=== PATIENT | female | born 1950 | race Caucasian/White ===

== ENCOUNTER → 2018-08-27 22:22 | Outpatient (CLI) | payer MEDICARE, MEDICAID, SELFPAY | DX: G47.9 Sleep disorder, unspecified (principal); G47.00 Insomnia, unspecified | CPT/HCPCS: 95810 ==

== ENCOUNTER → 2018-12-09 14:26 | Outpatient (CLI) | payer MEDICARE, SELFPAY ==
[2016-05-20 15:44] VITALS: BMI 29.9
[2018-12-09 16:47] LABS: Absolute Lymphocyte Count 1.78 X10^3/ul (0.83-4.51); Absolute Neutrophil Count 3.7 X10^3/uL (2.0-7.7); Basophil# 0.02 X10^3/uL; Basophil% 0.3 % (0-1); Eosinophil# 0.07 X10^3/uL; Eosinophils% 1.2 % (0-5); Hematocrit 41.9 % (37-47); Hemoglobin 13.9 g/dl (12.0-15.0); Lymphocyte # 1.78 X10^3/ul (4.0); Lymphocyte % 29.9 % (19-41); Mean Corp Hgb Conc 33.2 g/gl (32-36); Mean Corpuscular Hgb 28.7 pg (27.0-32.0); Mean Corpuscular Volume 86.6 fL (81-99); Mean Platelet Vol. 9.8 fl (6.2-12.0); Monocyte# 0.34 X10^3/uL; Monocyte% 5.7 % (0-10); Neutrophil # 3.73 X10^3/uL (2.7-7.7); Neutrophil % 62.7 % (47-70); Platelet Count 200 K/mm3 (150-450); RBC Distribution Width CV 12.5 % (11.6-14.6); Red Blood Count 4.84 M/mm3 (4.2-5.4)
[2018-12-09 16:57] LABS: POSITIVE COUNT NO; POSITIVE DIFFERENTIAL NO; POSITIVE MORPHOLOGY NO
[2018-12-09 17:22] LABS: ALB/GLOB Ratio 1.2 RATIO (0.9-2.4); AST(SGOT) 16 U/L (15-37); Alanine Aminotransfer ALT/SGPT 26 U/L (13-56); Alkaline Phosphatase 96 U/L (45-117); Anion Gap 9 (5-15); BUN 21 mg/dL (7-18); Calcium,Total 8.7 mg/dL (8.5-10.1); Chloride 99 mmol/L (98-107); Cholesterol 141 mg/dL (200); Creatinine, Serum 1.05 mg/dL (0.55-1.02); EST Glomerular Filtration Rate 56 mL/min (>60); Est Glom Filt Rate - Afr Amer 67 mL/min (>60); Globulin 3.2 g/dL (2.2-4.2); Glucose 429 mg/dL (74-106); High Density Lipoprotein 46 mg/dL; Potassium 4.4 mmol/L (3.5-5.1); Protein, Total 7.2 g/dL (6.4-8.2); Sodium Level 132 mmol/L (136-145); Thyroid Stim Hormone (TSH) 1.04 uIU/mL (0.358-3.74); Triglycerides 95 mg/dL; Very Low Density Lipoprotein 19 mg/dL (5-40)
[2018-12-12 09:17] LABS: Hep C Antibodies <0.1 s/co ratio (0.0-0.9)
== END ==
PROVIDERS: Family Provider Family Medicine Geriatric Medicine; PCP Family Medicine Geriatric Medicine; Visit Provider Family Medicine Geriatric Medicine
DX: E11.65 Type 2 diabetes mellitus with hyperglycemia (principal); E55.9 Vitamin D deficiency, unspecified; Z13.89 Encounter for screening for other disorder
CPT/HCPCS: 36415; 80053; 80061; 82306; 84443; 85025; 86803

== ENCOUNTER → 2019-01-22 | Outpatient (CLI) | payer MEDICARE, SELFPAY ==
--- NOTE | 2019-01-22 14:23 | CT_ITS ---
STUDY: LOW DOSE CT LUNG CANCER SCREENING REASON FOR EXAM: Female, 68 years old. 17 pack-year smoking history. RADIATION DOSAGE (If Supplied By Facility): CTDIvol = ( 3.02 ) mGy, DLP = ( 112.49 ) mGycm TECHNIQUE: No contrast was administered. Low dose technique was utilized (average mAS-38 and kVp 120). 1.25 mm axial source images with a slice interval of 1.25-mm were reconstructed in lung windows. 2.5 mm axial source images with a slice interval of 2.5-mm were reconstructed in lung windows. 5.0 mm axial source images with a slice interval of 5.0-mm were reconstructed in soft tissue windows. Nodule measured using lung windows on PACS and/or independent workstation with automated measurement of minimum and maximum diameter. Nodule measurement reported as average diameter rounded to the nearest whole number. Growth is defined as an increase ins size of greater than 1.5 mm. COMPARISON: None. NODULES: Total lung nodules (excluding granulomas): 0 Emphysema: Endobronchial lesion: Aorta: Minimal atherosclerotic changes of the thoracic aorta without aneurysm. Coronary arteries: There are coronary artery calcifications. Heart: Normal in size Pulmonary artery: Normal in size Mediastinal nodes: None Other chest and abdominal findings: There is mild degenerative changes of the thoracic spine. CT/Low Dose CT Lung Screening IMPRESSION: Lung-RADS category 1 - Continue annual screening with LDCT in 12 months. IMPORTANT NOTES FOR USE: ACR Lung-RADS Version 1.0 Assessment Categories Release Date: January 25, 2014 Category: Coded 0-4 bases on nodule(s) with highest degree of suspicion. Negative screen is defined as categories 1 and 2; a positive screen is defined as categories 3 and 4. Category 3 and 4A nodules that are unchanged on interval CT should be coded as category 2, and individuals returned to screening in 12 months. Category 4X: Category 3 or 4 nodules with additional imaging findings that increase the suspicion of lung cancer, such as spiculation, GGN that doubles in size in 1 year, enlarged lymph notes, etc. Category Modifiers: S (significant finding unrelated to lung cancer) and C (prior history of treated lung cancer) may be added to the 0-4 Lung-RADS Electronically Signed: Red Giles DO at 18:08 EDT Tel [phone], Service support ,
== END | disposition home or self-care (01) ==
LOC: CT 14:20
PROVIDERS: Family Provider Family Medicine Geriatric Medicine; PCP Family Medicine Geriatric Medicine; Referring Provider Family Medicine Geriatric Medicine; Visit Provider Family Medicine Geriatric Medicine
DX: Z87.891 Personal history of nicotine dependence (principal)
CPT/HCPCS: G0297

== ENCOUNTER → 2019-03-11 | Outpatient (CLI) | payer MEDICARE, SELFPAY ==
[2019-03-11 16:51] LABS: Absolute Lymphocyte Count 2.63 X10^3/ul (0.83-4.51); Absolute Neutrophil Count 4.7 X10^3/uL (2.0-7.7); Basophil# 0.02 X10^3/uL; Basophil% 0.3 % (0-1); Eosinophils% 1.3 % (0-5); Hematocrit 42.9 % (37-47); Hemoglobin 14.3 g/dl (12.0-15.0); Lymphocyte # 2.63 X10^3/ul (4.0); Mean Corp Hgb Conc 33.3 g/gl (32-36); Mean Corpuscular Hgb 28.4 pg (27.0-32.0); Mean Corpuscular Volume 85.3 fL (81-99); Mean Platelet Vol. 10.1 fl (6.2-12.0); Monocyte# 0.51 X10^3/uL; Monocyte% 6.4 % (0-10); Neutrophil % 58.7 % (47-70); Platelet Count 210 K/mm3 (150-450); RBC Distribution Width CV 13.8 % (11.6-14.6); RBC Distribution Width SD 42.2 fl (35.1-43.9); Red Blood Count 5.03 M/mm3 (4.2-5.4)
[2019-03-11 16:56] LABS: POSITIVE COUNT NO; POSITIVE DIFFERENTIAL NO; POSITIVE MORPHOLOGY NO
[2019-03-11 17:04] LABS: Vitamin D,25 Hydroxy 43.6 ng/mL (29.95-100.01)
[2019-03-11 17:06] LABS: ALB/GLOB Ratio 1.3 RATIO (0.9-2.4); AST(SGOT) 17 U/L (15-37); Alanine Aminotransfer ALT/SGPT 29 U/L (13-56); Albumin, Serum 3.9 g/dL (3.2-5.0); Alkaline Phosphatase 78 U/L (45-117); Anion Gap 6 (5-15); BUN 22 mg/dL (7-18); BUN/Creat Ratio 23.1 RATIO (10-20); Calcium,Total 9.5 mg/dL (8.5-10.1); Chloride 100 mmol/L (98-107); Cholesterol 168 mg/dL (200); Creatinine, Serum 0.95 mg/dL (0.55-1.02); EST Glomerular Filtration Rate 62 mL/min (>60); Est Glom Filt Rate - Afr Amer 75 mL/min (>60); Globulin 2.9 g/dL (2.2-4.2); Glucose 287 mg/dL (74-106); High Density Lipoprotein 57 mg/dL; Potassium 4.3 mmol/L (3.5-5.1); Protein, Total 6.8 g/dL (6.4-8.2); Sodium Level 132 mmol/L (136-145); Thyroid Stim Hormone (TSH) 1.21 uIU/mL (0.358-3.74); Triglycerides 112 mg/dL; Very Low Density Lipoprotein 22 mg/dL (5-40)
== END | disposition home or self-care (01) ==
PROVIDERS: Family Provider Family Medicine Geriatric Medicine; PCP Family Medicine Geriatric Medicine; Visit Provider Family Medicine Geriatric Medicine
DX: E11.65 Type 2 diabetes mellitus with hyperglycemia (principal); E55.9 Vitamin D deficiency, unspecified; E78.5 Hyperlipidemia, unspecified; I10 Essential (primary) hypertension
CPT/HCPCS: 36415; 80053; 80061; 82306; 84443; 85025

== ENCOUNTER → 2019-06-10 14:39 | Outpatient (CLI) | payer MEDICARE, SELFPAY ==
[2016-05-20 15:44] VITALS: BMI 29.9
[2019-06-10 15:40] LABS: Absolute Lymphocyte Count 2.29 X10^3/uL (0.83-4.51); Absolute Neutrophil Count 4.6 X10^3/uL (2.0-7.7); Basophil# 0.03 X10^3/uL; Basophil% 0.4 % (0-1); Eosinophil# 0.08 X10^3/uL; Hematocrit 39.3 % (37-47); Hemoglobin 13.1 g/dL (12.0-15.0); Lymphocyte # 2.29 X10^3/ul (4.0); Lymphocyte % 29.9 % (19-41); Mean Corp Hgb Conc 33.3 g/dL (32-36); Mean Corpuscular Hgb 29.6 pg (27.0-32.0); Mean Corpuscular Volume 88.7 fL (81-99); Mean Platelet Vol. 9.2 fl (6.2-12.0); Monocyte# 0.61 X10^3/uL; NRBC Flagged by Analyzer 0 % (0-5); Neutrophil # 4.62 X10^3/uL (2.7-7.7); Neutrophil % 60.4 % (47-70); Platelet Count 233 K/mm3 (150-450); RBC Distribution Width SD 45.5 fl (35.1-43.9); Red Blood Count 4.43 M/mm3 (4.2-5.4); White Blood Count 7.7 K/mm3 (4.4-11.0)
[2019-06-10 16:08] LABS: Vitamin D,25 Hydroxy 62.5 ng/mL (29.95-100.01)
[2019-06-10 16:11] LABS: ALB/GLOB Ratio 1.2 RATIO (0.9-2.4); AST(SGOT) 18 U/L (15-37); Alanine Aminotransfer ALT/SGPT 27 U/L (13-56); Albumin, Serum 4.1 g/dL (3.2-5.0); Alkaline Phosphatase 64 U/L (45-117); Anion Gap 12 (5-15); BUN 19 mg/dL (7-18); BUN/Creat Ratio 15.8 RATIO (10-20); Calcium,Total 9.6 mg/dL (8.5-10.1); Chloride 104 mmol/L (98-107); Cholesterol 145 mg/dL (200); EST Glomerular Filtration Rate 48 mL/min (>60); Est Glom Filt Rate - Afr Amer 58 mL/min (>60); Globulin 3.3 g/dL (2.2-4.2); Glucose 108 mg/dL (74-106); High Density Lipoprotein 57 mg/dL; Protein, Total 7.4 g/dL (6.4-8.2); Sodium Level 140 mmol/L (136-145); Thyroid Stim Hormone (TSH) 1.99 uIU/mL (0.358-3.74); Triglycerides 127 mg/dL; Very Low Density Lipoprotein 25 mg/dL (5-40)
== END ==
PROVIDERS: Family Provider Family Medicine Geriatric Medicine; PCP Family Medicine Geriatric Medicine; Visit Provider Family Medicine Geriatric Medicine
DX: E11.65 Type 2 diabetes mellitus with hyperglycemia (principal); E55.9 Vitamin D deficiency, unspecified; E78.5 Hyperlipidemia, unspecified; I10 Essential (primary) hypertension
CPT/HCPCS: 36415; 80053; 80061; 82306; 84443; 85025

== ENCOUNTER → 2019-09-16 14:54 | Outpatient (CLI) | payer MEDICARE, SELFPAY ==
[2016-05-20 15:44] VITALS: BMI 29.9
[2019-09-16 15:38] LABS: Absolute Lymphocyte Count 2.31 X10^3/uL (0.83-4.51); Absolute Neutrophil Count 5.2 X10^3/uL (2.0-7.7); Basophil# 0.04 X10^3/uL; Basophil% 0.5 % (0-1); Eosinophil# 0.04 X10^3/uL; Eosinophils% 0.5 % (0-5); Hematocrit 41.2 % (37-47); Hemoglobin 13.4 g/dL (12.0-15.0); Lymphocyte # 2.31 X10^3/ul (4.0); Lymphocyte % 28.5 % (19-41); Mean Corp Hgb Conc 32.5 g/dL (32-36); Mean Corpuscular Hgb 29.9 pg (27.0-32.0); Mean Platelet Vol. 9.8 fl (6.2-12.0); Monocyte% 6.2 % (0-10); NRBC Flagged by Analyzer 0 % (0-5); Neutrophil # 5.18 X10^3/uL (2.7-7.7); Neutrophil % 63.9 % (47-70); Platelet Count 250 K/mm3 (150-450); RBC Distribution Width CV 12.7 % (11.6-14.6); RBC Distribution Width SD 43.1 fl (35.1-43.9); Red Blood Count 4.48 M/mm3 (4.2-5.4); White Blood Count 8.1 K/mm3 (4.4-11.0)
[2019-09-16 16:05] LABS: Vitamin D,25 Hydroxy 44.8 ng/mL (29.95-100.01)
[2019-09-16 16:10] LABS: ALB/GLOB Ratio 1.3 RATIO (0.9-2.4); AST(SGOT) 16 U/L (15-37); Alanine Aminotransfer ALT/SGPT 26 U/L (13-56); Albumin, Serum 4.3 g/dL (3.2-5.0); Alkaline Phosphatase 64 U/L (45-117); Anion Gap 10 (5-15); BUN 21 mg/dL (7-18); BUN/Creat Ratio 17.4 RATIO (10-20); Calcium,Total 9.2 mg/dL (8.5-10.1); Chloride 101 mmol/L (98-107); Cholesterol 151 mg/dL (200); Creatinine, Serum 1.21 mg/dL (0.55-1.02); EST Glomerular Filtration Rate 47 mL/min (>60); Est Glom Filt Rate - Afr Amer 57 mL/min (>60); Globulin 3.2 g/dL (2.2-4.2); Glucose 106 mg/dL (74-106); High Density Lipoprotein 68 mg/dL; Potassium 3.7 mmol/L (3.5-5.1); Protein, Total 7.5 g/dL (6.4-8.2); Sodium Level 136 mmol/L (136-145); Thyroid Stim Hormone (TSH) 1.15 uIU/mL (0.358-3.74); Triglycerides 140 mg/dL; Very Low Density Lipoprotein 28 mg/dL (5-40)
== END ==
PROVIDERS: Family Provider Family Medicine Geriatric Medicine; PCP Family Medicine Geriatric Medicine; Visit Provider Family Medicine Geriatric Medicine
DX: E11.65 Type 2 diabetes mellitus with hyperglycemia (principal); E55.9 Vitamin D deficiency, unspecified; E78.5 Hyperlipidemia, unspecified; I10 Essential (primary) hypertension
CPT/HCPCS: 36415; 80053; 80061; 82306; 84443; 85025

== ENCOUNTER → 2019-11-10 15:00 | Outpatient (CLI) | payer MEDICARE, SELFPAY ==
[2016-05-20 15:44] VITALS: BMI 29.9
[2019-11-10 16:13] LABS: Bacteria 0 SEEN /hpf (None Seen); Mucous, Urine 0 SEEN /hpf (<or=2+); Red Blood Cells-Urine 0 SEEN /hpf (0-5)
[2019-11-10 17:29] LABS: Color, Urine Yellow (Yellow); Glucose, Dipstick Normal (Normal); Ketone-Dipstick Negative (Negative); Leukocyte Esterase-Dipstick 500 /ul (Negative); Nitrite-Dipstick Negative (Negative); Occult Blood-Urine 10 /ul (Negative); Protein-Dipstick Negative (Negative); Urine Bilirubin Dipstick Negative (Negative); Urine Clarity Sl. Cloudy (Clear); Urine Urobilinogen Normal (Normal)
[2019-11-10 17:37] LABS: Albumin, Serum 4.4 g/dL (3.2-5.0); BUN 19 mg/dL (7-18); BUN/Creat Ratio 15.4 RATIO (10-20); Calcium,Total 9.8 mg/dL (8.5-10.1); Chloride 96 mmol/L (98-107); Creatinine, Serum 1.23 mg/dL (0.55-1.02); EST Glomerular Filtration Rate 46 mL/min (>60); Est Glom Filt Rate - Afr Amer 56 mL/min (>60); Glucose 101 mg/dL (74-106); Phosphorus 3.7 mg/dL (2.5-4.9); Potassium 4.1 mmol/L (3.5-5.1); Sodium Level 134 mmol/L (136-145)
[2019-11-10 18:34] LABS: Hyaline Cast 0-5 SEEN /lpf (0-5)
[2019-11-10 18:36] LABS: Squamous Epithelial Cells - UA 0-5 SEEN /hpf (5-10); Transitional Epithelial - Ur 0-5 SEEN /hpf (0-5)
[2019-11-10 18:37] LABS: White Blood Cells 10-25 SEEN /hpf (0-5)
[2019-11-10 18:38] LABS: Calcium Oxalate Crystals Ur RARE /hpf (<or=2+)
== END ==
PROVIDERS: PCP Family Medicine Geriatric Medicine; Visit Provider Internal Medicine Nephrology
DX: N18.3 Chronic kidney disease, stage 3 (moderate) (principal)
CPT/HCPCS: 36415; 80069; 81001

== ENCOUNTER → 2019-11-13 11:42 | Outpatient (CLI) | payer MEDICARE, SELFPAY ==
[2016-05-20 15:44] VITALS: BMI 29.9
--- NOTE | 2019-11-13 11:50 | US_ITS ---
STUDY: RENAL ULTRASOUND - COMPLETE REASON FOR EXAM: Female, 69 years old. CKD3 TECHNIQUE: Ultrasound evaluation of the kidneys was performed with real-time and static fontaine-scale imaging. COMPARISON: None. FINDINGS: RIGHT KIDNEY: Normal location of the right kidney, which is normal in size. The right kidney measures 10.3 cm x 6.9 cm x 5.1 cm. There is a normal cortex of the right kidney. The renal cortex measures 1.6 cm. There is a 4.2 cm x 3.5 cm x 3.1 cm possible hypoechoic mass in the lower pole of the right kidney. Correlation with a CT scan is recommended. There are no right renal calculi. There is no right hydronephrosis. DISTAL RIGHT URETER: There is non-visualization of the distal right ureter. There is no demonstrated right ureterovesical junction calculus. There is a visualized right ureteral jet. LEFT KIDNEY: Normal location of the left kidney, which is normal in size. The left kidney measures 9.9 cm x 4.27 x 5.6 cm. There is a normal cortex of the left kidney. The renal cortex measures 1.5 cm. There is a 1.4 cm x 0.9 cm x 0.7 cm cyst. There are no left renal calculi. There is no left hydronephrosis. DISTAL LEFT URETER: There is non-visualization of the distal left ureter. There is no demonstrated left ureterovesical junction calculus. There is a visualized left ureteral jet. BLADDER: The distended urinary bladder has a volume of 104 ml. There is a normal wall thickness of the distended urinary bladder. There is no demonstrated mass within the urinary bladder. There are no demonstrated bladder calculi. US/Kidney and Bladder IMPRESSION: Findings suggestive of a possible hypoechoic mass measuring 4.2 cm x 3.5 Des by 3.1 cm in the lower pole of the right kidney. Correlation with a CT scan is recommended. Small left renal cyst. Electronically Signed: Venkata Diamond, at 14:42 EST , Service support ,
== END ==
PROVIDERS: PCP Family Medicine Geriatric Medicine; Referring Provider Internal Medicine Nephrology; Visit Provider Internal Medicine Nephrology
DX: N18.3 Chronic kidney disease, stage 3 (moderate) (principal)
CPT/HCPCS: 76770

== ENCOUNTER → 2019-12-15 14:19 | Outpatient (CLI) | payer MEDICARE, SELFPAY ==
[2016-05-20 15:44] VITALS: BMI 29.9
[2019-12-15 15:15] LABS: Absolute Lymphocyte Count 2.48 X10^3/uL (0.83-4.51); Absolute Neutrophil Count 4.1 X10^3/uL (2.0-7.7); Basophil# 0.04 X10^3/uL; Basophil% 0.6 % (0-1); Eosinophil# 0.06 X10^3/uL; Eosinophils% 0.8 % (0-5); Hematocrit 40.5 % (37-47); Hemoglobin 12.8 g/dL (12.0-15.0); Lymphocyte # 2.48 X10^3/ul (4.0); Lymphocyte % 34.2 % (19-41); Mean Corp Hgb Conc 31.6 g/dL (32-36); Mean Corpuscular Hgb 28.8 pg (27.0-32.0); Mean Corpuscular Volume 91.2 fL (81-99); Mean Platelet Vol. 9.9 fl (6.2-12.0); Monocyte# 0.58 X10^3/uL; NRBC Flagged by Analyzer 0 % (0-5); Neutrophil # 4.07 X10^3/uL (2.7-7.7); Neutrophil % 56.1 % (47-70); Platelet Count 249 K/mm3 (150-450); RBC Distribution Width CV 13.2 % (11.6-14.6); RBC Distribution Width SD 44.9 fl (35.1-43.9); Red Blood Count 4.44 M/mm3 (4.2-5.4); White Blood Count 7.3 K/mm3 (4.4-11.0)
[2019-12-15 15:53] LABS: Vitamin D,25 Hydroxy 64.2 ng/mL
[2019-12-15 15:59] LABS: ALB/GLOB Ratio 1.1 RATIO (0.9-2.4); AST(SGOT) 18 U/L (15-37); Alanine Aminotransfer ALT/SGPT 25 U/L (13-56); Alkaline Phosphatase 65 U/L (45-117); Anion Gap 9 (5-15); BUN 17 mg/dL (7-18); BUN/Creat Ratio 14.8 RATIO (10-20); Calcium,Total 9.3 mg/dL (8.5-10.1); Chloride 100 mmol/L (98-107); Cholesterol 158 mg/dL (200); Creatinine, Serum 1.15 mg/dL (0.55-1.02); EST Glomerular Filtration Rate 50 mL/min (>60); Est Glom Filt Rate - Afr Amer 60 mL/min (>60); Globulin 3.6 g/dL (2.2-4.2); Glucose 130 mg/dL (74-106); High Density Lipoprotein 70 mg/dL; Protein, Total 7.6 g/dL (6.4-8.2); Sodium Level 136 mmol/L (136-145); Thyroid Stim Hormone (TSH) 1.74 uIU/mL (0.358-3.74); Triglycerides 94 mg/dL; Very Low Density Lipoprotein 19 mg/dL (5-40)
== END ==
PROVIDERS: PCP Family Medicine Geriatric Medicine; Visit Provider Family Medicine Geriatric Medicine
DX: E11.65 Type 2 diabetes mellitus with hyperglycemia (principal); E55.9 Vitamin D deficiency, unspecified; E78.5 Hyperlipidemia, unspecified; I10 Essential (primary) hypertension
CPT/HCPCS: 36415; 80053; 80061; 82306; 84443; 85025

== ENCOUNTER → 2019-12-17 07:34 | Outpatient (CLI) | payer MEDICARE, SELFPAY ==
--- NOTE | 2019-12-17 07:41 | CT_ITS ---
STUDY: CT ABDOMEN AND PELVIS WITHOUT CONTRAST REASON FOR EXAM: Female, 69 years old. PT STATED ABNORMAL KIDNEY US FOLLOW UP RADIATION DOSAGE (If Supplied By Facility): CTDIvol = ( 7.96 ) mGy, DLP = ( 399.65 ) mGycm TECHNIQUE: Transaxial images were obtained from the dome of the diaphragm to the symphysis pubis without oral contrast, and without intravenous contrast. Sagittal and coronal images were reconstructed. Individualized dose optimization techniques were used for this CT. COMPARISON: Comparison is made with prior ultrasound of the kidneys dated November 13, 2019. FINDINGS: The visualized lung bases are unremarkable. The visualized portions of the heart are within normal limits. Normal liver. Normal gallbladder and extrahepatic biliary system. Normal spleen. Normal pancreas. Normal bilateral adrenal glands. There is a 4.2 cm x 4.2 cm x 4.9 cm solid mass in the anterior midportion of the right kidney. A neoplastic process should be ruled out. Normal left kidney. Normal visualized stomach. Normal small intestine. Normal colon. The appendix is visualized and appears normal. There is diffuse atherosclerotic calcification of the abdominal aorta and its major visceral branches, without a demonstrated aneurysm. Normal inferior vena cava. Normal retroperitoneum. Normal urinary bladder. Phleboliths are seen within the pelvis. There is a right-sided inguinal hernia containing adipose tissue. Normal osseous structures. CT/Abdomen/Pelvis without Cont IMPRESSION: 4.2 cm x 4.2 Shireen by 4.9 sinus cell mass in the anterior midportion of the right kidney a neoplastic process should be ruled. Electronically Signed: Venkata Diamond, at 8:33 EDT , Service support ,
== END ==
LOC: CT 07:35
PROVIDERS: PCP Family Medicine Geriatric Medicine; Referring Provider Family Medicine Geriatric Medicine; Visit Provider Family Medicine Geriatric Medicine
DX: N28.9 Disorder of kidney and ureter, unspecified (principal)
CPT/HCPCS: 74176

== ENCOUNTER 2020-01-01 07:30 | Inpatient (IN) | payer MEDICARE, SELFPAY ==
[2020-01-01] VITALS (12 sets, daily range): BP systolic 86–136; BP diastolic 44–83; PULSE 58–77; RESP 14–18; TEMP 35.8–36.6; O2SAT 92–100; BMI 26.9
--- NOTE | 2020-01-01 | KID_PTH ---
PATIENT: NISH BENITEZ LOC: PCU U#:[id number] AGE/SX: 69/F ROOM: [facility] RE01/02/[address]: Dr. Rao Herron MD : 1950 BED: 1 DIS: 01/03/2020 SPEC #: [id number] RECD: 01/04/20 12:35 STATUS: JULIUS MCMAHANOrquidea #: [id number] SONG: 01/01/20 00:[address]: aRo Herron DEPT: SURGICAL PATHOLOGY RECD BY: Rodriguez Hayes ENTERED: 01/04/20 12:35 SP TYPE: KIDNEY OTHR DR: Dr. 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 See cancer summary below. SJ:brain 01/05/20 KIDNEY CANCER SUMMARY Procedure - partial nephrectomy Specimen laterality - right Tumor site - not specified Tumor size - 4 x 4 x 3.5 cm Tumor focality - unifocal Histologic type - clear cell renal cell carcinoma Sarcomatoid features - not identified Rhabdoid features - not identified Histologic grade (Marie nuclear grade) - 1-2 Tumor necrosis - not identified Tumor extension - tumor limited to kidney Margins - uninvolved by invasive carcinoma Lymphvascular invasion - not identified Regional lymph nodes - no lymph nodes submitted or found. Pathologic findings in non-neoplastic kidney - interstitial chronic inflammation. Additional pathologic findings - none See comment. PATHOLOGIC STAGE: pT1a pNx Mx The above summary is in compliance with [employer] [place] [employer] (CAP) Cancer Protocols Checklist and [place] [employer] Committee on Cancer (AJCC), Staging Manual, 8th Ed. COMMENT The tumor appears to be circumscribed and limited to kidney. A focal area of gross rupture of the tumor is noted. Clinical correlation is necessary. Case has been reviewed in consultation with Dr. Tapia who concurs with the above diagnosis. IDC:AM MICROSCOPIC DESCRIPTION Slides are reviewed. GROSS DESCRIPTION Received in fixative is one container labeled with the patient's name and designated right renal mass. The specimen consists of a partial nephrectomy specimen weighing 29.4 gm and measuring 4 x 4 x 3.5 cm consisting of a nodular mass with a thin rim of normal renal parenchymal tissue at one edge and perirenal adipose tissue at other edge. The tumor appears to be partially ruptured and a plastic clip is noted next to it. The specimen is inked as follows: renal parenchymal tissue area - black, rest of the specimen - blue. Sections reveal almost the entire specimen is replaced by a yellowish-orange nodular mass with focal area of hemorrhage. A focal area of hinojosa-white myxoid area is also noted. Only a thin rim of normal renal parenchymal tissue is noted measuring <0.1 cm in greatest dimension. The tumor appears to be circumscribed and does not appear to invade into the existent perirenal adipose tissue. Legal Operations Manager sections are submitted in ten cassettes. Cassettes 6 & 7 contain the possible area of rupture of the tumor and cassette 10 contains the perirenal adipose tissue. / MIREILLE:brain 01/04/20 TC:0 CPT: 88287
[2020-01-01 06:26] LABS: Hematocrit 37.8 % (37-47); Hemoglobin 12.4 g/dL (12.0-15.0); Mean Corp Hgb Conc 32.8 g/dL (32-36); Mean Corpuscular Hgb 30.3 pg (27.0-32.0); Mean Corpuscular Volume 92.4 fL (81-99); Mean Platelet Vol. 9.3 fl (6.2-12.0); Platelet Count 231 K/mm3 (150-450); RBC Distribution Width CV 13.6 % (11.6-14.6); RBC Distribution Width SD 46.4 fl (35.1-43.9); Red Blood Count 4.09 M/mm3 (4.2-5.4); White Blood Count 7.6 K/mm3 (4.4-11.0)
[2020-01-01 06:41] LABS: Hemoglobin A1c 5.9 % (4.2-6.3)
[2020-01-01 06:44] LABS: ALB/GLOB Ratio 1.4 RATIO (0.9-2.4); AST(SGOT) 16 U/L (15-37); Alanine Aminotransfer ALT/SGPT 25 U/L (13-56); Alkaline Phosphatase 66 U/L (45-117); Anion Gap 7 (5-15); BUN 20 mg/dL (7-18); BUN/Creat Ratio 15.3 RATIO (10-20); Calcium,Total 9.5 mg/dL (8.5-10.1); Chloride 104 mmol/L (98-107); Creatinine, Serum 1.31 mg/dL (0.55-1.02); EST Glomerular Filtration Rate 43 mL/min (>60); Est Glom Filt Rate - Afr Amer 52 mL/min (>60); Estimated Creatinine Clearance 36.98 ml/min; Globulin 2.8 g/dL (2.2-4.2); Glucose 125 mg/dL (74-106); Potassium 3.7 mmol/L (3.5-5.1); Protein, Total 6.8 g/dL (6.4-8.2); Sodium Level 138 mmol/L (136-145)
[2020-01-01 07:00] LABS: Bedside Glucose 107 mg/dL (70-110)
[2020-01-01] MEDS: Lactated Ringers 1,000 ML 100 ML IV ×2 (07:09→07:18)
--- NOTE | 2020-01-01 07:22 | EKG12_ITS ---
Test Reason : PRE OP Blood Pressure : / mmHG Vent. Rate : 061 BPM Atrial Rate : 061 BPM P-R Int : 188 ms QRS Dur : 086 ms QT Int : 450 ms P-R-T Axes : 056 -15 039 degrees QTc Int : 453 ms Normal sinus rhythm Normal ECG When compared with ECG of 14-FEB-2004 08:23, Minimal criteria for Anterior infarct are no longer Present Confirmed by DAVID SIDHU, CHASE ([id number]), state editor LAY SU ([id number]) on 01/05/2020 2:27:59 PM Referred By: Rao Herron Confirmed By:UZAIR HERNANDEZ MD
--- NOTE | 2020-01-01 07:39 | PCM.DC.URO ---
Discharge Diet: Light diet - advance as tolerated Discharge Activity: May not drive while taking narcotic pain medications., May Shower Call your doctor if your incision/area has: Continuous Slow Oozing, Sudden Increased Bleeding, Increased Pain/ Swelling, Increased Redness, Foul Smelling Discharge, Swelling at the incision site Call your doctor if you observe: Fever of 101 or Higher, Inability to have a bowel movement, Uncontrolled pain Suture Line Care: Avoid Pulling/Pushing, Avoid Pinching/Bending Cleanse incision/area with: Soap & Water Instructions: Nephrectomy Allergies/Adverse Reactions: Allergies No Known Allergies Allergy (Verified 12/31/19 10:06) Medications to take at Discharge Atorvastatin Calcium [Lipitor] 40 mg PO QHS 12/31/19 Bupropion HCl [Wellbutrin Xl] 150 mg PO BID 12/31/19 Canagliflozin [Invokana] 100 mg PO DAILY 12/31/19 Cholecalciferol (VIT D3) [Vitamin D3] 1,000 unit PO DAILY 12/31/19 Citalopram [Celexa] 20 mg PO DAILY 12/31/19 Cyanocobalamin [Vitamin B12] 1,000 mcg PO DAILY@0800 12/31/19 Lisinopril 5 mg PO QHS 12/31/19 Magnesium 500 mg PO DAILY 12/31/19 Melatonin 10 mg PO QHS 12/31/19 Metformin HCl [Glucophage Xr] 1,000 mg PO BID 12/31/19 Metoprolol(XL)Succ [Toprol Xl (Beta Shimon)] 12.5 mg PO QHS 12/31/19 Pioglitazone [Actos] 30 mg PO DAILY 12/31/19 Ubidecarenone [Coq-10] 300 mg PO DAILY 12/31/19 Docusate Sodium [Colace] 100 mg PO BID #20 cap 01/01/20 Hydrocodone/Acetaminophen [[place] 5-325 Tablet] 1 each PO Q4H PRN PRN 5 Days #14 tablet 01/01/20 The following prescriptions were given: Docusate Sodium [Colace] 100 mg PO BID #20 cap Transmission Status: Pending to [facility] Hydrocodone/Acetaminophen [[place] 5-325 Tablet] 1 each PO Q4H PRN PRN 5 Days #14 tablet PRN Reason: Pain Score 1-10/10 Transmission Status: Sent to [facility] Primary Care Physician: Juan Diego King Chi, MD [Primary Care Provider] - Test Results: Test results from this visit will be discussed in further detail at your follow-up appointment, if applicable. Please Follow Up With: Rao Herron MD When: in 2 weeks, please call to make an appointment. Proposed Discharge Date: 01/02/20
[2020-01-01] MEDS: Cefazolin 2 GM in 0.9% Normal Saline 100 ML IV (07:43)
--- NOTE | 2020-01-01 11:25 | PCM.OPRPT ---
Report of Operation Date of Procedure: 01/01/20 Pre-Operative Diagnosis: Right renal mass suspected renal cell carcinoma Post-Operative Diagnosis: Same Surgery/Procedure Performed:: Laparoscopic robotic assisted right partial nephrectomy Description of Surgical Findings:: 69-year-old female on imaging was found to have a mass in the right kidney about 4 cm in size the mass was in the hilum of the kidney because of the risk that the mass could spread and cause metastatic disease recommended we proceed with intervention we talked about the options one would be a partial nephrectomy to remove just the tumor, we talked about the risk of positive margins and recurrence of tumor about 5% the other option would be to proceed with a radical nephrectomy. After discussing the options with the patient, I also felt the tumor was amendable to a partial nephrectomy recommended we proceed with a partial nephrectomy. We discussed the risk of the procedure including risk of bleeding, infection, risk of anesthesia, risk that tumor could come back, risk of recurrence of tumor. Patient was taken back to the operating room after smooth induction of general anesthesia she was placed supine position intubated and then placed in full flank position with the right side up we made sure that the all the pressure points were padded she was flexed a Jenkins catheter was placed. Then the abdomen was shaved prepped and draped in usual sterile fashion. I then infiltrated the skin with lidocaine made a small incision in the mid abdomen introduced a Veress needle into the abdomen and filled the abdomen with CO2 gas. We then placed our camera trocar right arm trocar left arm trocar and the fourth holding grants and contracts assistant trocar for the robot placed an air seal port we then docked the robot and started with dissection we first freed the liver off of the kidney there was some attachments within the liver and the kidney that were normal these were freed up allow the liver to retract off the kidney we then incised the white line of Toldt and reflected the fat of the colon off the kidney all the way down to the pelvis we retracted the mesentery fat off the kidney after this we then identified the ureter and traced the ureter up and then identified the gonadal vessel with left gonadal vessel down in the ureter up we then with the fourth arm underneath the kidney to retract it cephalad and also put a stretch on the hilum we then went to the hilum and identified the first small branching renal artery and then we identified the vein which is a branching vein and with behind a branching vein there was a artery that was also branching very early we were able to dissect down the renal artery down to the base before all the branches I then put a vessel loop around the small accessory renal artery and then put a vessel loop around the main renal artery. We then went up to the kidney used intraoperative ultrasound to identify the tumor that was emanating from the mid kidney it was hilar tumor is about 4 cm in size we dissected all the way around the tumor to get our service circumferential incision we used laparoscopic ultrasound today to decide our approach to the tumor to make sure that we had negative margins and then we incised the capsule of the kidney we then clamped the small accessory renal artery with the vessel vessel loop and then we did put a vessel loop around the main artery just to be able pull it up and we put a clamp on the main artery kidney turn nice and pale white and we had good control over the vasculature we then started dissecting circumferentially all the way around the tumor working away towards the hilum and then as we go down deep into the hilum got into the hilar fat and then as we got into the deep part of the kidney we identified the collecting system there is a small injury to the collecting system and then we started dissecting the kidney cephalad and then at that one point we could see big vein going straight into the tumor and behind the vein was a thrombus of tumor coming out beside it placed a clip on the vein 2 clips one clip up and could be down transected through the vein and then made sure that with the tumor thrombus was then pulled out and then we continued dissecting laterally to the right and then underneath the kidney all the way cephalad until we had we remove the entire tumor from the hilum of the kidney. We then irrigated and then closed and identified the collecting system this was closed separately we then rent stitches in the base to close and control any bleeding we then unclamped the artery the clamping time was about 25 minutes we then used bolsters and large suture and 0 Vicryl to reapproximate the 2 edges of the kidney back together under very tight pressure to compress the parenchyma this was with a running mattress suture using hemo-locks between we also use a V lock stitch to run the base of the resection site we then unclamped the artery unclamped the accessory artery and there was no significant bleeding post FloSeal placed Surgicel on the cath and then closed the gap again with another 0 Vicryl stitch until this point the resection site was completely closed and there was no active bleeding very minimal bleeding during the procedure itself 2. After this we then undocked the robot we extracted the tumor through the lower incision we closed the 11/09/2011 trocar sites with stitches pulled out the trochars inspected the kidney before we left and there was no active bleeding from the kidney no signs of a leak and then at this point were closing the skin incisions patient anesthetic is being reversed it was a complete resection of the tumor gross negative margins there was 1 small violation on the right side as we were coming through the tumor but this was quickly identified and identified and corrected with a new a new plane to the kidney. Grossly it appeared to be a complete resection. Patient anesthetic is being reversed I will go and talk to the family. Type of Anesthesia:: General Drains: jenkins - Admit VTE Documentation VTE Present on Admission: No VTE Mechan Device Prophylaxis: SCD's
[2020-01-01] MEDS: Bupivacaine Mpf 0.5% 30 ML VIAL (11:40)
[2020-01-01 12:24] LABS: Hematocrit 35.2 % (37-47); Hemoglobin 11.1 g/dL (12.0-15.0); Mean Corp Hgb Conc 31.5 g/dL (32-36); Mean Corpuscular Hgb 30.1 pg (27.0-32.0); Mean Corpuscular Volume 95.4 fL (81-99); Mean Platelet Vol. 9.2 fl (6.2-12.0); Platelet Count 194 K/mm3 (150-450); RBC Distribution Width CV 13.7 % (11.6-14.6); RBC Distribution Width SD 47.8 fl (35.1-43.9); Red Blood Count 3.69 M/mm3 (4.2-5.4); White Blood Count 11.9 K/mm3 (4.4-11.0)
[2020-01-01 12:47] LABS: Anion Gap 10 (5-15); BUN 19 mg/dL (7-18); BUN/Creat Ratio 18.1 RATIO (10-20); Calcium,Total 8.8 mg/dL (8.5-10.1); Chloride 106 mmol/L (98-107); Creatinine, Serum 1.05 mg/dL (0.55-1.02); EST Glomerular Filtration Rate 55 mL/min (>60); Est Glom Filt Rate - Afr Amer 67 mL/min (>60); Estimated Creatinine Clearance 46.14 ml/min; Glucose 142 mg/dL (74-106); Potassium 4.1 mmol/L (3.5-5.1); Sodium Level 137 mmol/L (136-145)
[2020-01-01] MEDS: Ketorolac 15 MG/ML Vial IV ×2 (13:12→18:14)
[2020-01-01] MEDS: 0.45% Normal Saline 1,000 ML 125 ML IV ×2 (13:12→21:24)
[2020-01-01] MEDS: Docusate Sodium 100 MG Capsule PO (22:09)
[2020-01-01] MEDS: MELATONIN 10 MG TABLET PO (22:10)
[2020-01-01] MEDS: Atorvastatin Calcium 40 MG Tablet PO (22:10)
[2020-01-01] MEDS: buPROPion (XL) 150 MG TABLET.XL PO (22:12)
[2020-01-01 22:31] LABS: Bedside Glucose 96 mg/dL (70-110)
[2020-01-02] VITALS (12 sets, daily range): BP systolic 82–112; BP diastolic 34–65; PULSE 67–76; RESP 16–18; TEMP 36.3–37.1; O2SAT 90–98
[2020-01-02] MEDS: 0.9% Saline Lock 10 ML Syringe IV ×4 (00:12→12:57)
[2020-01-02] MEDS: Lactated Ringers 500 ML 999 ML IV ×2 (00:17→03:58)
[2020-01-02] MEDS: Ketorolac 15 MG/ML Vial IV ×4 (00:18→17:43)
[2020-01-02 04:26] LABS: Hematocrit 25.7 % (37-47); Hemoglobin 8.2 g/dL (12.0-15.0); Mean Corp Hgb Conc 31.9 g/dL (32-36); Mean Corpuscular Hgb 29.4 pg (27.0-32.0); Mean Corpuscular Volume 92.1 fL (81-99); Mean Platelet Vol. 9.7 fl (6.2-12.0); Platelet Count 132 K/mm3 (150-450); RBC Distribution Width CV 13.7 % (11.6-14.6); RBC Distribution Width SD 46.6 fl (35.1-43.9); Red Blood Count 2.79 M/mm3 (4.2-5.4); White Blood Count 7.3 K/mm3 (4.4-11.0)
[2020-01-02 04:54] LABS: Anion Gap 7 (5-15); BUN 19 mg/dL (7-18); BUN/Creat Ratio 19.5 RATIO (10-20); Calcium,Total 8.1 mg/dL (8.5-10.1); Chloride 102 mmol/L (98-107); Creatinine, Serum 0.98 mg/dL (0.55-1.02); EST Glomerular Filtration Rate 60 mL/min (>60); Est Glom Filt Rate - Afr Amer 73 mL/min (>60); Estimated Creatinine Clearance 49.44 ml/min; Glucose 75 mg/dL (74-106); Potassium 3.5 mmol/L (3.5-5.1); Sodium Level 133 mmol/L (136-145)
[2020-01-02] MEDS: 0.45% Normal Saline 1,000 ML 125 ML IV (05:13)
--- NOTE | 2020-01-02 08:09 | PN_ITS ---
Subjective: s/p partial nephrectomy low bph overnight with sudden drop in H/h but now stable, bp better with transfuse 1 unit PRBC - Physical Exam Vitals/I&O's: Vital Signs Temp Pulse Resp BP Pulse Ox 98.5 F 73 16 87/41 L 94 01/02/20 04:33 01/02/20 04:33 01/02/20 04:33 01/02/20 04:33 01/02/20 04:33 Oxygen Flow Rate (L/min) 2 Oxygen Delivery Method Room Air Weight: 73.301 kg Body Mass Index (BMI) 26.9 Intake and Output for Last 24 Hours 12/31/19 01/01/20 01/02/20 23:59 23:59 23:59 Intake Total 2913.33 / 3513.33 2727.08 / 2727.08 Output Total 400 / 550 350 / 350 Balance 2513.33 / 2963.33 2377.08 / 2377.08 Laboratory Results 01/01/20 12:18: WBC 11.9 H, RBC 3.69 L, Hgb 11.1 L, Hct 35.2 L, MCV 95.4, MCH 30.1, MCHC 31.5 L, RDW Std Deviation 47.8 H, RDW Coeff of Marilyn 13.7, Plt Count 194, MPV 9.2 01/01/20 12:18: Sodium 137, Potassium 4.1, Chloride 106, Carbon Dioxide 21.0, Anion Gap 10, BUN 19 H, Creatinine 1.05 H, Estim Creat Clear Calc 46.14, Est GFR (MDRD) Af Amer 67, Est GFR (MDRD) Non-Af 55 L, BUN/Creatinine Ratio 18.1, Glucose 142 H, Calcium 8.8 01/01/20 22:06: POC Glucose 96 01/02/20 03:54: WBC 7.3, RBC 2.79 L, Hgb 8.2 L, Hct 25.7 L, MCV 92.1, MCH 29.4, MCHC 31.9 L, RDW Std Deviation 46.6 H, RDW Coeff of Marilyn 13.7, Plt Count 132 L, MPV 9.7 01/02/20 03:54: Sodium 133 L, Potassium 3.5, Chloride 102, Carbon Dioxide 24.0, Anion Gap 7, BUN 19 H, Creatinine 0.98, Estim Creat Clear Calc 49.44, Est GFR (MDRD) Af Amer 73, Est GFR (MDRD) Non-Af 60, BUN/Creatinine Ratio 19.5, Glucose 75, Calcium 8.1 L Current Medications Acetaminophen (Tylenol) 500 mg PO Q4H PRN PRN PRN Reason: Pain Score 1-10/10 /Headache Hydrocodone Bitart/Acetaminophen ([place] 5mg-325mg) 1 - 2 tablet PO Q6H PRN PRN PRN Reason: Pain Score 1-5/10 Atorvastatin Calcium (Lipitor) 40 mg PO QHS [facility] Last Admin: 01/01/20 22:10 Dose: 40 mg Documented by: Bupropion HCl (Wellbutrin Xl) 150 mg PO BID [facility] Last Admin: 01/01/20 22:12 Dose: 150 mg Documented by: Citalopram Hydrobromide (Celexa) 20 mg PO DAILY [facility] Docusate Sodium (Colace) 100 mg PO BID [facility] Last Admin: 01/01/20 22:09 Dose: 100 mg Documented by: Sodium Chloride () 1,000 mls @ 50 mls/hr IV .Q20H [facility] Last Admin: 01/02/20 05:13 Dose: 125 mls/hr Documented by: Sodium Chloride () 250 mls @ 15 mls/hr IV .[id number] PRN PRN Reason: Saline Flush Ketorolac Tromethamine (Toradol (Bkc)) 15 mg IV Q6 [facility] Stop: 01/06/20 12:01 Last Admin: 01/02/20 05:14 Dose: 15 mg Documented by: Lisinopril (Zestril) 5 mg PO QHS [facility] Last Admin: 01/01/20 22:32 Dose: Not Given Documented by: Magnesium Hydroxide (Milk Of Magnesia) 15 ml PO DAILY [facility] Magnesium Oxide (Mag-Ox 400) 400 mg PO DAILY [facility] Melatonin (Melatonin) 10 mg PO QHS [facility] Last Admin: 01/01/20 22:10 Dose: 10 mg Documented by: Metoprolol Succinate (Toprol Xl (Beta Shimon)) 12.5 mg PO QHS [facility] Last Admin: 01/01/20 22:32 Dose: Not Given Documented by: Ondansetron HCl (Zofran) 4 mg IV Q6H PRN PRN PRN Reason: Nausea Pantoprazole Sodium (Protonix) 20 mg PO DAILY [facility]ID Sodium Chloride () 10 - 40 ml IV UD PRN PRN Reason: SALINE FLUSH Last Admin: 01/02/20 05:14 Dose: 10 ml Documented by: Medical Necessity - Tobacco Use Smoking Status: Light Smoker (<10/day) Tobacco Use: Cigarettes Assessment/Plan slow IVF transfuse 1 unit PRBC d/c jenkins after blood out of bed to chair after blood hold discharge monitor BP if drop recheck H/H appears that bleeding has stopped.
[2020-01-02] MEDS: buPROPion (XL) 150 MG TABLET.XL PO ×2 (09:55→22:13)
[2020-01-02] MEDS: Magnesium Oxide 400 MG Tablet PO (09:55)
[2020-01-02] MEDS: Citalopram 20 MG Tablet PO (09:56)
[2020-01-02] MEDS: Pantoprazole Sodium 20 MG Tablet PO (09:56)
[2020-01-02] MEDS: Docusate Sodium 100 MG Capsule PO (09:56)
[2020-01-02] MEDS: 0.45% Normal Saline 1,000 ML 50 ML IV (17:43)
[2020-01-02] MEDS: Metoprolol(XL)Succ 25 MG Tablet 12.5 MG PO (22:12)
[2020-01-02] MEDS: MELATONIN 10 MG TABLET PO (22:12)
[2020-01-02] MEDS: Atorvastatin Calcium 40 MG Tablet PO (22:12)
[2020-01-02] MEDS: Lisinopril 5 MG Tablet PO (22:14)
[2020-01-03 02:13] VITALS: BP 130/64; PULSE 80; RESP 17; TEMP 36.8; O2SAT 97
[2020-01-03 06:43] LABS: Absolute Neutrophil Count 3.8 X10^3/uL (2.0-7.7); Basophil# 0.01 X10^3/uL; Basophil% 0.2 % (0-1); Eosinophil# 0.05 X10^3/uL; Eosinophils% 0.9 % (0-5); Hematocrit 26.9 % (37-47); Hemoglobin 8.9 g/dL (12.0-15.0); Lymphocyte % 21.2 % (19-41); Mean Corp Hgb Conc 33.1 g/dL (32-36); Mean Corpuscular Hgb 29.7 pg (27.0-32.0); Mean Corpuscular Volume 89.7 fL (81-99); Mean Platelet Vol. 9.6 fl (6.2-12.0); Monocyte# 0.63 X10^3/uL; Monocyte% 11.2 % (0-10); NRBC Flagged by Analyzer 0 % (0-5); Neutrophil # 3.75 X10^3/uL (2.7-7.7); Neutrophil % 66.3 % (47-70); Platelet Count 121 K/mm3 (150-450); RBC Distribution Width CV 13.8 % (11.6-14.6); RBC Distribution Width SD 45.1 fl (35.1-43.9); White Blood Count 5.7 K/mm3 (4.4-11.0)
[2020-01-03 07:09] LABS: Anion Gap 6 (5-15); BUN 14 mg/dL (7-18); BUN/Creat Ratio 14.5 RATIO (10-20); Calcium,Total 8.2 mg/dL (8.5-10.1); Chloride 110 mmol/L (98-107); Creatinine, Serum 0.96 mg/dL (0.55-1.02); EST Glomerular Filtration Rate 61 mL/min (>60); Est Glom Filt Rate - Afr Amer 74 mL/min (>60); Estimated Creatinine Clearance 50.47 ml/min; Glucose 104 mg/dL (74-106); Potassium 3.7 mmol/L (3.5-5.1); Sodium Level 142 mmol/L (136-145)
[2020-01-03 08:52] VITALS: BP 111/61; PULSE 77; RESP 16; TEMP 36.9; O2SAT 98
[2020-01-03 08:58] VITALS: BP 111/61; PULSE 77; RESP 16; TEMP 36.9; O2SAT 98
[2020-01-03] MEDS: Magnesium Oxide 400 MG Tablet PO (09:05)
[2020-01-03] MEDS: Pantoprazole Sodium 20 MG Tablet PO (09:06)
[2020-01-03] MEDS: Citalopram 20 MG Tablet PO (09:06)
[2020-01-03] MEDS: buPROPion (XL) 150 MG TABLET.XL PO (09:07)
--- NOTE | 2020-01-03 10:13 | PCM.DC.SUM ---
Discharge Date and Diagnosis Date of Admission: 01/01/20 Date of Discharge: 01/03/20 Hospital Course and Treatment Operations: - - right partial nephrectomy Summary of Care Provided: The patient is a 69 year old F s/p right robotic partial neprhectomy post op bleeding had to get 1 U PRBC, then BP stabilized good urine output, urine clear, nicole reg diet, ambulating. - Physical Exam Vitals/I&O's: Vital Signs Temp Pulse Resp BP Pulse Ox 98.4 F 77 16 111/61 98 01/03/20 08:58 01/03/20 08:58 01/03/20 08:58 01/03/20 08:58 01/03/20 08:58 Oxygen Flow Rate (L/min) 2 Oxygen Delivery Method Room Air Weight: 73.301 kg Body Mass Index (BMI) 26.9 Intake and Output for Last 24 Hours 01/01/20 01/02/20 01/03/20 23:59 23:59 23:59 Intake Total 2913.33 / 3513.33 6870.83 / 7170.83 700 / 700 Output Total 400 / 550 2100 / 2100 Balance 2513.33 / 2963.33 4770.83 / 5070.83 700 / 700 Laboratory Results 01/01/20 06:14: Blood Type A POSITIVE, Antibody Screen NEGATIVE, Crossmatch See Detail 01/03/20 06:05: WBC 5.7, RBC 3.00 L, Hgb 8.9 L, Hct 26.9 L, MCV 89.7, MCH 29.7, MCHC 33.1, RDW Std Deviation 45.1 H, RDW Coeff of Marilyn 13.8, Plt Count 121 L, MPV 9.6, Immature Gran % (Auto) 0.200, Neut % (Auto) 66.3, Lymph % (Auto) 21.2, Ashley % (Auto) 11.2 H, Eos % (Auto) 0.9, Baso % (Auto) 0.2, Absolute Neuts (auto) 3.8, Absolute Lymphs (auto) 1.20, Nucleated RBC % 0 01/03/20 06:05: Sodium 142, Potassium 3.7, Chloride 110 H, Carbon Dioxide 26.0, Anion Gap 6, BUN 14, Creatinine 0.96, Estim Creat Clear Calc 50.47, Est GFR (MDRD) Af Amer 74, Est GFR (MDRD) Non-Af 61, BUN/Creatinine Ratio 14.5, Glucose 104, Calcium 8.2 L Current Medications Acetaminophen (Tylenol) 500 mg PO Q4H PRN PRN PRN Reason: Pain Score 1-10/10 /Headache Hydrocodone Bitart/Acetaminophen (Coulter 5mg-325mg) 1 - 2 tablet PO Q6H PRN PRN PRN Reason: Pain Score 1-5/10 Atorvastatin Calcium (Lipitor) 40 mg PO QHS [facility] Last Admin: 01/02/20 22:12 Dose: 40 mg Documented by: Bupropion HCl (Wellbutrin Xl) 150 mg PO BID [facility] Last Admin: 01/03/20 09:07 Dose: 150 mg Documented by: Citalopram Hydrobromide (Celexa) 20 mg PO DAILY [facility] Last Admin: 01/03/20 09:06 Dose: 20 mg Documented by: Docusate Sodium (Colace) 100 mg PO BID [facility] Last Admin: 01/03/20 09:05 Dose: Not Given Documented by: Sodium Chloride () 250 mls @ 15 mls/hr IV .[id number] PRN PRN Reason: Saline Flush Ketorolac Tromethamine (Toradol (Bkc)) 15 mg IV Q6 [facility] Stop: 01/06/20 12:01 Last Admin: 01/03/20 07:01 Dose: Not Given Documented by: Lisinopril (Zestril) 5 mg PO QHS [facility] Last Admin: 01/02/20 22:14 Dose: 5 mg Documented by: Magnesium Hydroxide (Milk Of Magnesia) 15 ml PO DAILY [facility] Last Admin: 01/03/20 09:06 Dose: Not Given Documented by: Magnesium Oxide (Mag-Ox 400) 400 mg PO DAILY [facility] Last Admin: 01/03/20 09:05 Dose: 400 mg Documented by: Melatonin (Melatonin) 10 mg PO QHS [facility] Last Admin: 01/02/20 22:12 Dose: 10 mg Documented by: Metoprolol Succinate (Toprol Xl (Beta Shimon)) 12.5 mg PO QHS [facility] Last Admin: 01/02/20 22:12 Dose: 12.5 mg Documented by: Ondansetron HCl (Zofran) 4 mg IV Q6H PRN PRN PRN Reason: Nausea Pantoprazole Sodium (Protonix) 20 mg PO DAILY [facility] Last Admin: 01/03/20 09:06 Dose: 20 mg Documented by: Sodium Chloride () 10 - 40 ml IV UD PRN PRN Reason: SALINE FLUSH Last Admin: 01/02/20 12:57 Dose: 10 ml Documented by: Discharge Diet: Light diet - advance as tolerated Discharge Activity: May not drive while taking narcotic pain medications., May Shower Call your doctor if your incision/area has: Continuous Slow Oozing, Sudden Increased Bleeding, Increased Pain/ Swelling, Increased Redness, Foul Smelling Discharge, Swelling at the incision site Call your doctor if you observe: Fever of 101 or Higher, Inability to have a bowel movement, Uncontrolled pain Suture Line Care: Avoid Pulling/Pushing, Avoid Pinching/Bending Cleanse incision/area with: Soap & Water Home Medications: Medications to take at Discharge Atorvastatin Calcium [Lipitor] 40 mg PO QHS 12/31/19 Bupropion HCl [Wellbutrin Xl] 150 mg PO BID 12/31/19 Canagliflozin [Invokana] 100 mg PO DAILY 12/31/19 Cholecalciferol (VIT D3) [Vitamin D3] 1,000 unit PO DAILY 12/31/19 Citalopram [Celexa] 20 mg PO DAILY 12/31/19 Cyanocobalamin [Vitamin B12] 1,000 mcg PO DAILY@0800 12/31/19 Lisinopril 5 mg PO QHS 12/31/19 Magnesium 500 mg PO DAILY 12/31/19 Melatonin 10 mg PO QHS 12/31/19 Metformin HCl [Glucophage Xr] 1,000 mg PO BID 12/31/19 Metoprolol(XL)Succ [Toprol Xl (Beta Shimon)] 12.5 mg PO QHS 12/31/19 Pioglitazone [Actos] 30 mg PO DAILY 12/31/19 Ubidecarenone [Coq-10] 300 mg PO DAILY 12/31/19 Docusate Sodium [Colace] 100 mg PO BID #20 cap 01/01/20 Hydrocodone/Acetaminophen [Coulter 5-325 Tablet] 1 ea PO Q4H PRN PRN 5 Days #14 tab 01/01/20 Following Prescrptions Were Given to Patient: Docusate Sodium [Colace] 100 mg PO BID #20 cap Transmission Status: Received by [facility] Hydrocodone/Acetaminophen [Coulter 5-325 Tablet] 1 ea PO Q4H PRN PRN 5 Days #14 tab PRN Reason: Pain Score 1-10/10 Transmission Status: Received by [facility] Primary Care Physician: Juan Diego King Chi, MD [Primary Care Provider] - Please Follow Up With: Rao Herron MD When: in 2 weeks, please call to make an appointment. Patient Instructions: Nephrectomy Medical Necessity - Tobacco Use Smoking Status: Light Smoker (<10/day) Tobacco Use: Cigarettes Meaningful Use Info Meaningful Use Diagnoses (Choose all that apply): None applicable
== END 2020-01-03 12:14 | disposition home or self-care (01) | DRG 658 ==
LOC: SDC 09:56 → PCU 13:13
PROVIDERS: Admitting Provider Urology; PCP Family Medicine Geriatric Medicine; Referring Provider Urology; Visit Provider Urology
PROC: (CPT 50543; principal; 2020-01-01 07:10)
DX: C64.1 Malignant neoplasm of right kidney, except renal pelvis (principal); E11.22 Type 2 diabetes mellitus with diabetic chronic kidney disease; I12.9 Hypertensive chronic kidney disease with stage 1 through stage 4 chronic kidney disease, or unspecified chronic kidney disease; N18.9 Chronic kidney disease, unspecified; E78.00 Pure hypercholesterolemia, unspecified; F32.9 Major depressive disorder, single episode, unspecified; G43.909 Migraine, unspecified, not intractable, without status migrainosus; Z86.2 Personal history of diseases of the blood and blood-forming organs and certain disorders involving the immune mechanism; Z78.0 Asymptomatic menopausal state; Z79.84 Long term (current) use of oral hypoglycemic drugs; Z79.899 Other long term (current) drug therapy; F17.210 Nicotine dependence, cigarettes, uncomplicated
CPT/HCPCS: 36415; 80048; 80053; 82962; 83036; 85025; 85027; 86850; 86900; 86901; 86920; 86922; 88307; 93005; 99251; 99406; J7040; J7120; P9016; A4216; G0463

== ENCOUNTER → 2020-03-16 09:46 | Outpatient (CLI) | payer MEDICARE, SELFPAY ==
[2020-01-01 12:49] VITALS: BMI 26.9
[2020-03-16 12:39] LABS: Vitamin D,25 Hydroxy 43.2 ng/mL
[2020-03-16 12:43] LABS: Absolute Lymphocyte Count 2.33 X10^3/uL (0.83-4.51); Absolute Neutrophil Count 3.6 X10^3/uL (2.0-7.7); Basophil# 0.04 X10^3/uL; Basophil% 0.6 % (0-1); Eosinophil# 0.14 X10^3/uL; Eosinophils% 2.1 % (0-5); Hematocrit 40.8 % (37-47); Lymphocyte # 2.33 X10^3/ul (4.0); Mean Corp Hgb Conc 31.9 g/dL (32-36); Mean Corpuscular Hgb 30.4 pg (27.0-32.0); Mean Corpuscular Volume 95.6 fL (81-99); Mean Platelet Vol. 9.7 fl (6.2-12.0); Monocyte# 0.58 X10^3/uL; Monocyte% 8.7 % (0-10); NRBC Flagged by Analyzer 0 % (0-5); Neutrophil # 3.56 X10^3/uL (2.7-7.7); Neutrophil % 53.4 % (47-70); Platelet Count 262 K/mm3 (150-450); RBC Distribution Width CV 14.2 % (11.6-14.6); RBC Distribution Width SD 49.7 fl (35.1-43.9); Red Blood Count 4.27 M/mm3 (4.2-5.4); White Blood Count 6.7 K/mm3 (4.4-11.0)
[2020-03-16 12:52] LABS: ALB/GLOB Ratio 1.1 RATIO (0.9-2.4); AST(SGOT) 20 U/L (15-37); Alanine Aminotransfer ALT/SGPT 29 U/L (13-56); Albumin, Serum 3.8 g/dL (3.2-5.0); Alkaline Phosphatase 82 U/L (45-117); Anion Gap 8 (5-15); BUN 20 mg/dL (7-18); BUN/Creat Ratio 16.5 RATIO (10-20); Calcium,Total 9.2 mg/dL (8.5-10.1); Chloride 101 mmol/L (98-107); Cholesterol 185 mg/dL (200); Creatinine, Serum 1.21 mg/dL (0.55-1.02); EST Glomerular Filtration Rate 47 mL/min (>60); Est Glom Filt Rate - Afr Amer 57 mL/min (>60); Globulin 3.5 g/dL (2.2-4.2); Glucose 163 mg/dL (74-106); High Density Lipoprotein 84 mg/dL; Potassium 4.6 mmol/L (3.5-5.1); Protein, Total 7.3 g/dL (6.4-8.2); Sodium Level 137 mmol/L (136-145); Thyroid Stim Hormone (TSH) 2.27 uIU/mL (0.358-3.74); Triglycerides 89 mg/dL; Very Low Density Lipoprotein 18 mg/dL (5-40)
== END ==
LOC: LAB.FUTURE 09:46 → POLAB3 09:47
PROVIDERS: PCP Family Medicine Geriatric Medicine; Visit Provider Internal Medicine Nephrology
DX: E11.22 Type 2 diabetes mellitus with diabetic chronic kidney disease (principal); I12.9 Hypertensive chronic kidney disease with stage 1 through stage 4 chronic kidney disease, or unspecified chronic kidney disease; N18.3 Chronic kidney disease, stage 3 (moderate); E78.5 Hyperlipidemia, unspecified; E55.9 Vitamin D deficiency, unspecified
CPT/HCPCS: 36415; 80053; 80061; 82306; 84100; 84443; 85025

== ENCOUNTER → 2020-06-16 13:09 | Outpatient (CLI) | payer MEDICARE, SELFPAY ==
[2020-01-01 12:49] VITALS: BMI 26.9
[2020-06-16 17:38] LABS: Absolute Lymphocyte Count 1.91 X10^3/uL (0.83-4.51); Absolute Neutrophil Count 3.7 X10^3/uL (2.0-7.7); Basophil# 0.04 X10^3/uL; Basophil% 0.6 % (0-1); Eosinophil# 0.09 X10^3/uL; Eosinophils% 1.5 % (0-5); Hematocrit 42.3 % (37-47); Hemoglobin 13.1 g/dL (12.0-15.0); Lymphocyte # 1.91 X10^3/ul (4.0); Lymphocyte % 30.8 % (19-41); Mean Corpuscular Volume 93.8 fL (81-99); Mean Platelet Vol. 9.7 fl (6.2-12.0); Monocyte# 0.43 X10^3/uL; Monocyte% 6.9 % (0-10); NRBC Flagged by Analyzer 0 % (0-5); Neutrophil # 3.72 X10^3/uL (2.7-7.7); Platelet Count 230 K/mm3 (150-450); RBC Distribution Width CV 13.6 % (11.6-14.6); RBC Distribution Width SD 47.4 fl (35.1-43.9); Red Blood Count 4.51 M/mm3 (4.2-5.4); White Blood Count 6.2 K/mm3 (4.4-11.0)
[2020-06-16 17:50] LABS: Vitamin D,25 Hydroxy 35.4 ng/mL
[2020-06-16 17:56] LABS: ALB/GLOB Ratio 1.1 RATIO (0.9-2.4); AST(SGOT) 24 U/L (15-37); Alanine Aminotransfer ALT/SGPT 32 U/L (13-56); Albumin, Serum 3.9 g/dL (3.2-5.0); Alkaline Phosphatase 84 U/L (45-117); Anion Gap 9 (5-15); BUN 25 mg/dL (7-18); BUN/Creat Ratio 19.5 RATIO (10-20); Calcium,Total 9.2 mg/dL (8.5-10.1); Chloride 101 mmol/L (98-107); Cholesterol 197 mg/dL (200); Creatinine, Serum 1.28 mg/dL (0.55-1.02); EST Glomerular Filtration Rate 44 mL/min (>60); Est Glom Filt Rate - Afr Amer 53 mL/min (>60); Globulin 3.4 g/dL (2.2-4.2); Glucose 108 mg/dL (74-106); High Density Lipoprotein 86 mg/dL; Phosphorus 4.2 mg/dL (2.5-4.9); Potassium 4.5 mmol/L (3.5-5.1); Protein, Total 7.3 g/dL (6.4-8.2); Sodium Level 139 mmol/L (136-145); Thyroid Stim Hormone (TSH) 2.06 uIU/mL (0.358-3.74); Triglycerides 96 mg/dL; Very Low Density Lipoprotein 19 mg/dL (5-40)
== END ==
LOC: POLAB3 13:10
PROVIDERS: Internal Medicine Nephrology; PCP Family Medicine Geriatric Medicine; Visit Provider Family Medicine Geriatric Medicine
DX: E55.9 Vitamin D deficiency, unspecified (principal); E78.5 Hyperlipidemia, unspecified; I12.9 Hypertensive chronic kidney disease with stage 1 through stage 4 chronic kidney disease, or unspecified chronic kidney disease; N18.3 Chronic kidney disease, stage 3 (moderate)
CPT/HCPCS: 36415; 80053; 80061; 82306; 84100; 84443; 85025

== ENCOUNTER → 2020-12-01 11:37 | Outpatient (CLI) | payer MEDICARE, SELFPAY ==
[2020-01-01 12:49] VITALS: BMI 26.9
[2020-12-01 12:16] LABS: Absolute Lymphocyte Count 1.93 X10^3/uL (0.83-4.51); Basophil# 0.02 X10^3/uL; Basophil% 0.3 % (0-1); Eosinophil# 0.11 X10^3/uL; Eosinophils% 1.7 % (0-5); Hematocrit 42.3 % (37-47); Hemoglobin 13.5 g/dL (12.0-15.0); Lymphocyte # 1.93 X10^3/ul (4.0); Lymphocyte % 29.2 % (19-41); Mean Corp Hgb Conc 31.9 g/dL (32-36); Mean Corpuscular Hgb 29.8 pg (27.0-32.0); Mean Corpuscular Volume 93.4 fL (81-99); Mean Platelet Vol. 9.4 fl (6.2-12.0); Monocyte# 0.53 X10^3/uL; NRBC Flagged by Analyzer 0 % (0-5); Neutrophil % 60.5 % (47-70); Platelet Count 222 K/mm3 (150-450); RBC Distribution Width CV 14.1 % (11.6-14.6); Red Blood Count 4.53 M/mm3 (4.2-5.4); White Blood Count 6.6 K/mm3 (4.4-11.0)
[2020-12-01 12:37] LABS: Protein, Urine (Random) 11.2 mg/dL (<11.9); Protein:Creat Ratio 164 mg/g CRE (0-200)
[2020-12-01 12:46] LABS: ALB/GLOB Ratio 1.1 RATIO (0.9-2.4); AST(SGOT) 16 U/L (15-37); Alanine Aminotransfer ALT/SGPT 27 U/L (13-56); Albumin, Serum 3.8 g/dL (3.2-5.0); Alkaline Phosphatase 98 U/L (45-117); Anion Gap 6 (5-15); BUN 23 mg/dL (7-18); BUN/Creat Ratio 19.2 RATIO (10-20); Calcium,Total 9.2 mg/dL (8.5-10.1); Chloride 103 mmol/L (98-107); Cholesterol 201 mg/dL (200); EST Glomerular Filtration Rate 47 mL/min (>60); Est Glom Filt Rate - Afr Amer 57 mL/min (>60); Globulin 3.5 g/dL (2.2-4.2); Glucose 234 mg/dL (74-106); High Density Lipoprotein 85 mg/dL; Phosphorus 4.4 mg/dL (2.5-4.9); Potassium 4.5 mmol/L (3.5-5.1); Protein, Total 7.3 g/dL (6.4-8.2); Sodium Level 137 mmol/L (136-145); Triglycerides 131 mg/dL; Very Low Density Lipoprotein 26 mg/dL (5-40)
[2020-12-01 12:51] LABS: PTHIN 132.9 pg/mL (18.4-80.1); Vitamin D,25 Hydroxy 20.5 ng/mL
== END ==
LOC: POLAB3 11:38
PROVIDERS: PCP Family Medicine Geriatric Medicine; Visit Provider Internal Medicine Nephrology
DX: E11.65 Type 2 diabetes mellitus with hyperglycemia (principal); E55.9 Vitamin D deficiency, unspecified; E78.5 Hyperlipidemia, unspecified; I10 Essential (primary) hypertension
CPT/HCPCS: 36415; 80053; 80061; 82306; 82570; 83970; 84100; 84156; 84443; 85025

== ENCOUNTER → 2020-12-07 07:52 | Outpatient (CLI) | payer MEDICARE, SELFPAY ==
[2020-01-01 12:49] VITALS: BMI 26.9
--- NOTE | 2020-12-07 08:03 | CT_ITS ---
STUDY: CT ABDOMEN AND PELVIS WITH CONTRAST REASON FOR EXAM: Female, 70 years old. Flank pain, history of renal carcinoma RADIATION DOSAGE (If Supplied By Facility): CTDIvol = ( 16.26 ) mGy, DLP = ( 1092.64 ) mGycm TECHNIQUE: Transaxial images were obtained from the dome of the diaphragm to the symphysis pubis without oral contrast. IV 100mL Isovue-300 was administered. Sagittal and coronal images were reconstructed. Individualized dose optimization techniques were used for this CT. COMPARISON: 12/17/2019 FINDINGS: The visualized lung bases are unremarkable. The visualized portions of the heart are within normal limits. Normal liver. Normal gallbladder and extrahepatic biliary system. Normal spleen. Normal pancreas. Normal bilateral adrenal glands. Previously described solid right renal mass no longer identified. There are postsurgical changes noted in the right kidney. No obstructive uropathy or new suspicious lesion noted. Normal left kidney. There is a small hiatal hernia. Nondistended fluid-filled small bowel loops are noted consistent with ileus. Retained stool noted in the colon. Scattered colonic diverticulosis without CT evidence of acute diverticulitis There is non-visualization of the appendix. There is diffuse atherosclerotic calcification of the abdominal aorta, without a demonstrated aneurysm. Normal inferior vena cava. Normal retroperitoneum. Normal urinary bladder. Uterus is still present, the endometrium cannot be accurately evaluated with CT. Normal abdominal wall. There are diffuse degenerative changes of the visualized lumbar spine, and pelvis. CT/Abdomen/Pelvis WITH Contrast IMPRESSION: Postsurgical changes noted in the right kidney. No new suspicious mass lesion obstructive uropathy or renal stone noted Colonic diverticulosis Small bowel ileus Degenerative bony changes Electronically Signed: Berry Cr MD at 17:17 EST , Service support ,
== END ==
LOC: CT 07:55
PROVIDERS: PCP Family Medicine Geriatric Medicine; Referring Provider Urology; Visit Provider Urology
DX: C64.1 Malignant neoplasm of right kidney, except renal pelvis (principal)
CPT/HCPCS: 74177; Q9967

== ENCOUNTER → 2021-01-04 14:14 | Outpatient (CLI) | payer MEDICARE, SELFPAY ==
[2020-01-01 12:49] VITALS: BMI 26.9
[2021-01-04 16:13] LABS: Absolute Lymphocyte Count 2.47 X10^3/uL (0.83-4.51); Absolute Neutrophil Count 3.4 X10^3/uL (2.0-7.7); Basophil# 0.04 X10^3/uL; Basophil% 0.6 % (0-1); Eosinophil# 0.15 X10^3/uL; Eosinophils% 2.3 % (0-5); Hematocrit 42.1 % (37-47); Hemoglobin 13.1 g/dL (12.0-15.0); Lymphocyte # 2.47 X10^3/ul (4.0); Lymphocyte % 37.4 % (19-41); Mean Corp Hgb Conc 31.1 g/dL (32-36); Mean Corpuscular Hgb 29.4 pg (27.0-32.0); Mean Corpuscular Volume 94.6 fL (81-99); Mean Platelet Vol. 9.7 fl (6.2-12.0); Monocyte# 0.49 X10^3/uL; Monocyte% 7.4 % (0-10); NRBC Flagged by Analyzer 0 % (0-5); Neutrophil # 3.43 X10^3/uL (2.7-7.7); Platelet Count 257 K/mm3 (150-450); RBC Distribution Width CV 13.9 % (11.6-14.6); RBC Distribution Width SD 48.1 fl (35.1-43.9); Red Blood Count 4.45 M/mm3 (4.2-5.4); White Blood Count 6.6 K/mm3 (4.4-11.0)
[2021-01-04 16:53] LABS: ALB/GLOB Ratio 1.1 RATIO (0.9-2.4); AST(SGOT) 14 U/L (15-37); Alanine Aminotransfer ALT/SGPT 28 U/L (13-56); Albumin, Serum 3.7 g/dL (3.2-5.0); Alkaline Phosphatase 94 U/L (45-117); Anion Gap 7 (5-15); BUN 22 mg/dL (7-18); BUN/Creat Ratio 19.5 RATIO (10-20); Calcium,Total 9.4 mg/dL (8.5-10.1); Chloride 103 mmol/L (98-107); Cholesterol 184 mg/dL (200); Creatinine, Serum 1.13 mg/dL (0.55-1.02); EST Glomerular Filtration Rate 51 mL/min (>60); Est Glom Filt Rate - Afr Amer 61 mL/min (>60); Globulin 3.5 g/dL (2.2-4.2); Glucose 132 mg/dL (74-106); High Density Lipoprotein 78 mg/dL; Potassium 4.3 mmol/L (3.5-5.1); Protein, Total 7.2 g/dL (6.4-8.2); Sodium Level 136 mmol/L (136-145); Thyroid Stim Hormone (TSH) 1.77 uIU/mL (0.358-3.74); Triglycerides 137 mg/dL; Very Low Density Lipoprotein 27 mg/dL (5-40)
[2021-01-04 17:12] LABS: Vitamin D,25 Hydroxy 21.8 ng/mL
== END ==
LOC: POLAB3 14:15
PROVIDERS: PCP Family Medicine Geriatric Medicine; Visit Provider Family Medicine Geriatric Medicine
DX: I10 Essential (primary) hypertension (principal); E55.9 Vitamin D deficiency, unspecified; E78.5 Hyperlipidemia, unspecified
CPT/HCPCS: 36415; 80053; 80061; 82306; 84443; 85025

== ENCOUNTER → 2021-01-09 | Outpatient (CLI) | payer MEDICARE, SELFPAY ==
[2020-01-01 12:49] VITALS: BMI 26.9
== END | disposition home or self-care (01) ==
LOC: LABSPEC 16:57
PROVIDERS: PCP Family Medicine Geriatric Medicine; Visit Provider Urology
DX: N30.00 Acute cystitis without hematuria (principal)
CPT/HCPCS: 87086; 87088

== ENCOUNTER → 2021-03-29 13:38 | Outpatient (CLI) | payer MEDICARE, SELFPAY ==
[2020-01-01 12:49] VITALS: BMI 26.9
--- NOTE | 2021-03-29 13:41 | BI_ITS ---
MAMMOGRAPHY - BILATERAL SCREENING REASON FOR EXAM: Female, 70 years old. Routine annual screening examination. PERTINENT HISTORY: Sister with breast cancer. Mother with breast cancer. TECHNIQUE: Digital bilateral breast kwan (3D mammographic acquisition) in the CC and MLO projections. 2-D mediolateral oblique (MLO) and craniocaudad (CC) views of both breasts were obtained. CAD: Full Field Digital Mammography with Computer Added Detection was performed. COMPARISON: Comparison is made with prior study dated 10/27/2016 and 05/27/2014. FINDINGS: Breast Composition: The breasts are heterogeneously dense, which may obscure small masses. There are no dominant masses or suspicious calcifications. Since prior study, there has been progressive increase in the number of calcifications in the right breast. These most likely represent secretory calcifications although a sampling biopsy in the upper outer quadrant should be performed. No other significant abnormalities are identified. BI/SCRN MAMM (CAD)W/KWAN BILAT IMPRESSION: Progressive increase in number of the microcalcifications in the right breast as described. A tissue sample of the upper outer quadrant of the right breast is recommended. ASSESSMENT CATEGORY: BIRADS Category 4: Suspicious - Biopsy Should Be Considered. A letter regarding these results will be sent to the patient by the facility within 30 days. Approximately 10% of breast cancers are not detected by mammography. A normal mammogram should not delay biopsy of a clinically suspicious abnormality. [id number] Electronically Signed: Venkata Diamond MD at 14:36 EDT , Service support ,
== END ==
PROVIDERS: PCP Family Medicine Geriatric Medicine; Referring Provider Family Medicine Geriatric Medicine; Visit Provider Family Medicine Geriatric Medicine
DX: Z12.31 Encounter for screening mammogram for malignant neoplasm of breast (principal)
CPT/HCPCS: 77063; 77067

== ENCOUNTER → 2021-04-24 12:41 | Outpatient (CLI) | payer MEDICARE, SELFPAY ==
[2021-04-11 15:21] VITALS: BMI 34.6
--- NOTE | 2021-04-24 12:41 | MRI_ITS ---
STUDY: BILATERAL BREAST MR WITHOUT AND WITH CONTRAST REASON FOR EXAM: Female, 70 years old. Increasing calcifications in right breast. TECHNIQUE: Multi-sequence multi-echo imaging of both breasts was performed with a dedicated breast coil. T1-weighted and T2-weighted images were performed before the administration of contrast. T1-weighted images were also performed after the administration of 18 mL of Dotarem contrast without complications. COMPARISON: Prior mammograms dated 03/29/2021 and 10/27/2016. FINDINGS: RIGHT BREAST: The breast tissue is scattered fibroglandular densities with moderate background enhancement. There are no abnormal enhancing masses or areas of non-mass enhancement in the right breast. LEFT BREAST: The breast tissue is scattered fibroglandular densities with moderate background enhancement. There are no abnormal enhancing masses or areas of non-mass enhancement in the left breast. There are no enlarged or abnormal lymph nodes. There is no abnormality in the visualized regions of the chest or liver. MRI/Breast Bilateral W/O and W IMPRESSION: No focal abnormality on the breast MRI with contrast. A 6 month follow-up right diagnostic mammogram is recommended for the increasing diffuse calcifications. CATEGORY: BIRADS Category 3: Probably Benign - Short-Interval Follow-up Suggested. A letter regarding these results will be sent to the patient by the facility within 30 days. Electronically Signed: Rico Cano MD at 10:28 EDT , Service support ,
[2021-04-24 13:06] LABS: CREATININE FINGERSTICK 0.8 mg/dL (0.55-1.02); EGFR FINGERSTICK > 60.0000 mL/min (>60)
== END ==
LOC: MRI 12:41
PROVIDERS: PCP Family Medicine Geriatric Medicine; Referring Provider Surgery; Visit Provider Surgery
DX: R92.8 Other abnormal and inconclusive findings on diagnostic imaging of breast (principal)
CPT/HCPCS: 77049; A9575; A4216; C8908

== ENCOUNTER → 2021-07-11 14:11 | Outpatient (CLI) | payer MEDICARE, SELFPAY ==
[2021-07-11 17:19] LABS: Absolute Lymphocyte Count 2.25 X10^3/uL (0.83-4.51); Absolute Neutrophil Count 4.4 X10^3/uL (2.0-7.7); Basophil# 0.03 X10^3/uL; Basophil% 0.4 % (0-1); Eosinophil# 0.09 X10^3/uL; Eosinophils% 1.2 % (0-5); Hematocrit 40.9 % (37-47); Hemoglobin 13.2 g/dL (12.0-15.0); Lymphocyte # 2.25 X10^3/ul (0.83-4.51); Lymphocyte % 30.6 % (19-41); Mean Corp Hgb Conc 32.3 g/dL (32-36); Mean Corpuscular Hgb 29.6 pg (27.0-32.0); Mean Corpuscular Volume 91.7 fL (81-99); Mean Platelet Vol. 9.6 fl (6.2-12.0); Monocyte# 0.58 X10^3/uL; Monocyte% 7.9 % (0-10); NRBC Flagged by Analyzer 0 % (0-5); Neutrophil # 4.36 X10^3/uL (2.7-7.7); Neutrophil % 59.4 % (47-70); Platelet Count 260 K/mm3 (150-450); RBC Distribution Width CV 13.9 % (11.6-14.6); RBC Distribution Width SD 47.2 fl (35.1-43.9); Red Blood Count 4.46 M/mm3 (4.2-5.4); White Blood Count 7.4 K/mm3 (4.4-11.0)
[2021-07-11 17:37] LABS: Vitamin D,25 Hydroxy 29.8 ng/mL
[2021-07-11 17:47] LABS: ALB/GLOB Ratio 0.9 RATIO (0.9-2.4); AST(SGOT) 14 U/L (15-37); Alanine Aminotransfer ALT/SGPT 23 U/L (13-56); Albumin, Serum 3.5 g/dL (3.2-5.0); Alkaline Phosphatase 107 U/L (45-117); Anion Gap 10 (5-15); BUN 23 mg/dL (7-18); BUN/Creat Ratio 18.3 RATIO (10-20); Calcium,Total 9.9 mg/dL (8.5-10.1); Chloride 102 mmol/L (98-107); Creatinine, Serum 1.26 mg/dL (0.55-1.02); EST Glomerular Filtration Rate 45 mL/min (>60); Est Glom Filt Rate - Afr Amer 54 mL/min (>60); Globulin 3.8 g/dL (2.2-4.2); Glucose 174 mg/dL (74-106); Potassium 4.7 mmol/L (3.5-5.1); Protein, Total 7.3 g/dL (6.4-8.2); Sodium Level 138 mmol/L (136-145); Thyroid Stim Hormone (TSH) 1.21 uIU/mL (0.358-3.74)
== END ==
LOC: POLAB3 14:13
PROVIDERS: PCP Family Medicine Geriatric Medicine; Visit Provider Family Medicine Geriatric Medicine
DX: E11.65 Type 2 diabetes mellitus with hyperglycemia (principal); E55.9 Vitamin D deficiency, unspecified; E78.5 Hyperlipidemia, unspecified; I10 Essential (primary) hypertension
CPT/HCPCS: 36415; 80053; 82306; 84443; 85025

== ENCOUNTER 2021-10-24 14:23 | Outpatient (CLI) | payer MEDICARE, SELFPAY ==
--- NOTE | 2021-10-24 14:24 | BI_ITS ---
MAMMOGRAPHY - UNILATERAL DIAGNOSTIC: RIGHT BREAST REASON FOR EXAM: Female, 71 years old. Six-month follow-up. PERTINENT HISTORY: Sister with breast cancer. Mother with breast cancer. TECHNIQUE: Digital unilateral breast bob (3D mammographic acquisition) in the CC and MLO projections. 2-D mediolateral oblique (MLO) and craniocaudad (CC) views of both breasts were obtained. CAD: Full Field Digital Mammography with Computer Added Detection was performed. COMPARISON: Comparison is made with prior study dated 03/29/2021. FINDINGS: Breast Composition: The breasts are heterogeneously dense, which may obscure small masses. There are no dominant masses or suspicious calcifications. Stable appearance of the multiple macrocalcifications in the right breast. No focal clusters seen. Stable small benign appearing right axillary nodes. No other significant abnormalities are identified. There has been no significant change since the prior study. BI/DIAG MAMM W/CAD, UNILAT IMPRESSION: Stable unilateral diagnostic mammogram. One year follow-up mammogram recommended. (A) ASSESSMENT CATEGORY: BIRADS Category 2: Benign. A letter regarding these results will be sent to the patient by the facility within 30 days. Approximately 10% of breast cancers are not detected by mammography. A normal mammogram should not delay biopsy of a clinically suspicious abnormality. Electronically Signed: Venkata Diamond MD at 15:09 EST ,
== END 2021-10-24 23:59 | disposition short-term general hospital (02) ==
LOC: OPBI 14:23
PROVIDERS: PCP Family Medicine Geriatric Medicine; Referring Provider Surgery; Visit Provider Surgery
DX: R92.8 Other abnormal and inconclusive findings on diagnostic imaging of breast (principal); Z80.3 Family history of malignant neoplasm of breast
CPT/HCPCS: 77061; 77065; G0279

== ENCOUNTER 2022-01-09 12:52 | Outpatient (CLI) | payer MEDICARE, SELFPAY ==
[2020-01-01 12:49] VITALS: BMI 26.9
[2022-01-09 17:11] LABS: Absolute Lymphocyte Count 2.27 X10^3/uL (0.83-4.51); Absolute Neutrophil Count 3.6 X10^3/uL (2.0-7.7); Basophil# 0.04 X10^3/uL; Basophil% 0.6 % (0-1); Eosinophil# 0.12 X10^3/uL; Eosinophils% 1.8 % (0-5); Hematocrit 43.4 % (37-47); Lymphocyte # 2.27 X10^3/ul (0.83-4.51); Lymphocyte % 34.4 % (19-41); Mean Corp Hgb Conc 32.3 g/dL (32-36); Mean Corpuscular Hgb 29.6 pg (27.0-32.0); Mean Corpuscular Volume 91.8 fL (81-99); Mean Platelet Vol. 9.5 fl (6.2-12.0); Monocyte# 0.51 X10^3/uL; Monocyte% 7.7 % (0-10); NRBC Flagged by Analyzer 0 % (0-5); Neutrophil # 3.64 X10^3/uL (2.7-7.7); Neutrophil % 55.3 % (47-70); Platelet Count 243 K/mm3 (150-450); RBC Distribution Width CV 13.3 % (11.6-14.6); RBC Distribution Width SD 45.6 fl (35.1-43.9); Red Blood Count 4.73 M/mm3 (4.2-5.4); White Blood Count 6.6 K/mm3 (4.4-11.0)
[2022-01-09 17:28] LABS: ALB/GLOB Ratio 1.1 RATIO (0.9-2.4); AST(SGOT) 12 U/L (15-37); Alanine Aminotransfer ALT/SGPT 23 U/L (13-56); Albumin, Serum 3.8 g/dL (3.2-5.0); Alkaline Phosphatase 105 U/L (45-117); Anion Gap 6 (5-15); BUN 23 mg/dL (7-18); BUN/Creat Ratio 16.4 RATIO (10-20); Calcium,Total 9.1 mg/dL (8.5-10.1); Chloride 101 mmol/L (98-107); Cholesterol 184 mg/dL (200); EST Glomerular Filtration Rate 40 mL/min (>60); Est Glom Filt Rate - Afr Amer 48 mL/min (>60); Globulin 3.6 g/dL (2.2-4.2); Glucose 179 mg/dL (74-106); High Density Lipoprotein 67 mg/dL; Phosphorus 3.5 mg/dL (2.5-4.9); Potassium 4.5 mmol/L (3.5-5.1); Protein, Total 7.4 g/dL (6.4-8.2); Sodium Level 135 mmol/L (136-145); Triglycerides 200 mg/dL; Very Low Density Lipoprotein 40 mg/dL (5-40); Vitamin D,25 Hydroxy 24.8 ng/mL
[2022-01-10 09:12] LABS: PTHIN 86.5 pg/mL (18.4-80.1)
== END 2022-01-09 23:59 | disposition home or self-care (01) ==
PROVIDERS: PCP Family Medicine Geriatric Medicine; Visit Provider Internal Medicine Nephrology
DX: E11.65 Type 2 diabetes mellitus with hyperglycemia (principal); C64.1 Malignant neoplasm of right kidney, except renal pelvis; E11.22 Type 2 diabetes mellitus with diabetic chronic kidney disease; N18.30 Chronic kidney disease, stage 3 unspecified; E55.9 Vitamin D deficiency, unspecified; E78.5 Hyperlipidemia, unspecified; I12.9 Hypertensive chronic kidney disease with stage 1 through stage 4 chronic kidney disease, or unspecified chronic kidney disease
CPT/HCPCS: 36415; 80053; 80061; 82306; 82570; 83970; 84100; 84156; 85025

== ENCOUNTER 2022-01-10 07:18 | Outpatient (CLI) | payer MEDICARE, SELFPAY ==
--- NOTE | 2022-01-10 07:25 | CT_ITS ---
STUDY: CT ABDOMEN AND PELVIS WITH CONTRAST REASON FOR EXAM: Female, 71 years old. MALIGNANT NEOPLASM OR RIGHT KIDNEY/EXCEPT RENAL. Partial right nephrectomy. RADIATION DOSAGE (If Supplied By Facility): CTDIvol = ( 17.54 ) mGy, DLP = ( 1057.00 ) mGycm TECHNIQUE: Transaxial images were obtained from the dome of the diaphragm to the symphysis pubis without oral contrast. IV 100mL Isovue-300 was administered. Sagittal and coronal images were reconstructed. Individualized dose optimization techniques were used for this CT. COMPARISON: Comparison is made with prior examination dated 12/07/2020. FINDINGS: The visualized lung bases are unremarkable. Coronary artery calcification. Normal liver. Normal gallbladder and extrahepatic biliary system. Normal spleen. Normal pancreas. Normal bilateral adrenal glands. Postoperative surgical changes are seen along the lateral mid inferior pole of the right kidney in keeping with history of prior partial right nephrectomy. This is unchanged. Normal left kidney. Normal visualized stomach. Normal small intestine. Normal colon. The appendix is visualized and appears normal. There is diffuse atherosclerotic calcification of the abdominal aorta, without a demonstrated aneurysm. Normal inferior vena cava. Normal retroperitoneum. Normal urinary bladder. Normal abdominal wall. There are mild degenerative changes of the visualized lumbar spine. Loss of height of the superior endplate of the T11 vertebrae. CT/Abdomen/Pelvis WITH Contrast IMPRESSION: Status post partial right nephrectomy with resultant postoperative changes. There has been no change. Electronically Signed: Venkata Diamond MD at 10:06 EDT ,
== END 2022-01-10 23:59 | disposition home or self-care (01) ==
LOC: CT 07:19
PROVIDERS: PCP Family Medicine Geriatric Medicine; Referring Provider Urology; Visit Provider Urology
DX: C64.1 Malignant neoplasm of right kidney, except renal pelvis (principal)
CPT/HCPCS: 74177; Q9967

== ENCOUNTER → 2022-02-07 | Outpatient (CLI) | payer MEDICARE, SELFPAY ==
--- NOTE | 2022-02-07 14:50 | RAD_ITS ---
STUDY: X-RAY - LUMBAR SPINE REASON FOR EXAM: Female, 71 years old. LOW BACK PAIN TECHNIQUE: 3 view(s) of the lumbar spine were obtained. COMPARISON: None FINDINGS: Normal lumbar lordosis. There is no substantial scoliosis. There is a normal alignment of the vertebrae. There is diffuse demineralization with multi-level endplate spondylosis. Disc space narrowing at L4-L5. Moderate facet arthropathy in the lower lumbar levels. There is no demonstrated fracture. There is atherosclerotic calcification of the abdominal aorta without a demonstrated aneurysm. RAD/Lumbar Spine 2 or 3 Views IMPRESSION: 1. Facet dominant degenerative changes. No compression fracture. Electronically Signed: Johnathan Jimenez MD ([place]) at 21:20 EDT ,
--- NOTE | 2022-02-07 14:50 | RAD_ITS ---
STUDY: X-RAY - PELVIS AND LEFT HIP REASON FOR EXAM: Female, 71 years old. HIP PAIN TECHNIQUE: 3 views of the pelvis and hip. COMPARISON: None. FINDINGS: There is a non-specific bowel gas pattern. Normal visualized soft tissue structures. Degenerative changes of the right hip. Normal bilateral iliac wings, sacroiliac joints and visualized sacrum. Normal bilateral superior and inferior pubic rami. Normal pubic symphysis. Normal bilateral ischial tuberosities. There are osteoarthritic changes of the femoral head with marginal osteophyte formation. There is osteoarthritic spur formation of the acetabular rim. There is mild articular joint space narrowing of the hip. RAD/HIP, UNI W/ Pelvis 2-3 Views IMPRESSION: Left hip osteoarthrosis. Electronically Signed: Johnathan Jimenez MD ([place]) at 21:21 EDT ,
[2022-02-07 17:28] LABS: Anion Gap 9 (5-15); BUN 22 mg/dL (7-18); BUN/Creat Ratio 17.9 RATIO (10-20); Calcium,Total 9.8 mg/dL (8.5-10.1); Chloride 101 mmol/L (98-107); Creatinine, Serum 1.23 mg/dL (0.55-1.02); EST Glomerular Filtration Rate 46 mL/min (>60); Est Glom Filt Rate - Afr Amer 55 mL/min (>60); Glucose 177 mg/dL (74-106); Potassium 4.4 mmol/L (3.5-5.1); Sodium Level 135 mmol/L (136-145)
== END | disposition home or self-care (01) ==
LOC: POLAB3 14:31 → RAD 14:43
PROVIDERS: PCP Family Medicine Geriatric Medicine; Referring Provider Family Medicine Geriatric Medicine; Visit Provider Family Medicine Geriatric Medicine
DX: M54.50 Low back pain, unspecified (principal); N18.30 Chronic kidney disease, stage 3 unspecified; M25.552 Pain in left hip
CPT/HCPCS: 36415; 72100; 73502; 80048

== ENCOUNTER 2022-04-25 13:32 | Outpatient (CLI) | payer MEDICARE, SELFPAY ==
[2022-04-25 17:17] LABS: Absolute Lymphocyte Count 1.67 X10^3/uL (0.83-4.51); Absolute Neutrophil Count 3.6 X10^3/uL (2.0-7.7); Basophil# 0.04 X10^3/uL; Basophil% 0.7 % (0-1); Eosinophil# 0.09 X10^3/uL; Eosinophils% 1.5 % (0-5); Hematocrit 43.1 % (37-47); Hemoglobin 14.1 g/dL (12.0-15.0); Lymphocyte # 1.67 X10^3/ul (0.83-4.51); Lymphocyte % 28.4 % (19-41); Mean Corp Hgb Conc 32.7 g/dL (32-36); Mean Corpuscular Hgb 30.2 pg (27.0-32.0); Mean Corpuscular Volume 92.3 fL (81-99); Mean Platelet Vol. 9.9 fl (6.2-12.0); Monocyte# 0.41 X10^3/uL; NRBC Flagged by Analyzer 0 % (0-5); Neutrophil # 3.64 X10^3/uL (2.7-7.7); Neutrophil % 62.1 % (47-70); Platelet Count 266 K/mm3 (150-450); RBC Distribution Width CV 14.8 % (11.6-14.6); RBC Distribution Width SD 50.4 fl (35.1-43.9); Red Blood Count 4.67 M/mm3 (4.2-5.4); White Blood Count 5.9 K/mm3 (4.4-11.0)
[2022-04-25 17:43] LABS: ALB/GLOB Ratio 1.2 RATIO (0.9-2.4); AST(SGOT) 16 U/L (15-37); Alanine Aminotransfer ALT/SGPT 20 U/L (13-56); Albumin, Serum 3.7 g/dL (3.2-5.0); Alkaline Phosphatase 73 U/L (45-117); Anion Gap 7 (5-15); BUN 19 mg/dL (7-18); BUN/Creat Ratio 16.2 RATIO (10-20); Calcium,Total 9.4 mg/dL (8.5-10.1); Chloride 104 mmol/L (98-107); Creatinine, Serum 1.17 mg/dL (0.55-1.02); EST Glomerular Filtration Rate 49 mL/min (>60); Est Glom Filt Rate - Afr Amer 59 mL/min (>60); Globulin 3.1 g/dL (2.2-4.2); Glucose 124 mg/dL (74-106); Phosphorus 3.1 mg/dL (2.5-4.9); Potassium 4.3 mmol/L (3.5-5.1); Protein, Total 6.8 g/dL (6.4-8.2); Sodium Level 138 mmol/L (136-145)
[2022-04-25 18:01] LABS: PTHIN 79.4 pg/mL (18.4-80.1); Vitamin D,25 Hydroxy 42.5 ng/mL
== END 2022-04-25 23:59 | disposition home or self-care (01) ==
LOC: POLAB3 13:32
PROVIDERS: PCP Family Medicine Geriatric Medicine; Visit Provider Internal Medicine Nephrology
DX: E11.65 Type 2 diabetes mellitus with hyperglycemia (principal); E11.22 Type 2 diabetes mellitus with diabetic chronic kidney disease; N18.30 Chronic kidney disease, stage 3 unspecified; E55.9 Vitamin D deficiency, unspecified; I12.9 Hypertensive chronic kidney disease with stage 1 through stage 4 chronic kidney disease, or unspecified chronic kidney disease
CPT/HCPCS: 36415; 80053; 82306; 83970; 84100; 84443; 85025

== ENCOUNTER → 2022-07-11 | Outpatient (CLI) | payer MEDICARE, SELFPAY ==
[2022-07-11 12:27] LABS: Absolute Lymphocyte Count 2.14 X10^3/uL (0.83-4.51); Absolute Neutrophil Count 2.9 X10^3/uL (2.0-7.7); Basophil# 0.03 X10^3/uL; Basophil% 0.5 % (0-1); Eosinophil# 0.16 X10^3/uL; Eosinophils% 2.8 % (0-5); Hematocrit 42.2 % (37-47); Hemoglobin 13.6 g/dL (12.0-15.0); Lymphocyte # 2.14 X10^3/ul (0.83-4.51); Lymphocyte % 37.4 % (19-41); Mean Corp Hgb Conc 32.2 g/dL (32-36); Mean Corpuscular Hgb 29.8 pg (27.0-32.0); Mean Corpuscular Volume 92.3 fL (81-99); Mean Platelet Vol. 9.6 fl (6.2-12.0); Monocyte# 0.47 X10^3/uL; Monocyte% 8.2 % (0-10); NRBC Flagged by Analyzer 0 % (0-5); Neutrophil # 2.91 X10^3/uL (2.7-7.7); Neutrophil % 50.9 % (47-70); Platelet Count 266 K/mm3 (150-450); RBC Distribution Width CV 14.2 % (11.6-14.6); RBC Distribution Width SD 48.3 fl (35.1-43.9); Red Blood Count 4.57 M/mm3 (4.2-5.4); White Blood Count 5.7 K/mm3 (4.4-11.0)
[2022-07-11 12:35] LABS: Vitamin D,25 Hydroxy 35.9 ng/mL
[2022-07-11 13:00] LABS: AST(SGOT) 18 U/L (15-37); Alanine Aminotransfer ALT/SGPT 19 U/L (13-56); Albumin, Serum 3.4 g/dL (3.2-5.0); Alkaline Phosphatase 90 U/L (45-117); Anion Gap 8 (5-15); BUN 19 mg/dL (7-18); BUN/Creat Ratio 18.4 RATIO (10-20); Calcium,Total 9.6 mg/dL (8.5-10.1); Chloride 105 mmol/L (98-107); Cholesterol 174 mg/dL (200); Creatinine, Serum 1.03 mg/dL (0.55-1.02); EST Glomerular Filtration Rate 56 mL/min (>60); Est Glom Filt Rate - Afr Amer 68 mL/min (>60); Globulin 3.4 g/dL (2.2-4.2); Glucose 154 mg/dL (74-106); High Density Lipoprotein 63 mg/dL; Potassium 4.5 mmol/L (3.5-5.1); Protein, Total 6.8 g/dL (6.4-8.2); Sodium Level 139 mmol/L (136-145); Thyroid Stim Hormone (TSH) 1.46 uIU/mL (0.358-3.74); Triglycerides 131 mg/dL; Very Low Density Lipoprotein 26 mg/dL (5-40)
== END | disposition home or self-care (01) ==
LOC: POLAB3 09:23
PROVIDERS: PCP Family Medicine Geriatric Medicine; Visit Provider Family Medicine Geriatric Medicine
DX: E11.65 Type 2 diabetes mellitus with hyperglycemia (principal); E55.9 Vitamin D deficiency, unspecified; E78.5 Hyperlipidemia, unspecified; I10 Essential (primary) hypertension
CPT/HCPCS: 36415; 80053; 80061; 82306; 84443; 85025

== ENCOUNTER → 2023-01-10 | Outpatient (CLI) | payer MEDICARE, SELFPAY ==
[2023-01-10 17:53] LABS: Absolute Lymphocyte Count 2.36 X10^3/uL (0.83-4.51); Absolute Neutrophil Count 3.2 X10^3/uL (2.0-7.7); Basophil# 0.04 X10^3/uL; Basophil% 0.6 % (0-1); Eosinophil# 0.15 X10^3/uL; Eosinophils% 2.4 % (0-5); Hemoglobin 13.3 g/dL (12.0-15.0); Lymphocyte # 2.36 X10^3/ul (0.83-4.51); Lymphocyte % 38.2 % (19-41); Mean Corp Hgb Conc 32.4 g/dL (32-36); Mean Corpuscular Hgb 30.2 pg (27.0-32.0); Monocyte# 0.43 X10^3/uL; NRBC Flagged by Analyzer 0 % (0-5); Neutrophil # 3.18 X10^3/uL (2.7-7.7); Neutrophil % 51.6 % (47-70); Platelet Count 243 K/mm3 (150-450); RBC Distribution Width CV 14.8 % (11.6-14.6); RBC Distribution Width SD 51.1 fl (35.1-43.9); Red Blood Count 4.41 M/mm3 (4.2-5.4); White Blood Count 6.2 K/mm3 (4.4-11.0)
[2023-01-10 18:00] LABS: Vitamin D,25 Hydroxy 29.2 ng/mL
[2023-01-10 18:06] LABS: ALB/GLOB Ratio 1.1 RATIO (0.9-2.4); AST(SGOT) 20 U/L (15-37); Alanine Aminotransfer ALT/SGPT 19 U/L (13-56); Albumin, Serum 3.8 g/dL (3.2-5.0); Alkaline Phosphatase 84 U/L (45-117); Anion Gap 5 (5-15); BUN 26 mg/dL (7-18); BUN/Creat Ratio 24.3 RATIO (10-20); Calcium,Total 9.4 mg/dL (8.5-10.1); Chloride 104 mmol/L (98-107); Cholesterol 291 mg/dL (200); Creatinine, Serum 1.07 mg/dL (0.55-1.02); EST Glomerular Filtration Rate 54 mL/min (>60); Est Glom Filt Rate - Afr Amer 65 mL/min (>60); Globulin 3.4 g/dL (2.2-4.2); Glucose 102 mg/dL (74-106); High Density Lipoprotein 54 mg/dL; Protein, Total 7.2 g/dL (6.4-8.2); Sodium Level 136 mmol/L (136-145); Thyroid Stim Hormone (TSH) 1.07 uIU/mL (0.358-3.74); Triglycerides 169 mg/dL; Very Low Density Lipoprotein 34 mg/dL (5-40)
== END | disposition home or self-care (01) ==
LOC: POLAB3 13:58
PROVIDERS: PCP Family Medicine Geriatric Medicine; Visit Provider Family Medicine Geriatric Medicine
DX: E55.9 Vitamin D deficiency, unspecified (principal); E11.65 Type 2 diabetes mellitus with hyperglycemia; I10 Essential (primary) hypertension; E78.5 Hyperlipidemia, unspecified
CPT/HCPCS: 36415; 80053; 80061; 82306; 84443; 85025

== ENCOUNTER → 2023-07-25 | Outpatient (CLI) | payer MEDICARE, SELFPAY ==
[2023-07-25 14:40] LABS: Basophil# 0.04 X10^3/uL; Basophil% 0.6 % (0-1); Eosinophil# 0.16 X10^3/uL; Eosinophils% 2.3 % (0-5); Hematocrit 42.6 % (37-47); Hemoglobin 13.9 g/dL (12.0-15.0); Lymphocyte % 32.9 % (19-41); Mean Corp Hgb Conc 32.6 g/dL (32-36); Mean Corpuscular Hgb 29.8 pg (27.0-32.0); Mean Corpuscular Volume 91.4 fL (81-99); Mean Platelet Vol. 9.6 fl (6.2-12.0); Monocyte# 0.48 X10^3/uL; Monocyte% 6.9 % (0-10); NRBC Flagged by Analyzer 0 % (0-5); Platelet Count 244 K/mm3 (150-450); RBC Distribution Width CV 13.1 % (11.6-14.6); RBC Distribution Width SD 44.2 fl (35.1-43.9); Red Blood Count 4.66 M/mm3 (4.2-5.4)
[2023-07-25 14:49] LABS: Vitamin D,25 Hydroxy 27.3 ng/mL
[2023-07-25 14:59] LABS: ALB/GLOB Ratio 1.1 RATIO (0.9-2.4); AST(SGOT) 17 U/L (15-37); Alanine Aminotransfer ALT/SGPT 28 U/L (13-56); Albumin, Serum 3.6 g/dL (3.2-5.0); Alkaline Phosphatase 108 U/L (45-117); Anion Gap 5 (5-15); BUN 25 mg/dL (7-18); BUN/Creat Ratio 25.3 RATIO (10-20); Calcium,Total 8.8 mg/dL (8.5-10.1); Chloride 104 mmol/L (98-107); Cholesterol 201 mg/dL (200); Creatinine, Serum 0.99 mg/dL (0.55-1.02); EST Glomerular Filtration Rate 59 mL/min (>60); Est Glom Filt Rate - Afr Amer 71 mL/min (>60); Globulin 3.3 g/dL (2.2-4.2); Glucose 139 mg/dL (74-106); High Density Lipoprotein 61 mg/dL; Potassium 4.5 mmol/L (3.5-5.1); Protein, Total 6.9 g/dL (6.4-8.2); Sodium Level 136 mmol/L (136-145); Thyroid Stim Hormone (TSH) 1.42 uIU/mL (0.358-3.74); Triglycerides 175 mg/dL; Very Low Density Lipoprotein 35 mg/dL (5-40)
[2023-07-25 18:45] LABS: Hemoglobin A1c 5.9 % (3.8-5.6)
== END | disposition home or self-care (01) ==
LOC: POLAB3 13:23
PROVIDERS: PCP Family Medicine Geriatric Medicine; Visit Provider Family Medicine Geriatric Medicine
DX: I12.9 Hypertensive chronic kidney disease with stage 1 through stage 4 chronic kidney disease, or unspecified chronic kidney disease (principal); E11.65 Type 2 diabetes mellitus with hyperglycemia; E11.22 Type 2 diabetes mellitus with diabetic chronic kidney disease; N18.31 Chronic kidney disease, stage 3a; E78.5 Hyperlipidemia, unspecified
CPT/HCPCS: 36415; 80053; 80061; 82306; 83036; 84443; 85025

== ENCOUNTER → 2024-01-16 | Outpatient (CLI) | payer MEDICARE, SELFPAY ==
[2024-01-16 10:45] LABS: Absolute Lymphocyte Count 1.74 X10^3/uL (0.83-4.51); Basophil# 0.05 X10^3/uL; Basophil% 0.8 % (0-1); Eosinophil# 0.14 X10^3/uL; Eosinophils% 2.2 % (0-5); Hematocrit 42.3 % (37-47); Hemoglobin 14.7 g/dL (12.0-15.0); Lymphocyte # 1.74 X10^3/ul (0.83-4.51); Lymphocyte % 26.8 % (19-41); Mean Corp Hgb Conc 34.8 g/dL (32-36); Mean Corpuscular Hgb 30.6 pg (27.0-32.0); Mean Corpuscular Volume 88.1 fL (81-99); Mean Platelet Vol. 9.2 fl (6.2-12.0); Monocyte# 0.55 X10^3/uL; Monocyte% 8.5 % (0-10); NRBC Flagged by Analyzer 0 % (0-5); Neutrophil # 3.98 X10^3/uL (2.7-7.7); Neutrophil % 61.1 % (47-70); Platelet Count 257 K/mm3 (150-450); RBC Distribution Width CV 12.7 % (11.6-14.6); RBC Distribution Width SD 41.2 fl (35.1-43.9); White Blood Count 6.5 K/mm3 (4.4-11.0)
[2024-01-16 11:14] LABS: Vitamin D,25 Hydroxy 30.9 ng/mL
[2024-01-16 11:27] LABS: Microalbumin,Random Urine 10.7 mg/L (NO RANGE EST.); Microalbumin:Creatinine Ratio 11.5 mg/g CRE (<30 mg/g CRE)
[2024-01-16 11:32] LABS: Hemoglobin A1c 7.6 % (3.8-5.6)
[2024-01-16 11:34] LABS: ALB/GLOB Ratio 1.2 RATIO (0.9-2.4); AST(SGOT) 17 U/L (15-37); Alanine Aminotransfer ALT/SGPT 27 U/L (13-56); Albumin, Serum 3.8 g/dL (3.2-5.0); Alkaline Phosphatase 113 U/L (45-117); Anion Gap 4 (5-15); BUN 17 mg/dL (7-18); BUN/Creat Ratio 14.7 RATIO (10-20); Calcium,Total 8.8 mg/dL (8.5-10.1); Chloride 102 mmol/L (98-107); Cholesterol 186 mg/dL (200); Creatinine, Serum 1.16 mg/dL (0.55-1.02); EST Glomerular Filtration Rate 49 mL/min (>60); Est Glom Filt Rate - Afr Amer 59 mL/min (>60); Globulin 3.1 g/dL (2.2-4.2); Glucose 216 mg/dL (74-106); High Density Lipoprotein 60 mg/dL; Potassium 4.8 mmol/L (3.5-5.1); Protein, Total 6.9 g/dL (6.4-8.2); Sodium Level 135 mmol/L (136-145); Thyroid Stim Hormone (TSH) 1.33 uIU/mL (0.358-3.74); Triglycerides 133 mg/dL; Very Low Density Lipoprotein 27 mg/dL (5-40)
== END | disposition home or self-care (01) ==
LOC: LAB 10:03
PROVIDERS: PCP Family Medicine Geriatric Medicine; Referring Provider Family Medicine Geriatric Medicine; Visit Provider Family Medicine Geriatric Medicine
DX: E11.65 Type 2 diabetes mellitus with hyperglycemia (principal); I10 Essential (primary) hypertension; E55.9 Vitamin D deficiency, unspecified; E78.5 Hyperlipidemia, unspecified
CPT/HCPCS: 36415; 80053; 80061; 82043; 82306; 82570; 83036; 84443; 85025

== ENCOUNTER → 2024-01-30 | Outpatient (CLI) | payer MEDICARE, SELFPAY ==
--- NOTE | 2024-01-30 06:52 | CT_ITS ---
STUDY: CT ABDOMEN AND PELVIS WITHOUT CONTRAST REASON FOR EXAM: Female, 73 years old. Unspecified abdominal pain RADIATION DOSAGE (If Supplied By Facility): CTDIvol = ( 18.33 ) mGy, DLP = ( 915.92 ) mGycm TECHNIQUE: Transaxial images were obtained from the dome of the diaphragm to the symphysis pubis without oral contrast, and without intravenous contrast. Sagittal and coronal images were reconstructed. Individualized dose optimization techniques were used for this CT. COMPARISON: Comparison is made with prior study January 10, 2022. FINDINGS: The visualized lung bases are unremarkable. Coronary artery calcification. Normal liver. Possible tiny layering gallstones in the gallbladder lumen. Normal spleen. Normal pancreas. Normal bilateral adrenal glands. Cortical scarring along the lateral mid inferior pole of the right kidney suggestive of prior partial right nephrectomy. Normal left kidney. There is a small hiatal hernia. Normal small intestine. Normal colon. The appendix is visualized and appears normal. There is diffuse atherosclerotic calcification of the abdominal aorta, without a demonstrated aneurysm. Normal inferior vena cava. Normal retroperitoneum. Heterogeneous appearance of the urinary bladder with the multiple calcific densities along the posterior base of the bladder suggestive of multiple calculi. Findings suggest bilateral 0.3 cm diverticulum along the anterior aspect of urinary bladder. Normal abdominal wall. Normal osseous structures. CT/Abdomen/Pelvis without Cont IMPRESSION: Multiple layering stones in the urinary bladder with the heterogeneous appearance within the bladder. Cystoscopy is recommended. Electronically Signed: Venkata Diamond MD at 15:31 EDT ,
--- NOTE | 2024-01-30 06:52 | CT_ITS ---
STUDY: LOW DOSE CT LUNG CANCER SCREENING REASON FOR EXAM: Female, 73 years old. SCREENING. Patient smoked half a pack per day for 54 years. RADIATION DOSAGE (If Supplied By Facility): CTDIvol = ( 3.02 ) mGy, DLP = ( 107.59 ) mGycm TECHNIQUE: No contrast was administered. Low dose technique was utilized (average mAS-38 and kVp 120). 1.25 mm axial source images with a slice interval of 1.25-mm were reconstructed in lung windows. 2.5 mm axial source images with a slice interval of 2.5-mm were reconstructed in lung windows. 5.0 mm axial source images with a slice interval of 5.0-mm were reconstructed in soft tissue windows. COMPARISON: Comparison is made with prior study January 22, 2019. NODULES: No suspicious nodules are seen. Emphysema: Hyperinflation. Emphysematous changes. Endobronchial lesion: None Aorta: Atherosclerotic plaque formation of the aortic arch. CORONARY ARTERIES: Coronary artery calcification is seen. Heart: Unremarkable Pulmonary artery: Unremarkable Mediastinal nodes: Small mediastinal lymph nodes. Other chest and abdominal findings: CT/Low Dose CT Lung Screening IMPRESSION: Lung-RADS category 2 - Continue annual screening with LDCT in 12 months. IMPORTANT NOTES FOR USE: ACR Lung-RADS Version 1.1 Assessment Categories Release Date: 2018 Category: Coded 0-4 bases on nodule(s) with highest degree of suspicion. Negative screen is defined as categories 1 and 2; a positive screen is defined as categories 3 and 4. Category 3 and 4A nodules that are unchanged on interval CT should be coded as category 2, and individuals returned to screening in 12 months. Category 4X: Category 3 or 4 nodules with additional imaging findings that increase the suspicion of lung cancer, such as spiculation, GGN that doubles in size in 1 year, enlarged lymph notes, etc. Category Modifiers: S (significant finding unrelated to lung cancer) Electronically Signed: Venkata Diamond MD at 9:14 EDT ,
--- NOTE | 2024-01-30 07:14 | BI_ITS ---
MAMMOGRAPHY - BILATERAL SCREENING REASON FOR EXAM: Female, 73 years old. Routine annual screening examination. PERTINENT HISTORY: Sister with breast cancer. Mother with breast cancer. TECHNIQUE: Digital bilateral breast kwan (3D mammographic acquisition) in the CC and MLO projections. 2-D mediolateral oblique (MLO) and craniocaudad (CC) views of both breasts were obtained. CAD: Full Field Digital Mammography with Computer Added Detection was performed. COMPARISON: Comparison is made with prior study dated March 29, 2021 and April 23, 2022. FINDINGS: Breast Composition: The breasts are heterogeneously dense, which may obscure small masses. There are no dominant masses or suspicious calcifications. Once again, diffuse macrocalcifications in the right breast. Stable calcifications in the left breast. No focal microcalcification cluster is seen. No other significant abnormalities are identified. There has been no significant change since the prior study. BI/SCRN MAMM (CAD)W/KWAN BILAT IMPRESSION: Stable bilateral screening mammogram. Yearly follow-up mammogram recommended. (A) ASSESSMENT CATEGORY: BIRADS Category 2: Benign. A letter regarding these results will be sent to the patient by the facility within 30 days. Approximately 10% of breast cancers are not detected by mammography. A normal mammogram should not delay biopsy of a clinically suspicious abnormality. [id number] Electronically Signed: Venkata Diamond MD at 9:29 EDT ,
== END | disposition home or self-care (01) ==
PROVIDERS: PCP Family Medicine Geriatric Medicine; Referring Provider Family Medicine Geriatric Medicine; Visit Provider Family Medicine Geriatric Medicine
DX: Z12.31 Encounter for screening mammogram for malignant neoplasm of breast (principal); F17.210 Nicotine dependence, cigarettes, uncomplicated; R10.9 Unspecified abdominal pain; Z80.3 Family history of malignant neoplasm of breast
CPT/HCPCS: 71271; 74176; 77063; 77067

== ENCOUNTER → 2024-02-18 | Outpatient (CLI) | payer MEDICARE, SELFPAY | END | disposition home or self-care (01) | LOC: LABSPEC 15:51 | PROVIDERS: PCP Family Medicine Geriatric Medicine; Referring Provider Urology; Visit Provider Urology | DX: R31.0 Gross hematuria (principal) | CPT/HCPCS: 87086; 87088; 87186 ==

== ENCOUNTER → 2024-03-31 | Outpatient (CLI) | payer MEDICARE, SELFPAY ==
--- NOTE | 2024-03-31 07:15 | US_ITS ---
STUDY: ABDOMINAL ULTRASOUND - RIGHT UPPER QUADRANT REASON FOR VISIT: Female, 73 years old ABD PAIN TECHNIQUE: Ultrasound evaluation of the right upper quadrant was performed with real-time and static bellamy-scale imaging. TECHNICAL QUALITY: Adequate. COMPARISON: None. FINDINGS: Liver: The liver measures 13.4 cm. There is normal echogenicity of the liver. The bile ducts are within normal limits. There is hepatic color flow. The direction of portal flow is hepatopetal. There is no demonstrated mass lesion. Gallbladder: Normal distended gallbladder. The gallbladder wall measures 3 mm. There is a negative sonographic Santoyo''s sign. There is no pericholecystic fluid. There are no gallstones. Common Bile Duct (C.B.D.): The common bile duct measures 5 mm. Pancreas: Visualized pancreas is sonographically normal Right Kidney: Normal size of the right kidney. The right kidney measures 8.6 x 4.8 x 4.5 cm. Normal renal cortex. The right cortex measures 1.3 cm. There is no demonstrated renal mass or cyst. There is no right hydronephrosis. US/Abdomen Limited IMPRESSION: No suspicious sonographic findings Electronically Signed: Berry Cr MD at 9:52 EDT ,
--- NOTE | 2024-03-31 07:16 | CT_ITS ---
STUDY: CT ABDOMEN AND PELVIS WITH CONTRAST REASON FOR EXAM: Female, 73 years old. ABD PAIN RADIATION DOSAGE (If Supplied By Facility): CTDIvol = ( 15.77 ) mGy, DLP = ( 1094.19 ) mGycm TECHNIQUE: Oral and amp; IV Gastrografin and amp; 100mL Isovue-370 was administered. Transaxial images were obtained from the dome of the diaphragm to the symphysis pubis. Multiplanar coronal and sagittal images were reformatted. The protocol utilizes one or more of the following dose reduction techniques: automated exposure control, adjustment of mA and/or kV according to patient size,and/or use of iterative reconstruction technique. COMPARISON: No relevant prior comparison study available FINDINGS: The visualized lung bases are unremarkable. The visualized portions of the heart are within normal limits. Normal liver. Normal gallbladder and extrahepatic biliary system. Normal spleen. Normal pancreas. Normal bilateral adrenal glands. Focal scarring in the lateral aspect of the right kidney. No evidence of hydronephrosis. Density in the distal esophagus could reflect ingested material. The stomach is essentially unremarkable. Normal in caliber small bowel loops. Fecal retention. No evidence of acute diverticulitis. The appendix is visualized and appears normal. There is diffuse atherosclerotic calcification of the abdominal aorta, without a demonstrated aneurysm. No retroperitoneal adenopathy. Normal urinary bladder. Very small umbilical hernia containing fat. Mild compression of T11 vertebra probably chronic. Minimal anterolisthesis of L4 over L5. CT/Abdomen/Pelvis WITH Contrast IMPRESSION: 1. No focal acute inflammatory process. 2. Small density in the distal esophagus could reflect ingested material. Electronically Signed: Ramin Hooker MD at 13:43 EDT ,
[2024-03-31 10:08] LABS: CREATININE FINGERSTICK 1.3 mg/dL (0.55-1.02)
== END | disposition home or self-care (01) ==
LOC: US 07:14
PROVIDERS: PCP Family Medicine Geriatric Medicine; Referring Provider Family Medicine Geriatric Medicine; Visit Provider Family Medicine Geriatric Medicine
DX: R10.9 Unspecified abdominal pain (principal)
CPT/HCPCS: 74177; 76705; Q9967

== ENCOUNTER → 2024-05-07 | Outpatient (CLI) | payer MEDICARE, SELFPAY ==
--- NOTE | 2024-05-07 14:50 | BD_ITS ---
STUDY: DUAL ENERGY X-RAY ABSORPTIOMETRY / DXA REASON FOR EXAM: Female, 73 years old. [id number] TECHNIQUE: Bone Mineral Density (BMD) measurements of lumbar spine and bilateral hips were obtained. COMPARISON: Comparison is made with prior study of November 21, 2016. FINDINGS: Lumbar Spine (L1-L4): g/cm2 (0.980) / T-score (-0.6) / Z-score (1.7) Findings are suggestive of normal bone density with a low fracture risk. Left Femur Total: g/cm2 (0.759) / T-score (-1.5) / Z-score (0.2) Left Femoral Neck: g/cm2 (0.576) / T-score (-2.5) / Z-score (-0.5) Right Femur Total: g/cm2 (0.781) / T-score (-1.3) / Z-score (0.3) Right Femoral Neck: g/cm2 (0.643) / T-score (-1.9) / Z-score (0.1) The T-Scores on the most recent prior examination were: Lumbar Spine (L1-L4): There has been worsening of bone density since the previous examination. Left Femur Total: which represents a worsening of 12.8%. Right Femur Total: which represents a worsening of 11.8%. BD/Dexa Bone Density Study IMPRESSION: The patient is considered osteopenic as outlined below according to World [employer] Organization (WHO) criteria with a high fracture risk. There has been worsening of bone density since the previous examination. Reference Information: The T-score is the number of standard deviations above or below the standard which is normal for young adults at their peak bone mineral density. The World Health Organization (WHO) interprets the T-scores as follows: Above -1 Normal bone density Between -1 and -2.5 Osteopenia Equal to / or below -2.5 Osteoporosis As a practical clinical guideline, osteopenia may be graded as follows: Mild -1 through -1.5 Moderate -1.6 through -2.0 Severe -2.1 through -2.4 The Z-score is the number of standard deviations above or below age-matched controls. A Z-score of less than -1.5 would be considered abnormal. References: 1. NIH Osteoporosis and Related Bone Diseases www osteo.org 2. International Society for Clinical Densitometry www iscd.org 3. National Osteoporosis Foundation www nof.org Electronically Signed: Venkata Diamond MD at 15:44 EDT ,
== END | disposition home or self-care (01) ==
LOC: OPBD 14:49
PROVIDERS: PCP Family Medicine Geriatric Medicine; Referring Provider Family Medicine Geriatric Medicine; Visit Provider Family Medicine Geriatric Medicine
DX: Z78.0 Asymptomatic menopausal state (principal)
CPT/HCPCS: 77080

== ENCOUNTER → 2024-07-15 | Outpatient (CLI) | payer MEDICARE, SELFPAY ==
--- NOTE | 2024-07-15 10:20 | RAD_ITS ---
INDICATION: OA EXAMINATION/TECHNIQUE: X-RAY - XR Hips Bilateral with Pelvis when performed; Min 5 Views COMPARISON: Pelvis and left hip radiographs dated 02/07/2022. FINDINGS: PELVIC BONES: No displaced fracture, destructive or sclerotic lesions. Note that overlapping bowel shadows may however obscure fine detail. Sacroiliac joints are unremarkable. No widening of the pubic symphysis. HIPS: There is persistent moderate degenerative arthrosis of the hip joints bilaterally with joint space narrowing and marginal osteophyte formation. No displaced fracture. SOFT TISSUES: There are persistent calcified phleboliths in the pelvis. No soft tissue swelling or gas. RAD/Hips B/L min 2 views w/ Pelvis IMPRESSION: Persistent moderate degenerative arthrosis of the hip joints bilaterally. No evidence of displaced pelvic or hip fracture. Electronically Signed: Cash Cornell MD at 15:48 EDT ,
[2024-07-15 11:26] LABS: Absolute Lymphocyte Count 2.02 X10^3/uL (0.83-4.51); Absolute Neutrophil Count 5.5 X10^3/uL (2.0-7.7); Basophil# 0.03 X10^3/uL; Basophil% 0.4 % (0-1); Eosinophil# 0.16 X10^3/uL; Eosinophils% 1.9 % (0-5); Hematocrit 46.5 % (37-47); Hemoglobin 15.5 g/dL (12.0-15.0); Lymphocyte # 2.02 X10^3/ul (0.83-4.51); Lymphocyte % 24.3 % (19-41); Mean Corp Hgb Conc 33.3 g/dL (32-36); Mean Corpuscular Hgb 29.4 pg (27.0-32.0); Mean Corpuscular Volume 88.2 fL (81-99); Mean Platelet Vol. 9.7 fl (6.2-12.0); Monocyte# 0.61 X10^3/uL; Monocyte% 7.3 % (0-10); NRBC Flagged by Analyzer 0 % (0-5); Neutrophil # 5.46 X10^3/uL (2.7-7.7); Neutrophil % 65.7 % (47-70); Platelet Count 238 K/mm3 (150-450); RBC Distribution Width CV 13.4 % (11.6-14.6); RBC Distribution Width SD 43.6 fl (35.1-43.9); Red Blood Count 5.27 M/mm3 (4.2-5.4); White Blood Count 8.3 K/mm3 (4.4-11.0)
[2024-07-15 12:04] LABS: Hemoglobin A1c 9.4 % (3.8-5.6)
[2024-07-15 12:10] LABS: ALB/GLOB Ratio 1.1 RATIO (0.9-2.4); AST(SGOT) 18 U/L (15-37); Alanine Aminotransfer ALT/SGPT 27 U/L (13-56); Albumin, Serum 3.8 g/dL (3.2-5.0); Alkaline Phosphatase 141 U/L (45-117); Anion Gap 9 (5-15); BUN 17 mg/dL (7-18); BUN/Creat Ratio 13.9 RATIO (10-20); Calcium,Total 9.2 mg/dL (8.5-10.1); Chloride 99 mmol/L (98-107); Cholesterol 195 mg/dL (200); Creatinine, Serum 1.22 mg/dL (0.55-1.02); EST Glomerular Filtration Rate 46 mL/min (>60); Est Glom Filt Rate - Afr Amer 56 mL/min (>60); Globulin 3.4 g/dL (2.2-4.2); Glucose 363 mg/dL (74-106); High Density Lipoprotein 56 mg/dL; Potassium 4.6 mmol/L (3.5-5.1); Protein, Total 7.2 g/dL (6.4-8.2); Sodium Level 132 mmol/L (136-145); Triglycerides 239 mg/dL; Very Low Density Lipoprotein 48 mg/dL (5-40)
== END | disposition home or self-care (01) ==
LOC: RAD 10:13
PROVIDERS: PCP Family Medicine Geriatric Medicine; Referring Provider Family Medicine Geriatric Medicine; Visit Provider Family Medicine Geriatric Medicine
DX: M16.0 Bilateral primary osteoarthritis of hip (principal); E11.65 Type 2 diabetes mellitus with hyperglycemia; I10 Essential (primary) hypertension; E55.9 Vitamin D deficiency, unspecified; E78.5 Hyperlipidemia, unspecified
CPT/HCPCS: 36415; 73521; 80053; 80061; 82306; 83036; 84443; 85025

== ENCOUNTER 2024-07-22 08:00 | Outpatient (RCR) | payer MEDICARE, SELFPAY ==
--- NOTE | 2024-07-22 09:14 | HP.PTEVAL_ITS ---
Patient's Visit Information Visit Information Visit Information: NISH BENITEZ is a 74 year old F referred to Physical Therapy by Dr. Juan Diego King MD with a diagnosis of OSTEOARTHRITIS ,HIP BILATERAL. Date of Evaluation: 07/22/24 Physical Therapist: Randy Su PT, Cert MDT, OCS Visit Plan Frequency: 2x /Week Duration: 4 Weeks Plan: PT INTERVENTIONS HIP STRENGTHENING ,DLS ,AND FUNCTIONAL STRENGTHENING Subjective Subjective: This 74 y/o female presents to physical therapy with bilateral hip pain . Patient has had hip pain for [address] . [address] mcdowell PT had x-rays DDD mod thoracic ,mod DJD . Patient has had pain groin pain anterior. Described as ache. Patient has lumbar pain as well.Aggravating factors walking/standing and unable to squat. Alleviating factors rest. Patient denies paresthesia/tingling.Patient sleeping good. No trauma. No prior tx for hips/back. Patient condition affects QOL and function. Patient goal to decrease symptoms. SOCIAL: VOCATION: retired Pain Bilateral Hip: Pain Intensity (Out of 10): 4 Pain Intensity Range: 10 Comment: anterior Objective Objective: POSTURE: mild forward posture NEURO: denies paresthesia/tingling ,reflexes intact GAIT: reciprocal pattern PALPATION: unremarkable PROM: hip flexion 120 degrees ,ER 50 degrees , FLEXABILITY: hamstrings WNL MMT: quads/hams 4/5,hip IR/ER 4/5 ,hip flexion /abduction 4/5 LUMBAR ROM: flexion WNL ,extension min assist ,side glides min loss Special Tests L/S Slump test left side: Negative L/S Slump test right side: Negative L/S Left Straight Leg Raise: Negative L/S Right Straight Leg Raise: Negative Lumbar Standing: Flexion - Mechanical Response: No effect Lumbar Standing: Flexion - Symptoms During Testing: No effect Lumbar Standing: Flexion - Symptoms After Testing: No effect Lumbar Standing: Extension - Mechanical Response: No effect Lumbar Standing: Extension - Symptoms During Testing: No effect Lumbar Standing: Extension - Symptoms After Testing: No effect Lumbar Standing: Right Side Glides - Mechanical Response: No effect Lumbar Standing: Right Side [place] - Symptoms During Testing: No effect Lumbar Standing: Right Side [place] - Symptoms After Testing: No effect Lumbar Standing: Left Side [place] - Mechanical Response: No effect Lumbar Standing: Left Side [place] - Symptoms During Testing: No effect Lumbar Standing: Left Side [place] - Symptoms After Testing: No effect R Hip Scour: Negative R Hip Quadrant - Intraarticular Pathology: Negative R Hip JACOB - Intraarticular Pathology: Negative R Hip Trendelenberg - Glut Medius: Negative L Hip Scour: Negative L Hip JACOB - Intraarticular Pathology: Negative L Hip Trendelenberg - Glut Medius: Negative Balance/Special Test Scores Lower Extremity Functional Score: 44 Goals Goal 1:: Patient to be I with HEP for back Goal Time Frame: 4-6 Weeks Goal 2:: Patient to be demonstrate 50 % to improve function and less pain Goal Time Frame: 4-6 Weeks Goal 3:: Patient to improve strength of hips to 4/5 to improve gaiy Goal Time Frame: 4-6 Weeks Goal 4:: Patient to improve LFES score by 5 points to improve QOL and function Rehabilitation Potential Physical Therapy Diagnosis: Patient has bilateral anterior hip pain along with weakness with pain inn hips and back thus benefit from skilled PT Rehabilitation Potential: Good Anticipated Interventions Patient/Client Instruction: Educate patient on: Condition and Plan of Care For the Purpose of:: To decrease pain, To improve muscle performance and motor function, To improve ability to perform ADL's, To increase tolerance to activity/condition/position, To improve ability of physical actions for home/community/work/leisure, To improve gait and locomotor functions, To increase flexibility/ROM, To improve endurance, To improve balance and To improve tolerance to ADL's Therapeutic Exercise to Include: Strength training, Endurance training, Postural training, Flexibilty training and Dynamic Lumbar Stabilization For the Purpose of:: To decrease pain, To improve muscle performance and motor function, To improve ability to perform ADL's, To increase tolerance to activity/condition/position, To improve ability of physical actions for home/community/work/leisure and To increase flexibility/ROM Text: Thank you for the opportunity to evaluate your patient. For Medicare and Medicare HMO plans, please review the plan of care and approve it. It will need to be FAXED BACK to us at [phone] for Medicare purposes. For Medicare only, by signing this I certify the plan of care. Please let me know if there are questions or concerns regarding this plan of care. Physician Signature: Date:
--- NOTE | 2024-09-09 13:43 | HP.PT.NRP ---
Patient Information Patient Information: NISH BENITEZ was seen in my office for initial evaluation on 07/22/24. The following Plan of Care was established for this patient: POC Established Initial Frequency: 2x /Week Initial Duration: 4 Weeks Anticipated Interventions Patient/Client Instruction: Educate patient on: Condition and Plan of Care For the Purpose of:: To decrease pain, To improve muscle performance and motor function, To improve ability to perform ADL's, To increase tolerance to activity/condition/position, To improve ability of physical actions for home/community/work/leisure, To improve gait and locomotor functions, To increase flexibility/ROM, To improve endurance, To improve balance and To improve tolerance to ADL's Therapeutic Exercise to Include: Strength training, Endurance training, Postural training, Flexibilty training and Dynamic Lumbar Stabilization For the Purpose of:: To decrease pain, To improve muscle performance and motor function, To improve ability to perform ADL's, To increase tolerance to activity/condition/position, To improve ability of physical actions for home/community/work/leisure and To increase flexibility/ROM Last Seen Last Seen: This patient was last seen in our office . Pertinent comments regarding their Physical therapy will appear below: Patient seen for PT for evaluation and d/c to HEP At this point I will be discontinuing this patient from physical therapy. I would be happy to see this patient again in the future if found appropriate by the physician. Thank you! Randy Su, PT, Cert MDT, OCS Balance/Gait/Functional tests Balance/Special Test Scores Lower Extremity Functional Score: 44
== END 2024-07-22 19:00 | disposition home or self-care (01) ==
LOC: PT 08:00
PROVIDERS: PCP Family Medicine Geriatric Medicine; Referring Provider Family Medicine Geriatric Medicine; Visit Provider Family Medicine Geriatric Medicine
DX: M16.0 Bilateral primary osteoarthritis of hip (principal)
CPT/HCPCS: 97110; 97162

== ENCOUNTER → 2024-10-22 | Outpatient (CLI) | payer MEDICARE, SELFPAY ==
[2024-10-22 11:03] LABS: Absolute Lymphocyte Count 1.66 X10^3/uL (0.83-4.51); Absolute Neutrophil Count 5.3 X10^3/uL (2.0-7.7); Basophil# 0.03 X10^3/uL; Basophil% 0.4 % (0-1); Eosinophil# 0.11 X10^3/uL; Eosinophils% 1.4 % (0-5); Hematocrit 47.4 % (37-47); Hemoglobin 15.7 g/dL (12.0-15.0); Lymphocyte # 1.66 X10^3/ul (0.83-4.51); Lymphocyte % 21.8 % (19-41); Mean Corp Hgb Conc 33.1 g/dL (32-36); Mean Corpuscular Hgb 29.6 pg (27.0-32.0); Mean Corpuscular Volume 89.4 fL (81-99); Mean Platelet Vol. 9.7 fl (6.2-12.0); Monocyte# 0.49 X10^3/uL; Monocyte% 6.4 % (0-10); NRBC Flagged by Analyzer 0 % (0-5); Neutrophil # 5.29 X10^3/uL (2.7-7.7); Neutrophil % 69.5 % (47-70); Platelet Count 226 K/mm3 (150-450); RBC Distribution Width CV 13.2 % (11.6-14.6); RBC Distribution Width SD 43.1 fl (35.1-43.9); White Blood Count 7.6 K/mm3 (4.4-11.0)
[2024-10-22 11:25] LABS: Hemoglobin A1c 10.5 % (3.8-5.6)
[2024-10-22 11:37] LABS: Vitamin D,25 Hydroxy 25.3 ng/mL
[2024-10-22 11:44] LABS: AST(SGOT) 20 U/L (15-37); Alanine Aminotransfer ALT/SGPT 29 U/L (13-56); Albumin, Serum 3.8 g/dL (3.2-5.0); Alkaline Phosphatase 118 U/L (45-117); Anion Gap 8 (5-15); BUN 13 mg/dL (7-18); BUN/Creat Ratio 9.5 RATIO (10-20); Calcium,Total 9.6 mg/dL (8.5-10.1); Chloride 103 mmol/L (98-107); Cholesterol 201 mg/dL (200); Creatinine, Serum 1.37 mg/dL (0.55-1.02); EST Glomerular Filtration Rate 40 mL/min (>60); Est Glom Filt Rate - Afr Amer 49 mL/min (>60); Globulin 3.8 g/dL (2.2-4.2); Glucose 310 mg/dL (74-106); High Density Lipoprotein 62 mg/dL; Protein, Total 7.6 g/dL (6.4-8.2); Sodium Level 138 mmol/L (136-145); Triglycerides 208 mg/dL; Very Low Density Lipoprotein 42 mg/dL (5-40)
== END | disposition home or self-care (01) ==
LOC: POLAB3 10:48
PROVIDERS: PCP Family Medicine Geriatric Medicine; Visit Provider Family Medicine Geriatric Medicine
DX: E11.65 Type 2 diabetes mellitus with hyperglycemia (principal); I10 Essential (primary) hypertension; E55.9 Vitamin D deficiency, unspecified; E78.5 Hyperlipidemia, unspecified
CPT/HCPCS: 36415; 80053; 80061; 82306; 83036; 84443; 85025

== ENCOUNTER → 2024-12-15 | Outpatient (CLI) | payer MEDICARE, SELFPAY ==
[2024-12-15 13:35] LABS: Hemoglobin A1c 9.7 % (<=5.6)
== END | disposition home or self-care (01) ==
LOC: LAB 12:41
PROVIDERS: PCP Family Medicine Geriatric Medicine; Referring Provider Family Medicine Geriatric Medicine; Visit Provider Family Medicine Geriatric Medicine
DX: E11.65 Type 2 diabetes mellitus with hyperglycemia (principal)
CPT/HCPCS: 36415; 83036

== ENCOUNTER → 2025-02-16 | Outpatient (CLI) | payer MEDICARE, SELFPAY ==
[2025-02-16 16:30] LABS: Absolute Lymphocyte Count 1.48 X10^3/uL (0.83-4.51); Absolute Neutrophil Count 3.1 X10^3/uL (2.0-7.7); Basophil# 0.03 X10^3/uL; Basophil% 0.6 % (0-1); Eosinophil# 0.11 X10^3/uL; Eosinophils% 2.2 % (0-5); Hematocrit 44.3 % (37-47); Hemoglobin 14.2 g/dL (12.0-15.0); Lymphocyte # 1.48 X10^3/ul (0.83-4.51); Lymphocyte % 29.2 % (19-41); Mean Corp Hgb Conc 32.1 g/dL (32-36); Mean Corpuscular Hgb 29.9 pg (27.0-32.0); Mean Corpuscular Volume 93.3 fL (81-99); Mean Platelet Vol. 9.2 fl (6.2-12.0); Monocyte# 0.34 X10^3/uL; Monocyte% 6.7 % (0-10); NRBC Flagged by Analyzer 0 % (0-5); Neutrophil % 61.1 % (47-70); Platelet Count 221 K/mm3 (150-450); RBC Distribution Width CV 13.9 % (11.6-14.6); RBC Distribution Width SD 47.2 fl (35.1-43.9); Red Blood Count 4.75 M/mm3 (4.2-5.4); White Blood Count 5.1 K/mm3 (4.4-11.0)
[2025-02-16 16:41] LABS: Hemoglobin A1c 6.3 % (<=5.6)
[2025-02-16 17:11] LABS: ALB/GLOB Ratio 1.4 RATIO (0.9-2.4); AST(SGOT) 25 U/L (<=31); Alanine Aminotransfer ALT/SGPT 19 U/L (<=34); Albumin, Serum 4.1 g/dL (3.4-4.8); Alkaline Phosphatase 94 U/L (35-104); Anion Gap 11 (5-15); BUN 18 mg/dL (4-19); BUN/Creat Ratio 15.9 RATIO (10-20); Calcium,Total 9.6 mg/dL (7.6-11.0); Carbon Dioxide 25.6 mmol/L (21.0-32.0); Chloride 101 mmol/L (98-108); Cholesterol 188 mg/dL (<=200); Creatinine, Serum 1.14 mg/dL (0.70-1.20); EST Glomerular Filtration Rate 51 (>60); Globulin 2.9 g/dL (2.2-4.2); Glucose 156 mg/dL (70-99); High Density Lipoprotein 55 mg/dL; Low Density Lipoprotein Calc. 99 mg/dL; Potassium 4.3 mmol/L (3.3-5.1); Protein, Total 6.9 g/dL (5.9-8.4); Sodium Level 138 mmol/L (133-145); Total Bilirubin 0.45 mg/dL (0.00-1.30); Triglycerides 169 mg/dL; Very Low Density Lipoprotein 34 mg/dL (5-40); Vitamin D,25 Hydroxy 26.8 ng/mL (30-100); cholesterol:hdl ratio screen 3.43
== END | disposition home or self-care (01) ==
LOC: LAB 15:10
PROVIDERS: PCP Family Medicine Geriatric Medicine; Referring Provider Family Medicine Geriatric Medicine; Visit Provider Family Medicine Geriatric Medicine
DX: E11.65 Type 2 diabetes mellitus with hyperglycemia (principal); I10 Essential (primary) hypertension; E55.9 Vitamin D deficiency, unspecified; E78.5 Hyperlipidemia, unspecified
CPT/HCPCS: 36415; 80053; 80061; 82306; 83036; 84443; 85025

== ENCOUNTER → 2025-03-24 | Outpatient (CLI) | payer MEDICARE, SELFPAY ==
[2025-03-24 11:05] LABS: Absolute Lymphocyte Count 1.88 X10^3/uL (0.83-4.51); Absolute Neutrophil Count 3.4 X10^3/uL (2.0-7.7); Basophil# 0.03 X10^3/uL; Basophil% 0.5 % (0-1); Eosinophil# 0.18 X10^3/uL; Eosinophils% 2.9 % (0-5); Hemoglobin 14.4 g/dL (12.0-15.0); Lymphocyte # 1.88 X10^3/ul (0.83-4.51); Lymphocyte % 30.7 % (19-41); Mean Corp Hgb Conc 33.5 g/dL (32-36); Mean Corpuscular Hgb 30.6 pg (27.0-32.0); Mean Corpuscular Volume 91.3 fL (81-99); Mean Platelet Vol. 9.2 fl (6.2-12.0); Monocyte# 0.57 X10^3/uL; Monocyte% 9.3 % (0-10); NRBC Flagged by Analyzer 0 % (0-5); Neutrophil # 3.44 X10^3/uL (2.7-7.7); Neutrophil % 56.1 % (47-70); Platelet Count 215 K/mm3 (150-450); RBC Distribution Width SD 47.7 fl (35.1-43.9); Red Blood Count 4.71 M/mm3 (4.2-5.4); White Blood Count 6.1 K/mm3 (4.4-11.0)
[2025-03-24 11:21] LABS: Hemoglobin A1c 6.4 % (<=5.6)
[2025-03-24 11:29] LABS: Microalbumin,Random Urine < 12.0 mg/L (NO RANGE EST.); Microalbumin:Creatinine Ratio UNABLE TO CALCULATE mg/g CRE
[2025-03-24 11:51] LABS: ALB/GLOB Ratio 1.5 RATIO (0.9-2.4); AST(SGOT) 19 U/L (<=31); Alanine Aminotransfer ALT/SGPT 18 U/L (<=34); Alkaline Phosphatase 111 U/L (35-104); Anion Gap 11 (5-15); BUN 20 mg/dL (4-19); Calcium,Total 9.4 mg/dL (7.6-11.0); Carbon Dioxide 24.7 mmol/L (21.0-32.0); Chloride 100 mmol/L (98-108); Cholesterol 200 mg/dL (<=200); Creatinine, Serum 1.12 mg/dL (0.70-1.20); EST Glomerular Filtration Rate 52 (>60); Globulin 2.7 g/dL (2.2-4.2); Glucose 163 mg/dL (70-99); High Density Lipoprotein 58 mg/dL; Low Density Lipoprotein Calc. 91 mg/dL; Potassium 4.3 mmol/L (3.3-5.1); Protein, Total 6.7 g/dL (5.9-8.4); Sodium Level 136 mmol/L (133-145); Total Bilirubin 0.48 mg/dL (0.00-1.30); Triglycerides 260 mg/dL; Very Low Density Lipoprotein 52 mg/dL (5-40); cholesterol:hdl ratio screen 3.48
== END | disposition home or self-care (01) ==
PROVIDERS: PCP Family Medicine Geriatric Medicine; Referring Provider Family Medicine Geriatric Medicine; Visit Provider Family Medicine Geriatric Medicine
DX: E11.65 Type 2 diabetes mellitus with hyperglycemia (principal); I10 Essential (primary) hypertension; E78.5 Hyperlipidemia, unspecified
CPT/HCPCS: 36415; 80053; 80061; 82043; 82570; 83036; 84443; 85025

== ENCOUNTER → 2025-08-19 | Outpatient (CLI) | payer MEDICARE, SELFPAY ==
[2025-08-19 13:28] LABS: Hematocrit 47.6 % (37-47); Hemoglobin 15.9 g/dL (12.0-15.0); Immature Granulocytes Count 0.040 X10^3/uL (0.0-0.0); Mean Corp Hgb Conc 33.4 g/dL (32-36); Mean Corpuscular Volume 90.2 fL (81-99); Mean Platelet Vol. 9.2 fl (6.2-12.0); NRBC Flagged by Analyzer 0 % (0-5); Platelet Count 245 K/mm3 (150-450); RBC Distribution Width CV 13.4 % (11.6-14.6); RBC Distribution Width SD 44.3 fl (35.1-43.9); Red Blood Count 5.28 M/mm3 (4.2-5.4); White Blood Count 7.8 K/mm3 (4.4-11.0)
[2025-08-19 13:56] LABS: AST(SGOT) 27 U/L (<=31); Alanine Aminotransfer ALT/SGPT 27 U/L (<=34); Albumin, Serum 4.5 g/dL (3.4-4.8); Alkaline Phosphatase 115 U/L (35-104); Anion Gap 14 (5-15); BUN 14 mg/dL (4-19); BUN/Creat Ratio 11.1 RATIO (10-20); Calcium,Total 10.0 mg/dL (7.6-11.0); Carbon Dioxide 22.7 mmol/L (21.0-32.0); Chloride 98 mmol/L (98-108); Cholesterol 184 mg/dL (<=200); Globulin 2.7 g/dL (2.2-4.2); Glucose 184 mg/dL (70-99); Low Density Lipoprotein Calc. 101 mg/dL; Potassium 4.5 mmol/L (3.3-5.1); Triglycerides 175 mg/dL; Very Low Density Lipoprotein 35 mg/dL (5-40); cholesterol:hdl ratio screen 3.47
--- OUTSIDE RECORDS SUMMARY | 2025-08-19 18:39 | XMS RPT_ITS | CCD ---
Author Organization [facility] Care Team Providers Care [employer] Sales Representative Name Role Phone Dr. Juan Diego King Chi Primary Care Provider Inder, Dr. Ryan He Attending Provider Inder, Dr. Ryan He Referring Provider [phone] Fernando SIDHU, Dr. Juan Diego Mckeon Primary Care Provider Fernando SIDHU, Dr. Juan Diego Mckeon Attending Provider Fernando SIDHU, Dr. Juan Diego Mckeon Referring Provider Fernando SIDHU, Dr. Juan Diego Mckeon Primary Care Provider Fernando SIDHU, Dr. Juan Diego Mckeon Attending Provider Fernando, Juan Diego Chi Attending Unavailable Fernando, Juan Diego Chi Referring Unavailable Fernando, Juan Diego Chi Primary Care Unavailable Fernando, Juan Diego Chi Primary Care Unavailable Fernando, Juan Diego Chi Attending Unavailable Fernando, Juan Diego Chi Attending Unavailable Fernando, Juan Diego Chi Referring Unavailable Fernando, Juan Diego Chi Primary Care Unavailable Fernando, Juan Diego Chi Referring Unavailable Fernando, Juan Diego Chi Attending Unavailable Fernando, Juan Diego Chi Primary Care Unavailable Fernando, Juan Diego Chi Attending Unavailable Fernando, Juan Diego Chi Primary Care Unavailable Fernando, Juan Diego Chi Referring Unavailable Fernando, Juan Diego Chi Attending Unavailable Fernando, Juan Diego Chi Primary Care Unavailable Fernando, Juan Diego Chi Referring Unavailable Fernando, Juan Diego Chi Primary Care Unavailable Fernando, Juan Diego Chi Attending Unavailable Fernando, Juan Diego Chi Referring Unavailable Fernando, Juan Diego Chi Primary Care Unavailable Fernando, Juan Diego Chi Attending Unavailable Fernando, Juan Diego Chi Attending Unavailable Fernando, Juan Diego Chi Referring Unavailable Fernando, Juan Diego Chi Primary Care Unavailable Medications Current Medications Medication Drug Class(es) Dates Sig (Normalized) Sig (Original) aspirin 81 mg delayed release oral tablet (20 sources) Platelet Aggregation Inhibitor, Nonsteroidal Anti-inflammatory Drug Start: 04-11-2021 take 1 tablet by mouth once daily Aspirin 81 mg tablet,delayed release (DR/EC) Active 81 mg PO DAILY April 11, 2021 12:00am Start: 12-31-2019 End: 01-01-2020 take 1 tablet by mouth once daily Aspirin 81 MG tablet Discontinued 81 mg PO DAILY@0800 December 31, 2019 12:00am January 01, 2020 7:40am atorvastatin 40 mg oral tablet (11 sources) HMG-CoA Reductase Inhibitor Start: 12-31-2019 take 1 tablet by mouth at bedtime Atorvastatin 40 MG tablet Active 40 mg PO AT BEDTIME December 31, 2019 12:00am calcium ascorbate 500 mg oral tablet (11 sources) Start: 04-11-2021 take 1 tablet by mouth once daily Ascorbate Calcium (Vitamin C) 500 mg tablet Active 500 mg PO DAILY April 11, 2021 12:00am canagliflozin 100 mg oral tablet (11 sources) Sodium-Glucose Cotransporter 2 Inhibitor Start: 12-31-2019 take 1 tablet by mouth once daily Canagliflozin 100 MG tablet Active 100 mg PO DAILY December 31, 2019 12:00am cholecalciferol 0.025 mg oral capsule (20 sources) Vitamin D Start: 04-11-2021 take 1 capsule by mouth once daily Cholecalciferol (Vitamin D3) 25 mcg (1,000 unit) capsule Active 25 ug PO DAILY April 11, 2021 12:00am Start: 12-31-2019 End: 04-11-2021 take 1 tablet by mouth once daily Cholecalciferol (Vitamin D3) 1,000 UNIT tablet Discontinued 1000 U PO DAILY December 31, 2019 12:00am April 11, 2021 3:10pm lisinopril 5 mg oral tablet (11 sources) Angiotensin Converting Enzyme Inhibitor Start: 12-31-2019 take 1 tablet by mouth at bedtime Lisinopril 5 MG tablet Active 5 mg PO AT BEDTIME December 31, 2019 12:00am melatonin 10 mg oral capsule (11 sources) Start: 12-31-2019 take 1 capsule by mouth at bedtime Melatonin 10 MG capsule Active 10 mg PO AT BEDTIME December 31, 2019 12:00am 24 hr metFORMIN hydrochloride 500 mg extended release oral tablet (11 sources) Biguanide Start: 12-31-2019 Metformin 500 MG tablet extended release 24 hr Active 1000 mg PO TWICE A DAY December 31, 2019 12:00am Start: 12-31-2019 take 1000 mg by mout h twice daily Metformin Active 1000 MG PO TWICE A DAY December 31, 2019 12:00am 24 hr metoprolol succinate 25 mg extended release oral tablet (11 sources) beta-Adrenergic Shimon Start: 12-31-2019 Metopr olol Succinate 25 MG tablet Active 12.5 mg PO AT BEDTIME December 31, 2019 12:00am Start: 12-31-2019 take 12.5 mg by mouth at bedti wa Metoprolol Succinate Active 12.5 MG PO AT BEDTIME December 31, 2019 12:00am pioglitazone 30 mg oral tablet (11 sources) Peroxisome Proliferator Receptor alpha Agonist, Peroxisome Proliferator Receptor gamma Agonist, Thiazolidinedione Start: 12-31-2019 take 1 tablet by mouth once daily Pioglitazone 30 MG tablet Active 30 mg PO DAILY December 31, 2019 12:00am ubidecarenone 75 mg oral capsule (20 sources) Start: 04-11-2021 Coenzyme Q10 (Ultra Coq10) 75 mg capsule Active 75 mg PO DAILY April 11, 2021 12:00am Start: 12-31-2019 End: 04-11-2021 take 10 capsules by mouth once daily Coenzyme Q10 100 MG capsule Discontinued 300 mg PO DAILY December 31, 2019 12:00am April 11, 2021 3:10pm Completed/Discontinued Medications Medication Drug Class(es) Dates Sig (Normalized) Sig (Original) acetaminophen 325 mg / HYDROcodone bitartrate 5 mg oral tablet (11 sources) Opioid Agonist Start: 01-01-2020 End: 01-06-2020 Hydrocodone-Acetami nophen 1 EACH tablet Discontinued 1 NMA PO EVERY 4 HOURS NEEDED as needed for Pain Score 1-10/10 14 5 0 January 01, 2020 January 05, 2020 12:00am January 06, 2020 12:02am Start: 01-01-2020 End: 01-06-2020 Hydrocodone-Acetaminophen Di scontinued 1 EACH PO EVERY 4 HOURS NEEDED 14 5 January 01, 2020 January 06, 2020 12:02am 24 hr buPROPion hydrochloride 150 mg extended release oral tablet (11 sources) Aminoketone Start: 12-31-2019 End: 04-11-2021 take 1 tablet by mouth twice daily Bupropion Hcl 150 MG tablet extended release 24 hr Discontinued 150 mg PO TWICE A DAY December 31, 2019 12:00am April 11, 2021 3:09pm citalopram 20 mg oral tablet (11 sources) Serotonin Reuptake Inhibitor Start: 12-31-2019 End: 04-11-2021 take 1 tablet by mouth once daily Citalopram 20 MG tablet Discontinued 20 mg PO DAILY December 31, 2019 12:00am April 11, 2021 3:10pm docusate sodium 100 mg oral capsule (11 sources) Start: 01-01-2020 End: 04-11-2021 take 1 capsule by mouth twice daily Docusate Sodium 100 MG capsule Discontinued 100 mg PO TWICE A DAY 20 0 January 01, 2020 12:00am April 11, 2021 3:10pm Magnesium (11 sources) Start: 12-31-2019 End: 04-11-2021 take 500 mg by mouth once daily Magnesium Discontinued 500 MG PO DAILY December 31, 2019 10:07am April 11, 2021 3:11pm Start: 12-31-2019 End: 04-11-2021 take 2 tablets by mouth once daily Magnesium 250 MG tablet Discontinued 500 mg PO DAILY December 31, 2019 12:00am April 11, 2021 3:11pm Start: 12-31-2019 End: 04-11-2021 take 500 mg by mouth once daily Magnesium Discontinued 500 MG PO DAILY December 31, 2019 12:00am April 11, 2021 3:11pm vitamin b12 0.5 mg oral tablet (11 sources) Vitamin B12 Start: 12-31-2019 End: 04-11-2021 take 2 tablets by mouth once daily Cyanocobalamin (Vitamin B-12) 500 MCG tablet Discontinued 1000 ug PO DAILY@0800 December 31, 2019 12:00am April 11, 2021 3:10pm Start: 12-31-2019 End: 04-11-2021 take 1000 ug by mouth once daily Cyanocobalamin (Vitamin B-12) Discontinued 1000 MCG PO DAILY@0800 December 31, 2019 12:00am April 11, 2021 3:10pm Problems Active Problems Problem Classification Problem Date Documented Date Episodic/Chronic Diabetes mellitus with complications (2 sources) Type 2 diabetes mellitus with hyperglycemia; Translations: [Type 2 diabetes mellitus with hyperglycemia] Onset: 12-17-2024 Chronic Diabetes mellitus without complication (11 sources) Diabetes mellitus; Translations: [Type 2 diabetes mellitus without complications] 04-11-2021 Chronic Disorders of lipid metabolism (12 sources) Hypercholesterolemia; Translations: [Pure hypercholesterolemia, unspecified] Onset: 12-17-2024 04-11-2021 Chronic Essential hypertension (12 sources) Hypertensive disorder; Translations: [Essential (primary) hypertension] Onset: 12-17-2024 04-11-2021 Chronic Nutritional deficiencies (1 source) Vitamin D deficiency, unspecified; Translations: [Vitamin D deficiency, unspecified] Onset: 12-17-2024 Chronic Osteoarthritis (1 source) Bilateral primary osteoarthritis of hip; Translations: [Bilateral primary osteoarthritis of hip] Onset: 09-18-2024 Chronic Other screening for suspected conditions (not mental disorders or infectious disease) (14 sources) Mammography abnormal; Translations: [Other abnormal and inconclusive findings on diagnostic imaging of breast] Episodic Past or Other Problems Problem Classification Problem Date Documented Da te Episodic/Chronic Abdominal pain (1 source) Unspecified abdominal pain; Translations: [Unspecified abdominal pain] Onset: 04-15-2024 Episodic Residual codes; unclassified (1 source) Asymptomatic menopausal state; Translations: [Asymptomatic menopausal state] Onset: 06-16-2024 Episodic Results Test Name Value Interpretation Reference Range Facility Absolute lymphocyte countOrd ered By: Juan Diego King on 03-24-2025 Lymphocytes Auto (Unsp spec) [#/Vol] 1.88 10*3/uL 0.83-4.51 [facility] Absolute neutrophil countOrd ered By: Juan Diego King on 03-24-2025 Neutrophils (Bld) [#/Vol] 3.4 10*3/uL 2.0-7.7 [facility] Anion gap in Serum or Plasma Ordered By: Juan Diego King on 03-24-2025 Anion gap [Moles/Vol] 11 mmol/L 5-15 [facility] Automated lymphocyte count a s percentage of total leukocytesOrdered By: Juan Diego King on 03-24-2025 Lymphocytes/100 WBC Auto (Unsp spec) 30.7 % -41 [facility] BUN/creatinine ratioOrdered By: Juan Diego King on 03-24-2025 Urea nitrogen/Creatinine [Mass ratio] 18.0 mg/mg 10-20 [facility] Basophil percentageOrdered B y: Juan Diego King on 03-24-2025 Basophils/100 WBC (Bld) 0.5 % 0-1 [facility] Bilirubin, totalOrdered By: Juan Diego King on 03-24-2025 Bilirubin [Mass/Vol] 0.48 mg/dL 0.00-1.30 [facility] CBC W/Diff, Automatedon 06-2 -2024 Absolute Lymph 1.88 X10 3/uL Normal 0.83-4.51 [facility] Comment on above: Performed By: #### L 500.4050, L100.0100, L501.9985, L506.1000, L501.9520, L500.4100 #### [facility] [address] [place], [address] Absolute Neut 3.4 X10 3/uL Normal 2.0-7.7 [facility] Comment on above: Performed By: #### L 500.4050, L100.0100, L501.9985, L506.1000, L501.9520, L500.4100 #### [facility] [address] [place], [address] Basophils/100 WBC (Bld) 0.5 % Normal 0-1 [facility] Comment on above: Performed By: #### L 500.4050, L100.0100, L501.9985, L506.1000, L501.9520, L500.4100 #### [facility] [address] [place], [address] Eosinophils/100 WBC (Bld) 2.9 % Normal 0-5 [facility] Comment on above: Performed By: #### L 500.4050, L100.0100, L501.9985, L506.1000, L501.9520, L500.4100 #### [facility] [address] [place], [address] Erythrocyte distribution width (RBC) [Ratio] 14.0 % Normal 11.6-14.6 [facility] Comment on above: Performed By: #### L 500.4050, L100.0100, L501.9985, L506.1000, L501.9520, L500.4100 #### [facility] [address] [place], [address] Hematocrit (Bld) [Volume fraction] 43.0 % Normal 37-47 [facility] Comment on above: Performed By: #### L 500.4050, L100.0100, L501.9985, L506.1000, L501.9520, L500.4100 #### [facility] [address] [place], [address] Hemoglobin (Bld) [Mass/Vol] 14.4 g/dL Normal 12.0-15.0 [facility] Comment on above: Performed By: #### L 500.4050, L100.0100, L501.9985, L506.1000, L501.9520, L500.4100 #### [facility] [address] [place], [address] IG% 0.500 Normal 0.0-0.9 [facility] Comment on above: Result Comment: IG% - Immature Granulocytes (promyelocytes, myelocytes and metamyelocytes) > 1% indicates that a LEFT SHIFT is Present. Performed By: #### L 500.4050, L100.0100, L501.9985, L506.1000, L501.9520, L500.4100 #### [facility] [address] [place], [address] Lymphocytes/100 WBC (Bld) 30.7 % Normal 19-41 [facility] Comment on above: Performed By: #### L 500.4050, L100.0100, L501.9985, L506.1000, L501.9520, L500.4100 #### [facility] [address] [place], [address] MCH (RBC) [Entitic mass] 30.6 pg Normal 27.0-32.0 [facility] Comment on above: Performed By: #### L 500.4050, L100.0100, L501.9985, L506.1000, L501.9520, L500.4100 #### [facility] [address] [place], [address] MCHC (RBC) [Mass/Vol] 33.5 g/dL Normal 32-36 [facility] Comment on above: Performed By: #### L 500.4050, L100.0100, L501.9985, L506.1000, L501.9520, L500.4100 #### [facility] [address] [place], [address] MCV (RBC) [Entitic vol] 91.3 fL Normal 81-99 [facility] Comment on above: Performed By: #### L 500.4050, L100.0100, L501.9985, L506.1000, L501.9520, L500.4100 #### [facility] [address] [place], [address] Monocytes/100 WBC (Bld) 9.3 % Normal 0-10 [facility] Comment on above: Performed By: #### L 500.4050, L100.0100, L501.9985, L506.1000, L501.9520, L500.4100 #### [facility] [address] [place], [address] Neutrophils/100 WBC (Bld) 56.1 % Normal 47-70 [facility] Comment on above: Performed By: #### L 500.4050, L100.0100, L501.9985, L506.1000, L501.9520, L500.4100 #### [facility] [address] [place], [address] Nucleated RBC (Bld) [#/Vol] 0 10*3/uL Normal 0-5 [facility] Comment on above: Performed By: #### L 500.4050, L100.0100, L501.9985, L506.1000, L501.9520, L500.4100 #### [facility] [address] [place], [address] Platelet mean volume (Bld) [Entitic vol] 9.2 fL Normal 6.2-12.0 [facility] Comment on above: Performed By: #### L 500.4050, L100.0100, L501.9985, L506.1000, L501.9520, L500.4100 #### [facility] [address] [place], [address] Platelets (Bld) [#/Vol] 215 10*3/uL Normal 150-450 [facility] Comment on above: Performed By: #### L 500.4050, L100.0100, L501.9985, L506.1000, L501.9520, L500.4100 #### [facility] [address] [place], [address] RBC (Bld) [#/Vol] 4.71 10*6/uL Normal 4.2-5.4 [facility] Comment on above: Performed By: #### L 500.4050, L100.0100, L501.9985, L506.1000, L501.9520, L500.4100 #### [facility] [address] [place], [address] RDW SD 47.7 fl High 35.1-43.9 [facility] Comment on above: Performed By: #### L 500.4050, L100.0100, L501.9985, L506.1000, L501.9520, L500.4100 #### [facility] [address] [place], [address] WBC (Bld) [#/Vol] 6.1 10*3/uL Normal 4.4-11.0 [facility] Comment on above: Performed By: #### L 500.4050, L100.0100, L501.9985, L506.1000, L501.9520, L500.4100 #### [facility] [address] [place], [address] Calculated very low density lipoprotein (VLDL) cholesterol measurementOrdered By: Juan Diego King on 03-24-2025 Calculated very low density lipoprotein (VLDL) cholesterol measurement 52 mg/dL High 5-40 [facility] Carbon dioxide, total [Moles /volume] in Central venous bloodOrdered By: Juan Diego King on 03-24-2025 CO2 [Moles/Vol] 24.7 mmol/L 21.0-32.0 [facility] Chloride assayOrdered By: Radu King on 03-24-2025 Chloride [Moles/Vol] 100 mmol/L 98-108 [facility] Comprehensive Metabolic Prof ilon 03-24-2025 Albumin [Mass/Vol] 4.0 g/dL Normal 3.4-4.8 [facility] Comment on above: Performed By: #### L 500.4050, L100.0100, L501.9985, L506.1000, L501.9520, L500.4100 #### [facility] [address] [place], [address] Albumin/Globulin [Mass ratio] 1.5 {ratio} Normal 0.9-2.4 [facility] Comment on above: Performed By: #### L 500.4050, L100.0100, L501.9985, L506.1000, L501.9520, L500.4100 #### [facility] [address] [place], [address] ALK PHOS 111 U/L High 35-104 [facility] Comment on above: Performed By: #### L 500.4050, L100.0100, L501.9985, L506.1000, L501.9520, L500.4100 #### [facility] [address] [place], [address] ALT [Catalytic activity/Vol] 18 U/L Normal <=34 [facility] Comment on above: Performed By: #### L 500.4050, L100.0100, L501.9985, L506.1000, L501.9520, L500.4100 #### [facility] [address] [place], [address] AST [Catalytic activity/Vol] 19 U/L Normal <=31 [facility] Comment on above: Performed By: #### L 500.4050, L100.0100, L501.9985, L506.1000, L501.9520, L500.4100 #### [facility] [address] [place], [address] Bilirubin [Mass/Vol] 0.48 mg/dL Normal 0.00-1.30 [facility] Comment on above: Performed By: #### L 500.4050, L100.0100, L501.9985, L506.1000, L501.9520, L500.4100 #### [facility] [address] [place], [address] BUN/CRE 18.0 RATIO Normal 10-20 [facility] Comment on above: Performed By: #### L 500.4050, L100.0100, L501.9985, L506.1000, L501.9520, L500.4100 #### [facility] [address] [place], [address] Calcium [Mass/Vol] 9.4 mg/dL Normal 7.6-11.0 [facility] Comment on above: Performed By: #### L 500.4050, L100.0100, L501.9985, L506.1000, L501.9520, L500.4100 #### [facility] [address] [place], [address] Chloride [Moles/Vol] 100 mmol/L Normal 98-108 [facility] Comment on above: Performed By: #### L 500.4050, L100.0100, L501.9985, L506.1000, L501.9520, L500.4100 #### [facility] [address] [place], [address] CO2 [Moles/Vol] 24.7 mmol/L Normal 21.0-32.0 [facility] Comment on above: Performed By: #### L 500.4050, L100.0100, L501.9985, L506.1000, L501.9520, L500.4100 #### [facility] [address] [place], [address] Creatinine [Mass/Vol] 1.12 mg/dL Normal 0.70-1.20 [facility] Comment on above: Performed By: #### L 500.4050, L100.0100, L501.9985, L506.1000, L501.9520, L500.4100 #### [facility] [address] [place], [address] GAP 11 Normal 5-15 [facility] Comment on above: Performed By: #### L 500.4050, L100.0100, L501.9985, L506.1000, L501.9520, L500.4100 #### [facility] [address] [place], [address] GFR/1.73 sq M.predicted among non-blacks MDRD (S/P/Bld) [Vol rate/Area] 52 mL/min/{1.73_m2} Low >60 [facility] Comment on above: Result Comment: mL/m in/1.73m2 CKD-EPI Creatinine Equation (2020) Performed By: #### L 500.4050, L100.0100, L501.9985, L506.1000, L501.9520, L500.4100 #### [facility] [address] [place], [address] Globulin (S) [Mass/Vol] 2.7 g/dL Normal 2.2-4.2 [facility] Comment on above: Performed By: #### L 500.4050, L100.0100, L501.9985, L506.1000, L501.9520, L500.4100 #### [facility] [address] [place], [address] Glucose [Mass/Vol] 163 mg/dL High 70-99 [facility] Comment on above: Performed By: #### L 500.4050, L100.0100, L501.9985, L506.1000, L501.9520, L500.4100 #### [facility] [address] [place], [address] Potassium [Moles/Vol] 4.3 mmol/L Normal 3.3-5.1 [facility] Comment on above: Performed By: #### L 500.4050, L100.0100, L501.9985, L506.1000, L501.9520, L500.4100 #### [facility] [address] [place], [address] Sodium [Moles/Vol] 136 mmol/L Normal 133-145 [facility] Comment on above: Performed By: #### L 500.4050, L100.0100, L501.9985, L506.1000, L501.9520, L500.4100 #### [facility] [address] [place], [address] T PROT 6.7 g/dL Normal 5.9-8.4 [facility] Comment on above: Performed By: #### L 500.4050, L100.0100, L501.9985, L506.1000, L501.9520, L500.4100 #### [facility] [address] [place], [address] Urea nitrogen [Mass/Vol] 20 mg/dL High 4-19 [facility] Comment on above: Performed By: #### L 500.4050, L100.0100, L501.9985, L506.1000, L501.9520, L500.4100 #### [facility] [address] [place], [address] Eosinophil percentageOrdered By: Juan Diego King on 03-24-2025 Eosinophils/100 WBC (Bld) 2.9 % 0-5 [facility] Erythrocyte distribution wid th ratioOrdered By: [facility] on 03-24-2025 Erythrocyte distribution width (RBC) [Ratio] 14.0 % 11.6-14.6 [facility] Erythrocyte distribution wid th standard deviationOrdered By: [facility] on 03-24-2025 Erythrocyte distribution width (RBC) [Ratio] 47.7 fl High 35.1-43.9 [facility] Glomerular filtration rate ( GFR) estimation/1.73 sq m using serum, plasma, or whole bOrdered By: [facility] on 03-24-2025 GFR/1.73 sq M.predicted among non-blacks MDRD (S/P/Bld) [Vol rate/Area] 52 mL/min/{1.73_m2} Low >60 [facility] Comment on above: mL/min/1.73m2 CKD-EP I Creatinine Equation (2020) Hematocrit Auto (Bld) [Volum e fraction]Ordered By: Juan Diego Fernando on 03-24-2025 Hematocrit (Bld) [Volume fraction] 43.0 % 37-47 [facility] Hemoglobin A1con 03-24-2025 HbA1c (Bld) [Mass fraction] 6.4 % High <=5.6 [facility] Comment on above: Result Comment: Norm al < 5.7 % Prediabetic 5.7 - 6.4 % Diabetic >or= 6.5 % Please note range changes. Performed By: #### L 500.4050, L100.0100, L501.9985, L506.1000, L501.9520, L500.4100 #### [facility] [address] [place], [address] Hemoglobin A1c percentageOrd ered By: Juan Diego King on 03-24-2025 HbA1c (Bld) [Mass fraction] 6.4 % High <5.7 [facility] Comment on above: Normal < 5.7 % Predi abetic 5.7 - 6.4 % Diabetic >or= 6.5 % Please note range changes. Hemoglobin measurementOrdere d By: Juan Diego Lyok on 03-24-2025 Hemoglobin (Bld) [Mass/Vol] 14.4 g/dL 12.0-15.0 [facility] Immature granulocytes/100 WB C Auto (Bld)Ordered By: Juan Diego King on 03-24-2025 Immature granulocytes/100 WBC (Bld) 0.500 % 0.0-0.9 [facility] Comment on above: IG% - Immature Granu locytes (promyelocytes, myelocytes and metamyelocytes) > 1% indicates that a LEFT SHIFT is Present. LDL calc ser/plasOrdered By: Juan Diego Fernando on 03-24-2025 Cholesterol in LDL [Mass/Vol] 91 mg/dL [facility] Comment on above: Yjctyebryg=309-376 m g/dL & Higher Secy=880 mg/dL or greater Laboratory - Chemistry and C hemistry - challengeOrdered By: Juan Diego Fernando on 03-24-2025 AST [Catalytic activity/Vol] 19 U/L <32 [facility] Lipid Profileon 03-24-2025 CHOL:HDL 3.48 Normal [facility] Comment on above: Performed By: #### L 500.4050, L100.0100, L501.9985, L506.1000, L501.9520, L500.4100 #### [facility] [address] [place], [address] Cholesterol [Mass/Vol] 200 mg/dL Normal <=200 [facility] Comment on above: Result Comment: Chol esterol level, Desirable <200 mg/dL Borderline high cholesterol 200-239 mg/dL High cholesterol >=240 mg/dL Recommendations of the NCEP Adult Treatment Panel for the following risk-cutoff thresholds for the [place] population. Performed By: #### L 500.4050, L100.0100, L501.9985, L506.1000, L501.9520, L500.4100 #### [facility] [address] [place], [address] Cholesterol in HDL [Mass/Vol] 58 mg/dL Normal [facility] Comment on above: Result Comment: Pamela onal Cholesterol Education Program (NCEP) guidelines: <40 mg/dL: Low HDL-cholesterol (major risk factor for CHD) >= 60 mg/dL: High HDL-cholesterol (negative risk factor for CHD) HDL-cholesterol is affected by a number of factors, e.g. smoking, exercise, hormones, sex and age. Performed By: #### L 500.4050, L100.0100, L501.9985, L506.1000, L501.9520, L500.4100 #### [facility] [address] [place], [address] Cholesterol in LDL [Mass/Vol] 91 mg/dL Normal [facility] Comment on above: Result Comment: Bord vaialq=887-133 mg/dL Higher Caqj=716 mg/dL or greater Performed By: #### L 500.4050, L100.0100, L501.9985, L506.1000, L501.9520, L500.4100 #### [facility] [address] [place], [address] Cholesterol in VLDL [Mass/Vol] 52 mg/dL High 5-40 [facility] Comment on above: Performed By: #### L 500.4050, L100.0100, L501.9985, L506.1000, L501.9520, L500.4100 #### [facility] [address] [place], [address] Triglyceride [Mass/Vol] 260 mg/dL High [facility] Comment on above: Result Comment: The drugs N-Acetylcysteine and Metamizole may falsely depress this assay. Normal range: <150 mg/dL Borderline High: 150-199 mg/dL High: 200-499 mg/dL Very High: >500 mg/dL Performed By: #### L 500.4050, L100.0100, L501.9985, L506.1000, L501.9520, L500.4100 #### [facility] [address] [facility] [place], [place], [id number] MCV (mean corpuscular volume ) determinationOrdered By: Juan Diego King on 03-24-2025 MCV (RBC) [Entitic vol] 91.3 fL 81-99 [facility] Mean corpuscular hemoglobin (MCH) determinationOrdered By: Juan Diego King on 03-24-2025 MCH (RBC) [Entitic mass] 30.6 pg 27.0-32.0 [facility] Mean corpuscular hemoglobin concentration (MCHC) determinationOrdered By: Juan Diego King on 03-24-2025 MCHC (RBC) [Mass/Vol] 33.5 g/dL 32-36 [facility] Mean platelet volume determi nationOrdered By: Juan Diego King on 03-24-2025 Platelet mean volume (Bld) [Entitic vol] 9.2 fL 6.2-12.0 [facility] Microalb:Creat Ratio,Random URon 03-24-2025 MALB:CREAT UNABLE TO CALCULATE Normal [facility] Comment on above: Performed By: #### L 500.4050, L100.0100, L501.9985, L506.1000, L501.9520, L500.4100 #### [facility] [address] [place], [place], [id number] MICROALBUMIN,UR < 12.0 Normal NO RANGE EST. [facility] Comment on above: Performed By: #### L 500.4050, L100.0100, L501.9985, L506.1000, L501.9520, L500.4100 #### [facility] [address] [facility] [place], [place], [id number] Microalbumin/creat ratio urO rdered By: Juan Diego King on 03-24-2025 Urine microalbumin/creatinine ratio measurement UNABLE TO CALCULATE mg/g CRE [facility] Monocyte percentageOrdered B y: Juan Diego King on 03-24-2025 Monocytes/100 WBC (Bld) 9.3 % 0-10 [facility] Neutrophil percentageOrdered By: Juan Diego King on 03-24-2025 Neutrophils/100 WBC (Bld) 56.1 % 47-70 [facility] Nucleated red blood cell per centageOrdered By: Juan Diego King on 03-24-2025 Nucleated RBC/100 WBC (Bld) [Ratio] 0 % 0-5 [facility] Platelet countOrdered By: Radu King on 03-24-2025 Platelets (Bld) [#/Vol] 215 10*3/uL 150-450 [facility] Potassium measurement (mass/ volume)Ordered By: Juan Diego King on 03-24-2025 Potassium (Unsp spec) [Mass/Vol] 4.3 mmol/L 3.3-5.1 [facility] RBC Auto (Bld) [#/Vol]Ordere d By: Juan Diego King on 03-24-2025 RBC (Bld) [#/Vol] 4.71 10*6/uL 4.2-5.4 [facility] Random urine creatinine fuad urement (mass/volume)Ordered By: Juan Diego King on 03-24-2025 Creatinine Unsp time (U) [Mass/Vol] 63.20 mg/dL 28.00-217.00 [facility] Screening total cholesterol/ high density lipoprotein (HDL) cholesterol ratioOrdered By: Juan Diego King on 03-24-2025 Cholesterol.total/Choles terol in HDL [Mass ratio] 3.48 {ratio} [facility] Serum creatinine measurement (mass/volume)Ordered By: Juan Diego King on 03-24-2025 Creatinine [Mass/Vol] 1.12 mg/dL 0.70-1.20 [facility] Serum globulin measurementOr dered By: Juan Diego King on 03-24-2025 Globulin (S) [Mass/Vol] 2.7 g/dL 2.2-4.2 [facility] Serum glucose measurement (m ass/volume)Ordered By: Juan Diego King on 03-24-2025 Glucose [Mass/Vol] 163 mg/dL High 70-99 [facility] Serum or plasma alanine saldana otransferase (ALT) measurementOrdered By: Juan Diego Fernando 03-24-2025 ALT [Catalytic activity/Vol] 18 U/L <35 [facility] Serum or plasma albumin fuad urement (mass/volume)Ordered By: Juan Diego Fernando 03-24-2025 Albumin [Mass/Vol] 4.0 g/dL 3.4-4.8 [facility] Serum or plasma albumin/glob ulin mass ratioOrdered By: Juan Diego Fernando03-24-2025 Albumin/Globulin [Mass ratio] 1.5 {ratio} 0.9-2.4 [facility] Serum or plasma alkaline chalino sphatase measurementOrdered By: Juan Diego Fernando 03-24-2025 ALP [Catalytic activity/Vol] 111 U/L High 35-104 [facility] Serum or plasma calcium fuad urement (mass/volume)Ordered By: Juan Diego Fernando 03-24-2025 Calcium [Mass/Vol] 9.4 mg/dL 7.6-11.0 [facility] Serum or plasma cholesterol in HDL measurement (mass/volume)Ordered By: Juan Diego Fernando 03-24-2025 Cholesterol in HDL [Mass/Vol] 58 mg/dL >40 [facility] Comment on above: National Cholesterol Education Program (NCEP) guidelines:<40 mg/dL: Low HDL-cholesterol (major risk factor for CHD)>= 60 mg/dL: High HDL-cholesterol (negative risk factor for CHD)HDL-cholesterol is affected by a number of factors, e.g. smoking, exercise, hormones, sex and age. Serum or plasma cholesterol measurement (mass/volume)Ordered By: Juan Diego King 03-24-2025 Cholesterol [Mass/Vol] 200 mg/dL <201 [facility] Comment on above: Cholesterol level, D esirable <200 mg/dLBorderline high cholesterol 200-239 mg/dLHigh cholesterol >=240 mg/dLRecommendations of the NCEP Adult Treatment Panel for the following risk-cutoff thresholds for the [place] population. Serum or plasma urea nitroge n measurement (mass/volume)Ordered By: Juan Diego King 03-24-2025 Urea nitrogen [Mass/Vol] 20 mg/dL High 4-19 [facility] Sodium levelOrdered By: Juan Diego King 5 Sodium [Moles/Vol] 136 mmol/L 133-145 [facility] TSH DL <= 0.005 mIU/L QnOrde red By: Juan Diego King on 03-24-2025 TSH Qn 1.420 uIU/mL 0.300-4.200 [facility] Thyroid Stim Hormone (TSH)on 03-24-2025 TSH 1.420 uIU/mL Normal 0.300-4.200 [facility] Comment on above: Performed By: #### L 500.4050, L100.0100, L501.9985, L506.1000, L501.9520, L500.4100 #### [facility] [address] [place], [place], [id number] Total proteinOrdered By: Juan Diego King on 03-24-2025 Protein [Mass/Vol] 6.7 g/dL 5.9-8.4 [facility] Triglycerides measurementOrd ered By: Juan Diego King on 03-24-2025 Triglyceride [Mass/Vol] 260 mg/dL High <199 [facility] Comment on above: The drugs N-Acetylcy steine and Metamizole may falsely depress this assay. Normal range: <150 mg/dLBorderline High: 150-199 mg/dLHigh: 200-499 mg/dLVery High: >500 mg/dL Urine albumin measurement [facility] detection limit of 20 mg/L or less (mass/volume)Ordered By: Juan Diego King on 03-24-2025 Albumin DL <= 20 mg/L (U) [Mass/Vol] < 12.0 mg/L NO RANGE EST. [facility] White blood cell (WBC) count Ordered By: Juan Diego King on 03-24-2025 WBC (Bld) [#/Vol] 6.1 10*3/uL 4.4-11.0 [facility] Absolute lymphocyte countOrd ered By: Juan Diego King on 02-16-2025 Lymphocytes Auto (Unsp spec) [#/Vol] 1.48 10*3/uL 0.83-4.51 [facility] Absolute neutrophil countOrd ered By: Juan Diego King on 05-20-2025 Neutrophils (Bld) [#/Vol] 3.1 10*3/uL 2.0-7.7 [facility] Anion gap in Serum or Plasma Ordered By: Juan Diego King on 02-16-2025 Anion gap [Moles/Vol] 11 mmol/L 02-11 [facility] Automated lymphocyte count a s percentage of total leukocytesOrdered By: Juan Diego King on 02-16-2025 Lymphocytes/100 WBC Auto (Unsp spec) 29.2 % [facility] BUN/creatinine ratioOrdered By: Juan Diego King on 02-16-2025 Urea nitrogen/Creatinine [Mass ratio] 15.9 mg/mg 07-19 [facility] Basophil percentageOrdered B y: Juan Diego King on 02-16-2025 Basophils/100 WBC (Bld) 0.6 % 0-1 [facility] Bilirubin, totalOrdered By: Juan Diego King on 02-16-2025 Bilirubin [Mass/Vol] 0.45 mg/dL 0.00-1.30 [facility] CBC W/Diff, Automatedon 01-29 Absolute Lymph 1.48 X10 3/uL Normal 0.83-4.51 [facility] Comment on above: Performed By: #### L 500.4050, L100.0100, L501.9985, L506.1000, L501.9520, L500.4100 #### [facility] [address] [place], [address] Absolute Neut 3.1 X10 3/uL Normal 2.0-7.7 [facility] Comment on above: Performed By: #### L 500.4050, L100.0100, L501.9985, L506.1000, L501.9520, L500.4100 #### [facility] [address] [place], [address] Basophils/100 WBC (Bld) 0.6 % Normal 0-1 [facility] Comment on above: Performed By: #### L 500.4050, L100.0100, L501.9985, L506.1000, L501.9520, L500.4100 #### [facility] [address] [place], [address] Eosinophils/100 WBC (Bld) 2.2 % Normal 0-5 [facility] Comment on above: Performed By: #### L 500.4050, L100.0100, L501.9985, L506.1000, L501.9520, L500.4100 #### [facility] [address] [place], [address] Erythrocyte distribution width (RBC) [Ratio] 13.9 % Normal 11.6-14.6 [facility] Comment on above: Performed By: #### L 500.4050, L100.0100, L501.9985, L506.1000, L501.9520, L500.4100 #### [facility] [address] [place], [address] Hematocrit (Bld) [Volume fraction] 44.3 % Normal 37-47 [facility] Comment on above: Performed By: #### L 500.4050, L100.0100, L501.9985, L506.1000, L501.9520, L500.4100 #### [facility] [address] [place], [address] Hemoglobin (Bld) [Mass/Vol] 14.2 g/dL Normal 12.0-15.0 [facility] Comment on above: Performed By: #### L 500.4050, L100.0100, L501.9985, L506.1000, L501.9520, L500.4100 #### [facility] [address] [place], [address] IG% 0.200 Normal 0.0-0.9 [facility] Comment on above: Result Comment: IG% - Immature Granulocytes (promyelocytes, myelocytes and metamyelocytes) > 1% indicates that a LEFT SHIFT is Present. Performed By: #### L 500.4050, L100.0100, L501.9985, L506.1000, L501.9520, L500.4100 #### [facility] [address] [place], [address] Lymphocytes/100 WBC (Bld) 29.2 % Normal 19-41 [facility] Comment on above: Performed By: #### L 500.4050, L100.0100, L501.9985, L506.1000, L501.9520, L500.4100 #### [facility] [address] [place], [address] MCH (RBC) [Entitic mass] 29.9 pg Normal 27.0-32.0 [facility] Comment on above: Performed By: #### L 500.4050, L100.0100, L501.9985, L506.1000, L501.9520, L500.4100 #### [facility] [address] [place], [address] MCHC (RBC) [Mass/Vol] 32.1 g/dL Normal 32-36 [facility] Comment on above: Performed By: #### L 500.4050, L100.0100, L501.9985, L506.1000, L501.9520, L500.4100 #### [facility] [address] [place], [address] MCV (RBC) [Entitic vol] 93.3 fL Normal 81-99 [facility] Comment on above: Performed By: #### L 500.4050, L100.0100, L501.9985, L506.1000, L501.9520, L500.4100 #### [facility] [address] [place], [address] Monocytes/100 WBC (Bld) 6.7 % Normal 0-10 [facility] Comment on above: Performed By: #### L 500.4050, L100.0100, L501.9985, L506.1000, L501.9520, L500.4100 #### [facility] [address] [place], [address] Neutrophils/100 WBC (Bld) 61.1 % Normal 47-70 [facility] Comment on above: Performed By: #### L 500.4050, L100.0100, L501.9985, L506.1000, L501.9520, L500.4100 #### [facility] [address] [place], [address] Nucleated RBC (Bld) [#/Vol] 0 10*3/uL Normal 0-5 [facility] Comment on above: Performed By: #### L 500.4050, L100.0100, L501.9985, L506.1000, L501.9520, L500.4100 #### [facility] [address] [place], [address] Platelet mean volume (Bld) [Entitic vol] 9.2 fL Normal 6.2-12.0 [facility] Comment on above: Performed By: #### L 500.4050, L100.0100, L501.9985, L506.1000, L501.9520, L500.4100 #### [facility] [address] [place], [address] Platelets (Bld) [#/Vol] 221 10*3/uL Normal 150-450 [facility] Comment on above: Performed By: #### L 500.4050, L100.0100, L501.9985, L506.1000, L501.9520, L500.4100 #### [facility] [address] [place], [address] RBC (Bld) [#/Vol] 4.75 10*6/uL Normal 4.2-5.4 [facility] Comment on above: Performed By: #### L 500.4050, L100.0100, L501.9985, L506.1000, L501.9520, L500.4100 #### [facility] [address] [place], [address] RDW SD 47.2 fl High 35.1-43.9 [facility] Comment on above: Performed By: #### L 500.4050, L100.0100, L501.9985, L506.1000, L501.9520, L500.4100 #### [facility] [address] [place], [address] WBC (Bld) [#/Vol] 5.1 10*3/uL Normal 4.4-11.0 [facility] Comment on above: Performed By: #### L 500.4050, L100.0100, L501.9985, L506.1000, L501.9520, L500.4100 #### [facility] [address] [facility] [place], [address] Calculated very low density lipoprotein (VLDL) cholesterol measurementOrdered By: Juan Diego King on 02-16-2025 Calculated very low density lipoprotein (VLDL) cholesterol measurement 34 mg/dL 5-40 [facility] Carbon dioxide, total [Moles /volume] in Central venous bloodOrdered By: Juan Diego King on 02-16-2025 CO2 [Moles/Vol] 25.6 mmol/L 21.0-32.0 [facility] Chloride assayOrdered By: Radu King on 02-16-2025 Chloride [Moles/Vol] 101 mmol/L 98-108 [facility] Comprehensive Metabolic Prof ilon 02-16-2025 Albumin [Mass/Vol] 4.1 g/dL Normal 3.4-4.8 [facility] Comment on above: Performed By: #### L 500.4050, L100.0100, L501.9985, L506.1000, L501.9520, L500.4100 #### [facility] [address] [place], [address] Albumin/Globulin [Mass ratio] 1.4 {ratio} Normal 0.9-2.4 [facility] Comment on above: Performed By: #### L 500.4050, L100.0100, L501.9985, L506.1000, L501.9520, L500.4100 #### [facility] [address] [place], [address] ALK PHOS 94 U/L Normal 35-104 [facility] Comment on above: Performed By: #### L 500.4050, L100.0100, L501.9985, L506.1000, L501.9520, L500.4100 #### [facility] [address] [place], [address] ALT [Catalytic activity/Vol] 19 U/L Normal <=34 [facility] Comment on above: Performed By: #### L 500.4050, L100.0100, L501.9985, L506.1000, L501.9520, L500.4100 #### [facility] [address] [place], [address] AST [Catalytic activity/Vol] 25 U/L Normal <=31 [facility] Comment on above: Performed By: #### L 500.4050, L100.0100, L501.9985, L506.1000, L501.9520, L500.4100 #### [facility] [address] [place], [address] Bilirubin [Mass/Vol] 0.45 mg/dL Normal 0.00-1.30 [facility] Comment on above: Performed By: #### L 500.4050, L100.0100, L501.9985, L506.1000, L501.9520, L500.4100 #### [facility] [address] [place], [address] BUN/CRE 15.9 RATIO Normal 10-20 [facility] Comment on above: Performed By: #### L 500.4050, L100.0100, L501.9985, L506.1000, L501.9520, L500.4100 #### [facility] [address] [place], [address] Calcium [Mass/Vol] 9.6 mg/dL Normal 7.6-11.0 [facility] Comment on above: Performed By: #### L 500.4050, L100.0100, L501.9985, L506.1000, L501.9520, L500.4100 #### [facility] [address] [place], [address] Chloride [Moles/Vol] 101 mmol/L Normal 98-108 [facility] Comment on above: Performed By: #### L 500.4050, L100.0100, L501.9985, L506.1000, L501.9520, L500.4100 #### [facility] [address] [place], [address] CO2 [Moles/Vol] 25.6 mmol/L Normal 21.0-32.0 [facility] Comment on above: Performed By: #### L 500.4050, L100.0100, L501.9985, L506.1000, L501.9520, L500.4100 #### [facility] [address] [place], [address] Creatinine [Mass/Vol] 1.14 mg/dL Normal 0.70-1.20 [facility] Comment on above: Performed By: #### L 500.4050, L100.0100, L501.9985, L506.1000, L501.9520, L500.4100 #### [facility] [address] [place], [address] GAP 11 Normal 5-15 [facility] Comment on above: Performed By: #### L 500.4050, L100.0100, L501.9985, L506.1000, L501.9520, L500.4100 #### [facility] [address] [place], [address] GFR/1.73 sq M.predicted among non-blacks MDRD (S/P/Bld) [Vol rate/Area] 51 mL/min/{1.73_m2} Low >60 [facility] Comment on above: Result Comment: mL/m in/1.73m2 CKD-EPI Creatinine Equation (2020) Performed By: #### L 500.4050, L100.0100, L501.9985, L506.1000, L501.9520, L500.4100 #### [facility] [address] [place], [address] Globulin (S) [Mass/Vol] 2.9 g/dL Normal 2.2-4.2 [facility] Comment on above: Performed By: #### L 500.4050, L100.0100, L501.9985, L506.1000, L501.9520, L500.4100 #### [facility] [address] [place], [address] Glucose [Mass/Vol] 156 mg/dL High 70-99 [facility] Comment on above: Performed By: #### L 500.4050, L100.0100, L501.9985, L506.1000, L501.9520, L500.4100 #### [facility] [address] [place], [address] Potassium [Moles/Vol] 4.3 mmol/L Normal 3.3-5.1 [facility] Comment on above: Performed By: #### L 500.4050, L100.0100, L501.9985, L506.1000, L501.9520, L500.4100 #### [facility] [address] [place], [address] Sodium [Moles/Vol] 138 mmol/L Normal 133-145 [facility] Comment on above: Performed By: #### L 500.4050, L100.0100, L501.9985, L506.1000, L501.9520, L500.4100 #### [facility] [address] [place], [place], [id number] (174) T PROT 6.9 g/dL Normal 5.9-8.4 [facility] Comment on above: Performed By: #### L 500.4050, L100.0100, L501.9985, L506.1000, L501.9520, L500.4100 #### [facility] [address] [place], [address] Urea nitrogen [Mass/Vol] 18 mg/dL Normal 4-19 [facility] Comment on above: Performed By: #### L 500.4050, L100.0100, L501.9985, L506.1000, L501.9520, L500.4100 #### [facility] [address] [place], [place], [id number] (025) Eosinophil percentageOrdered By: Juan Diego King on 02-16-2025 Eosinophils/100 WBC (Bld) 2.2 % 0-5 [facility] Erythrocyte distribution wid th ratioOrdered By: Juan Diego King on 02-16-2025 Erythrocyte distribution width (RBC) [Ratio] 13.9 % 11.6-14.6 [facility] Erythrocyte distribution wid th standard deviationOrdered By: Juan Diego King on 02-16-2025 Erythrocyte distribution width (RBC) [Ratio] 47.2 fl High 35.1-43.9 [facility] Glomerular filtration rate ( GFR) estimation/1.73 sq m using serum, plasma, or whole bOrdered By: Juan Diego King on 02-16-2025 GFR/1.73 sq M.predicted among non-blacks MDRD (S/P/Bld) [Vol rate/Area] 51 mL/min/{1.73_m2} Low >60 [facility] Comment on above: mL/min/1.73m2 CKD-EP I Creatinine Equation (2020) Hematocrit Auto (Bld) [Volum e fraction]Ordered By: Juan Diego King on 02-16-2025 Hematocrit (Bld) [Volume fraction] 44.3 % 37-47 [facility] Hemoglobin A1con 02-16-2025 HbA1c (Bld) [Mass fraction] 6.3 % High <=5.6 [facility] Comment on above: Result Comment: Norm al < 5.7 % Prediabetic 5.7 - 6.4 % Diabetic >or= 6.5 % Please note range changes. Performed By: #### L 500.4050, L100.0100, L501.9985, L506.1000, L501.9520, L500.4100 #### [facility] [address] [place], [address] Hemoglobin A1c percentageOrd ered By: Juan Diego King on 02-16-2025 HbA1c (Bld) [Mass fraction] 6.3 % High <5.7 [facility] Comment on above: Normal < 5.7 % Predi abetic 5.7 - 6.4 % Diabetic >or= 6.5 % Please note range changes. Hemoglobin measurementOrdere d By: Juan Diego King on 02-16-2025 Hemoglobin (Bld) [Mass/Vol] 14.2 g/dL 12.0-15.0 [facility] Immature granulocytes/100 WB C Auto (Bld)Ordered By: Juan Diego King on 02-16-2025 Immature granulocytes/100 WBC (Bld) 0.200 % 0.0-0.9 [facility] Comment on above: IG% - Immature Granu locytes (promyelocytes, myelocytes and metamyelocytes) > 1% indicates that a LEFT SHIFT is Present. LDL calc ser/plasOrdered By: Juan Diego King on 02-16-2025 Cholesterol in LDL [Mass/Vol] 99 mg/dL [facility] Comment on above: Coicrvjard=428-653 m g/dL & Higher Lzwr=116 mg/dL or greater Laboratory - Chemistry and C hemistry - challengeOrdered By: Juan Diego Kign on 02-16-2025 AST [Catalytic activity/Vol] 25 U/L <32 [facility] Lipid Profileon 02-16-2025 CHOL:HDL 3.43 Normal [facility] Comment on above: Performed By: #### L 500.4050, L100.0100, L501.9985, L506.1000, L501.9520, L500.4100 #### [facility] [address] [place], [address] Cholesterol [Mass/Vol] 188 mg/dL Normal <=200 [facility] Comment on above: Result Comment: Chol esterol level, Desirable <200 mg/dL Borderline high cholesterol 200-239 mg/dL High cholesterol >=240 mg/dL Recommendations of the NCEP Adult Treatment Panel for the following risk-cutoff thresholds for the [place] population. Performed By: #### L 500.4050, L100.0100, L501.9985, L506.1000, L501.9520, L500.4100 #### [facility] [address] [place], [address] Cholesterol in HDL [Mass/Vol] 55 mg/dL Normal [facility] Comment on above: Result Comment: Pamela onal Cholesterol Education Program (NCEP) guidelines: <40 mg/dL: Low HDL-cholesterol (major risk factor for CHD) >= 60 mg/dL: High HDL-cholesterol (negative risk factor for CHD) HDL-cholesterol is affected by a number of factors, e.g. smoking, exercise, hormones, sex and age. Performed By: #### L 500.4050, L100.0100, L501.9985, L506.1000, L501.9520, L500.4100 #### [facility] [address] [place], [address] Cholesterol in LDL [Mass/Vol] 99 mg/dL Normal [facility] Comment on above: Result Comment: Bord yerzni=251-440 mg/dL Higher Qrbp=573 mg/dL or greater Performed By: #### L 500.4050, L100.0100, L501.9985, L506.1000, L501.9520, L500.4100 #### [facility] [address] [place], [address] Cholesterol in VLDL [Mass/Vol] 34 mg/dL Normal 5-40 [facility] Comment on above: Performed By: #### L 500.4050, L100.0100, L501.9985, L506.1000, L501.9520, L500.4100 #### [facility] [address] [place], [address] Triglyceride [Mass/Vol] 169 mg/dL Normal [facility] Comment on above: Result Comment: The drugs N-Acetylcysteine and Metamizole may falsely depress this assay. Normal range: <150 mg/dL Borderline High: 150-199 mg/dL High: 200-499 mg/dL Very High: >500 mg/dL Performed By: #### L 500.4050, L100.0100, L501.9985, L506.1000, L501.9520, L500.4100 #### [facility] [address] [place], [address] MCV (mean corpuscular volume ) determinationOrdered By: Juan Diego King on 02-16-2025 MCV (RBC) [Entitic vol] 93.3 fL 81-99 [facility] Mean corpuscular hemoglobin (MCH) determinationOrdered By: Juan Diego King on 02-16-2025 MCH (RBC) [Entitic mass] 29.9 pg 27.0-32.0 [facility] Mean corpuscular hemoglobin concentration (MCHC) determinationOrdered By: Juan Diego King on 02-16-2025 MCHC (RBC) [Mass/Vol] 32.1 g/dL 32-36 [facility] Mean platelet volume determi nationOrdered By: Juan Diego King on 02-16-2025 Platelet mean volume (Bld) [Entitic vol] 9.2 fL 6.2-12.0 [facility] Microalb:Creat Ratio,Random URon 02-16-2025 MALB:CREAT Normal [facility] Comment on above: Result Comment: UTO Performed By: #### L 500.4050, L100.0100, L501.9985, L506.1000, L501.9520, L500.4100 #### [facility] [address] [place], [address] MICROALBUMIN,UR Normal NO RANGE EST. [facility] Comment on above: Result Comment: UTO Performed By: #### L 500.4050, L100.0100, L501.9985, L506.1000, L501.9520, L500.4100 #### [facility] [address] [place], [address] UR CREAT Normal 28.00-217.00 [facility] Comment on above: Result Comment: UTO Performed By: #### L 500.4050, L100.0100, L501.9985, L506.1000, L501.9520, L500.4100 #### [facility] [address] [place], [address] Monocyte percentageOrdered B y: Juan Diego King on 02-16-2025 Monocytes/100 WBC (Bld) 6.7 % 0-10 [facility] Neutrophil percentageOrdered By: Juan Diego King on 02-16-2025 Neutrophils/100 WBC (Bld) 61.1 % 47-70 [facility] Nucleated red blood cell per centageOrdered By: Juan Diego King on 02-16-2025 Nucleated RBC/100 WBC (Bld) [Ratio] 0 % 0-5 [facility] Platelet countOrdered By: Radu King on 02-16-2025 Platelets (Bld) [#/Vol] 221 10*3/uL 150-450 [facility] Potassium measurement (mass/ volume)Ordered By: Juan Diego King on 02-16-2025 Potassium (Unsp spec) [Mass/Vol] 4.3 mmol/L 3.3-5.1 [facility] RBC Auto (Bld) [#/Vol]Ordere d By: Juan Diego King on 02-16-2025 RBC (Bld) [#/Vol] 4.75 10*6/uL 4.2-5.4 [facility] Screening total cholesterol/ high density lipoprotein (HDL) cholesterol ratioOrdered By: Juan Diego King on 02-16-2025 Cholesterol.total/Choles terol in HDL [Mass ratio] 3.43 {ratio} [facility] Serum creatinine measurement (mass/volume)Ordered By: Juan Diego King on 02-16-2025 Creatinine [Mass/Vol] 1.14 mg/dL 0.70-1.20 [facility] Serum globulin measurementOr dered By: Juan Diego King on 02-16-2025 Globulin (S) [Mass/Vol] 2.9 g/dL 2.2-4.2 [facility] Serum glucose measurement (m ass/volume)Ordered By: Juan Diego King on 02-16-2025 Glucose [Mass/Vol] 156 mg/dL High 70-99 [facility] Serum or plasma alanine saldana otransferase (ALT) measurementOrdered By: Juan Diego King 02-16-2025 ALT [Catalytic activity/Vol] 19 U/L <35 [facility] Serum or plasma albumin fuad urement (mass/volume)Ordered By: Juan Diego King 02-16-2025 Albumin [Mass/Vol] 4.1 g/dL 3.4-4.8 [facility] Serum or plasma albumin/glob ulin mass ratioOrdered By: Juan Diego King 02-16-2025 Albumin/Globulin [Mass ratio] 1.4 {ratio} 0.9-2.4 [facility] Serum or plasma alkaline chalino sphatase measurementOrdered By: Juan Diego King 02-16-2025 ALP [Catalytic activity/Vol] 94 U/L 35-104 [facility] Serum or plasma calcium fuad urement (mass/volume)Ordered By: Juan Diego King 02-16-2025 Calcium [Mass/Vol] 9.6 mg/dL 7.6-11.0 [facility] Serum or plasma cholesterol in HDL measurement (mass/volume)Ordered By: Juan Diego King on 02-16-2025 Cholesterol in HDL [Mass/Vol] 55 mg/dL >40 [facility] Comment on above: National Cholesterol Education Program (NCEP) guidelines:<40 mg/dL: Low HDL-cholesterol (major risk factor for CHD)>= 60 mg/dL: High HDL-cholesterol (negative risk factor for CHD)HDL-cholesterol is affected by a number of factors, e.g. smoking, exercise, hormones, sex and age. Serum or plasma cholesterol measurement (mass/volume)Ordered By: Juan Diego King on 02-16-2025 Cholesterol [Mass/Vol] 188 mg/dL <201 [facility] Comment on above: Cholesterol level, D esirable <200 mg/dLBorderline high cholesterol 200-239 mg/dLHigh cholesterol >=240 mg/dLRecommendations of the NCEP Adult Treatment Panel for the following risk-cutoff thresholds for the [place] population. Serum or plasma urea nitroge n measurement (mass/volume)Ordered By: Juan Diego King on 02-16-2025 Urea nitrogen [Mass/Vol] 18 mg/dL 4-19 [facility] Sodium levelOrdered By: Juan Diego King on 02-16-2025 Sodium [Moles/Vol] 138 mmol/L 133-145 [facility] TSH DL <= 0.005 mIU/L QnOrde red By: Juan Diego King on 02-16-2025 TSH Qn 1.580 uIU/mL 0.300-4.200 [facility] Thyroid Stim Hormone (TSH)on 02-16-2025 TSH 1.580 uIU/mL Normal 0.300-4.200 [facility] Comment on above: Performed By: #### L 500.4050, L100.0100, L501.9985, L506.1000, L501.9520, L500.4100 #### [facility] [address] [place], [place] [address]all [facility] [place], [address] Total proteinOrdered By: Juan Diego King on 02-16-2025 Protein [Mass/Vol] 6.9 g/dL 5.9-8.4 [facility] Triglycerides measurementOrd ered By: Juan Diego King on 02-16-2025 Triglyceride [Mass/Vol] 169 mg/dL <199 [facility] Comment on above: The drugs N-Acetylcy steine and Metamizole may falsely depress this assay. Normal range: <150 mg/dLBorderline High: 150-199 mg/dLHigh: 200-499 mg/dLVery High: >500 mg/dL Vitamin D,25 Hydroxyon 02-16 Vitamin D 25-OH 26.8 ng/mL Low 30-100 [facility] Comment on above: Result Comment: Vicenta min D Status Deficiency: <20 ng/mL (50nmol/L) Insufficiency: 20-30 ng/mL (50-75 nmol/L) Sufficiency: 30-100 ng/mL (75-250 nmol/L) Toxicity: >100 ng/mL (>250 nmol/L) Performed By: #### L 500.4050, L100.0100, L501.9985, L506.1000, L501.9520, L500.4100 #### [facility] [address] [facility] [place], [address] White blood cell (WBC) count Ordered By: Juan Diego iKng on 02-16-2025 WBC (Bld) [#/Vol] 5.1 10*3/uL 4.4-11.0 [facility] Hemoglobin A1con 12-15-2024 HbA1c (Bld) [Mass fraction] 9.7 % Normal <=5.6 [facility] Comment on above: Performed By: #### L 501.9985 #### [facility] [address] [place], [place], [address] Hemoglobin A1c percentageOrd ered By: Juan Diego King on 12-15-2024 HbA1c (Bld) [Mass fraction] 9.7 % >5.7 [facility] 11-YF-Ffvbprh DOrdered By: Edna King on 10-22-2024 Vitamin D 25-Hydroxy 25.3 ng/mL [facility] Comment on above: Vitamin D 25(OH) Sta tus Range Deficiency <20 ng/mL (50nmol/L) Insufficiency 20 - 30 ng/mL (50 - 75 nmol/L) Sufficiency 30 - 100 ng/mL (75 - 250 nmol/L) Toxicity >100 ng/mL (>250 nmol/L) Absolute neutrophil countOrd ered By: Juan Diego King on 10-22-2024 Neutrophils (Bld) [#/Vol] 5.3 10*3/uL 2.0-7.7 [facility] Albumin to globulin ratioOrd ered By: Juan Diego King on 10-22-2024 Albumin/Globulin [Mass ratio] 1.0 {ratio} 0.9-2.4 [facility] Basophil percentageOrdered B y: Juan Diego Fernando on 10-22-2024 Basophils/100 WBC (Bld) 0.4 % 0-1 [facility] Bilirubin, totalOrdered By: Juan Diego Fernando on 10-22-2024 Bilirubin [Mass/Vol] 0.80 mg/dL 0.20-1.00 [facility] Comment on above: For patients on eltr ombopag therapy, use of Dimension [place] TBIL is not recommended. Blood urea nitrogen (BUN)/cr eatinine ratioOrdered By: Juan Diego Fernando on 10-22-2024 Urea nitrogen/Creatinine [Mass ratio] 9.5 mg/mg Low 10-20 [facility] CBC W/Diff, Automatedon 10-01 Absolute Lymph 1.66 X10 3/uL Normal 0.83-4.51 [facility] Comment on above: Performed By: #### L 500.4050, L100.0100, L501.9985, L506.1000, L501.9520, L500.4100 #### [facility] [address] [place], [address] Absolute Neut 5.3 X10 3/uL Normal 2.0-7.7 [facility] Comment on above: Performed By: #### L 500.4050, L100.0100, L501.9985, L506.1000, L501.9520, L500.4100 #### [facility] [address] [place], [address] Basophils/100 WBC (Bld) 0.4 % Normal 0-1 [facility] Comment on above: Performed By: #### L 500.4050, L100.0100, L501.9985, L506.1000, L501.9520, L500.4100 #### [facility] [address] [place], [address] Eosinophils/100 WBC (Bld) 1.4 % Normal 0-5 [facility] Comment on above: Performed By: #### L 500.4050, L100.0100, L501.9985, L506.1000, L501.9520, L500.4100 #### [facility] [address] [facility] [place], [address] Erythrocyte distribution width (RBC) [Ratio] 13.2 % Normal 11.6-14.6 [facility] Comment on above: Performed By: #### L 500.4050, L100.0100, L501.9985, L506.1000, L501.9520, L500.4100 #### [facility] [address] [place], [address] Hematocrit (Bld) [Volume fraction] 47.4 % High 37-47 [facility] Comment on above: Performed By: #### L 500.4050, L100.0100, L501.9985, L506.1000, L501.9520, L500.4100 #### [facility] [address] [place], [address] Hemoglobin (Bld) [Mass/Vol] 15.7 g/dL High 12.0-15.0 [facility] Comment on above: Performed By: #### L 500.4050, L100.0100, L501.9985, L506.1000, L501.9520, L500.4100 #### [facility] [address] [place], [address] IG% 0.500 Normal 0.0-0.9 [facility] Comment on above: Result Comment: IG% - Immature Granulocytes (promyelocytes, myelocytes and metamyelocytes) > 1% indicates that a LEFT SHIFT is Present. Performed By: #### L 500.4050, L100.0100, L501.9985, L506.1000, L501.9520, L500.4100 #### [facility] [address] [place], [address] Lymphocytes/100 WBC (Bld) 21.8 % Normal 19-41 [facility] Comment on above: Performed By: #### L 500.4050, L100.0100, L501.9985, L506.1000, L501.9520, L500.4100 #### [facility] [address] [place], [address] MCH (RBC) [Entitic mass] 29.6 pg Normal 27.0-32.0 [facility] Comment on above: Performed By: #### L 500.4050, L100.0100, L501.9985, L506.1000, L501.9520, L500.4100 #### [facility] [address] [place], [address] MCHC (RBC) [Mass/Vol] 33.1 g/dL Normal 32-36 [facility] Comment on above: Performed By: #### L 500.4050, L100.0100, L501.9985, L506.1000, L501.9520, L500.4100 #### [facility] [address] [place], [address] MCV (RBC) [Entitic vol] 89.4 fL Normal 81-99 [facility] Comment on above: Performed By: #### L 500.4050, L100.0100, L501.9985, L506.1000, L501.9520, L500.4100 #### [facility] [address] [place], [address] Monocytes/100 WBC (Bld) 6.4 % Normal 0-10 [facility] Comment on above: Performed By: #### L 500.4050, L100.0100, L501.9985, L506.1000, L501.9520, L500.4100 #### [facility] [address] [place], [address] Neutrophils/100 WBC (Bld) 69.5 % Normal 47-70 [facility] Comment on above: Performed By: #### L 500.4050, L100.0100, L501.9985, L506.1000, L501.9520, L500.4100 #### [facility] [address] [place], [address] Nucleated RBC (Bld) [#/Vol] 0 10*3/uL Normal 0-5 [facility] Comment on above: Performed By: #### L 500.4050, L100.0100, L501.9985, L506.1000, L501.9520, L500.4100 #### [facility] [address] [place], [address] Platelet mean volume (Bld) [Entitic vol] 9.7 fL Normal 6.2-12.0 [facility] Comment on above: Performed By: #### L 500.4050, L100.0100, L501.9985, L506.1000, L501.9520, L500.4100 #### [facility] [address] [place], [address] Platelets (Bld) [#/Vol] 226 10*3/uL Normal 150-450 [facility] Comment on above: Performed By: #### L 500.4050, L100.0100, L501.9985, L506.1000, L501.9520, L500.4100 #### [facility] [address] [place], [address] RBC (Bld) [#/Vol] 5.30 10*6/uL Normal 4.2-5.4 [facility] Comment on above: Performed By: #### L 500.4050, L100.0100, L501.9985, L506.1000, L501.9520, L500.4100 #### [facility] [address] [place], [address] RDW SD 43.1 fl Normal 35.1-43.9 [facility] Comment on above: Performed By: #### L 500.4050, L100.0100, L501.9985, L506.1000, L501.9520, L500.4100 #### [facility] [address] [place], [address] WBC (Bld) [#/Vol] 7.6 10*3/uL Normal 4.4-11.0 [facility] Comment on above: Performed By: #### L 500.4050, L100.0100, L501.9985, L506.1000, L501.9520, L500.4100 #### [facility] [address] [place], [place], [address] Carbon dioxide measurementOr dered By: Juan Diego King on 10-22-2024 CO2 [Moles/Vol] 27.0 mmol/L 21.0-32.0 [facility] Chloride measurementOrdered By: Juan Diego King on 10-22-2024 Chloride [Moles/Vol] 103 mmol/L 98-107 [facility] Comprehensive Metabolic Prof ilon 10-22-2024 Albumin [Mass/Vol] 3.8 g/dL Normal 3.2-5.0 [facility] Comment on above: Performed By: #### L 500.4050, L100.0100, L501.9985, L506.1000, L501.9520, L500.4100 #### [facility] [address] [place], [address] Albumin/Globulin [Mass ratio] 1.0 {ratio} Normal 0.9-2.4 [facility] Comment on above: Performed By: #### L 500.4050, L100.0100, L501.9985, L506.1000, L501.9520, L500.4100 #### [facility] [address] [place], [address] ALK P 118 U/L High 45-117 [facility] Comment on above: Performed By: #### L 500.4050, L100.0100, L501.9985, L506.1000, L501.9520, L500.4100 #### [facility] [address] [place], [address] ALT [Catalytic activity/Vol] 29 U/L Normal 13-56 [facility] Comment on above: Performed By: #### L 500.4050, L100.0100, L501.9985, L506.1000, L501.9520, L500.4100 #### [facility] [address] [place], [address] AST [Catalytic activity/Vol] 20 U/L Normal 15-37 [facility] Comment on above: Performed By: #### L 500.4050, L100.0100, L501.9985, L506.1000, L501.9520, L500.4100 #### [facility] [address] [place], [address] Bilirubin [Mass/Vol] 0.80 mg/dL Normal 0.20-1.00 [facility] Comment on above: Result Comment: For patients on eltrombopag therapy, use of Dimension [place] TBIL is not recommended. Performed By: #### L 500.4050, L100.0100, L501.9985, L506.1000, L501.9520, L500.4100 #### [facility] [address] [place], [address] BUN/CRE 9.5 RATIO Low 10-20 [facility] Comment on above: Performed By: #### L 500.4050, L100.0100, L501.9985, L506.1000, L501.9520, L500.4100 #### [facility] [address] [place], [address] CA,Total 9.6 mg/dL Normal 8.5-10.1 [facility] Comment on above: Performed By: #### L 500.4050, L100.0100, L501.9985, L506.1000, L501.9520, L500.4100 #### [facility] [address] [place], [address] Chloride [Moles/Vol] 103 mmol/L Normal 98-107 [facility] Comment on above: Performed By: #### L 500.4050, L100.0100, L501.9985, L506.1000, L501.9520, L500.4100 #### [facility] [address] [place], [address] CO2 [Moles/Vol] 27.0 mmol/L Normal 21.0-32.0 [facility] Comment on above: Performed By: #### L 500.4050, L100.0100, L501.9985, L506.1000, L501.9520, L500.4100 #### [facility] [address] [place], [address] Creatinine [Mass/Vol] 1.37 mg/dL High 0.55-1.02 [facility] Comment on above: Result Comment: The validity of the calculated GFR GFRAA in patients over 70 years has not been determined. Clinical correlation is essential. Performed By: #### L 500.4050, L100.0100, L501.9985, L506.1000, L501.9520, L500.4100 #### [facility] [address] [place], [address] EST GFR - AA 49 mL/min Low >60 [facility] Comment on above: Result Comment: Afri can [place] GFR Calc Performed By: #### L 500.4050, L100.0100, L501.9985, L506.1000, L501.9520, L500.4100 #### [facility] [address] [place], [address] GAP 8 Normal 5-15 [facility] Comment on above: Performed By: #### L 500.4050, L100.0100, L501.9985, L506.1000, L501.9520, L500.4100 #### [facility] [address] [place], [address] GFR/1.73 sq M.predicted among non-blacks MDRD (S/P/Bld) [Vol rate/Area] 40 mL/min/{1.73_m2} Low >60 [facility] Comment on above: Result Comment: Non- GFR Calc Performed By: #### L 500.4050, L100.0100, L501.9985, L506.1000, L501.9520, L500.4100 #### [facility] [address] [place], [address] Globulin (S) [Mass/Vol] 3.8 g/dL Normal 2.2-4.2 [facility] Comment on above: Performed By: #### L 500.4050, L100.0100, L501.9985, L506.1000, L501.9520, L500.4100 #### [facility] [address] [place], [address] Glucose [Mass/Vol] 310 mg/dL High 74-106 [facility] Comment on above: Result Comment: Gluc ose result greater than or equal to 200 mg/dL suggests DIABETES MELLITUS per A.D.A. criteria. Performed By: #### L 500.4050, L100.0100, L501.9985, L506.1000, L501.9520, L500.4100 #### [facility] [address] [place], [address] Potassium [Moles/Vol] 4.0 mmol/L Normal 3.5-5.1 [facility] Comment on above: Performed By: #### L 500.4050, L100.0100, L501.9985, L506.1000, L501.9520, L500.4100 #### [facility] [address] [place], [address] Sodium [Moles/Vol] 138 mmol/L Normal 136-145 [facility] Comment on above: Performed By: #### L 500.4050, L100.0100, L501.9985, L506.1000, L501.9520, L500.4100 #### [facility] [address] [place], [address] T PROT 7.6 g/dL Normal 6.4-8.2 [facility] Comment on above: Performed By: #### L 500.4050, L100.0100, L501.9985, L506.1000, L501.9520, L500.4100 #### [facility] [address] [place], [address] Urea nitrogen [Mass/Vol] 13 mg/dL Normal 7-18 [facility] Comment on above: Performed By: #### L 500.4050, L100.0100, L501.9985, L506.1000, L501.9520, L500.4100 #### [facility] [address] [place], [address] Eosinophil percentageOrdered By: [facility] Fernando on 10-22-2024 Eosinophils/100 WBC (Bld) 1.4 % 0-5 [facility] Erythrocyte distribution wid th ratioOrdered By: Juan Diego King on 10-22-2024 Erythrocyte distribution width (RBC) [Ratio] 13.2 % 11.6-14.6 [facility] Erythrocyte distribution wid th standard deviationOrdered By: Juan Diego King on 10-22-2024 Erythrocyte distribution width (RBC) [Entitic vol] 43.1 fL 35.1-43.9 [facility] Estimated glomerular filtrat ion rate (GFR) AmericanOrdered By: Juan Diego King on 10-22-2024 Estimated GFR (MDRD) Amer 49 mL/min Low >60 [facility] Comment on above: GFR Calc Glomerular filtration rate ( GFR) estimationOrdered By: Juan Diego King on 10-22-2024 Estimated GFR (MDRD) Non-Af Amer 40 mL/min Low >60 [facility] Comment on above: Non- GFR Calc Glucose measurementOrdered B y: Juan Diego King on 10-22-2024 Glucose [Mass/Vol] 310 mg/dL High 74-106 [facility] Comment on above: Glucose result great er than or equal to 200 mg/dLsuggests DIABETES MELLITUS per A.D.A. criteria. Hematocrit Auto (Bld) [Volum e fraction]Ordered By: Juan Diego King on 10-22-2024 Hematocrit (Bld) [Volume fraction] 47.4 % High 37-47 [facility] Hemoglobin A1con 10-22-2024 HbA1c (Bld) [Mass fraction] 10.5 % High 3.8-5.6 [facility] Comment on above: Result Comment: Norm al < 5.7 % Prediabetic 5.7 - 6.4 % Diabetic >or= 6.5 % Please note range changes. Performed By: #### L 500.4050, L100.0100, L501.9985, L506.1000, L501.9520, L500.4100 #### [facility] [address] [place], [place] [address]traci. [place], [place], [id number] Hemoglobin A1c percentageOrd ered By: Juan Diego King on 10-22-2024 HbA1c (Bld) [Mass fraction] 10.5 % High 3.8-5.6 [facility] Comment on above: Normal < 5.7 % Predi abetic 5.7 - 6.4 % Diabetic >or= 6.5 % Please note range changes. Hemoglobin measurementOrdere d By: Juan Diego King on 10-22-2024 Hemoglobin (Bld) [Mass/Vol] 15.7 g/dL High 12.0-15.0 [facility] High density lipoprotein (HD L) measurementOrdered By: Juan Diego King on 10-22-2024 Cholesterol in HDL [Mass/Vol] 62 mg/dL >40 [facility] Comment on above: The drugs N-Acetylcy steine and Metamizole may falsely depress this assay. Reference Range HDL <40 mg/dL Low HDL Cholesterol HDL >or= 60 mg/dL High HDL Cholesterol Immature granulocytes/100 WB C Auto (Bld)Ordered By: Juan Diego King on 10-22-2024 Immature granulocytes/100 WBC (Bld) 0.500 % 0.0-0.9 [facility] Comment on above: IG% - Immature Granu locytes (promyelocytes, myelocytes and metamyelocytes) > 1% indicates that a LEFT SHIFT is Present. Laboratory - Chemistry and C hemistry - challengeOrdered By: Juan Diego King on 10-22-2024 AST [Catalytic activity/Vol] 20 U/L 15-37 [facility] Lipid Profileon 10-22-2024 Cholesterol [Mass/Vol] 201 mg/dL High 200 [facility] Comment on above: Result Comment: <200 mg/dL Desirable 200-240 mg/dL Borderline >240 mg/dL High Risk Performed By: #### L 500.4050, L100.0100, L501.9985, L506.1000, L501.9520, L500.4100 #### [facility] [address] [place], [address] Cholesterol in HDL [Mass/Vol] 62 mg/dL Normal [facility] Comment on above: Result Comment: The drugs N-Acetylcysteine and Metamizole may falsely depress this assay. Reference Range HDL <40 mg/dL Low HDL Cholesterol HDL >or= 60 mg/dL High HDL Cholesterol Performed By: #### L 500.4050, L100.0100, L501.9985, L506.1000, L501.9520, L500.4100 #### [facility] [address] [facility] [place], [place], [id number] Cholesterol in LDL [Mass/Vol] 97 mg/dL Normal 0-130 [facility] Comment on above: Performed By: #### L 500.4050, L100.0100, L501.9985, L506.1000, L501.9520, L500.4100 #### [facility] [address] [place], [address] Cholesterol in VLDL [Mass/Vol] 42 mg/dL High 5-40 [facility] Comment on above: Performed By: #### L 500.4050, L100.0100, L501.9985, L506.1000, L501.9520, L500.4100 #### [facility] [address] [place], [address] Triglyceride [Mass/Vol] 208 mg/dL High [facility] Comment on above: Result Comment: The drugs N-Acetylcysteine and Metamizole may falsely depress this assay. Serum Triglycerides Reference Interval Normal <150 mg/dL Borderline high 150 - 199 mg/dL High 200 - 499 mg/dL Very High > or = 500 mg/dL Performed By: #### L 500.4050, L100.0100, L501.9985, L506.1000, L501.9520, L500.4100 #### [facility] [address] [facility] [place], [place], [id number] (140) Low density lipoprotein (LDL ) cholesterol measurementOrdered By: Juan Diego King on 10-22-2024 Cholesterol in LDL [Mass/Vol] 97 mg/dL 0-130 [facility] Lymphocytes Auto (Unsp spec) [#/Vol]Ordered By: Juan Diego King on 10-22-2024 Lymphocytes (Bld) [#/Vol] 1.66 10*3/uL 0.83-4.51 [facility] Lymphocytes/100 WBC Auto (Un sp spec)Ordered By: Juan Diego King on 10-22-2024 Lymphocytes/100 WBC (Bld) 21.8 % 19-41 [facility] MCV (mean corpuscular volume ) determinationOrdered By: Juan Diego King on 10-22-2024 MCV (RBC) [Entitic vol] 89.4 fL 81-99 [facility] Mean corpuscular hemoglobin (MCH) determinationOrdered By: Juan Diego King on 10-22-2024 MCH (RBC) [Entitic mass] 29.6 pg 27.0-32.0 [facility] Mean corpuscular hemoglobin concentration (MCHC) determinationOrdered By: Juan Diego King on 10-22-2024 MCHC (RBC) [Mass/Vol] 33.1 g/dL 32-36 [facility] Mean platelet volume determi nationOrdered By: Juan Diego King on 10-22-2024 Platelet mean volume (Bld) [Entitic vol] 9.7 fL 6.2-12.0 [facility] Monocyte percentageOrdered B y: Juan Diego King on 10-22-2024 Monocytes/100 WBC (Bld) 6.4 % 0-10 [facility] Neutrophil percentageOrdered By: Juan Diego King on 10-22-2024 Neutrophils/100 WBC (Bld) 69.5 % 47-70 [facility] Nucleated red blood cell per centageOrdered By: Juan Diego King on 10-22-2024 Nucleated RBC/100 WBC (Bld) [Ratio] 0 % 0-5 [facility] Platelet countOrdered By: Radu King on 10-22-2024 Platelets (Bld) [#/Vol] 226 10*3/uL 150-450 [facility] Potassium measurementOrdered By: Juan Diego King on 10-22-2024 Potassium [Moles/Vol] 4.0 mmol/L 3.5-5.1 [facility] RBC Auto (Bld) [#/Vol]Ordere d By: Juan Diego King on 10-22-2024 RBC (Bld) [#/Vol] 5.30 10*6/uL 4.2-5.4 [facility] Serum anion gap measurementO rdered By: Juan Diego King on 10-22-2024 Anion gap [Moles/Vol] 8 mmol/L 5-15 [facility] Serum globulin measurementOr dered By: Juan Diego King 10-22-2024 Globulin (S) [Mass/Vol] 3.8 g/dL 2.2-4.2 [facility] Serum or plasma alanine saldana otransferase (ALT) measurementOrdered By: Juan Diego King 10-22-2024 ALT [Catalytic activity/Vol] 29 U/L 13-56 [facility] Serum or plasma albumin fuad urement (mass/volume)Ordered By: Juan Diego King on 10-22-2024 Albumin [Mass/Vol] 3.8 g/dL 3.2-5.0 [facility] Serum or plasma alkaline chalino sphatase measurementOrdered By: Juan Diego King on 10-22-2024 ALP [Catalytic activity/Vol] 118 U/L High 45-117 [facility] Serum or plasma calcium fuad urement (mass/volume)Ordered By: Juan Diego King on 10-22-2024 Calcium [Mass/Vol] 9.6 mg/dL 8.5-10.1 [facility] Serum or plasma cholesterol measurement (mass/volume)Ordered By: Juan Diego King on 10-22-2024 Cholesterol [Mass/Vol] 201 mg/dL High <200 [facility] Comment on above: <200 mg/dL Desirable 200-240 mg/dL Borderline >240 mg/dL High Risk Serum or plasma creatinine m easurement (mass/volume)Ordered By: Juan Diego King on 10-22-2024 Creatinine [Mass/Vol] 1.37 mg/dL High 0.55-1.02 [facility] Comment on above: The validity of the calculated GFR & GFRAA in patients over 70 years has not been determined. Clinical correlation is essential. Serum or plasma urea nitroge n measurement (mass/volume)Ordered By: Juan Diego King on 10-22-2024 Urea nitrogen [Mass/Vol] 13 mg/dL 7-18 [facility] Sodium levelOrdered By: Juan Diego King on 10-22-2024 Sodium [Moles/Vol] 138 mmol/L 136-145 [facility] TSH QnOrdered By: Juan Diego King o n 10-22-2024 Thyroid Stimulating Hormone (TSH) 1.930 uIU/mL 0.358-3.740 [facility] Thyroid Stim Hormone (TSH)on 10-22-2024 TSH 1.930 uIU/mL Normal 0.358-3.740 [facility] Comment on above: Performed By: #### L 500.4050, L100.0100, L501.9985, L506.1000, L501.9520, L500.4100 #### [facility] [address] [place], [place], [address] Total proteinOrdered By: Juan Diego King on 10-22-2024 Protein [Mass/Vol] 7.6 g/dL 6.4-8.2 [facility] Triglycerides measurementOrd ered By: Juan Diego King on 10-22-2024 Triglyceride [Mass/Vol] 208 mg/dL High <199 [facility] Comment on above: The drugs N-Acetylcy steine and Metamizole may falsely depress this assay.Serum Triglycerides Reference Interval Normal <150 mg/dL Borderline high 150 - 199 mg/dL High 200 - 499 mg/dL Very High > or = 500 mg/dL Very low density lipoprotein (VLDL) cholesterol measurementOrdered By: Juan Diego King on 10-22-2024 VLDL Cholesterol 42 mg/dL High 5-40 [facility] Vitamin D,25 Hydroxyon 10-22 Vitamin D 25-OH 25.3 ng/mL Normal [facility] Comment on above: Result Comment: Vicenta min D 25(OH) Status Range Deficiency <20 ng/mL (50nmol/L) Insufficiency 20 - 30 ng/mL (50 - 75 nmol/L) Sufficiency 30 - 100 ng/mL (75 - 250 nmol/L) Toxicity >100 ng/mL (>250 nmol/L) Performed By: #### L 500.4050, L100.0100, L501.9985, L506.1000, L501.9520, L500.4100 #### [facility] [address] [place], [place], [address] White blood cell (WBC) count Ordered By: Juan Diego King on 10-22-2024 WBC (Bld) [#/Vol] 7.6 10*3/uL 4.4-11.0 [facility] Inital Evaluation (1) - PTon 07-22-2024 Inital Evaluation (1) - PT [facility] Physical Therapy [facility] [place] [address] / REHABILITATION SERVICES INITIAL EVALUATION MR#: [id number] Acct: [id number] Name: NISH BENITEZ Rep #: [id number] : 1950 74 From: Randy Su PT, Cert. T, OCS Referring Dr.: Dr. Juan Diego King MD Status: REG R Insurance: [facility] 07/31/18 SELF PAY INSURANCE Patient's Visit Information Visit Information Visit Information: NISH BENITEZ is a 74 year old F referred to Physical Therapy by Dr. Juan Diego King MD with a diagnosis of OSTEOARTHRITIS ,HIP BILATERAL. Date of Evaluation: 07/22/24 Physical Therapist: Randy Su PT, Cert PATTI, OCS Visit Plan Frequency: 2x /Week Duration: 4 Weeks Plan: PT INTERVENTIONS HIP STRENGTHENING ,DLS ,AND FUNCTIONAL STRENGTHENING Subjective Subjective: This 74 y/o female presents to physical therapy with bilateral hip pain . Patient has had hip pain for [address] mcdowell PT had x-rays DDD mod thoracic ,mod DJD . Patient has had pain groin pain anterior. Described as ache. Patient has lumbar pain as well.Aggravating factors walking/standing and unable to squat. Alleviating factors rest. Patient denies paresthesia/tingling.P atient sleeping good. No trauma. No prior tx for hips/back. Patient condition affects QOL and function. Patient goal to decrease symptoms. SOCIAL: VOCATION: retired Pain Bilateral Hip: Pain Intensity (Out of 10): 4 Pain Intensity Range: 10 Comment: anterior Objective Objective: POSTURE: mild forward posture NEURO: denies paresthesia/tingling ,reflexes intact GAIT: reciprocal pattern PALPATION: unremarkable PROM: hip flexion 120 degrees ,ER 50 degrees , FLEXABILITY: hamstrings WNL MMT: quads/hams 4/5,hip IR/ER 4/5 ,hip flexion /abduction 4/5 LUMBAR ROM: flexion WNL ,extension min assist ,side glides min loss Special Tests L/S Slump test left side: Negative L/S Slump test right side: Negative L/S Left Straight Leg Raise: Negative L/S Right Straight Leg Raise: Negative Lumbar Standing: Flexion - Mechanical Response: No effect Lumbar Standing: Flexion - Symptoms During Testing: No effect Lumbar Standing: Flexion - Symptoms After Testing: No effect Lumbar Standing: Extension - Mechanical Response: No effect Lumbar Standing: Extension - Symptoms During Testing: No effect Lumbar Standing: Extension - Symptoms After Testing: No effect Lumbar Standing: Right Side Glides - Mechanical Response: No effect Lumbar Standing: Right Side Shannon - Symptoms During Testing: No effect Lumbar Standing: Right Side Shannon - Symptoms After Testing: No effect Lumbar Standing: Left Side Shannon - Mechanical Response: No effect Lumbar Standing: Left Side Shannon - Symptoms During Testing: No effect Lumbar Standing: Left Side Shannon - Symptoms After Testing: No effect R Hip Scour: Negative R Hip Quadrant - Intraarticular Pathology: Negative R Hip JACOB - Intraarticular Pathology: Negative R Hip Trendelenberg - Glut Medius: Negative L Hip Scour: Negative L Hip JACOB - Intraarticular Pathology: Negative L Hip Trendelenberg - Glut Medius: Negative Balance/Special Test Scores Lower Extremity Functional Score: 44 Goals Goal 1:: Patient to be I with HEP for back Goal Time Frame: 4-6 Weeks Goal 2:: Patient to be demonstrate 50 % to improve function and less pain Goal Time Frame: 4-6 Weeks Goal 3:: Patient to improve strength of hips to 4/5 to improve gaiy Goal Time Frame: 4-6 Weeks Goal 4:: Patient to improve LFES score by 5 points to improve QOL and function Rehabilitation Potential Physical Therapy Diagnosis: Patient has bilateral anterior hip pain along with weakness with pain inn hips and back thus benefit from skilled PT Rehabilitation Potential: Good Anticipated Interventions Patient/Client Instruction: Educate patient on: Condition and Plan of Care For the Purpose of:: To decrease pain, To improve muscle performance and motor function, To improve ability to perform ADL's, To increase tolerance to activity/condition/pos ition, To improve ability of physical actions for home/community/work/le isure, To improve gait and locomotor functions, To increase flexibility/ROM, To improve endurance, To improve balance and To improve tolerance to ADL's Therapeutic Exercise to Include: Strength training, Endurance training, Postural training, Flexibilty training and Dynamic Lumbar Stabilization For the Purpose of:: To decrease pain, To improve muscle performance and motor function, To improve ability to perform ADL's, To increase tolerance to activity/condition/pos ition, To improve ability of physical actions for home/community/work/le isure and To increase flexibility/ROM Text: Thank you for the opportunity to evaluate your patient. For Medicare and Medicare HMO plans, p (more content not included)... Normal [facility] L3300.0940on 07-22-2024 VIT D,25 HYDROX TNP Normal . [facility] Comment on above: Result Comment: Test not performed. No specimen received. Contacted Bere Myriam on 07/22/24. Vitamin D deficiency has been defined by the [place] [employer] and an Endocrine Society practice guideline as a level of serum 25-OH vitamin D less than 20 ng/mL (1,2). The Endocrine Society went on to further define vitamin D insufficiency as a level between 21 and 29 ng/mL (2). 1. IOM ([place] [employer]). 2010. Dietary reference intakes for calcium and D. [place]: The National Academies Press. 2. Agusto MF, Marianela TRAVIS, Camille PAGAN, et al. Evaluation, treatment, and prevention of vitamin D deficiency: an Endocrine Society clinical practice guideline. JCEM. 2010; 96(7):1911-30. Performed By: #### L 500.4050, L100.0100, L501.9985, L506.1000, L501.9520, L500.4100 #### [facility] [address] [place], [address] CBC W/Diff, Automatedon 06-30 Absolute Lymph 2.02 X10 3/uL Normal 0.83-4.51 [facility] Comment on above: Performed By: #### L 500.4050, L100.0100, L501.9985, L506.1000, L501.9520, L500.4100 #### [facility] [address] [place], [address] Absolute Neut 5.5 X10 3/uL Normal 2.0-7.7 [facility] Comment on above: Performed By: #### L 500.4050, L100.0100, L501.9985, L506.1000, L501.9520, L500.4100 #### [facility] [address] [place], [address] Basophils/100 WBC (Bld) 0.4 % Normal 0-1 [facility] Comment on above: Performed By: #### L 500.4050, L100.0100, L501.9985, L506.1000, L501.9520, L500.4100 #### [facility] [address] [place], [address] Eosinophils/100 WBC (Bld) 1.9 % Normal 0-5 [facility] Comment on above: Performed By: #### L 500.4050, L100.0100, L501.9985, L506.1000, L501.9520, L500.4100 #### [facility] [address] [place], [address] Erythrocyte distribution width (RBC) [Ratio] 13.4 % Normal 11.6-14.6 [facility] Comment on above: Performed By: #### L 500.4050, L100.0100, L501.9985, L506.1000, L501.9520, L500.4100 #### [facility] [address] [place], [address] Hematocrit (Bld) [Volume fraction] 46.5 % Normal 37-47 [facility] Comment on above: Performed By: #### L 500.4050, L100.0100, L501.9985, L506.1000, L501.9520, L500.4100 #### [facility] [address] [place], [address] Hemoglobin (Bld) [Mass/Vol] 15.5 g/dL High 12.0-15.0 [facility] Comment on above: Performed By: #### L 500.4050, L100.0100, L501.9985, L506.1000, L501.9520, L500.4100 #### [facility] [address] [place], [address] IG% 0.400 Normal 0.0-0.9 [facility] Comment on above: Result Comment: IG% - Immature Granulocytes (promyelocytes, myelocytes and metamyelocytes) > 1% indicates that a LEFT SHIFT is Present. Performed By: #### L 500.4050, L100.0100, L501.9985, L506.1000, L501.9520, L500.4100 #### [facility] [address] [place], [address] Lymphocytes/100 WBC (Bld) 24.3 % Normal 19-41 [facility] Comment on above: Performed By: #### L 500.4050, L100.0100, L501.9985, L506.1000, L501.9520, L500.4100 #### [facility] [address] [place], [address] MCH (RBC) [Entitic mass] 29.4 pg Normal 27.0-32.0 [facility] Comment on above: Performed By: #### L 500.4050, L100.0100, L501.9985, L506.1000, L501.9520, L500.4100 #### [facility] [address] [place], [address] MCHC (RBC) [Mass/Vol] 33.3 g/dL Normal 32-36 [facility] Comment on above: Performed By: #### L 500.4050, L100.0100, L501.9985, L506.1000, L501.9520, L500.4100 #### [facility] [address] [place], [address] MCV (RBC) [Entitic vol] 88.2 fL Normal 81-99 [facility] Comment on above: Performed By: #### L 500.4050, L100.0100, L501.9985, L506.1000, L501.9520, L500.4100 #### [facility] [address] [place], [address] Monocytes/100 WBC (Bld) 7.3 % Normal 0-10 [facility] Comment on above: Performed By: #### L 500.4050, L100.0100, L501.9985, L506.1000, L501.9520, L500.4100 #### [facility] [address] [place], [address] Neutrophils/100 WBC (Bld) 65.7 % Normal 47-70 [facility] Comment on above: Performed By: #### L 500.4050, L100.0100, L501.9985, L506.1000, L501.9520, L500.4100 #### [facility] [address] [place], [address] Nucleated RBC (Bld) [#/Vol] 0 10*3/uL Normal 0-5 [facility] Comment on above: Performed By: #### L 500.4050, L100.0100, L501.9985, L506.1000, L501.9520, L500.4100 #### [facility] [address] [place], [address] Platelet mean volume (Bld) [Entitic vol] 9.7 fL Normal 6.2-12.0 [facility] Comment on above: Performed By: #### L 500.4050, L100.0100, L501.9985, L506.1000, L501.9520, L500.4100 #### [facility] [address] [place], [address] Platelets (Bld) [#/Vol] 238 10*3/uL Normal 150-450 [facility] Comment on above: Performed By: #### L 500.4050, L100.0100, L501.9985, L506.1000, L501.9520, L500.4100 #### [facility] [address] [place], [address] RBC (Bld) [#/Vol] 5.27 10*6/uL Normal 4.2-5.4 [facility] Comment on above: Performed By: #### L 500.4050, L100.0100, L501.9985, L506.1000, L501.9520, L500.4100 #### [facility] [address] [place], [address] RDW SD 43.6 fl Normal 35.1-43.9 [facility] Comment on above: Performed By: #### L 500.4050, L100.0100, L501.9985, L506.1000, L501.9520, L500.4100 #### [facility] [address] [place], [address] WBC (Bld) [#/Vol] 8.3 10*3/uL Normal 4.4-11.0 [facility] Comment on above: Performed By: #### L 500.4050, L100.0100, L501.9985, L506.1000, L501.9520, L500.4100 #### [facility] [address] [place], [address] Comprehensive Metabolic Prof ilon 07-15-2024 Albumin [Mass/Vol] 3.8 g/dL Normal 3.2-5.0 [facility] Comment on above: Performed By: #### L 500.4050, L100.0100, L501.9985, L506.1000, L501.9520, L500.4100 #### [facility] [address] [place], [address] Albumin/Globulin [Mass ratio] 1.1 {ratio} Normal 0.9-2.4 [facility] Comment on above: Performed By: #### L 500.4050, L100.0100, L501.9985, L506.1000, L501.9520, L500.4100 #### [facility] [address] [place], [address] ALK P 141 U/L High 45-117 [facility] Comment on above: Performed By: #### L 500.4050, L100.0100, L501.9985, L506.1000, L501.9520, L500.4100 #### [facility] [address] [place], [address] ALT [Catalytic activity/Vol] 27 U/L Normal 13-56 [facility] Comment on above: Performed By: #### L 500.4050, L100.0100, L501.9985, L506.1000, L501.9520, L500.4100 #### [facility] [address] [place], [address] AST [Catalytic activity/Vol] 18 U/L Normal 15-37 [facility] Comment on above: Performed By: #### L 500.4050, L100.0100, L501.9985, L506.1000, L501.9520, L500.4100 #### [facility] [address] [place], [address] Bilirubin [Mass/Vol] 0.70 mg/dL Normal 0.20-1.00 [facility] Comment on above: Result Comment: For patients on eltrombopag therapy, use of Dimension [place] TBIL is not recommended. Performed By: #### L 500.4050, L100.0100, L501.9985, L506.1000, L501.9520, L500.4100 #### [facility] [address] [place], [address] BUN/CRE 13.9 RATIO Normal 10-20 [facility] Comment on above: Performed By: #### L 500.4050, L100.0100, L501.9985, L506.1000, L501.9520, L500.4100 #### [facility] [address] [place], [address] CA,Total 9.2 mg/dL Normal 8.5-10.1 [facility] Comment on above: Performed By: #### L 500.4050, L100.0100, L501.9985, L506.1000, L501.9520, L500.4100 #### [facility] [address] [place], [address] Chloride [Moles/Vol] 99 mmol/L Normal 98-107 [facility] Comment on above: Performed By: #### L 500.4050, L100.0100, L501.9985, L506.1000, L501.9520, L500.4100 #### [facility] [address] [place], [address] CO2 [Moles/Vol] 25.0 mmol/L Normal 21.0-32.0 [facility] Comment on above: Performed By: #### L 500.4050, L100.0100, L501.9985, L506.1000, L501.9520, L500.4100 #### [facility] [address] [place], [address] Creatinine [Mass/Vol] 1.22 mg/dL High 0.55-1.02 [facility] Comment on above: Result Comment: The validity of the calculated GFR GFRAA in patients over 70 years has not been determined. Clinical correlation is essential. Performed By: #### L 500.4050, L100.0100, L501.9985, L506.1000, L501.9520, L500.4100 #### [facility] [address] [place], [address] EST GFR - AA 56 mL/min Low >60 [facility] Comment on above: Result Comment: Afri can [place] GFR Calc Performed By: #### L 500.4050, L100.0100, L501.9985, L506.1000, L501.9520, L500.4100 #### [facility] [address] [place], [address] GAP 9 Normal 5-15 [facility] Comment on above: Performed By: #### L 500.4050, L100.0100, L501.9985, L506.1000, L501.9520, L500.4100 #### [facility] [address] [place], [address] GFR/1.73 sq M.predicted among non-blacks MDRD (S/P/Bld) [Vol rate/Area] 46 mL/min/{1.73_m2} Low >60 [facility] Comment on above: Result Comment: Non- GFR Calc Performed By: #### L 500.4050, L100.0100, L501.9985, L506.1000, L501.9520, L500.4100 #### [facility] [address] [place], [address] Globulin (S) [Mass/Vol] 3.4 g/dL Normal 2.2-4.2 [facility] Comment on above: Performed By: #### L 500.4050, L100.0100, L501.9985, L506.1000, L501.9520, L500.4100 #### [facility] [address] [place], [address] Glucose [Mass/Vol] 363 mg/dL High 74-106 [facility] Comment on above: Result Comment: Gluc ose result greater than or equal to 200 mg/dL suggests DIABETES MELLITUS per A.D.A. criteria. Performed By: #### L 500.4050, L100.0100, L501.9985, L506.1000, L501.9520, L500.4100 #### [facility] [address] [place], [address] Potassium [Moles/Vol] 4.6 mmol/L Normal 3.5-5.1 [facility] Comment on above: Performed By: #### L 500.4050, L100.0100, L501.9985, L506.1000, L501.9520, L500.4100 #### [facility] [address] [place], [address] Sodium [Moles/Vol] 132 mmol/L Low 136-145 [facility] Comment on above: Performed By: #### L 500.4050, L100.0100, L501.9985, L506.1000, L501.9520, L500.4100 #### [facility] [address] [place], [address] T PROT 7.2 g/dL Normal 6.4-8.2 [facility] Comment on above: Performed By: #### L 500.4050, L100.0100, L501.9985, L506.1000, L501.9520, L500.4100 #### [facility] [address] [place], [address] Urea nitrogen [Mass/Vol] 17 mg/dL Normal 7-18 [facility] Comment on above: Performed By: #### L 500.4050, L100.0100, L501.9985, L506.1000, L501.9520, L500.4100 #### [facility] [address] [place], [address] Hemoglobin A1con 07-15-2024 HbA1c (Bld) [Mass fraction] 9.4 % High 3.8-5.6 [facility] Comment on above: Result Comment: Norm al < 5.7 % Prediabetic 5.7 - 6.4 % Diabetic >or= 6.5 % Please note range changes. Performed By: #### L 500.4050, L100.0100, L501.9985, L506.1000, L501.9520, L500.4100 #### [facility] [address] [place], [address] Hips B/L min 2 views w/ Pelv nemesio 07-15-2024 Hips B/L min 2 views w/ Pelvis [facility] Imaging Services [address] [place] [address] Hips B/L min 2 views w/ Pelvis MR#: [id number] Acct: [id number] Name: NISH BENITEZ Rep #: [id number] : 1950 F 74 From: Cash Cornell MD PCP: Dr. Juan Diego King MD Status: REG CLI Study: Hips B/L min 2 views w/ Pelvis Date of Exam: Exam# [id number] Ordering Dr: Juan Diego King MD [id number] INDICATION: OA EXAMINATION/TECHNIQUE: X-RAY - XR Hips Bilateral with Pelvis when performed; Min 5 Views COMPARISON: Pelvis and left hip radiographs dated 02/07/2022. FINDINGS: PELVIC BONES: No displaced fracture, destructive or sclerotic lesions. Note that overlapping bowel shadows may however obscure fine detail. Sacroiliac joints are unremarkable. No widening of the pubic symphysis. HIPS: There is persistent moderate degenerative arthrosis of the hip joints bilaterally with joint space narrowing and marginal osteophyte formation. No displaced fracture. SOFT TISSUES: There are persistent calcified phleboliths in the pelvis. No soft tissue swelling or gas. RAD/Hips B/L min 2 views w/ Pelvis IMPRESSION: Persistent moderate degenerative arthrosis of the hip joints bilaterally. No evidence of displaced pelvic or hip fracture. Electronically Signed: Cash Cornell MD at 15:48 EDT , CC: Dr. Juan Diego King MD Minute Clerk For Basic Traffic: Signed Normal [facility] Lipid Profileon 07-15-2024 Cholesterol [Mass/Vol] 195 mg/dL Normal 200 [facility] Comment on above: Result Comment: <200 mg/dL Desirable 200-240 mg/dL Borderline >240 mg/dL High Risk Performed By: #### L 500.4050, L100.0100, L501.9985, L506.1000, L501.9520, L500.4100 #### [facility] [address] [place], [address] Cholesterol in HDL [Mass/Vol] 56 mg/dL Normal [facility] Comment on above: Result Comment: The drugs N-Acetylcysteine and Metamizole may falsely depress this assay. Reference Range HDL <40 mg/dL Low HDL Cholesterol HDL >or= 60 mg/dL High HDL Cholesterol Performed By: #### L 500.4050, L100.0100, L501.9985, L506.1000, L501.9520, L500.4100 #### [facility] [address] [place], [address] Cholesterol in LDL [Mass/Vol] 91 mg/dL Normal 0-130 [facility] Comment on above: Performed By: #### L 500.4050, L100.0100, L501.9985, L506.1000, L501.9520, L500.4100 #### [facility] [address] [place], [address] Cholesterol in VLDL [Mass/Vol] 48 mg/dL High 5-40 [facility] Comment on above: Performed By: #### L 500.4050, L100.0100, L501.9985, L506.1000, L501.9520, L500.4100 #### [facility] [address] [place], [address] Triglyceride [Mass/Vol] 239 mg/dL High [facility] Comment on above: Result Comment: The drugs N-Acetylcysteine and Metamizole may falsely depress this assay. Serum Triglycerides Reference Interval Normal <150 mg/dL Borderline high 150 - 199 mg/dL High 200 - 499 mg/dL Very High > or = 500 mg/dL Performed By: #### L 500.4050, L100.0100, L501.9985, L506.1000, L501.9520, L500.4100 #### [facility] [address] [facility] [place], [address] Thyroid Stim Hormone (TSH)on 07-15-2024 TSH 2.080 uIU/mL Normal 0.358-3.740 [facility] Comment on above: Performed By: #### L 500.4050, L100.0100, L501.9985, L506.1000, L501.9520, L500.4100 #### [facility] [address] [place], [address] Dexa Bone Density Studyon Dexa Bone Density Study [facility] Imaging Services [address] [place] [address] Dexa Bone Density Study MR#: [id number] Acct: [id number] Name: NISH BENITEZ Rep #: [id number] : 1950 F 73 From: Venkata ordoñez MD PCP: Dr. Juan Diego King MD Status: [facility] Study: Dexa Bone Density Study Date of Exam: 05/07/24 Exam# [id number] Ordering Dr: Juan Diego King MD [id number] STUDY: DUAL ENERGY X-RAY ABSORPTIOMETRY / DXA REASON FOR EXAM: Female, 73 years old. [id number] TECHNIQUE: Bone Mineral Density (BMD) measurements of lumbar spine and bilateral hips were obtained. COMPARISON: Comparison is made with prior study of November 21, 2016. FINDINGS: Lumbar Spine (L1-L4): g/cm2 (0.980) / T-score (-0.6) / Z-score (1.7) Findings are suggestive of normal bone density with a low fracture risk. Left Femur Total: g/cm2 (0.759) / T-score (-1.5) / Z-score (0.2) Left Femoral Neck: g/cm2 (0.576) / T-score (-2.5) / Z-score (-0.5) Right Femur Total: g/cm2 (0.781) / T-score (-1.3) / Z-score (0.3) Right Femoral Neck: g/cm2 (0.643) / T-score (-1.9) / Z-score (0.1) The T-Scores on the most recent prior examination were: Lumbar Spine (L1-L4): There has been worsening of bone density since the previous examination. Left Femur Total: which represents a worsening of 12.8%. Right Femur Total: which represents a worsening of 11.8%. BD/Dexa Bone Density Study IMPRESSION: The patient is considered osteopenic as outlined below according to World [employer] Organization (WHO) criteria with a high fracture risk. There has been worsening of bone density since the previous examination. Reference Information: The T-score is the number of standard deviations above or below the standard which is normal for young adults at their peak bone mineral density. The World Health Organization (WHO) interprets the T-scores as follows: Above -1 Normal bone density Between -1 and -2.5 Osteopenia Equal to / or below -2.5 Osteoporosis As a practical clinical guideline, osteopenia may be graded as follows: Mild -1 through -1.5 Moderate -1.6 through -2.0 Severe -2.1 through -2.4 The Z-score is the number of standard deviations above or below age-matched controls. A Z-score of less than -1.5 would be considered abnormal. References: 1. NIH Osteoporosis and Related Bone Diseases www osteo.org 2. International Society for Clinical Densitometry www iscd.org 3. National Osteoporosis Foundation www nof.org Electronically Signed: Venkata Diamond MD at 15:44 EDT , CC: Dr. Juan Diego King MD Minute Clerk For Basic [employer]: Signed Normal [facility] Abdomen Limitedon 03-31-2024 Abdomen Limited [facility] Imaging Services [address] [place], [place] [address] Abdomen Limited MR#: [id number] Acct: [id number] Name: NISH BENITEZ Rep #: [id number] : 1950 F 73 From: Dylan Cr MD PCP: Dr. Juan Diego King MD Status: REG CLI Study: Abdomen Limited Date of Exam: 03/31/24 Exam# [id number] Ordering Dr: Juan Diego King MD [id number] STUDY: ABDOMINAL ULTRASOUND - RIGHT UPPER QUADRANT REASON FOR VISIT: Female, 73 years old ABD PAIN TECHNIQUE: Ultrasound evaluation of the right upper quadrant was performed with real-time and static bellamy-scale imaging. TECHNICAL QUALITY: Adequate. COMPARISON: None. FINDINGS: Liver: The liver measures 13.4 cm. There is normal echogenicity of the liver. The bile ducts are within normal limits. There is hepatic color flow. The direction of portal flow is hepatopetal. There is no demonstrated mass lesion. Gallbladder: Normal distended gallbladder. The gallbladder wall measures 3 mm. There is a negative sonographic Santoyo''s sign. There is no pericholecystic fluid. There are no gallstones. Common Bile Duct (C.B.D.): The common bile duct measures 5 mm. Pancreas: Visualized pancreas is sonographically normal Right Kidney: Normal size of the right kidney. The right kidney measures 8.6 x 4.8 x 4.5 cm. Normal renal cortex. The right cortex measures 1.3 cm. There is no demonstrated renal mass or cyst. There is no right hydronephrosis. US/Abdomen Limited IMPRESSION: No suspicious sonographic findings Electronically Signed: Berry Cr MD at 9:52 EDT , CC: Dr. Juan Diego King MD Minute Clerk For Basic Traffic: Signed Normal [facility] Abdomen/Pelvis WITH Contrast on 03-31-2024 Abdomen/Pelvis WITH Contrast [facility] Imaging Services [address] [place] [id number] Abdomen/Pelvis WITH Contrast MR#: [id number] Acct: [id number] Name: NISH BENITEZ Rep #: [id number] : 1950 F 73 From: Ramin He PCP: Dr. Juan Diego King MD Status: [facility] CL Study: Abdomen/Pelvis WITH Contrast Date of Exam: 11/23 Exam# [id number] Ordering Dr: Juan Diego King MD [id number] STUDY: CT ABDOMEN AND PELVIS WITH CONTRAST REASON FOR EXAM: Female, 73 years old. ABD PAIN RADIATION DOSAGE (If Supplied By Facility): CTDIvol = ( 15.77 ) mGy, DLP = ( 1094.19 ) mGycm TECHNIQUE: Oral and amp; IV Gastrografin and amp; 100mL Isovue-370 was administered. Transaxial images were obtained from the dome of the diaphragm to the symphysis pubis. Multiplanar coronal and sagittal images were reformatted. The protocol utilizes one or more of the following dose reduction techniques: automated exposure control, adjustment of mA and/or kV according to patient size,and/or use of iterative reconstruction technique. COMPARISON: No relevant prior comparison study available FINDINGS: The visualized lung bases are unremarkable. The visualized portions of the heart are within normal limits. Normal liver. Normal gallbladder and extrahepatic biliary system. Normal spleen. Normal pancreas. Normal bilateral adrenal glands. Focal scarring in the lateral aspect of the right kidney. No evidence of hydronephrosis. Density in the distal esophagus could reflect ingested material. The stomach is essentially unremarkable. Normal in caliber small bowel loops. Fecal retention. No evidence of acute diverticulitis. The appendix is visualized and appears normal. There is diffuse atherosclerotic calcification of the abdominal aorta, without a demonstrated aneurysm. No retroperitoneal adenopathy. Normal urinary bladder. Very small umbilical hernia containing fat. Mild compression of T11 vertebra probably chronic. Minimal anterolisthesis of L4 over L5. CT/Abdomen/Pelvis WITH Contrast IMPRESSION: 1. No focal acute inflammatory process. 2. Small density in the distal esophagus could reflect ingested material. Electronically Signed: Ramin Hooker MD at 13:43 EDT , CC: Dr. Juan Diego King MD Minute Clerk For Basic Traffic: Signed Normal [facility] CREATININE FINGERSTICKon Creatinine [Mass/Vol] 1.3 mg/dL High 0.55-1.02 [facility] Comment on above: Performed By: #### L 500.4050, L100.0100, L501.9985, L506.1000, L501.9520, L500.4100 #### [facility] [address] [place], [address] GFR/1.73 sq M.predicted among non-blacks MDRD (S/P/Bld) [Vol rate/Area] 44.0000 mL/min/{1.73_m2} Low >60 [facility] Comment on above: Performed By: #### L 500.4050, L100.0100, L501.9985, L506.1000, L501.9520, L500.4100 #### [facility] [place], [address] Absolute lymphocyte countOrd ered By: Juan Diego King on 01-16-2024 Lymphocytes Auto (Unsp spec) [#/Vol] 1.74 10*3/uL 0.83-4.51 [facility] Automated lymphocyte count a s percentage of total leukocytesOrdered By: Juan Diego King on 01-16-2024 Lymphocytes/100 WBC Auto (Unsp spec) 26.8 % 19-41 [facility] Basophil percentageOrdered B y: Juan Diego King on 01-16-2024 Basophils/100 WBC (Bld) 0.8 % 0-1 [facility] Bilirubin [Mass/Vol] 0.70 mg/dL 0.20-1.00 [facility] Comment on above: For patients on eltr ombopag therapy, use of Dimension [place] TBIL is not recommended. Chloride [Moles/Vol] 102 mmol/L 98-107 [facility] Cholesterol [Mass/Vol] 186 mg/dL <200 [facility] Comment on above: <200 mg/dL Desirable 200-240 mg/dL Borderline >240 mg/dL High Risk Eosinophils/100 WBC (Bld) 2.2 % 0-5 [facility] Glucose [Mass/Vol] 216 mg/dL 74-106 [facility] Comment on above: Glucose result great er than or equal to 200 mg/dLsuggests DIABETES MELLITUS per A.D.A. criteria. Hemoglobin (Bld) [Mass/Vol] 14.7 g/dL 12.0-15.0 [facility] Monocytes/100 WBC (Bld) 8.5 % 0-10 [facility] Neutrophils (Bld) [#/Vol] 4.0 10*3/uL 2.0-7.7 [facility] Neutrophils/100 WBC (Bld) 61.1 % 47-70 [facility] Potassium [Moles/Vol] 4.8 mmol/L 3.5-5.1 [facility] Protein [Mass/Vol] 6.9 g/dL 6.4-8.2 [facility] Sodium [Moles/Vol] 135 mmol/L 136-145 [facility] Triglyceride [Mass/Vol] 133 mg/dL <199 [facility] Comment on above: The drugs N-Acetylcy steine and Metamizole may falsely depress this assay.Serum Triglycerides Reference Interval Normal <150 mg/dL Borderline high 150 - 199 mg/dL High 200 - 499 mg/dL Very High > or = 500 mg/dL WBC (Bld) [#/Vol] 6.5 10*3/uL 4.4-11.0 [facility] Determination of erythrocyte mean corpuscular volume (MCV)Ordered By: Juan Diego King on 01-16-2024 MCV (RBC) [Entitic vol] 88.1 fL 81-99 [facility] Erythrocyte distribution wid th ratioOrdered By: Juan Diego King 01-16-2024 Erythrocyte distribution width (RBC) [Ratio] 12.7 % 11.6-14.6 [facility] Erythrocyte distribution wid th standard deviationOrdered By: Juan Diego King 01-16-2024 Erythrocyte distribution width (RBC) [Entitic vol] 41.2 fL 35.1-43.9 [facility] Hematocrit Auto (Bld) [Volum e fraction]Ordered By: Juan Diego King 01-16-2024 Hematocrit (Bld) [Volume fraction] 42.3 % 37-47 [facility] Immature granulocytes/100 WB C Auto (Bld)Ordered By: Juan Diego King 01-16-2024 Immature granulocytes/100 WBC (Bld) 0.600 % 0.0-0.9 [facility] Comment on above: IG% - Immature Granu locytes (promyelocytes, myelocytes and metamyelocytes) > 1% indicates that a LEFT SHIFT is Present. Laboratory - Chemistry and C hemistry - challengeOrdered By: Juan Diego King on 01-16-2024 Albumin/Globulin [Mass ratio] 1.2 {ratio} 0.9-2.4 [facility] ALP [Catalytic activity/Vol] 113 U/L 45-117 [facility] ALT [Catalytic activity/Vol] 27 U/L 13-56 [facility] Cholesterol in HDL [Mass/Vol] 60 mg/dL >40 [facility] Comment on above: The drugs N-Acetylcy steine and Metamizole may falsely depress this assay. Reference Range HDL <40 mg/dL Low HDL Cholesterol HDL >or= 60 mg/dL High HDL Cholesterol Cholesterol in LDL [Mass/Vol] 99 mg/dL 0-130 [facility] CO2 [Moles/Vol] 29.0 mmol/L 21.0-32.0 [facility] Globulin (S) [Mass/Vol] 3.1 g/dL 2.2-4.2 [facility] Urea nitrogen/Creatinine [Mass ratio] 14.7 mg/mg 10-20 [facility] - Hematology and Cell countsOrdered By: Juan Diego King on 01-16-2024 MCH (RBC) [Entitic mass] 30.6 pg 27.0-32.0 [facility] MCHC (RBC) [Mass/Vol] 34.8 g/dL 32-36 [facility] Nucleated RBC/100 WBC (Bld) [Ratio] 0 % 0-5 [facility] Platelet mean volume (Bld) [Entitic vol] 9.2 fL 6.2-12.0 [facility] Platelets (Bld) [#/Vol] 257 10*3/uL 150-450 [facility] No Panel InformationOrdered By: Juan Diego King on 01-16-2024 Estimated GFR (MDRD) Amer 59 mL/min >60 [facility] Comment on above: GFR Calc Estimated GFR (MDRD) Non-Af Amer 49 mL/min >60 [facility] Comment on above: Non- GFR Calc Urine Microalbumin/Creatinine Ratio 11.5 mg/g CRE <30 [facility] Vitamin D 25-Hydroxy 30.9 ng/mL [facility] Comment on above: Vitamin D 25(OH) Sta tus Range Deficiency <20 ng/mL (50nmol/L) Insufficiency 20 - 30 ng/mL (50 - 75 nmol/L) Sufficiency 30 - 100 ng/mL (75 - 250 nmol/L) Toxicity >100 ng/mL (>250 nmol/L) VLDL Cholesterol 27 mg/dL 5-40 [facility] RBC Auto (Bld) [#/Vol]Ordere d By: Juan Diego King on 01-16-2024 RBC (Bld) [#/Vol] 4.80 10*6/uL 4.2-5.4 [facility] Serum or plasma calcium fuad urement (mass/volume)Ordered By: Juan Diego King on 01-16-2024 Calcium [Mass/Vol] 8.8 mg/dL 8.5-10.1 [facility] Serum or plasma creatinine m easurement (mass/volume)Ordered By: Juan Diego King on 01-16-2024 Creatinine [Mass/Vol] 1.16 mg/dL 0.55-1.02 [facility] Comment on above: The validity of the calculated GFR & GFRAA in patients over 70 years has not been determined. Clinical correlation is essential. Serum or plasma thyroid stim ulating hormone (TSH) measurement (units/volume)Ordered By: Juan Diego King on 01-16-2024 TSH Qn 1.33 uIU/mL 0.358-3.74 [facility] Serum or plasma urea nitroge n measurement (mass/volume)Ordered By: Juan Diego King on 01-16-2024 Urea nitrogen [Mass/Vol] 17 mg/dL 7-18 [facility] Thin prep Papanicolaou smear with manual screeningOrdered By: Juan Diego King 01-16-2024 Thin prep Papanicolaou smear with manual screening 3.8 g/dL 3.2-5.0 [facility] Thin prep Papanicolaou smear with manual screening 17 U/L 15-37 [facility] Thin prep Papanicolaou smear with manual screening 4 5-15 [facility] Thin prep Papanicolaou smear with manual screening 10.7 mg/L NO RANGE EST. [facility] Urine creatinine measurement (mass/volume)Ordered By: Juan Diego King on 01-16-2024 Creatinine (U) [Mass/Vol] 93.00 mg/dL NO RANGE EST. [facility] Whole blood hemoglobin A1c/t otal hemoglobin ratio (mass fraction)Ordered By: Juan Diego King on 01-16-2024 HbA1c (Bld) [Mass fraction] 7.6 % 3.8-5.6 [facility] Comment on above: Normal < 5.7 % Predi abetic 5.7 - 6.4 % Diabetic >or= 6.5 % Please note range changes. Absolute lymphocyte countOrd ered By: Juan Diego King on 07-25-2023 Lymphocytes Auto (Unsp spec) [#/Vol] 2.30 10*3/uL 0.83-4.51 [facility] Basophil percentageOrdered B y: Juan Diego King on 07-25-2023 Basophils/100 WBC (Bld) 0.6 % 0-1 [facility] Bilirubin [Mass/Vol] 0.50 mg/dL 0.20-1.00 [facility] Comment on above: For patients on eltr ombopag therapy, use of Dimension [place] TBIL is not recommended. Chloride [Moles/Vol] 104 mmol/L 98-107 [facility] Cholesterol [Mass/Vol] 201 mg/dL <200 [facility] Comment on above: <200 mg/dL Desirable 200-240 mg/dL Borderline >240 mg/dL High Risk Eosinophils/100 WBC (Bld) 2.3 % 0-5 [facility] Glucose [Mass/Vol] 139 mg/dL 74-106 [facility] Comment on above: Fasting Glucose resu lt greater than or equal to 126 mg/dL suggests DIABETES MELLITUS per A.D.A. criteria. Neutrophils (Bld) [#/Vol] 4.0 10*3/uL 2.0-7.7 [facility] Neutrophils/100 WBC (Bld) 57.0 % 47-70 [facility] Potassium [Moles/Vol] 4.5 mmol/L 3.5-5.1 [facility] Protein [Mass/Vol] 6.9 g/dL 6.4-8.2 [facility] Sodium [Moles/Vol] 136 mmol/L 136-145 [facility] Triglyceride [Mass/Vol] 175 mg/dL <199 [facility] Comment on above: The drugs N-Acetylcy steine and Metamizole may falsely depress this assay.Serum Triglycerides Reference Interval Normal <150 mg/dL Borderline high 150 - 199 mg/dL High 200 - 499 mg/dL Very High > or = 500 mg/dL WBC (Bld) [#/Vol] 7.0 10*3/uL 4.4-11.0 [facility] Blood erythrocytes count (nu mber/volume)Ordered By: Juan Diego King on 07-25-2023 RBC (Bld) [#/Vol] 4.66 10*6/uL 4.2-5.4 [facility] Blood hemoglobin measurement (mass/volume)Ordered By: Juan Diego King on 07-25-2023 Hemoglobin (Bld) [Mass/Vol] 13.9 g/dL 12.0-15.0 [facility] Blood lymphocytes/100 leukoc ytesOrdered By: Juan Diego King on 07-25-2023 Lymphocytes/100 WBC (Bld) 32.9 % 19-41 [facility] Blood monocytes/100 leukocyt esOrdered By: Juan Diego Fernando on 07-25-2023 Monocytes/100 WBC (Bld) 6.9 % 0-10 [facility] Blood platelet mean volumeOr dered By: Juan Diego King on 07-25-2023 Platelet mean volume (Bld) [Entitic vol] 9.6 fL 6.2-12.0 [facility] Determination of erythrocyte mean corpuscular volume (MCV)Ordered By: Juan Diego King on 07-25-2023 MCV (RBC) [Entitic vol] 91.4 fL 81-99 [facility] Hematocrit Auto (Bld) [Volum e fraction]Ordered By: [facility] on 07-25-2023 Hematocrit (Bld) [Volume fraction] 42.6 % 37-47 [facility] Laboratory - Chemistry and C hemistry - challengeOrdered By: Juan Diego King on 07-25-2023 ALP [Catalytic activity/Vol] 108 U/L 45-117 [facility] ALT [Catalytic activity/Vol] 28 U/L 13-56 [facility] CO2 [Moles/Vol] 27.0 mmol/L 21.0-32.0 [facility] Globulin (S) [Mass/Vol] 3.3 g/dL 2.2-4.2 [facility] Urea nitrogen/Creatinine [Mass ratio] 25.3 mg/mg 10-20 [facility] Laboratory - Hematology and Cell countsOrdered By: Juan Diego King on 07-25-2023 Erythrocyte distribution width (RBC) [Entitic vol] 44.2 fL 35.1-43.9 [facility] Erythrocyte distribution width (RBC) [Ratio] 13.1 % 11.6-14.6 [facility] Immature granulocytes/100 WBC (Bld) 0.300 % 0.0-0.9 [facility] Comment on above: IG% - Immature Granu locytes (promyelocytes, myelocytes and metamyelocytes) > 1% indicates that a LEFT SHIFT is Present. MCH (RBC) [Entitic mass] 29.8 pg 27.0-32.0 [facility] Nucleated RBC/100 WBC (Bld) [Ratio] 0 % 0-5 [facility] MCHC Auto (RBC) [Mass/Vol]Or dered By: Juan Diego King on 07-25-2023 MCHC (RBC) [Mass/Vol] 32.6 g/dL 32-36 [facility] No Panel InformationOrdered By: Juan Diego King on 07-25-2023 Estimated GFR (MDRD) Amer 71 mL/min >60 [facility] Comment on above: GFR Calc Estimated GFR (MDRD) Non-Af Amer 59 mL/min >60 [facility] Comment on above: Non- GFR Calc Thyroid Stimulating Hormone (TSH) 1.42 uIU/mL 0.358-3.74 [facility] Vitamin D 25-Hydroxy 27.3 ng/mL [facility] Comment on above: Vitamin D 25(OH) Sta tus Range Deficiency <20 ng/mL (50nmol/L) Insufficiency 20 - 30 ng/mL (50 - 75 nmol/L) Sufficiency 30 - 100 ng/mL (75 - 250 nmol/L) Toxicity >100 ng/mL (>250 nmol/L) Platelets bldOrdered By: Juan Diego King on 07-25-2023 Platelets (Bld) [#/Vol] 244 10*3/uL 150-450 [facility] Serum or plasma albumin fuad urement (mass/volume)Ordered By: Juan Diego King on 07-25-2023 Albumin [Mass/Vol] 3.6 g/dL 3.2-5.0 [facility] Serum or plasma albumin/glob ulin mass ratioOrdered By: Juan Diego King on 07-25-2023 Albumin/Globulin [Mass ratio] 1.1 {ratio} 0.9-2.4 [facility] Serum or plasma calcium fuad urement (mass/volume)Ordered By: Juan Diego King on 07-25-2023 Calcium [Mass/Vol] 8.8 mg/dL 8.5-10.1 [facility] Serum or plasma cholesterol in HDL measurement (mass/volume)Ordered By: Juan Diego King on 07-25-2023 Cholesterol in HDL [Mass/Vol] 61 mg/dL >40 [facility] Comment on above: The drugs N-Acetylcy steine and Metamizole may falsely depress this assay. Reference Range HDL <40 mg/dL Low HDL Cholesterol HDL >or= 60 mg/dL High HDL Cholesterol Serum or plasma cholesterol in VLDL measurement (mass/volume)Ordered By: Juan Diego King on 07-25-2023 Cholesterol in VLDL [Mass/Vol] 35 mg/dL 5-40 [facility] Serum or plasma creatinine m easurement (mass/volume)Ordered By: Juan Diego King 07-25-2023 Creatinine [Mass/Vol] 0.99 mg/dL 0.55-1.02 [facility] Comment on above: The validity of the calculated GFR & GFRAA in patients over 70 years has not been determined. Clinical correlation is essential. Serum or plasma low density lipoprotein (LDL) cholesterol measurement (mass/volume)Ordered By: Juan Diego King on 07-25-2023 Cholesterol in LDL [Mass/Vol] 105 mg/dL 0-130 [facility] Serum or plasma urea nitroge n measurement (mass/volume)Ordered By: Juan Diego King 07-25-2023 Urea nitrogen [Mass/Vol] 25 mg/dL 7-18 [facility] Thin prep Papanicolaou smear with manual screeningOrdered By: Juan Diego King 07-25-2023 Thin prep Papanicolaou smear with manual screening 17 U/L 15-37 [facility] Thin prep Papanicolaou smear with manual screening 5 5-15 [facility] Whole blood hemoglobin A1c/t otal hemoglobin ratio (mass fraction)Ordered By: Juan Diego King on 07-25-2023 HbA1c (Bld) [Mass fraction] 5.9 % 3.8-5.6 [facility] Comment on above: Normal < 5.7 % Predi abetic 5.7 - 6.4 % Diabetic >or= 6.5 % Please note range changes. Absolute lymphocyte countOrd ered By: Dr. King on 01-10-2023 Lymphocytes Auto (Unsp spec) [#/Vol] 2.36 10*3/uL 0.83-4.51 [facility] Basophil percentageOrdered B y: Dr. King on 01-10-2023 Basophils/100 WBC (Bld) 0.6 % 0-1 [facility] Bilirubin [Mass/Vol] 0.40 mg/dL 0.20-1.00 [facility] Comment on above: For patients on eltr ombopag therapy, use of Dimension [place] TBIL is not recommended. Chloride [Moles/Vol] 104 mmol/L 98-107 [facility] Cholesterol [Mass/Vol] 291 mg/dL <200 [facility] Comment on above: <200 mg/dL Desirable 200-240 mg/dL Borderline >240 mg/dL High Risk Eosinophils/100 WBC (Bld) 2.4 % 0-5 [facility] Glucose [Mass/Vol] 102 mg/dL 74-106 [facility] Comment on above: Fasting Glucose resu lt from 100 to 125 mg/dL suggests IMPAIRED HOMEOSTASIS per A.D.A. criteria. Neutrophils (Bld) [#/Vol] 3.2 10*3/uL 2.0-7.7 [facility] Neutrophils/100 WBC (Bld) 51.6 % 47-70 [facility] Potassium [Moles/Vol] 4.0 mmol/L 3.5-5.1 [facility] Protein [Mass/Vol] 7.2 g/dL 6.4-8.2 [facility] Sodium [Moles/Vol] 136 mmol/L 136-145 [facility] Triglyceride [Mass/Vol] 169 mg/dL <199 [facility] Comment on above: The drugs N-Acetylcy steine and Metamizole may falsely depress this assay.Serum Triglycerides Reference Interval Normal <150 mg/dL Borderline high 150 - 199 mg/dL High 200 - 499 mg/dL Very High > or = 500 mg/dL WBC (Bld) [#/Vol] 6.2 10*3/uL 4.4-11.0 [facility] Blood erythrocytes count (nu mber/volume)Ordered By: Dr. King on 01-10-2023 RBC (Bld) [#/Vol] 4.41 10*6/uL 4.2-5.4 [facility] Blood hemoglobin measurement (mass/volume)Ordered By: Dr. King on 01-10-2023 Hemoglobin (Bld) [Mass/Vol] 13.3 g/dL 12.0-15.0 [facility] Blood lymphocytes/100 leukoc ytesOrdered By: Dr. King on 01-10-2023 Lymphocytes/100 WBC (Bld) 38.2 % 19-41 [facility] Blood monocytes/100 leukocyt esOrdered By: Dr. King on 01-10-2023 Monocytes/100 WBC (Bld) 7.0 % 0-10 [facility] Blood platelet mean volumeOr dered By: Dr. King on 01-10-2023 Platelet mean volume (Bld) [Entitic vol] 10.0 fL 6.2-12.0 [facility] Determination of erythrocyte mean corpuscular volume (MCV)Ordered By: Dr. King on 01-10-2023 MCV (RBC) [Entitic vol] 93.0 fL 81-99 [facility] Hematocrit Auto (Bld) [Volum e fraction]Ordered By: Dr. King on 01-10-2023 Hematocrit (Bld) [Volume fraction] 41.0 % 37-47 [facility] Laboratory - Chemistry and C hemistry - challengeOrdered By: Dr. King on 01-10-2023 ALP [Catalytic activity/Vol] 84 U/L 45-117 [facility] ALT [Catalytic activity/Vol] 19 U/L 13-56 [facility] CO2 [Moles/Vol] 27.0 mmol/L 21.0-32.0 [facility] Globulin (S) [Mass/Vol] 3.4 g/dL 2.2-4.2 [facility] Urea nitrogen/Creatinine [Mass ratio] 24.3 mg/mg 10-20 [facility] Laboratory - Hematology and Cell countsOrdered By: Dr. King on 01-10-2023 Erythrocyte distribution width (RBC) [Entitic vol] 51.1 fL 35.1-43.9 [facility] Erythrocyte distribution width (RBC) [Ratio] 14.8 % 11.6-14.6 [facility] Immature granulocytes/100 WBC (Bld) 0.200 % 0.0-0.9 [facility] Comment on above: IG% - Immature Granu locytes (promyelocytes, myelocytes and metamyelocytes) > 1% indicates that a LEFT SHIFT is Present. MCH (RBC) [Entitic mass] 30.2 pg 27.0-32.0 [facility] Nucleated RBC/100 WBC (Bld) [Ratio] 0 % 0-5 [facility] MCHC Auto (RBC) [Mass/Vol]Or dered By: Dr. King on 01-10-2023 MCHC (RBC) [Mass/Vol] 32.4 g/dL 32-36 [facility] No Panel InformationOrdered By: Dr. King on 01-10-2023 Estimated GFR (MDRD) Amer 65 mL/min >60 [facility] Comment on above: GFR Calc Estimated GFR (MDRD) Non-Af Amer 54 mL/min >60 [facility] Comment on above: Non- GFR Calc Thyroid Stimulating Hormone (TSH) 1.07 uIU/mL 0.358-3.74 [facility] Vitamin D 25-Hydroxy 29.2 ng/mL [facility] Comment on above: Vitamin D 25(OH) Sta tus Range Deficiency <20 ng/mL (50nmol/L) Insufficiency 20 - 30 ng/mL (50 - 75 nmol/L) Sufficiency 30 - 100 ng/mL (75 - 250 nmol/L) Toxicity >100 ng/mL (>250 nmol/L) Platelets bldOrdered By: Dr. King on 01-10-2023 Platelets (Bld) [#/Vol] 243 10*3/uL 150-450 [facility] Serum or plasma albumin fuad urement (mass/volume)Ordered By: Dr. King on 01-10-2023 Albumin [Mass/Vol] 3.8 g/dL 3.2-5.0 [facility] Serum or plasma albumin/glob ulin mass ratioOrdered By: Dr. King on 01-10-2023 Albumin/Globulin [Mass ratio] 1.1 {ratio} 0.9-2.4 [facility] Serum or plasma calcium fuad urement (mass/volume)Ordered By: Dr. King on 01-10-2023 Calcium [Mass/Vol] 9.4 mg/dL 8.5-10.1 [facility] Serum or plasma cholesterol in HDL measurement (mass/volume)Ordered By: Dr. King on 01-10-2023 Cholesterol in HDL [Mass/Vol] 54 mg/dL >40 [facility] Comment on above: The drugs N-Acetylcy steine and Metamizole may falsely depress this assay. Reference Range HDL <40 mg/dL Low HDL Cholesterol HDL >or= 60 mg/dL High HDL Cholesterol Serum or plasma cholesterol in VLDL measurement (mass/volume)Ordered By: Dr. King on 01-10-2023 Cholesterol in VLDL [Mass/Vol] 34 mg/dL 5-40 [facility] Serum or plasma creatinine m easurement (mass/volume)Ordered By: Dr. King on 01-10-2023 Creatinine [Mass/Vol] 1.07 mg/dL 0.55-1.02 [facility] Comment on above: The validity of the calculated GFR & GFRAA in patients over 70 years has not been determined. Clinical correlation is essential. Serum or plasma low density lipoprotein (LDL) cholesterol measurement (mass/volume)Ordered By: Dr. King on 01-10-2023 Cholesterol in LDL [Mass/Vol] 203 mg/dL 0-130 [facility] Serum or plasma urea nitroge n measurement (mass/volume)Ordered By: Dr. King on 01-10-2023 Urea nitrogen [Mass/Vol] 26 mg/dL 7-18 [facility] Thin prep Papanicolaou smear with manual screeningOrdered By: Dr. King on 01-10-2023 Thin prep Papanicolaou smear with manual screening 20 U/L 15-37 [facility] Thin prep Papanicolaou smear with manual screening 5 5-15 [facility] Absolute lymphocyte counton 2022 Lymphocytes Auto (Unsp spec) [#/Vol] 2.14 10*3/uL 0.83-4.51 [facility] Work Phone: Basophil percentageon 2021 Basophils/100 WBC (Bld) 0.5 % 0-1 [facility] Work Phone: [phone] Bilirubin [Mass/Vol] 0.60 mg/dL 0.20-1.00 [facility] Work Phone: [phone] Comment on above: For patients on eltr ombopag therapy, use of Dimension [place] TBIL is not recommended. Chloride [Moles/Vol] 105 mmol/L 98-107 [facility] Work Phone: [phone] Cholesterol [Mass/Vol] 174 mg/dL <200 [facility] Work Phone: [phone] Comment on above: <200 mg/dL Desirable 200-240 mg/dL Borderline >240 mg/dL High Risk Eosinophils/100 WBC (Bld) 2.8 % 0-5 [facility] Work Phone: [phone] Glucose [Mass/Vol] 154 mg/dL 74-106 [facility] Work Phone: [phone] Comment on above: Fasting Glucose resu lt greater than or equal to 126 mg/dL suggests DIABETES MELLITUS per A.D.A. criteria. Neutrophils (Bld) [#/Vol] 2.9 10*3/uL 2.0-7.7 [facility] Work Phone: [phone] Neutrophils/100 WBC (Bld) 50.9 % 47-70 [facility] Work Phone: [phone] Potassium [Moles/Vol] 4.5 mmol/L 3.5-5.1 [facility] Work Phone: [phone] Protein [Mass/Vol] 6.8 g/dL 6.4-8.2 [facility] Work Phone: [phone] Sodium [Moles/Vol] 139 mmol/L 136-145 [facility] Work Phone: [phone] Triglyceride [Mass/Vol] 131 mg/dL <199 [facility] Work Phone: [phone] Comment on above: The drugs N-Acetylcy steine and Metamizole may falsely depress this assay.Serum Triglycerides Reference Interval Normal <150 mg/dL Borderline high 150 - 199 mg/dL High 200 - 499 mg/dL Very High > or = 500 mg/dL WBC (Bld) [#/Vol] 5.7 10*3/uL 4.4-11.0 [facility]: Blood erythrocytes count (nu mber/volume)on 2022 RBC (Bld) [#/Vol] 4.57 10*6/uL 4.2-5.4 [facility]: [phone] Blood hemoglobin measurement (mass/volume)on 2022 Hemoglobin (Bld) [Mass/Vol] 13.6 g/dL 12.0-15.0 [facility] Work Phone: [phone] Blood lymphocytes/100 leukoc yteson 2022 Lymphocytes/100 WBC (Bld) 37.4 % 19-41 [facility] Work Phone: [phone] Blood monocytes/100 leukocyt eson 2022 Monocytes/100 WBC (Bld) 8.2 % 0-10 [facility] Work Phone: Blood platelet mean volumeon 2022 Platelet mean volume (Bld) [Entitic vol] 9.6 fL 6.2-12.0 [facility] Work Phone: Determination of erythrocyte mean corpuscular volume (MCV)on 2022 MCV (RBC) [Entitic vol] 92.3 fL 81-99 [facility] Work Phone: Hematocrit Auto (Bld) [Volum e fraction]on 2022 Hematocrit (Bld) [Volume fraction] 42.2 % 37-47 [facility] Work Phone: [phone] Laboratory - Chemistry and C hemistry - challengeon 2022 ALP [Catalytic activity/Vol] 90 U/L 45-117 [facility] Work Phone: ALT [Catalytic activity/Vol] 19 U/L 13-56 [facility] Work Phone: CO2 [Moles/Vol] 26.0 mmol/L 21.0-32.0 [facility] Work Phone: Globulin (S) [Mass/Vol] 3.4 g/dL 2.2-4.2 [facility] Work Phone: [phone] Urea nitrogen/Creatinine [Mass ratio] 18.4 mg/mg 10-20 [facility] Work Phone: [phone] Laboratory - Hematology and Cell countson 2022 Erythrocyte distribution width (RBC) [Entitic vol] 48.3 fL 35.1-43.9 [facility] Work Phone: [phone] Erythrocyte distribution width (RBC) [Ratio] 14.2 % 11.6-14.6 [facility] Work Phone: [phone] Immature granulocytes/100 WBC (Bld) 0.200 % 0.0-0.9 [facility] Work Phone: [phone] Comment on above: IG% - Immature Granu locytes (promyelocytes, myelocytes and metamyelocytes) > 1% indicates that a LEFT SHIFT is Present. MCH (RBC) [Entitic mass] 29.8 pg 27.0-32.0 [facility] Work Phone: [phone] Nucleated RBC/100 WBC (Bld) [Ratio] 0 % 0-5 [facility] Work Phone: [phone] MCHC Auto (RBC) [Mass/Vol]on 2022 MCHC (RBC) [Mass/Vol] 32.2 g/dL 32-36 [facility] Work Phone: [phone] Panel Informationon 07-11 Estimated GFR (MDRD) Amer 68 mL/min >60 [facility] Work Phone: [phone] Comment on above: GFR Calc Estimated GFR (MDRD) Non-Af Amer 56 mL/min >60 [facility] Work Phone: [phone] Comment on above: Non- GFR Calc Thyroid Stimulating Hormone (TSH) 1.46 uIU/mL 0.358-3.74 [facility] Work Phone: [phone] D 25-Hydroxy 35.9 ng/mL [facility] Work Phone: [phone] Comment on above: Vitamin D 25(OH) Sta tus Range Deficiency <20 ng/mL (50nmol/L) Insufficiency 20 - 30 ng/mL (50 - 75 nmol/L) Sufficiency 30 - 100 ng/mL (75 - 250 nmol/L) Toxicity >100 ng/mL (>250 nmol/L) Platelets bldon 2022 Platelets (Bld) [#/Vol] 266 10*3/uL 150-450 [facility] Work Phone: [phone] Serum or plasma albumin fuad urement (mass/volume)on 2022 Albumin [Mass/Vol] 3.4 g/dL 3.2-5.0 [facility] Work Phone: [phone] Serum or plasma albumin/glob ulin mass ratioon 2022 Albumin/Globulin [Mass ratio] 1.0 {ratio} 0.9-2.4 [facility] Work Phone: Serum or plasma calcium fuad urement (mass/volume)on 2022 Calcium [Mass/Vol] 9.6 mg/dL 8.5-10.1 [facility] Work Phone: Serum or plasma cholesterol in HDL measurement (mass/volume)on 2022 Cholesterol in HDL [Mass/Vol] 63 mg/dL >40 [facility] Work Phone: Comment on above: The drugs N-Acetylcy steine and Metamizole may falsely depress this assay. Reference Range HDL <40 mg/dL Low HDL Cholesterol HDL >or= 60 mg/dL High HDL Cholesterol Serum or plasma cholesterol in VLDL measurement (mass/volume)on 2022 Cholesterol in VLDL [Mass/Vol] 26 mg/dL 5-40 [facility] Work Phone: [phone] Serum or plasma creatinine m easurement (mass/volume)on 2022 Creatinine [Mass/Vol] 1.03 mg/dL 0.55-1.02 [facility] Work Phone: Comment on above: The validity of the calculated GFR & GFRAA in patients over 70 years has not been determined. Clinical correlation is essential. Serum or plasma low density lipoprotein (LDL) cholesterol measurement (mass/volume)on 2022 Cholesterol in LDL [Mass/Vol] 85 mg/dL 0-130 [facility] Work Phone: Serum or plasma urea nitroge n measurement (mass/volume)on 2022 Urea nitrogen [Mass/Vol] 19 mg/dL 7-18 [facility] Work Phone: Thin prep Papanicolaou smear with manual screeningon 2022 Thin prep Papanicolaou smear with manual screening 18 U/L 15-37 [facility] Work Phone: Thin prep Papanicolaou smear with manual screening 8 5-15 [facility] Work Phone: Absolute lymphocyte counton 04-25-2022 Lymphocytes Auto (Unsp spec) [#/Vol] 1.67 10*3/uL 0.83-4.51 [facility] Work Phone: Basophil percentageon 2021 Basophil percentage 3.1 mg/dL 2.5-4.9 [facility] Work Phone: [phone] Basophils/100 WBC (Bld) 0.7 % 0-1 [facility] Work Phone: Bilirubin [Mass/Vol] 0.70 mg/dL 0.20-1.00 [facility] Work Phone: Comment on above: For patients on eltr ombopag therapy, use of Dimension [place] TBIL is not recommended. Chloride [Moles/Vol] 104 mmol/L 98-107 [facility] Work Phone: Eosinophils/100 WBC (Bld) 1.5 % 0-5 [facility] Work Phone: Glucose [Mass/Vol] 124 mg/dL 74-106 [facility] Work Phone: Comment on above: Fasting Glucose resu lt from 100 to 125 mg/dL suggests IMPAIRED HOMEOSTASIS per A.D.A. criteria. Neutrophils (Bld) [#/Vol] 3.6 10*3/uL 2.0-7.7 [facility] Work Phone: Neutrophils/100 WBC (Bld) 62.1 % 47-70 [facility] Work Phone: Potassium [Moles/Vol] 4.3 mmol/L 3.5-5.1 [facility] Work Phone: Protein [Mass/Vol] 6.8 g/dL 6.4-8.2 [facility] Work Phone: Sodium [Moles/Vol] 138 mmol/L 136-145 [facility] Work Phone: WBC (Bld) [#/Vol] 5.9 10*3/uL 4.4-11.0 [facility] Work Phone: Blood erythrocytes count (nu mber/volume)on 04-25-2022 RBC (Bld) [#/Vol] 4.67 10*6/uL 4.2-5.4 [facility] Work Phone: Blood hemoglobin measurement (mass/volume)on 04-25-2022 Hemoglobin (Bld) [Mass/Vol] 14.1 g/dL 12.0-15.0 [facility] Work Phone: Blood lymphocytes/100 leukoc yteson 04-25-2022 Lymphocytes/100 WBC (Bld) 28.4 % 19-41 [facility] Work Phone: Blood monocytes/100 leukocyt eson 04-25-2022 Monocytes/100 WBC (Bld) 7.0 % 0-10 [facility] Work Phone: Blood platelet mean volumeon 04-25-2022 Platelet mean volume (Bld) [Entitic vol] 9.9 fL 6.2-12.0 [facility] Work Phone: Determination of erythrocyte mean corpuscular volume (MCV)on 04-25-2022 MCV (RBC) [Entitic vol] 92.3 fL 81-99 [facility] Work Phone: Hematocrit Auto (Bld) [Volum e fraction]on 04-25-2022 Hematocrit (Bld) [Volume fraction] 43.1 % 37-47 [facility] Work Phone: [phone] Laboratory - Chemistry and C hemistry - challengeon 04-25-2022 ALP [Catalytic activity/Vol] 73 U/L 45-117 [facility] Work Phone: [phone] ALT [Catalytic activity/Vol] 20 U/L 13-56 [facility] Work Phone: [phone] CO2 [Moles/Vol] 27.0 mmol/L 21.0-32.0 [facility] Work Phone: [phone] Globulin (S) [Mass/Vol] 3.1 g/dL 2.2-4.2 [facility] Work Phone: [phone] Urea nitrogen/Creatinine [Mass ratio] 16.2 mg/mg 10-20 [facility] Work Phone: [phone] Laboratory - Hematology and Cell countson 04-25-2022 Erythrocyte distribution width (RBC) [Entitic vol] 50.4 fL 35.1-43.9 [facility] Work Phone: [phone] Erythrocyte distribution width (RBC) [Ratio] 14.8 % 11.6-14.6 [facility] Work Phone: [phone] Immature granulocytes/100 WBC (Bld) 0.300 % 0.0-0.9 [facility] Work Phone: [phone] Comment on above: IG% - Immature Granu locytes (promyelocytes, myelocytes and metamyelocytes) > 1% indicates that a LEFT SHIFT is Present. MCH (RBC) [Entitic mass] 30.2 pg 27.0-32.0 [facility] Work Phone: [phone] Nucleated RBC/100 WBC (Bld) [Ratio] 0 % 0-5 [facility] Work Phone: [phone] MCHC Auto (RBC) [Mass/Vol]on 04-25-2022 MCHC (RBC) [Mass/Vol] 32.7 g/dL 32-36 [facility] Work Phone: [phone] Panel Informationon 04-25 Estimated GFR (MDRD) Amer 59 mL/min >60 [facility] Work Phone: Comment on above: GFR Calc Estimated GFR (MDRD) Non-Af Amer 49 mL/min >60 [facility] Work Phone: Comment on above: Non- GFR Calc Parathyroid Hormone (Intact) 79.4 pg/mL 18.4-80.1 [facility] Work Phone: [phone] Thyroid Stimulating Hormone (TSH) 0.90 uIU/mL 0.358-3.74 [facility] Work Phone: [phone] Vitamin D 25-Hydroxy 42.5 ng/mL [facility] Work Phone: [phone] Comment on above: Vitamin D 25(OH) Sta tus Range Deficiency <20 ng/mL (50nmol/L) Insufficiency 20 - 30 ng/mL (50 - 75 nmol/L) Sufficiency 30 - 100 ng/mL (75 - 250 nmol/L) Toxicity >100 ng/mL (>250 nmol/L) Platelets bldon 04-25-2022 Platelets (Bld) [#/Vol] 266 10*3/uL 150-450 [facility] Work Phone: [phone] Serum or plasma albumin fuad urement (mass/volume)on 04-25-2022 Albumin [Mass/Vol] 3.7 g/dL 3.2-5.0 [facility] Work Phone: [phone] Serum or plasma albumin/glob ulin mass ratioon 04-25-2022 Albumin/Globulin [Mass ratio] 1.2 {ratio} 0.9-2.4 [facility] Work Phone: [phone] Serum or plasma calcium fuad urement (mass/volume)on 04-25-2022 Calcium [Mass/Vol] 9.4 mg/dL 8.5-10.1 [facility] Work Phone: [phone] Serum or plasma creatinine m easurement (mass/volume)on 04-25-2022 Creatinine [Mass/Vol] 1.17 mg/dL 0.55-1.02 [facility] Work Phone: Comment on above: The validity of the calculated GFR & GFRAA in patients over 70 years has not been determined. Clinical correlation is essential. Serum or plasma urea nitroge n measurement (mass/volume)on 04-25-2022 Urea nitrogen [Mass/Vol] 19 mg/dL 7-18 [facility] Work Phone: Thin prep Papanicolaou smear with manual screeningon 04-25-2022 Thin prep Papanicolaou smear with manual screening 16 U/L 15-37 [facility] [facility] Work Phone: Thin prep Papanicolaou smear with manual screening 7 5-15 [facility] Work Phone: Basophil percentageon 2021 Chloride [Moles/Vol] 101 mmol/L 98-107 [facility] Work Phone: Glucose [Mass/Vol] 177 mg/dL 74-106 [facility] Work Phone: Comment on above: Fasting Glucose resu lt greater than or equal to 126 mg/dL suggests DIABETES MELLITUS per A.D.A. criteria. Potassium [Moles/Vol] 4.4 mmol/L 3.5-5.1 [facility] Work Phone: Sodium [Moles/Vol] 135 mmol/L 136-145 [facility] Work Phone: Laboratory - Chemistry and C hemistry - challengeon 02-07-2022 CO2 [Moles/Vol] 25.0 mmol/L 21.0-32.0 [facility] Work Phone: Urea nitrogen/Creatinine [Mass ratio] 17.9 mg/mg 10-20 [facility] Work Phone: No Panel Informationon 02-07 Estimated GFR (MDRD) Amer 55 mL/min >60 [facility] Work Phone: Comment on above: GFR Calc Estimated GFR (MDRD) Non-Af Amer 46 mL/min >60 [facility] Work Phone: [phone] Comment on above: Non- GFR Calc Serum or plasma calcium fuad urement (mass/volume)on 02-07-2022 Calcium [Mass/Vol] 9.8 mg/dL 8.5-10.1 [facility] Work Phone: Serum or plasma creatinine m easurement (mass/volume)on 02-07-2022 Creatinine [Mass/Vol] 1.23 mg/dL 0.55-1.02 [facility] Work Phone: Comment on above: The validity of the calculated GFR & GFRAA in patients over 70 years has not been determined. Clinical correlation is essential. Serum or plasma urea nitroge n measurement (mass/volume)on 02-07-2022 Urea nitrogen [Mass/Vol] 22 mg/dL 7-18 [facility] Work Phone: Thin prep Papanicolaou smear with manual screeningon 02-07-2022 Thin prep Papanicolaou smear with manual screening 9 5-15 [facility] Work Phone: [phone] Absolute lymphocyte counton 01-09-2022 Lymphocytes Auto (Unsp spec) [#/Vol] 2.27 10*3/uL 0.83-4.51 [facility] Work Phone: Basophil percentageon 2021 Basophil percentage 3.5 mg/dL 2.5-4.9 [facility] Work Phone: Basophils/100 WBC (Bld) 0.6 % 0-1 [facility] Work Phone: [phone] Bilirubin [Mass/Vol] 0.50 mg/dL 0.20-1.00 [facility] Work Phone: [phone] Comment on above: For patients on eltr ombopag therapy, use of Dimension [place] TBIL is not recommended. Chloride [Moles/Vol] 101 mmol/L 98-107 [facility] Work Phone: Cholesterol [Mass/Vol] 184 mg/dL <200 [facility] Work Phone: [phone] Comment on above: <200 mg/dL Desirable 200-240 mg/dL Borderline >240 mg/dL High Risk Eosinophils/100 WBC (Bld) 1.8 % 0-5 [facility] Work Phone: Glucose [Mass/Vol] 179 mg/dL 74-106 [facility] Work Phone: [phone] Comment on above: Fasting Glucose resu lt greater than or equal to 126 mg/dL suggests DIABETES MELLITUS per A.D.A. criteria. Neutrophils (Bld) [#/Vol] 3.6 10*3/uL 2.0-7.7 [facility] Work Phone: [phone] Neutrophils/100 WBC (Bld) 55.3 % 47-70 [facility] Work Phone: [phone] Potassium [Moles/Vol] 4.5 mmol/L 3.5-5.1 [facility] Work Phone: [phone] Protein [Mass/Vol] 7.4 g/dL 6.4-8.2 [facility] Work Phone: [phone] Sodium [Moles/Vol] 135 mmol/L 136-145 [facility] Work Phone: [phone] Triglyceride [Mass/Vol] 200 mg/dL <199 [facility] Work Phone: Comment on above: The drugs N-Acetylcy steine and Metamizole may falsely depress this assay.Serum Triglycerides Reference Interval Normal <150 mg/dL Borderline high 150 - 199 mg/dL High 200 - 499 mg/dL Very High > or = 500 mg/dL WBC (Bld) [#/Vol] 6.6 10*3/uL 4.4-11.0 [facility] Work Phone: [phone] Blood erythrocytes count (nu mber/volume)on 01-09-2022 RBC (Bld) [#/Vol] 4.73 10*6/uL 4.2-5.4 [facility] Work Phone: [phone] Blood hemoglobin measurement (mass/volume)on 01-09-2022 Hemoglobin (Bld) [Mass/Vol] 14.0 g/dL 12.0-15.0 [facility] Work Phone: [phone] Blood lymphocytes/100 leukoc yteson 01-09-2022 Lymphocytes/100 WBC (Bld) 34.4 % 19-41 [facility] Work Phone: Blood monocytes/100 leukocyt eson 01-09-2022 Monocytes/100 WBC (Bld) 7.7 % 0-10 [facility] Work Phone: Blood platelet mean volumeon 01-09-2022 Platelet mean volume (Bld) [Entitic vol] 9.5 fL 6.2-12.0 [facility] Work Phone: Determination of erythrocyte mean corpuscular volume (MCV)on 01-09-2022 MCV (RBC) [Entitic vol] 91.8 fL 81-99 [facility] Work Phone: Hematocrit Auto (Bld) [Volum e fraction]on 01-09-2022 Hematocrit (Bld) [Volume fraction] 43.4 % 37-47 [facility] Work Phone: Laboratory - Chemistry and C hemistry - challengeon 01-09-2022 ALP [Catalytic activity/Vol] 105 U/L 45-117 [facility] Work Phone: ALT [Catalytic activity/Vol] 23 U/L 13-56 [facility] Work Phone: CO2 [Moles/Vol] 28.0 mmol/L 21.0-32.0 [facility] Work Phone: Globulin (S) [Mass/Vol] 3.6 g/dL 2.2-4.2 [facility] Work Phone: Urea nitrogen/Creatinine [Mass ratio] 16.4 mg/mg 10-20 [facility] Work Phone: Laboratory - Hematology and Cell countson 01-09-2022 Erythrocyte distribution width (RBC) [Entitic vol] 45.6 fL 35.1-43.9 [facility] Work Phone: Erythrocyte distribution width (RBC) [Ratio] 13.3 % 11.6-14.6 [facility] Work Phone: Immature granulocytes/100 WBC (Bld) 0.200 % 0.0-0.9 [facility] Work Phone: [phone] Comment on above: IG% - Immature Granu locytes (promyelocytes, myelocytes and metamyelocytes) > 1% indicates that a LEFT SHIFT is Present. MCH (RBC) [Entitic mass] 29.6 pg 27.0-32.0 [facility] Work Phone: [phone] Nucleated RBC/100 WBC (Bld) [Ratio] 0 % 0-5 [facility] Work Phone: [phone] MCHC Auto (RBC) [Mass/Vol]on 01-09-2022 MCHC (RBC) [Mass/Vol] 32.3 g/dL 32-36 [facility] Work Phone: [phone] Panel Informationon 01-09 Estimated GFR (MDRD) Amer 48 mL/min >60 [facility] Work Phone: [phone] Comment on above: GFR Calc Estimated GFR (MDRD) Non-Af Amer 40 mL/min >60 [facility] Work Phone: [phone] Comment on above: Non- GFR Calc Parathyroid Hormone (Intact) 86.5 pg/mL 18.4-80.1 [facility] Work Phone: [phone] Vitamin D 25-Hydroxy 24.8 ng/mL [facility] Work Phone: [phone] Comment on above: Vitamin D 25(OH) Sta tus Range Deficiency <20 ng/mL (50nmol/L) Insufficiency 20 - 30 ng/mL (50 - 75 nmol/L) Sufficiency 30 - 100 ng/mL (75 - 250 nmol/L) Toxicity >100 ng/mL (>250 nmol/L) Platelets bldon 01-09-2022 Platelets (Bld) [#/Vol] 243 10*3/uL 150-450 [facility] Work Phone: [phone] Serum or plasma albumin fuad urement (mass/volume)on 01-09-2022 Albumin [Mass/Vol] 3.8 g/dL 3.2-5.0 [facility] Work Phone: Serum or plasma albumin/glob ulin mass ratioon 01-09-2022 Albumin/Globulin [Mass ratio] 1.1 {ratio} 0.9-2.4 [facility] Work Phone: Serum or plasma calcium fuad urement (mass/volume)on 01-09-2022 Calcium [Mass/Vol] 9.1 mg/dL 8.5-10.1 [facility] Work Phone: Serum or plasma cholesterol in HDL measurement (mass/volume)on 01-09-2022 Cholesterol in HDL [Mass/Vol] 67 mg/dL >40 [facility] Work Phone: Comment on above: The drugs N-Acetylcy steine and Metamizole may falsely depress this assay. Reference Range HDL <40 mg/dL Low HDL Cholesterol HDL >or= 60 mg/dL High HDL Cholesterol Serum or plasma cholesterol in VLDL measurement (mass/volume)on 01-09-2022 Cholesterol in VLDL [Mass/Vol] 40 mg/dL 5-40 [facility] Work Phone: Serum or plasma creatinine m easurement (mass/volume)on 01-09-2022 Creatinine [Mass/Vol] 1.40 mg/dL 0.55-1.02 [facility] Work Phone: Comment on above: The validity of the calculated GFR & GFRAA in patients over 70 years has not been determined. Clinical correlation is essential. Serum or plasma low density lipoprotein (LDL) cholesterol measurement (mass/volume)on 01-09-2022 Cholesterol in LDL [Mass/Vol] 77 mg/dL 0-130 [facility] Work Phone: Serum or plasma urea nitroge n measurement (mass/volume)on 01-09-2022 Urea nitrogen [Mass/Vol] 23 mg/dL 7-18 [facility] Work Phone: [phone] Thin prep Papanicolaou smear with manual screeningon 01-09-2022 Thin prep Papanicolaou smear with manual screening 12 U/L 15-37 [facility] Work Phone: [phone] Thin prep Papanicolaou smear with manual screening 6 5-15 [facility] Work Phone: CBC and Differentialon 10-09 Abs Baso 0.04 k/uL Normal <0.11 [facility] Comment on above: Performed By: #### C BCDIF, CMP, LIPB, TSH, FT4, HBA1C, VITD ####[facility] [id number], [place] [phone] Abs Boyle 0.52 k/uL Normal <0.87 [facility] Comment on above: Performed By: #### C BCDIF, CMP, LIPB, TSH, FT4, HBA1C, VITD ####[place] [id number] [phone] Abs Neut 5.04 k/uL Normal 1.45-7.50 [facility] Comment on above: Performed By: #### C BCDIF, CMP, LIPB, TSH, FT4, HBA1C, VITD ####[place] [id number] [place] [phone] Absolute nRBC <0.01 Normal <0.01 [facility] Comment on above: Performed By: #### C BCDIF, CMP, LIPB, TSH, FT4, HBA1C, VITD ####[place] [id number] [place], [place] [phone] Basophils/100 WBC Auto (Bld) 0.5 % Normal [facility] Comment on above: Performed By: #### C BCDIF, CMP, LIPB, TSH, FT4, HBA1C, VITD ####[place] [address] [address] [place] [phone] DTYPE ADIFF Normal [facility] Comment on above: Performed By: #### C BCDIF, CMP, LIPB, TSH, FT4, HBA1C, VITD ####[facility] [id number] [place] [phone] Eosinophils Auto #/vol (Bld) 0.11 10*3/uL Normal <0.46 [facility] Comment on above: Performed By: #### C BCDIF, CMP, LIPB, TSH, FT4, HBA1C, VITD ####[place] [address] [address] [place] [phone] Eosinophils/100 WBC Auto (Bld) 1.5 % Normal [facility] Comment on above: Performed By: #### C BCDIF, CMP, LIPB, TSH, FT4, HBA1C, VITD ####[place] [address] [address] [place] [phone] Erythrocyte distribution width Auto Ratio (RBC) 12.5 % Normal 11.5-15.0 [facility] Comment on above: Performed By: #### C BCDIF, CMP, LIPB, TSH, FT4, HBA1C, VITD ####[place] [address] [address] [place] [phone] Hematocrit Auto Volume Fraction (Bld) 40.2 % Normal 36.0-46.0 [facility] Comment on above: Performed By: #### C BCDIF, CMP, LIPB, TSH, FT4, HBA1C, VITD ####[place] [phone] Hemoglobin mass conc (Bld) 13.3 g/dL Normal 11.5-15.5 [facility] Comment on above: Performed By: #### C BCDIF, CMP, LIPB, TSH, FT4, HBA1C, VITD ####[place] [phone] Lymphocytes Auto #/vol (Bld) 1.81 10*3/uL Normal 1.00-4.00 [facility] Comment on above: Performed By: #### C BCDIF, CMP, LIPB, TSH, FT4, HBA1C, VITD ####[place] [address] [address] [place] [phone] Lymphocytes/100 WBC Auto (Bld) 24.1 % Normal [facility] Comment on above: Performed By: #### C BCDIF, CMP, LIPB, TSH, FT4, HBA1C, VITD ####[place] [phone] MCH Auto Entitic mass (RBC) 29.2 pG Normal 26.0-34.0 [facility] Comment on above: Performed By: #### C BCDIF, CMP, LIPB, TSH, FT4, HBA1C, VITD ####[place] [phone] MCHC Auto mass conc (RBC) 33.1 g/dL Normal 30.5-36.0 [facility] Comment on above: Performed By: #### C BCDIF, CMP, LIPB, TSH, FT4, HBA1C, VITD ####[place] [phone] MCV Auto Entitic volume (RBC) 88.4 fL Normal 80.0-100.0 [facility] Comment on above: Performed By: #### C BCDIF, CMP, LIPB, TSH, FT4, HBA1C, VITD ####[place] [phone] Monocytes/100 WBC Auto (Bld) 6.9 % Normal [facility] Comment on above: Performed By: #### C BCDIF, CMP, LIPB, TSH, FT4, HBA1C, VITD ####[address] [place] [phone] Neutrophils/100 WBC Auto (Bld) 67.0 % Normal [facility] Comment on above: Performed By: #### C BCDIF, CMP, LIPB, TSH, FT4, HBA1C, VITD ####[place] [address] [address], [place] [phone] NRBCs 0.0 /100 WBC Normal 0 [facility] Comment on above: Performed By: #### C BCDIF, CMP, LIPB, TSH, FT4, HBA1C, VITD ####[place] [address] [address], [place] [phone] Platelet mean volume Auto Entitic volume (Bld) 10.2 fL Normal 9.0-12.7 [facility] Comment on above: Performed By: #### C BCDIF, CMP, LIPB, TSH, FT4, HBA1C, VITD ####[place] [address] [address], [place] [phone] Platelets Auto #/vol (Bld) 208 10*3/uL Normal 150-400 [facility] Comment on above: Performed By: #### C BCDIF, CMP, LIPB, TSH, FT4, HBA1C, VITD ####[address] [place], [place] [phone] RBC Auto #/vol (Bld) 4.55 10*6/uL Normal 3.90-5.20 [facility] Comment on above: Performed By: #### C BCDIF, CMP, LIPB, TSH, FT4, HBA1C, VITD ####[place] [address] [address], [place] [phone] WBC Auto #/vol (Bld) 7.52 10*3/uL Normal 3.70-11.00 [facility] Comment on above: Performed By: #### C BCDIF, CMP, LIPB, TSH, FT4, HBA1C, VITD ####[place] [address] [address], [place] [phone] Comp Metabolic Panelon 10-09 Albumin mass conc 4.4 g/dL Normal 3.9-4.9 [facility] Comment on above: Performed By: #### C BCDIF, CMP, LIPB, TSH, FT4, HBA1C, VITD ####[facility] [address], [place] [phone] ALP enzyme act/vol 86 U/L Normal 34-123 [facility] Comment on above: Performed By: #### C BCDIF, CMP, LIPB, TSH, FT4, HBA1C, VITD ####[facility] [address], [place] [phone] ALT enzyme act/vol 19 U/L Normal 7-38 [facility] Comment on above: Performed By: #### C BCDIF, CMP, LIPB, TSH, FT4, HBA1C, VITD ####[address] [place], [place] [phone] Anion gap 3 molar conc 11 mmol/L Normal 9-18 [facility] [place] [facility] Comment on above: Performed By: #### C BCDIF, CMP, LIPB, TSH, FT4, HBA1C, VITD ####[facility] [id number] [place], [place] [phone] AST enzyme act/vol 19 U/L Normal 13-35 [facility] Comment on above: Performed By: #### C BCDIF, CMP, LIPB, TSH, FT4, HBA1C, VITD ####[facility] [id number], [place] [phone] Bilirubin Ql (U) 0.6 mg/dL Normal 0.2-1.3 [facility] Comment on above: Performed By: #### C BCDIF, CMP, LIPB, TSH, FT4, HBA1C, VITD ####[facility] [id number] [place], [place] [phone] Calcium mass conc 9.9 mg/dL Normal 8.5-10.2 [facility] Comment on above: Performed By: #### C BCDIF, CMP, LIPB, TSH, FT4, HBA1C, VITD ####[facility] [id number] [place] [phone] Chloride molar conc 96 mmol/L Low 97-[address] [facility] Comment on above: Performed By: #### C BCDIF, CMP, LIPB, TSH, FT4, HBA1C, VITD ####[facility] [id number] [place], [place] [phone] CO2 molar conc 27 mmol/L Normal 22-30 [facility] Comment on above: Performed By: #### C BCDIF, CMP, LIPB, TSH, FT4, HBA1C, VITD ####[place] [phone] Creatinine mass conc 0.97 mg/dL High 0.58-0.96 [facility] Comment on above: Performed By: #### C BCDIF, CMP, LIPB, TSH, FT4, HBA1C, VITD ####[place] [phone] eGFR- Amer. >60 Normal [facility] Comment on above: Performed By: #### C BCDIF, CMP, LIPB, TSH, FT4, HBA1C, VITD ####[place] [phone] GFR/1.73 sq M predicted among non-blacks MDRD vol rate/area (S/P/Bld) 57 . Normal [facility] Comment on above: Performed By: #### C BCDIF, CMP, LIPB, TSH, FT4, HBA1C, VITD ####[place] [phone] Glucose mass conc 267 mg/dL High 74-99 [facility] Comment on above: Performed By: #### C BCDIF, CMP, LIPB, TSH, FT4, HBA1C, VITD ####[place] [phone] Potassium molar conc 4.5 mmol/L Normal 3.7-5.1 [facility] Comment on above: Performed By: #### C BCDIF, CMP, LIPB, TSH, FT4, HBA1C, VITD ####[address] [phone] Protein mass conc 7.2 g/dL Normal 6.3-8.0 [facility] Comment on above: Performed By: #### C BCDIF, CMP, LIPB, TSH, FT4, HBA1C, VITD ####[place] [phone] Sodium molar conc 134 mmol/L Low 136-144 [facility] Comment on above: Performed By: #### C BCDIF, CMP, LIPB, TSH, FT4, HBA1C, VITD ####[address] [phone] Urea nitrogen mass conc 20 mg/dL Normal 7-21 [facility] Comment on above: Performed By: #### C BCDIF, CMP, LIPB, TSH, FT4, HBA1C, VITD ####[address] [phone] Free T4on 10-09-2018 T4 free mass conc 1.3 ng/dL Normal 0.9-1.7 [facility] Comment on above: Performed By: #### C BCDIF, CMP, LIPB, TSH, FT4, HBA1C, VITD ####[address] [phone] Hemoglobin A1con 10-09-2018 Glucose mass conc 212 mg/dL Normal [facility] Comment on above: Performed By: #### C BCDIF, CMP, LIPB, TSH, FT4, HBA1C, VITD ####[place] [id number] [place] [phone] Hemoglobin A1c/Hemoglobin.total mass fraction (Bld) 9.0 % High 4.3-5.6 [facility] Comment on above: Performed By: #### C BCDIF, CMP, LIPB, TSH, FT4, HBA1C, VITD ####[address] [place] [phone] Lipid Panel, Bas[place] 019 Cholesterol in HDL mass conc 53 mg/dL Normal >39 [facility] Comment on above: Performed By: #### C BCDIF, CMP, LIPB, TSH, FT4, HBA1C, VITD ####[place] [address] [address] [place] [phone] Cholesterol in LDL mass conc 80 mg/dL Normal <100 [facility] Comment on above: Performed By: #### C BCDIF, CMP, LIPB, TSH, FT4, HBA1C, VITD ####[place] [id number] [place] [phone] Cholesterol in VLDL mass conc 27 mg/dL Normal <30 [facility] Comment on above: Performed By: #### C BCDIF, CMP, LIPB, TSH, FT4, HBA1C, VITD ####[place] [id number] [place] [phone] Cholesterol mass conc 160 mg/dL Normal <200 [facility] Comment on above: Performed By: #### C BCDIF, CMP, LIPB, TSH, FT4, HBA1C, VITD ####[place] [address] [address] [place] [phone] Cholesterol non HDL mass conc 107 mg/dL Normal <130 [facility] Comment on above: Performed By: #### C BCDIF, CMP, LIPB, TSH, FT4, HBA1C, VITD ####[place] [phone] LDL:HDL Ratio 1.51 Normal <2.54 [facility] Comment on above: Performed By: #### C BCDIF, CMP, LIPB, TSH, FT4, HBA1C, VITD ####[place] [phone] TC:HDL Ratio 3.02 Normal <5.10 [facility] Comment on above: Performed By: #### C BCDIF, CMP, LIPB, TSH, FT4, HBA1C, VITD ####[place] [phone] Triglyceride mass conc 134 mg/dL Normal <150 [facility] [place] [facility] Comment on above: Performed By: #### C BCDIF, CMP, LIPB, TSH, FT4, HBA1C, VITD ####[place] [phone] Fasting Time 12 hrs Normal [facility] Comment on above: Performed By: #### C BCDIF, CMP, LIPB, TSH, FT4, HBA1C, VITD ####[place] [phone] TSHon 10-09-2018 Thyrotropin Qn 2.060 uU/mL Normal 0.400-5.500 [facility] Comment on above: Performed By: #### C BCDIF, CMP, LIPB, TSH, FT4, HBA1C, VITD ####[place] [phone] Vitamin D 25 Hydroxyon 10-09 Vitamin D 25 Hydroxy 60.5 ng/mL Normal 31.0-80.0 [facility] Comment on above: Performed By: #### C BCDIF, CMP, LIPB, TSH, FT4, HBA1C, VITD ####[place] [address] [address] [place] [phone] CBC and Differentialon 06-14 Abs Baso 0.03 k/uL Normal <0.11 [facility] Comment on above: Performed By: #### C BCDIF, CMP, LIPB, HBA1C, VITD ####[place] [address] [place] [phone] Abs Boyle 0.50 k/uL Normal <0.87 [facility] Comment on above: Performed By: #### C BCDIF, CMP, LIPB, HBA1C, VITD ####[place] [address] [place] [phone] Abs Neut 3.76 k/uL Normal 1.45-7.50 [facility] Comment on above: Performed By: #### C BCDIF, CMP, LIPB, HBA1C, VITD ####[place] [phone] Absolute nRBC <0.01 Normal <0.01 [facility] Comment on above: Performed By: #### C BCDIF, CMP, LIPB, HBA1C, VITD ####[address] [place] [phone] Basophils/100 WBC Auto (Bld) 0.4 % Normal [facility] Comment on above: Performed By: #### C BCDIF, CMP, LIPB, HBA1C, VITD ####[address] [place] [phone] DTYPE ADIFF Normal [facility] Comment on above: Performed By: #### C BCDIF, CMP, LIPB, HBA1C, VITD ####[facility] [address] [place] [phone] Eosinophils Auto #/vol (Bld) 0.15 10*3/uL Normal <0.46 [facility] Comment on above: Performed By: #### C BCDIF, CMP, LIPB, HBA1C, VITD ####[place] [address] [address] [place] [phone] Eosinophils/100 WBC Auto (Bld) 2.2 % Normal [facility] Comment on above: Performed By: #### C BCDIF, CMP, LIPB, HBA1C, VITD ####[place] [address] [address] [place] [phone] Erythrocyte distribution width Auto Ratio (RBC) 14.2 % Normal 11.5-15.0 [facility] Comment on above: Performed By: #### C BCDIF, CMP, LIPB, HBA1C, VITD ####[place] [address] [address] [place] [phone] Hematocrit Auto Volume Fraction (Bld) 43.8 % Normal 36.0-46.0 [facility] Comment on above: Performed By: #### C BCDIF, CMP, LIPB, HBA1C, VITD ####[address] [place] [phone] Hemoglobin mass conc (Bld) 13.5 g/dL Normal 11.5-15.5 [facility] Comment on above: Performed By: #### C BCDIF, CMP, LIPB, HBA1C, VITD ####[place] [address] [address] [place] [phone] Lymphocytes Auto #/vol (Bld) 2.41 10*3/uL Normal 1.00-4.00 [facility] Comment on above: Performed By: #### C BCDIF, CMP, LIPB, HBA1C, VITD ####[place] [address] [address] [phone] Lymphocytes/100 WBC Auto (Bld) 35.1 % Normal [facility] Comment on above: Performed By: #### C BCDIF, CMP, LIPB, HBA1C, VITD ####[place] [address] [address] [phone] MCH Auto Entitic mass (RBC) 28.9 pG Normal 26.0-34.0 [facility] Comment on above: Performed By: #### C BCDIF, CMP, LIPB, HBA1C, VITD ####[place] [phone] MCHC Auto mass conc (RBC) 30.8 g/dL Normal 30.5-36.0 [facility] Comment on above: Performed By: #### C BCDIF, CMP, LIPB, HBA1C, VITD ####[address] [place] [phone] MCV Auto Entitic volume (RBC) 93.8 fL Normal 80.0-100.0 [facility] Comment on above: Performed By: #### C BCDIF, CMP, LIPB, HBA1C, VITD ####[place] [address] [address] [place] [id number] Monocytes/100 WBC Auto (Bld) 7.3 % Normal [facility] Comment on above: Performed By: #### C BCDIF, CMP, LIPB, HBA1C, VITD ####[place] [address] [address] [place] [phone] Neutrophils/100 WBC Auto (Bld) 55.0 % Normal [facility] Comment on above: Performed By: #### C BCDIF, CMP, LIPB, HBA1C, VITD ####[place] [address] [address] [place] [phone] NRBCs 0.0 /100 WBC Normal 0 [facility] Comment on above: Performed By: #### C BCDIF, CMP, LIPB, HBA1C, VITD ####[place] [address] [address], [place] [phone] Platelet mean volume Auto Entitic volume (Bld) 10.2 fL Normal 9.0-12.7 [facility] Comment on above: Performed By: #### C BCDIF, CMP, LIPB, HBA1C, VITD ####[address] [place], [place] [phone] Platelets Auto #/vol (Bld) 217 10*3/uL Normal 150-400 [facility] Comment on above: Performed By: #### C BCDIF, CMP, LIPB, HBA1C, VITD ####[address] [phone] RBC Auto #/vol (Bld) 4.67 10*6/uL Normal 3.90-5.20 [facility] Comment on above: Performed By: #### C BCDIF, CMP, LIPB, HBA1C, VITD ####[address] [place], [place] [phone] WBC Auto #/vol (Bld) 6.87 10*3/uL Normal 3.70-11.00 [facility] Comment on above: Performed By: #### C BCDIF, CMP, LIPB, HBA1C, VITD ####[address] [place], [place] [phone] Comp Metabolic Panelon 06-14 Albumin mass conc 4.3 g/dL Normal 3.9-4.9 [facility] Comment on above: Performed By: #### C BCDIF, CMP, LIPB, HBA1C, VITD ####[address] [place], [place] [phone] ALP enzyme act/vol 55 U/L Normal 32-117 [facility] Comment on above: Performed By: #### C BCDIF, CMP, LIPB, HBA1C, VITD ####[facility] [address] [place] [phone] ALT enzyme act/vol 20 U/L Normal 7-38 [facility] Comment on above: Performed By: #### C BCDIF, CMP, LIPB, HBA1C, VITD ####[address] [place] [phone] Anion gap 3 molar conc 14 mmol/L Normal 9-18 [facility] [place] [facility] Comment on above: Performed By: #### C BCDIF, CMP, LIPB, HBA1C, VITD ####[place] [phone] AST enzyme act/vol 22 U/L Normal 13-35 [facility] Comment on above: Performed By: #### C BCDIF, CMP, LIPB, HBA1C, VITD ####[place] [phone] Bilirubin Ql (U) 0.4 mg/dL Normal 0.2-1.3 [facility] Comment on above: Performed By: #### C BCDIF, CMP, LIPB, HBA1C, VITD ####[facility] [address] [place], [place] [address]d [place], [place] [phone] Calcium mass conc 10.0 mg/dL Normal 8.5-10.2 [facility] Comment on above: Performed By: #### C BCDIF, CMP, LIPB, HBA1C, VITD ####[facility] [address] [place], [place] [address]d [place], [place] [phone] Chloride molar conc 102 mmol/L Normal 97-[address] [facility] Comment on above: Performed By: #### C BCDIF, CMP, LIPB, HBA1C, VITD ####[facility] [address] [place] [phone] CO2 molar conc 23 mmol/L Normal 22-30 [facility] Comment on above: Performed By: #### C BCDIF, CMP, LIPB, HBA1C, VITD ####[place] [phone] Creatinine mass conc 0.92 mg/dL Normal 0.58-0.96 [facility] Comment on above: Performed By: #### C BCDIF, CMP, LIPB, HBA1C, VITD ####[place] [phone] eGFR- Amer. >60 Normal [facility] Comment on above: Performed By: #### C BCDIF, CMP, LIPB, HBA1C, VITD ####[place] [phone] GFR/1.73 sq M predicted among non-blacks MDRD vol rate/area (S/P/Bld) mL/min/{1.73_m2} Normal [facility] Comment on above: Performed By: #### C BCDIF, CMP, LIPB, HBA1C, VITD ####[place] [phone] Glucose mass conc 155 mg/dL High 74-99 [facility] Comment on above: Performed By: #### C BCDIF, CMP, LIPB, HBA1C, VITD ####[place] [phone] Potassium molar conc 4.2 mmol/L Normal 3.7-5.1 [facility] Comment on above: Performed By: #### C BCDIF, CMP, LIPB, HBA1C, VITD ####[facility] [address] [place] [phone] Protein mass conc 6.7 g/dL Normal 6.3-8.0 [facility] Comment on above: Performed By: #### C BCDIF, CMP, LIPB, HBA1C, VITD ####[place] [address] [address] [place] [phone] Sodium molar conc 139 mmol/L Normal 136-144 [facility] Comment on above: Performed By: #### C BCDIF, CMP, LIPB, HBA1C, VITD ####[address] [place] [phone] Urea nitrogen mass conc 16 mg/dL Normal 7-21 [facility] Comment on above: Performed By: #### C BCDIF, CMP, LIPB, HBA1C, VITD ####[place] [address] [address] [place] [phone] Hemoglobin A1con 06-14-2018 Glucose mass conc 131 mg/dL Normal [facility] Comment on above: Performed By: #### C BCDIF, CMP, LIPB, HBA1C, VITD ####[address] [place] [phone] Hemoglobin A1c/Hemoglobin.total mass fraction (Bld) 6.2 % High 4.3-5.6 [facility] Comment on above: Performed By: #### C BCDIF, CMP, LIPB, HBA1C, VITD ####[address] [place] [phone] Lipid Panel, Basicon 018 Cholesterol in HDL mass conc 38 mg/dL Low >39 [facility] Comment on above: Performed By: #### C BCDIF, CMP, LIPB, HBA1C, VITD ####[facility] [address] [phone] Cholesterol in LDL mass conc 75 mg/dL Normal <100 [facility] Comment on above: Performed By: #### C BCDIF, CMP, LIPB, HBA1C, VITD ####[place] [phone] Cholesterol in VLDL mass conc 30 mg/dL High <30 [facility] Comment on above: Performed By: #### C BCDIF, CMP, LIPB, HBA1C, VITD ####[place] [phone] Cholesterol mass conc 143 mg/dL Normal <200 [facility] Comment on above: Performed By: #### C BCDIF, CMP, LIPB, HBA1C, VITD ####[place] [phone] Cholesterol non HDL mass conc 105 mg/dL Normal <130 [facility] Comment on above: Performed By: #### C BCDIF, CMP, LIPB, HBA1C, VITD ####[place] [phone] LDL:HDL Ratio 1.97 Normal <2.54 [facility] Comment on above: Performed By: #### C BCDIF, CMP, LIPB, HBA1C, VITD ####[place] [phone] TC:HDL Ratio 3.76 Normal <5.10 [facility] Comment on above: Performed By: #### C BCDIF, CMP, LIPB, HBA1C, VITD ####[place] [phone] Triglyceride mass conc 149 mg/dL Normal <150 [facility] [place] [facility] Comment on above: Performed By: #### C BCDIF, CMP, LIPB, HBA1C, VITD ####[place] [address] [address] [place], [place] [phone] Fasting Time 12 hrs Normal [facility] Comment on above: Performed By: #### C BCDIF, CMP, LIPB, HBA1C, VITD ####[address] [phone] Vitamin D 25 Hydroxyon 06-14 Vitamin D 25 Hydroxy 57.5 ng/mL Normal 31.0-80.0 [facility] Comment on above: Performed By: #### C BCDIF, CMP, LIPB, HBA1C, VITD ####[place] [phone] CBC and Differentialon 03-08 Abs Baso 0.03 k/uL Normal <0.11 [facility] Comment on above: Performed By: #### C BCDIF, FT4, CMP, LIPB, TSH, HBA1C, VITD ####[place] [phone] Abs Boyle 0.54 k/uL Normal <0.87 [facility] Comment on above: Performed By: #### C BCDIF, FT4, CMP, LIPB, TSH, HBA1C, VITD ####[address] [phone] Abs Neut 3.51 k/uL Normal 1.45-7.50 [facility] Comment on above: Performed By: #### C BCDIF, FT4, CMP, LIPB, TSH, HBA1C, VITD ####[place] [phone] Absolute nRBC <0.01 Normal <0.01 [facility] Comment on above: Performed By: #### C BCDIF, FT4, CMP, LIPB, TSH, HBA1C, VITD ####[address], [place] [phone] Basophils/100 WBC Auto (Bld) 0.5 % Normal [facility] Comment on above: Performed By: #### C BCDIF, FT4, CMP, LIPB, TSH, HBA1C, VITD ####[place] [phone] DTYPE ADIFF Normal [facility] Comment on above: Performed By: #### C BCDIF, FT4, CMP, LIPB, TSH, HBA1C, VITD ####[place] [phone] Eosinophils Auto #/vol (Bld) 0.08 10*3/uL Normal <0.46 [facility] Comment on above: Performed By: #### C BCDIF, FT4, CMP, LIPB, TSH, HBA1C, VITD ####[place] [phone] Eosinophils/100 WBC Auto (Bld) 1.3 % Normal [facility] Comment on above: Performed By: #### C BCDIF, FT4, CMP, LIPB, TSH, HBA1C, VITD ####[place] [phone] Erythrocyte distribution width Auto Ratio (RBC) 13.7 % Normal 11.5-15.0 [facility] Comment on above: Performed By: #### C BCDIF, FT4, CMP, LIPB, TSH, HBA1C, VITD ####[place] [phone] Hematocrit Auto Volume Fraction (Bld) 42.3 % Normal 36.0-46.0 [facility] Comment on above: Performed By: #### C BCDIF, FT4, CMP, LIPB, TSH, HBA1C, VITD ####[address] [place], [place] [phone] Hemoglobin mass conc (Bld) 13.4 g/dL Normal 11.5-15.5 [facility] Comment on above: Performed By: #### C BCDIF, FT4, CMP, LIPB, TSH, HBA1C, VITD ####[place] [phone] Lymphocytes Auto #/vol (Bld) 1.91 10*3/uL Normal 1.00-4.00 [facility] Comment on above: Performed By: #### C BCDIF, FT4, CMP, LIPB, TSH, HBA1C, VITD ####[place] [phone] Lymphocytes/100 WBC Auto (Bld) 31.5 % Normal [facility] Comment on above: Performed By: #### C BCDIF, FT4, CMP, LIPB, TSH, HBA1C, VITD ####[place] [phone] MCH Auto Entitic mass (RBC) 28.7 pG Normal 26.0-34.0 [facility] Comment on above: Performed By: #### C BCDIF, FT4, CMP, LIPB, TSH, HBA1C, VITD ####[place] [phone] MCHC Auto mass conc (RBC) 31.7 g/dL Normal 30.5-36.0 [facility] Comment on above: Performed By: #### C BCDIF, FT4, CMP, LIPB, TSH, HBA1C, VITD ####[place] [phone] MCV Auto Entitic volume (RBC) 90.6 fL Normal 80.0-100.0 [facility] Comment on above: Performed By: #### C BCDIF, FT4, CMP, LIPB, TSH, HBA1C, VITD ####[place] [address] [address], [place] [phone] Monocytes/100 WBC Auto (Bld) 8.9 % Normal [facility] Comment on above: Performed By: #### C BCDIF, FT4, CMP, LIPB, TSH, HBA1C, VITD ####[place] [address] [address], [place] [phone] Neutrophils/100 WBC Auto (Bld) 57.8 % Normal [facility] Comment on above: Performed By: #### C BCDIF, FT4, CMP, LIPB, TSH, HBA1C, VITD ####[place] [address] [place], [place] [phone] NRBCs 0.0 /100 WBC Normal 0 [facility] Comment on above: Performed By: #### C BCDIF, FT4, CMP, LIPB, TSH, HBA1C, VITD ####[address] [place], [place] [phone] Platelet mean volume Auto Entitic volume (Bld) 9.9 fL Normal 9.0-12.7 [facility] Comment on above: Performed By: #### C BCDIF, FT4, CMP, LIPB, TSH, HBA1C, VITD ####[address] [phone] Platelets Auto #/vol (Bld) 214 10*3/uL Normal 150-400 [facility] Comment on above: Performed By: #### C BCDIF, FT4, CMP, LIPB, TSH, HBA1C, VITD ####[address] [place], [place] [phone] RBC Auto #/vol (Bld) 4.67 10*6/uL Normal 3.90-5.20 [facility] [place] [facility] Comment on above: Performed By: #### C BCDIF, FT4, CMP, LIPB, TSH, HBA1C, VITD ####[facility] [address] [place], [place] [phone] WBC Auto #/vol (Bld) 6.07 10*3/uL Normal 3.70-11.00 [facility] [place] [facility] Comment on above: Performed By: #### C BCDIF, FT4, CMP, LIPB, TSH, HBA1C, VITD ####[address] [place], [place] [phone] Comp Metabolic Panelon 03-08 Albumin mass conc 4.5 g/dL Normal 3.9-4.9 [facility] Comment on above: Performed By: #### C BCDIF, FT4, CMP, LIPB, TSH, HBA1C, VITD ####[address] [phone] ALP enzyme act/vol 66 U/L Normal 32-117 [facility] Comment on above: Performed By: #### C BCDIF, FT4, CMP, LIPB, TSH, HBA1C, VITD ####[address] [place], [place] [phone] ALT enzyme act/vol 20 U/L Normal 7-38 [facility] Comment on above: Performed By: #### C BCDIF, FT4, CMP, LIPB, TSH, HBA1C, VITD ####[facility] [address] [place], [place] [address] [place], [place] [phone] Anion gap 3 molar conc 16 mmol/L Normal 9-18 [facility] [place] [facility] Comment on above: Performed By: #### C BCDIF, FT4, CMP, LIPB, TSH, HBA1C, VITD ####[facility] [address] [place], [place] [address] [place], [place] [phone] AST enzyme act/vol 20 U/L Normal 13-35 [facility] Comment on above: Performed By: #### C BCDIF, FT4, CMP, LIPB, TSH, HBA1C, VITD ####[place] [phone] Bilirubin Ql (U) 0.5 mg/dL Normal 0.2-1.3 [facility] Comment on above: Performed By: #### C BCDIF, FT4, CMP, LIPB, TSH, HBA1C, VITD ####[place] [phone] Calcium mass conc 9.8 mg/dL Normal 8.5-10.2 [facility] Comment on above: Performed By: #### C BCDIF, FT4, CMP, LIPB, TSH, HBA1C, VITD ####[phone] Chloride molar conc 98 mmol/L Normal 97-[address] [facility] Comment on above: Performed By: #### C BCDIF, FT4, CMP, LIPB, TSH, HBA1C, VITD ####[place] [phone] CO2 molar conc 25 mmol/L Normal 22-30 [facility] Comment on above: Performed By: #### C BCDIF, FT4, CMP, LIPB, TSH, HBA1C, VITD ####[place] [phone] Creatinine mass conc 1.09 mg/dL High 0.58-0.96 [facility] Comment on above: Performed By: #### C BCDIF, FT4, CMP, LIPB, TSH, HBA1C, VITD ####[place] [phone] eGFR- Amer. >60 Normal [facility] Comment on above: Performed By: #### C BCDIF, FT4, CMP, LIPB, TSH, HBA1C, VITD ####[address] [phone] GFR/1.73 sq M predicted among non-blacks MDRD vol rate/area (S/P/Bld) 50 . Normal [facility] Comment on above: Performed By: #### C BCDIF, FT4, CMP, LIPB, TSH, HBA1C, VITD ####[address] [phone] Glucose mass conc 165 mg/dL High 74-99 [facility] Comment on above: Performed By: #### C BCDIF, FT4, CMP, LIPB, TSH, HBA1C, VITD ####[address] [phone] Potassium molar conc 4.4 mmol/L Normal 3.7-5.1 [facility] Comment on above: Performed By: #### C BCDIF, FT4, CMP, LIPB, TSH, HBA1C, VITD ####[address] [phone] Protein mass conc 7.0 g/dL Normal 6.3-8.0 [facility] Comment on above: Performed By: #### C BCDIF, FT4, CMP, LIPB, TSH, HBA1C, VITD ####[address] [phone] Sodium molar conc 139 mmol/L Normal 136-144 [facility] Comment on above: Performed By: #### C BCDIF, FT4, CMP, LIPB, TSH, HBA1C, VITD ####[address] [phone] Urea nitrogen mass conc 21 mg/dL Normal 7-21 [facility] Comment on above: Performed By: #### C BCDIF, FT4, CMP, LIPB, TSH, HBA1C, VITD ####[facility] [place] [place] [phone] Free T4on 03-08-2018 T4 free mass conc 1.4 ng/dL Normal 0.9-1.7 [facility] Comment on above: Performed By: #### C BCDIF, FT4, CMP, LIPB, TSH, HBA1C, VITD ####[place] [address] [place] [phone] Hemoglobin A1con 03-08-2018 Glucose mass conc 194 mg/dL Normal [facility] Comment on above: Performed By: #### C BCDIF, FT4, CMP, LIPB, TSH, HBA1C, VITD ####[place] [phone] Hemoglobin A1c/Hemoglobin.total mass fraction (Bld) 8.4 % High 4.3-5.6 [facility] Comment on above: Performed By: #### C BCDIF, FT4, CMP, LIPB, TSH, HBA1C, VITD ####[address] [place], [place] [phone] Lipid Panel, Bas[place] 018 Cholesterol in HDL mass conc 60 mg/dL Normal >39 [facility] Comment on above: Performed By: #### C BCDIF, FT4, CMP, LIPB, TSH, HBA1C, VITD ####[place] [address] [place], [place] [phone] Cholesterol in LDL mass conc 80 mg/dL Normal <100 [facility] Comment on above: Performed By: #### C BCDIF, FT4, CMP, LIPB, TSH, HBA1C, VITD ####[address] [place] [phone] Cholesterol in VLDL mass conc 26 mg/dL Normal <30 [facility] Comment on above: Performed By: #### C BCDIF, FT4, CMP, LIPB, TSH, HBA1C, VITD ####[place] [phone] Cholesterol mass conc 166 mg/dL Normal <200 [facility] Comment on above: Performed By: #### C BCDIF, FT4, CMP, LIPB, TSH, HBA1C, VITD ####[place] [phone] Cholesterol non HDL mass conc 106 mg/dL Normal <130 [facility] Comment on above: Performed By: #### C BCDIF, FT4, CMP, LIPB, TSH, HBA1C, VITD ####[place] [phone] LDL:HDL Ratio 1.33 Normal <2.54 [facility] Comment on above: Performed By: #### C BCDIF, FT4, CMP, LIPB, TSH, HBA1C, VITD ####[place] [phone] TC:HDL Ratio 2.77 Normal <5.10 [facility] Comment on above: Performed By: #### C BCDIF, FT4, CMP, LIPB, TSH, HBA1C, VITD ####[place] [phone] Triglyceride mass conc 128 mg/dL Normal <150 [facility] [place] [facility] Comment on above: Performed By: #### C BCDIF, FT4, CMP, LIPB, TSH, HBA1C, VITD ####[place] [phone] Fasting Time 12 hrs Normal [facility] Comment on above: Performed By: #### C BCDIF, FT4, CMP, LIPB, TSH, HBA1C, VITD ####[facility] [address] [place], [place] [phone] TSHon 03-08-2018 Thyrotropin Qn 2.580 uU/mL Normal 0.400-5.500 [facility] Comment on above: Performed By: #### C BCDIF, FT4, CMP, LIPB, TSH, HBA1C, VITD ####[address] [phone] Vitamin D 25 Hydroxyon 03-08 Vitamin D 25 Hydroxy 47.4 ng/mL Normal 31.0-80.0 [facility] Comment on above: Performed By: #### C BCDIF, FT4, CMP, LIPB, TSH, HBA1C, VITD ####[address] [phone] CBC and Differentialon 11-06 Abs Baso 0.04 k/uL Normal <0.11 [facility] Abs Boyle 0.48 k/uL Normal <0.87 [facility] Abs Neut 3.51 k/uL Normal 1.45-7.50 [facility] Absolute nRBC <0.01 Normal <0.01 [facility] Basophils/100 WBC Auto (Bld) 0.7 % Normal [facility] DTYPE ADIFF Normal [facility] Eosinophils Auto #/vol (Bld) 0.09 10*3/uL Normal <0.46 [facility] Eosinophils/100 WBC Auto (Bld) 1.6 % Normal [facility] Erythrocyte distribution width Auto Ratio (RBC) 12.0 % Normal 11.5-15.0 [facility] Hematocrit Auto Volume Fraction (Bld) 41.6 % Normal 36.0-46.0 [facility] Hemoglobin mass conc (Bld) 13.8 g/dL Normal 11.5-15.5 [facility] Lymphocytes Auto #/vol (Bld) 1.60 10*3/uL Normal 1.00-4.00 [facility] Lymphocytes/100 WBC Auto (Bld) 27.9 % Normal [facility] MCH Auto Entitic mass (RBC) 28.8 pG Normal 26.0-34.0 [facility] MCHC Auto mass conc (RBC) 33.2 g/dL Normal 30.5-36.0 [facility] MCV Auto Entitic volume (RBC) 86.8 fL Normal 80.0-100.0 [facility] Monocytes/100 WBC Auto (Bld) 8.4 % Normal [facility] Neutrophils/100 WBC Auto (Bld) 61.4 % Normal [facility] NRBCs 0.0 /100 WBC Normal 0 [facility] Platelet mean volume Auto Entitic volume (Bld) 10.5 fL Normal 9.0-12.7 [facility] Platelets Auto #/vol (Bld) 203 10*3/uL Normal 150-400 [facility] RBC Auto #/vol (Bld) 4.79 10*6/uL Normal 3.90-5.20 [facility] [place] [facility] WBC Auto #/vol (Bld) 5.74 10*3/uL Normal 3.70-11.00 [facility] [place] [facility] Comp Metabolic Panelon 11-06 Albumin mass conc 4.3 g/dL Normal 3.9-4.9 [facility] ALP enzyme act/vol 77 U/L Normal 32-117 [facility] ALT enzyme act/vol 20 U/L Normal 7-38 [facility] Anion gap 3 molar conc 9 mmol/L Normal 9-18 [facility] [place] [facility] AST enzyme act/vol 16 U/L Normal 13-35 [facility] Bilirubin Ql (U) 0.6 mg/dL Normal 0.2-1.3 [facility] Calcium mass conc 9.1 mg/dL Normal 8.5-10.2 [facility] Chloride molar conc 95 mmol/L Low 97-[address] [facility] CO2 molar conc 30 mmol/L Normal 22-30 [facility] Creatinine mass conc 0.91 mg/dL Normal 0.58-0.96 [facility] eGFR- Amer. >60 Normal [facility] GFR/1.73 sq M predicted among non-blacks MDRD vol rate/area (S/P/Bld) mL/min/{1.73_m2} Normal [facility] Glucose mass conc 337 mg/dL High 74-99 [facility] Potassium molar conc 4.6 mmol/L Normal 3.7-5.1 [facility] Protein mass conc 6.5 g/dL Normal 6.3-8.0 [facility] Sodium molar conc 134 mmol/L Low 136-144 [facility] Urea nitrogen mass conc 19 mg/dL Normal 7-21 [facility] Free T4on 11-06-2017 T4 free mass conc 1.2 ng/dL Normal 0.9-1.7 [facility] Hemoglobin A1con 11-06-2017 Glucose mass conc 255 mg/dL Normal [facility] Hemoglobin A1c/Hemoglobin.total mass fraction (Bld) 10.5 % High 4.3-5.6 [facility] Lipid Panel, [facility] 018 Cholesterol in HDL mass conc 54 mg/dL Normal >39 [facility] Cholesterol in LDL mass conc 82 mg/dL Normal <100 [facility] Cholesterol in VLDL mass conc 24 mg/dL Normal <30 [facility] Cholesterol mass conc 160 mg/dL Normal <200 [facility] Cholesterol non HDL mass conc 106 mg/dL Normal <130 [facility] LDL:HDL Ratio 1.52 Normal <2.54 [facility] TC:HDL Ratio 2.96 Normal <5.10 [facility] Triglyceride mass conc 122 mg/dL Normal <150 [facility] [place] [facility] TSHon 11-06-2017 Thyrotropin Qn 2.450 uU/mL Normal 0.400-5.500 [facility] Vitamin D 25 Hydroxyon 11-06 Vitamin D 25 Hydroxy 40.4 ng/mL Normal 31.0-80.0 [facility] Lipid Panel, Basicon 018 Fasting Time 12 hrs Normal [facility] Vital Signs Date Time Vital Sign Value Performing Clinician Johnathon litasiya 01-01-2020 12:49-0400 Body mass index (BMI) [Ratio] 26.9 kg/m2 Dr. Juan Diego King Work Phone: [facility] Work Phone: Encounters Encounter Date Encounter Type Care Provider Facility Start: 03-24-2025 End: 03-24-[address] Juan Diego King MD Work Phone: -Laboratory Start: 03-24-2025 End: 03-24-[address] Juan Diego King MD -Laboratory Work Phone: Start: 03-24-2025 End: 03-24-2025 ambulatory Juan Diego Chi Fernando Facility:[facility] Start: 02-16-2025 End: 02-16-[address] Juan Diego King MD -Laboratory Work Phone: Start: 02-16-2025 End: 02-16-2025 ambulatory Juan Diego Chi Fernando Facility:[facility] Start: 02-01-2025 ambulatory Juan Diego Chi Fernando Facility:[facility] Start: 12-15-2024 End: 12-15-2024 ambulatory Dr. Juan Diego King MD Work Phone: [facility] Work Phone: Start: 12-15-2024 End: 12-15-[address] Juan Diego King MD -Laboratory Work Phone: Start: 12-15-2024 End: 12-15-2024 ambulatory Juan Diego Chi Fernando Facility:[facility] Start: 10-22-2024 End: 10-22-[address] Juan Diego King MD -Laboratory, Phy Office 3rd Flr Start: 10-22-2024 End: 10-22-2024 ambulatory Juan Diego Chi Fernando Facility:[facility] Start: 07-22-2024 End: 07-22-2024 ambulatory Juan Diego Chi Fernando Facility:[facility] Start: 07-15-2024 End: 07-15-2024 ambulatory Juan Diego Chi Fernando Facility:[facility] Start: 05-07-2024 End: 05-07-2024 ambulatory Juan Diego Chi Fernando Facility:[facility] Start: 03-31-2024 End: 03-31-2024 ambulatory Juan Diego King Facility:[facility] Start: 01-30-2024 End: 01-30-2024 ambulatory [facility] Work Phone: Start: 01-30-2024 End: 01-30-[facility]24 [facility] Work Phone: Start: 01-16-2024 End: 01-16-2024 ambulatory [facility] Work Phone: Start: 01-16-2024 End: 01-16-2024 Patient encounter procedure [facility]-Laboratory Work Phone: Start: 07-25-2023 End: 07-25-2023 ambulatory [facility] Work Phone: Start: 07-25-2023 End: 07-25-2023 [facility] Start: 01-10-2023 End: 01-10-2023 ambulatory [facility] Work Phone: Start: 01-10-2023 End: 01-10-2023 [facility] Start: 2022 End: 2022 ambulatory [facility] Work Phone: Start: 2022 End: 2022 [facility] Start: 04-25-2022 End: 04-25-2022 [facility] Start: 02-07-2022 End: 02-07-[address] Juan Diego King Work Phone: [facility]-Radiology, [facility] Start: 01-10-2022 End: 01-10-[address] Juan Diego King Work Phone: [facility]-Cat Scan, [facility] Start: 01-09-2022 End: 01-09-[address] Juan Diego King Work Phone: [facility]-Laboratory, Phy Office 3rd Flr Start: 10-27-2021 End: 10-27-[address] Juan Diego King Work Phone: [facility] Start: 10-24-2021 End: 10-24-[address] Juan Diego King Work Phone: [facility]-Outpatient Breast Imaging Procedures Date Procedure Procedure Detail Performing Clinician Start: 02-16-2025 Vitamin D, 25-hydrox y measurement Dr. Juan Diego King MD Work Phone: Comment on above: Vitamin D StatusDefi ciency: <20 ng/mL (50nmol/L)Insufficiency: 20-30 ng/mL (50-75 nmol/L)Sufficiency: 30-100 ng/mL (75-250 nmol/L)Toxicity: >100 ng/mL (>250 nmol/L) Start: 01-30-2024 Screening mammography Start: 01-30-2024 CT of abdomen and pe lvis without contrast Start: 01-30-2024 CT of chest Start: 02-07-2022 Plain x-ray of pelvi s and lower extremity Dr. Juan Diego King Work Phone: Start: 02-07-2022 X-ray of lumbar spin e, two or three views Dr. Juan Diego King Work Phone: Start: 01-10-2022 Computed tomography of abdomen and pelvis with contrast Dr. Juan Diego King Work Phone: Start: 10-24-[address] Juan Diego almaraz Work Phone: Immunizations Immunization Date Immunization Notes Care Provider Fa cility 09-30-2019 influenza, injectabl e, quadrivalent, preservative free [facility] 09-30-2019 influenza, seasonal, injectable Dr. Juan Diego King Work Phone: [facility] 05-20-2016 tetanus and diphther ia toxoids, adsorbed, preservative free, for adult use (2 Lf of tetanus toxoid and 2 Lf of diphtheria toxoid) Dr. Juan Diego King Work Phone: [facility] Payers Date Payer Category Payer Self-pay [id number] 2022 Private Health Insurance [id number] Medicaid [id number] Medicare [id number] Unknown [id number] Unknown [id number] 2.16.8 [id number] Unknown [id number] 2.16.8 [id number] Unknown [id number] 2.16.8 [id number] Unknown [id number] 2.16.8 [id number] Unknown [id number] 2.16.8 [id number] Unknown [id number] 2.16.8 [id number] Unknown [id number] 2.16.8 [id number] Unknown [id number] 2.16.8 [id number] Unknown [id number] 2.16.8 [id number] Social History Date Type Detail Facility Start: 10-27-2021 Tobacco smoking stat [facility] Unknown if ever smoked [facility] Start: 01-01-2020 Cigarettes [facility] Start: 1950 Sex Assigned At Female W [facility] Start: 10-27-2021 [facility] Start: 03-27-2025 Sex Female (finding) [place] [facility] Medical Equipment Procedure Code Equipment Code Equipment Origin al Text Equipment Identifier Dates Robot-assisted partial nephrectomy CLIP,HEMOLONOEMY ARREOLA FDA Start: 01-01-2020 Robot-assisted partial nephrectomy CLIP,HEMOLOCK MED WECK FDA Start: 01-01-2020 Robot-assisted partial nephrectomy CLIP,HEMOLOCK MED WECK FDA Start: 01-01-2020 Robot-assisted partial nephrectomy SEALANT,FLOSEAL HEMOSTATIC 5ML FDA Start: 01-01-2020 Robot-assisted partial nephrectomy CLIP,HEMOLONOEMY LG YAZMINCK FDA Start: 01-01-2020 Robot-assisted partial nephrectomy CLIP,HEMOLOCK MED YAZMINCK FDA Start: 01-01-2020 Robot-assisted partial nephrectomy CLIP,HEMOLOCK MED YAZMINCK FDA Start: 01-01-2020 Robot-assisted partial nephrectomy SEALANT,FLOSEAL HEMOSTATIC 5ML FDA Start: 01-01-2020 Robot-assisted partial nephrectomy CLIP,HEMOLONOEMY ARREOLA FDA Start: 01-01-2020 Robot-assisted partial nephrectomy CLIP,HEMOLOCK LIZBETH ARCECK FDA Start: 01-01-2020 Robot-assisted partial nephrectomy CLIP,HEMOLOCK MED YAZMINCK FDA Start: 01-01-2020 Robot-assisted partial nephrectomy SEALANT,FLOSEAL HEMOSTATIC 5ML FDA Start: 01-01-2020 Robot-assisted partial nephrectomy CLIP,HEMOLONOEMY ARREOLA FDA Start: 01-01-2020 Robot-assisted partial nephrectomy CLIP,HEMOLOCK MED YAZMINCK FDA Start: 01-01-2020 Robot-assisted partial nephrectomy CLIP,HEMOLOCK LIZBETH ARCECK FDA Start: 01-01-2020 Robot-assisted partial nephrectomy SEALANT,FLOSEAL HEMOSTATIC 5ML FDA Start: 01-01-2020 Robot-assisted partial nephrectomy CLIP,HEMOLOCK LG YAZMINCK FDA Start: 01-01-2020 Robot-assisted partial nephrectomy CLIP,HEMOLOCK MED YAZMINCK FDA Start: 01-01-2020 Robot-assisted partial nephrectomy CLIP,HEMOLOCK MED YAZMINCK FDA Start: 01-01-2020 Robot-assisted partial nephrectomy SEALANT,FLOSEAL HEMOSTATIC 5ML FDA Start: 01-01-2020 Robot-assisted partial nephrectomy CLIP,HEMOLONOEMY LG ELBA FDA Start: 01-01-2020 Robot-assisted partial nephrectomy CLIP,HEMOLOCK MED YAZMINCK FDA Start: 01-01-2020 Robot-assisted partial nephrectomy CLIP,HEMOLOCK MED WECK FDA Start: 01-01-2020 Robot-assisted partial nephrectomy SEALANT,FLOSEAL HEMOSTATIC 5ML FDA Start: 01-01-2020 Robot-assisted partial nephrectomy CLIP,HEMOLOCK LG WECK FDA Start: 01-01-2020 Robot-assisted partial nephrectomy CLIP,HEMOLOCK MED WECK FDA Start: 01-01-2020 Robot-assisted partial nephrectomy CLIP,HEMOLOCK MED WECK FDA Start: 01-01-2020 Robot-assisted partial nephrectomy SEALANT,FLOSEAL HEMOSTATIC 5ML FDA Start: 01-01-2020 Robot-assisted partial nephrectomy CLIP,HEMOLOCK LG WECK FDA Start: 01-01-2020 Robot-assisted partial nephrectomy CLIP,HEMOLOCK MED WECK FDA Start: 01-01-2020 Robot-assisted partial nephrectomy CLIP,HEMOLOCK LIZBETH ARCECK FDA Start: 01-01-2020 Robot-assisted partial nephrectomy SEALANT,FLOSEAL HEMOSTATIC 5ML FDA Start: 01-01-2020 Robot-assisted partial nephrectomy CLIP,HEMOLONOEMY ARREOLA FDA Start: 01-01-2020 Robot-assisted partial nephrectomy CLIP,HEMOLOCK LIZBETH YAZMINCK FDA Start: 01-01-2020 Robot-assisted partial nephrectomy CLIP,HEMOLOCK MED YAZMINCK FDA Start: 01-01-2020 Robot-assisted partial nephrectomy SEALANT,FLOSEAL HEMOSTATIC 5ML FDA Start: 01-01-2020 Robot-assisted partial nephrectomy CLIP,HEMOLOCK JEN YAZMINCK FDA Start: 01-01-2020 Robot-assisted partial nephrectomy CLIP,HEMOLOCK LIZBETH ARCECK FDA Start: 01-01-2020 Robot-assisted partial nephrectomy CLIP,HEMOLOCK LIZBETH YAZMINCK FDA Start: 01-01-2020 Robot-assisted partial nephrectomy SEALANT,FLOSEAL HEMOSTATIC 5ML FDA Start: 01-01-2020 Robot-assisted partial nephrectomy CLIP,HEMOLOCK JEN ARCECK FDA Start: 01-01-2020 Robot-assisted partial nephrectomy CLIP,HEMOLOCK LIZBETH YAZMINCK FDA Start: 01-01-2020 Robot-assisted partial nephrectomy CLIP,HEMOLOCK LIZBETH YAZMINCK FDA Start: 01-01-2020 Robot-assisted partial nephrectomy SEALANT,FLOSEAL HEMOSTATIC 5ML FDA Start: 01-01-2020 Evaluation note Note Date & Type Note Facility Evaluation note Diagnosis Onset Date Abnormal mammogram of right breast acute [facility] Work Phone: Evaluation note Note Date & Type Note Facility Evaluation note No assessment information availa ble [facility] Work Phone: Reason for referral (narrative) Note Date & Type Note Facility Reason for referral (narrative) No reason for referral information available [facility] Work Phone: Summary Purpose Family History No Family History Records Found Relationship Condition Age at Onset Recorded Date/T sriram brother Asthma Unknown Malignant neoplasm Unknown Disorder of thyroid Unknown mother Malignant neoplasm of breast Unknown Diabetes mellitus Unknown Hypertension Unknown Cardiac disease Unknown Coronary artery disease Unknown father Diabetes mellitus Unknown Advance Directives No Advanced Directives Records Found Advance Directive Response Recorded Date/ Time Living Will No January 01, 2020 12:49pm Power of Soap Inspector No December 31 0 12:49pm Chief Complaint and Reason for Visit Chief Complaint ABNORMAL MAMMOGRAM 6 month f/u Breast Check/Mammo 10/24 [facility] MALIGNANT NEOPLASM OF RIGHT KIDNEY Reason for Visit Abnormal mammogram o f right breast Chief Complaint MALIGNANT NEOPLASM O F RIGHT KIDNEY Chief Complaint ABD PAIN NICOTINE DE P, SCREENING Additional Source Comments INFORMATION SOURCE (unrecogn ized section and content) DATE CREATED AUTHOR 10/10/2018 [facility] DATE CREATED AUTHOR AUTHOR'S ORGANIZ ATION 03/30/2025 [facility] Goals (unrecognized section and content) Goals may be documented in a n alternate sectionGoals may be documented in an alternate sectionGoals may be documented in an alternate sectionGoals may be documented in an alternate sectionGoals may be documented in an alternate sectionGoals may be documented in an alternate sectionGoals may be documented in an alternate sectionGoals may be documented in an alternate sectionGoals may be documented in an alternate sectionGoals may be documented in an alternate sectionGoals may be documented in an alternate section Care Teams (unrecognized sec tion and content) Team Status: Active Member Role Status Dates Dr. Juan Diego King MD Family Provider Active Dr. Juan Diego King MD Primary Care Provider Active Team Status: Inactive Member Role Status Dates Dr. Juan Diego King MD Primary Care Provider, Attending Provider Active Team Status: Inactive Member Role Status Dates Dr. Juan Diego King MD Primary Care Provi kwesi, Attending Provider, Referring Provider Active Team Status: Active Member Role Status Dates Dr. Juan Diego King MD Primary Care Provider Active Team Status: Inactive Member Role Status Dates Dr. Juan Diego King MD Primary Care Provider Active Start: October 22, 2024 End: October 22, 2024 Dr. Juan Diego King MD Attending Provider Active Start: October 22, 2024 End: October 22, 2024 Team Status: Inactive Member Role Status Dates Dr. Juan Diego King MD Primary Care Provider Active Start: December 15, 2024 End: December 15, 2024 Dr. Juan Diego King MD Attending Provider Active Start: December 15, 2024 End: December 15, 2024 Dr. Juan Diego King MD Referring Provider Active Start: December 15, 2024 End: December 15, 2024 Team Status: Active Member Role/Relationship Status Dates Dr. Juan Diego King MD Primary Care Provider Active Team Status: Inactive Member Role/Relationship Status Dates Dr. Juan Diego King MD Primary Care Provider Active Start: December 15, 2024 End: December 15, 2024 Dr. Juan Diego King MD Attending Provider Active Start: December 15, 2024 End: December 15, 2024 Dr. Juan Diego King MD Referring Provider Active Start: December 15, 2024 End: December 15, 2024 Team Status: Inactive Member Role/Relationship Status Dates Dr. Juan Diego King MD Primary Care Provider Active Start: February 16, 2025 End: February 16, 2025 Dr. Juan Diego King MD Attending Provider Active Start: February 16, 2025 End: February 16, 2025 Dr. Juan Diego King MD Referring Provider Active Start: February 16, 2025 End: February 16, 2025 Team Status: Inactive Member Role/Relationship Status Dates Dr. Juan Diego King MD Primary Care Provider Active Start: March 24, 2025 End: March 24, 2025 Dr. Juan Diego King MD Attending Provider Active Start: March 24, 2025 End: March 24, 2025 Dr. Juan Diego King MD Referring Provider Active Start: March 24, 2025 End: March 24, 2025 FOR RECORDS PERTAINING TO PATIENTS WHO ARE OR HAVE BEEN ENROLLED IN A CHEMICAL DEPENDENCY/SUBSTANCEABUSE PROGRAM, SOME INFORMATION MAY BE OMITTED. This clinical summary was aggregated from multiple sources. Caution should be exercised in using it in the provision of clinical care. This summary normalizes information from multiple sources, and as a consequence, information in this document may materially change the coding, format and clinical context of patient data. In addition, data may be omitted in some cases. CLINICAL DECISIONS SHOULD BE BASED ON THE PRIMARY CLINICAL RECORDS. [facility] [employer] [facility]. provides no warranty or guarantee of the accuracy or completeness of information in this document.
[2025-08-19 20:49] LABS: Xtra Tube Kwok EXTRA TUBE
== END | disposition home or self-care (01) ==
LOC: LAB 12:47
PROVIDERS: PCP Family Medicine Geriatric Medicine; Referring Provider Family Medicine Geriatric Medicine; Visit Provider Family Medicine Geriatric Medicine
DX: E11.65 Type 2 diabetes mellitus with hyperglycemia (principal); I10 Essential (primary) hypertension; E78.5 Hyperlipidemia, unspecified; E03.9 Hypothyroidism, unspecified
CPT/HCPCS: 36415; 80053; 80061; 83036; 84443; 85025

== ENCOUNTER → 2025-08-21 | Outpatient (CLI) | payer MEDICARE, SELFPAY ==
--- OUTSIDE RECORDS SUMMARY | 2025-08-21 08:08 | XMS RPT_ITS | CCD ---
Author Organization [facility] Care Team Providers Care Car Cooper Name Role Phone Dr. Juan Diego King Chi Primary Care Provider Inder, Dr. Ryan He Attending Provider Inder, Dr. Ryan eH Referring Provider Fernando SIDHU, Dr. Juan Diego Mckeon Primary Care Provider Fernando SIDHU, Dr. Juan Diego Mckeon Attending Provider [phone] Fernando SIDHU, Dr. Juan Diego Mckeon Referring Provider Fernando SIDHU, Dr. Juan Diego Mckeon Primary Care Provider [phone] Fernando SIDHU, Dr. Juan Diego Mckeon Attending [...] take 12.5 mg by mouth at bedti wy Metoprolol Succinate Active 12.5 MG PO AT [...] Auto (Unsp spec) [#/Vol] 1.88 10*3/uL 0.83-4.51 Absolute neutrophil countOrd ered By: Juan Diego King on 03-24-2025 Neutrophils (Bld) [#/Vol] 3.4 10*3/uL 2.0-7.7 Anion gap in Serum or Plasma Ordered By: Juan Diego King on 03-24-2025 Anion gap [Moles/Vol] 11 mmol/L 5-15 [facility] Automated lymphocyte count a s percentage of total leukocytesOrdered By: Juan Diego King on 03-24-2025 Lymphocytes/100 WBC Auto (Unsp spec) 30.7 % -41 BUN/creatinine ratioOrdered By: Juan Diego King on 03-24-2025 Urea nitrogen/Creatinine [Mass ratio] 18.0 mg/mg 10-20 Basophil percentageOrdered B y: Juan Diego King on 03-24-2025 Basophils/100 WBC (Bld) 0.5 % 0-1 [facility] Bilirubin, totalOrdered By: Juan Diego King on 03-24-2025 Bilirubin [Mass/Vol] 0.48 mg/dL 0.00-1.30 [facility] CBC W/Diff, Automatedon 06-2 -2024 Absolute Lymph 1.88 X10 3/uL Normal 0.83-4.51 Comment on above: Performed By: #### L 500.4050, L100.0100, L501.9985, L506.1000, L501.9520, L500.4100 #### Laboratory [address] [place] [place], [address] Absolute Neut 3.4 X10 3/uL Normal 2.0-7.7 Comment on above: Performed By: #### L 500.4050, L100.0100, L501.9985, L506.1000, L501.9520, L500.4100 #### Laboratory [address] [place] [place], [address] Basophils/100 WBC (Bld) 0.5 % Normal 0-1 [facility] Comment on above: Performed By: #### L 500.4050, L100.0100, L501.9985, L506.1000, L501.9520, L500.4100 #### Laboratory [address] [place] [place], [address] Eosinophils/100 WBC (Bld) 2.9 % Normal 0-5 Comment on above: Performed By: #### L 500.4050, L100.0100, L501.9985, L506.1000, L501.9520, L500.4100 #### Laboratory [address] [place] [place], [address] Erythrocyte distribution width (RBC) [Ratio] 14.0 % Normal 11.6-14.6 Comment on above: Performed By: #### L 500.4050, L100.0100, L501.9985, L506.1000, L501.9520, L500.4100 #### Laboratory [address] [place], [address] Hematocrit (Bld) [Volume fraction] 43.0 % Normal 37-47 Comment on above: Performed By: #### L 500.4050, L100.0100, L501.9985, L506.1000, L501.9520, L500.4100 #### Laboratory [address] [place], [address] Hemoglobin (Bld) [Mass/Vol] 14.4 g/dL Normal 12.0-15.0 Comment on above: Performed By: #### L 500.4050, L100.0100, L501.9985, L506.1000, L501.9520, L500.4100 #### Laboratory [address] [place] [place], [address] IG% 0.500 Normal 0.0-0.9 Comment on above: Result Comment: IG% - Immature Granulocytes (promyelocytes, myelocytes and metamyelocytes) > 1% indicates that a LEFT SHIFT is Present. Performed By: #### L 500.4050, L100.0100, L501.9985, L506.1000, L501.9520, L500.4100 #### Laboratory [address] [place], [address] Lymphocytes/100 WBC (Bld) 30.7 % Normal 19-41 Comment on above: Performed By: #### L 500.4050, L100.0100, L501.9985, L506.1000, L501.9520, L500.4100 #### Laboratory [address] [place], [address] MCH (RBC) [Entitic mass] 30.6 pg Normal 27.0-32.0 Comment on above: Performed By: #### L 500.4050, L100.0100, L501.9985, L506.1000, L501.9520, L500.4100 #### Laboratory [address] [place] [place], [address] MCHC (RBC) [Mass/Vol] 33.5 g/dL Normal 32-36 [facility] Comment on above: Performed By: #### L 500.4050, L100.0100, L501.9985, L506.1000, L501.9520, L500.4100 #### Laboratory [address] [place], [address] MCV (RBC) [Entitic vol] 91.3 fL Normal 81-99 [facility] Comment on above: Performed By: #### L 500.4050, L100.0100, L501.9985, L506.1000, L501.9520, L500.4100 #### Laboratory [address] [place], [address] Monocytes/100 WBC (Bld) 9.3 % Normal 0-10 [facility] Comment on above: Performed By: #### L 500.4050, L100.0100, L501.9985, L506.1000, L501.9520, L500.4100 #### Laboratory [address] [place], [address] Neutrophils/100 WBC (Bld) 56.1 % Normal 47-70 Comment on above: Performed By: #### L 500.4050, L100.0100, L501.9985, L506.1000, L501.9520, L500.4100 #### Laboratory [address] [place], [address] Nucleated RBC (Bld) [#/Vol] 0 10*3/uL Normal 0-5 Comment on above: Performed By: #### L 500.4050, L100.0100, L501.9985, L506.1000, L501.9520, L500.4100 #### Laboratory [address] [place], [address] Platelet mean volume (Bld) [Entitic vol] 9.2 fL Normal 6.2-12.0 Comment on above: Performed By: #### L 500.4050, L100.0100, L501.9985, L506.1000, L501.9520, L500.4100 #### Laboratory [address] [place], [address] Platelets (Bld) [#/Vol] 215 10*3/uL Normal 150-450 Comment on above: Performed By: #### L 500.4050, L100.0100, L501.9985, L506.1000, L501.9520, L500.4100 #### Laboratory [address] [place], [address] RBC (Bld) [#/Vol] 4.71 10*6/uL Normal 4.2-5.4 [facility] Comment on above: Performed By: #### L 500.4050, L100.0100, L501.9985, L506.1000, L501.9520, L500.4100 #### Laboratory [address] [place], [address] RDW SD 47.7 fl High 35.1-43.9 Comment on above: Performed By: #### L 500.4050, L100.0100, L501.9985, L506.1000, L501.9520, L500.4100 #### Laboratory [address] [place], [address] WBC (Bld) [#/Vol] 6.1 10*3/uL Normal 4.4-11.0 [facility] Comment on above: Performed By: #### L 500.4050, L100.0100, L501.9985, L506.1000, L501.9520, L500.4100 #### Laboratory [address] [place], [address] Calculated very low density lipoprotein (VLDL) cholesterol measurementOrdered By: Juan Diego King on 03-24-2025 Calculated very low density lipoprotein (VLDL) cholesterol measurement 52 mg/dL High 5-40 Carbon dioxide, total [Moles /volume] in Central venous bloodOrdered By: Juan Diego King on 03-24-2025 CO2 [Moles/Vol] 24.7 mmol/L 21.0-32.0 Chloride assayOrdered By: Radu King on 03-24-2025 Chloride [Moles/Vol] 100 mmol/L 98-108 [facility] Comprehensive Metabolic Prof ilon 03-24-2025 Albumin [Mass/Vol] 4.0 g/dL Normal 3.4-4.8 [facility] Comment on above: Performed By: #### L 500.4050, L100.0100, L501.9985, L506.1000, L501.9520, L500.4100 #### Laboratory [address] [place], [address] Albumin/Globulin [Mass ratio] 1.5 {ratio} Normal 0.9-2.4 Comment on above: Performed By: #### L 500.4050, L100.0100, L501.9985, L506.1000, L501.9520, L500.4100 #### Laboratory [address] [place], [address] ALK PHOS 111 U/L High 35-104 Comment on above: Performed By: #### L 500.4050, L100.0100, L501.9985, L506.1000, L501.9520, L500.4100 #### Laboratory [address] [place], [address] ALT [Catalytic activity/Vol] 18 U/L Normal <=34 Comment on above: Performed By: #### L 500.4050, L100.0100, L501.9985, L506.1000, L501.9520, L500.4100 #### Laboratory [address] [place], [address] AST [Catalytic activity/Vol] 19 U/L Normal <=31 Comment on above: Performed By: #### L 500.4050, L100.0100, L501.9985, L506.1000, L501.9520, L500.4100 #### Laboratory [address] [place], [address] Bilirubin [Mass/Vol] 0.48 mg/dL Normal 0.00-1.30 [facility] Comment on above: Performed By: #### L 500.4050, L100.0100, L501.9985, L506.1000, L501.9520, L500.4100 #### Laboratory [address] [place], [address] BUN/CRE 18.0 RATIO Normal 10-20 Comment on above: Performed By: #### L 500.4050, L100.0100, L501.9985, L506.1000, L501.9520, L500.4100 #### Laboratory [address] [place], [address] Calcium [Mass/Vol] 9.4 mg/dL Normal 7.6-11.0 [facility] Comment on above: Performed By: #### L 500.4050, L100.0100, L501.9985, L506.1000, L501.9520, L500.4100 #### Laboratory [address] [place], [address] Chloride [Moles/Vol] 100 mmol/L Normal 98-108 [facility] Comment on above: Performed By: #### L 500.4050, L100.0100, L501.9985, L506.1000, L501.9520, L500.4100 #### Laboratory [address] [place], [address] CO2 [Moles/Vol] 24.7 mmol/L Normal 21.0-32.0 Comment on above: Performed By: #### L 500.4050, L100.0100, L501.9985, L506.1000, L501.9520, L500.4100 #### Laboratory [address] [place], [address] Creatinine [Mass/Vol] 1.12 mg/dL Normal 0.70-1.20 [facility] Comment on above: Performed By: #### L 500.4050, L100.0100, L501.9985, L506.1000, L501.9520, L500.4100 #### Laboratory [address] [place] [place], [address] GAP 11 Normal 5-15 Comment on above: Performed By: #### L 500.4050, L100.0100, L501.9985, L506.1000, L501.9520, L500.4100 #### Laboratory [address] [place], [address] GFR/1.73 sq M.predicted among non-blacks MDRD (S/P/Bld) [Vol rate/Area] 52 mL/min/{1.73_m2} Low >60 Comment on above: Result Comment: mL/m in/1.73m2 CKD-EPI Creatinine Equation (2020) Performed By: #### L 500.4050, L100.0100, L501.9985, L506.1000, L501.9520, L500.4100 #### Laboratory [address] [place], [address] Globulin (S) [Mass/Vol] 2.7 g/dL Normal 2.2-4.2 [facility] Comment on above: Performed By: #### L 500.4050, L100.0100, L501.9985, L506.1000, L501.9520, L500.4100 #### Laboratory [address] [place], [address] Glucose [Mass/Vol] 163 mg/dL High 70-99 [facility] Comment on above: Performed By: #### L 500.4050, L100.0100, L501.9985, L506.1000, L501.9520, L500.4100 #### Laboratory [address] [place], [address] Potassium [Moles/Vol] 4.3 mmol/L Normal 3.3-5.1 [facility] Comment on above: Performed By: #### L 500.4050, L100.0100, L501.9985, L506.1000, L501.9520, L500.4100 #### Laboratory [address] [place], [address] Sodium [Moles/Vol] 136 mmol/L Normal 133-145 [facility] Comment on above: Performed By: #### L 500.4050, L100.0100, L501.9985, L506.1000, L501.9520, L500.4100 #### Laboratory [address] [place], [address] T PROT 6.7 g/dL Normal 5.9-8.4 Comment on above: Performed By: #### L 500.4050, L100.0100, L501.9985, L506.1000, L501.9520, L500.4100 #### Laboratory [address] [place], [address] Urea nitrogen [Mass/Vol] 20 mg/dL High 4-19 Comment on above: Performed By: #### L 500.4050, L100.0100, L501.9985, L506.1000, L501.9520, L500.4100 #### Laboratory [address] [place], [address] Eosinophil percentageOrdered By: Juan Diego King on 03-24-2025 Eosinophils/100 WBC (Bld) 2.9 % 0-5 Erythrocyte distribution wid th ratioOrdered By: [facility] on 03-24-2025 Erythrocyte distribution width (RBC) [Ratio] 14.0 % 11.6-14.6 Erythrocyte distribution wid th standard deviationOrdered By: [facility] Erythrocyte distribution width (RBC) [Ratio] 47.7 fl High 35.1-43.9 Glomerular filtration rate ( GFR) estimation/1.73 sq m using serum, plasma, or whole bOrdered By: [facility] on 03-24-2025 GFR/1.73 sq M.predicted among non-blacks MDRD (S/P/Bld) [Vol rate/Area] 52 mL/min/{1.73_m2} Low >60 Comment on above: mL/min/1.73m2 CKD-EP I Creatinine Equation (2020) Hematocrit Auto (Bld) [Volum e fraction]Ordered By: Juan Diego Fernando on 03-24-2025 Hematocrit (Bld) [Volume fraction] 43.0 % 37-47 Hemoglobin A1con 03-24-2025 HbA1c (Bld) [Mass fraction] 6.4 % High <=5.6 Comment on above: Result Comment: Norm al < 5.7 % Prediabetic 5.7 - 6.4 % Diabetic >or= 6.5 % Please note range changes. Performed By: #### L 500.4050, L100.0100, L501.9985, L506.1000, L501.9520, L500.4100 #### Laboratory [address] [place], [address] Hemoglobin A1c percentageOrd ered By: Juan Diego King on 03-24-2025 HbA1c (Bld) [Mass fraction] 6.4 % High <5.7 Comment on above: Normal < 5.7 % Predi abetic 5.7 - 6.4 % Diabetic >or= 6.5 % Please note range changes. Hemoglobin measurementOrdere d By: Juan Diego Lyok on 03-24-2025 Hemoglobin (Bld) [Mass/Vol] 14.4 g/dL 12.0-15.0 Immature granulocytes/100 WB C Auto (Bld)Ordered By: Juan Diego King on 03-24-2025 Immature granulocytes/100 WBC (Bld) 0.500 % 0.0-0.9 Comment on above: IG% - Immature Granu locytes (promyelocytes, myelocytes and metamyelocytes) > 1% indicates that a LEFT SHIFT is Present. LDL calc ser/plasOrdered By: Juan Diego Fernando on 03-24-2025 Cholesterol in LDL [Mass/Vol] 91 mg/dL Comment on above: Wpzaumdgkd=120-220 m g/dL & Higher Swem=198 mg/dL or greater Laboratory - Chemistry and C hemistry - challengeOrdered By: Juan Diego Fernando on 03-24-2025 AST [Catalytic activity/Vol] 19 U/L <32 Lipid Profileon 03-24-2025 CHOL:HDL 3.48 Normal Comment on above: Performed By: #### L 500.4050, L100.0100, L501.9985, L506.1000, L501.9520, L500.4100 #### Laboratory [address] [place], [address] Cholesterol [Mass/Vol] 200 mg/dL Normal <=200 [facility] Comment on above: Result Comment: Chol esterol level, Desirable <200 mg/dL Borderline high cholesterol 200-239 mg/dL High cholesterol >=240 mg/dL Recommendations of the NCEP Adult Treatment Panel for the following risk-cutoff thresholds for the [place] population. Performed By: #### L 500.4050, L100.0100, L501.9985, L506.1000, L501.9520, L500.4100 #### Laboratory [address] [place], [address] Cholesterol in HDL [Mass/Vol] 58 mg/dL Normal Comment on above: Result Comment: Pamela onal Cholesterol Education Program (NCEP) guidelines: <40 mg/dL: Low HDL-cholesterol (major risk factor for CHD) >= 60 mg/dL: High HDL-cholesterol (negative risk factor for CHD) HDL-cholesterol is affected by a number of factors, e.g. smoking, exercise, hormones, sex and age. Performed By: #### L 500.4050, L100.0100, L501.9985, L506.1000, L501.9520, L500.4100 #### Laboratory [address] [place], [address] Cholesterol in LDL [Mass/Vol] 91 mg/dL Normal Comment on above: Result Comment: Bord gynfey=970-468 mg/dL Higher Vdgq=441 mg/dL or greater Performed By: #### L 500.4050, L100.0100, L501.9985, L506.1000, L501.9520, L500.4100 #### Laboratory [address] [place], [address] Cholesterol in VLDL [Mass/Vol] 52 mg/dL High 5-40 Comment on above: Performed By: #### L 500.4050, L100.0100, L501.9985, L506.1000, L501.9520, L500.4100 #### Laboratory [address] [place], [address] Triglyceride [Mass/Vol] 260 mg/dL High [facility] Comment on above: Result Comment: The drugs N-Acetylcysteine and Metamizole may falsely depress this assay. Normal range: <150 mg/dL Borderline High: 150-199 mg/dL High: 200-499 mg/dL Very High: >500 mg/dL Performed By: #### L 500.4050, L100.0100, L501.9985, L506.1000, L501.9520, L500.4100 #### Laboratory [address] [facility] [place], [place], [id number] MCV (mean corpuscular volume ) determinationOrdered By: Juan Diego King on 03-24-2025 MCV (RBC) [Entitic vol] 91.3 fL 81-99 [facility] Mean corpuscular hemoglobin (MCH) determinationOrdered By: Juan Diego King on 03-24-2025 MCH (RBC) [Entitic mass] 30.6 pg 27.0-32.0 Mean corpuscular hemoglobin concentration (MCHC) determinationOrdered By: Juan Diego King on 03-24-2025 MCHC (RBC) [Mass/Vol] 33.5 g/dL 32-36 [facility] Mean platelet volume determi nationOrdered By: Juan Diego King on 03-24-2025 Platelet mean volume (Bld) [Entitic vol] 9.2 fL 6.2-12.0 Microalb:Creat Ratio,Random URon 03-24-2025 MALB:CREAT UNABLE TO CALCULATE Normal [facility] Comment on above: Performed By: #### L 500.4050, L100.0100, L501.9985, L506.1000, L501.9520, L500.4100 #### Laboratory [address] [place], [place], [id number] MICROALBUMIN,UR < 12.0 Normal NO RANGE EST. Comment on above: Performed By: #### L 500.4050, L100.0100, L501.9985, L506.1000, L501.9520, L500.4100 #### Laboratory [address] [facility] [place], [place], [id number] Microalbumin/creat ratio urO rdered By: Juan Diego King on 03-24-2025 Urine microalbumin/creatinine ratio measurement UNABLE TO CALCULATE mg/g CRE Monocyte percentageOrdered B y: Juan Diego King on 03-24-2025 Monocytes/100 WBC (Bld) 9.3 % 0-10 [facility] Neutrophil percentageOrdered By: Juan Diego King on 03-24-2025 Neutrophils/100 WBC (Bld) 56.1 % 47-70 Nucleated red blood cell per centageOrdered By: Juan Diego King on 03-24-2025 Nucleated RBC/100 WBC (Bld) [Ratio] 0 % 0-5 Platelet countOrdered By: Radu King on 03-24-2025 Platelets (Bld) [#/Vol] 215 10*3/uL 150-450 Potassium measurement (mass/ volume)Ordered By: Juan Diego King on 03-24-2025 Potassium (Unsp spec) [Mass/Vol] 4.3 mmol/L 3.3-5.1 RBC Auto (Bld) [#/Vol]Ordere d By: Juan Diego King on 03-24-2025 RBC (Bld) [#/Vol] 4.71 10*6/uL 4.2-5.4 [facility] Random urine creatinine fuad urement (mass/volume)Ordered By: Juan Diego King on 03-24-2025 Creatinine Unsp time (U) [Mass/Vol] 63.20 mg/dL 28.00-217.00 Screening total cholesterol/ high density lipoprotein (HDL) cholesterol ratioOrdered By: Juan Diego King on 03-24-2025 Cholesterol.total/Choles terol in HDL [Mass ratio] 3.48 {ratio} Serum creatinine measurement (mass/volume)Ordered By: Juan Diego King on 03-24-2025 Creatinine [Mass/Vol] 1.12 mg/dL 0.70-1.20 [facility] Serum globulin measurementOr dered By: Juan Diego King on 03-24-2025 Globulin (S) [Mass/Vol] 2.7 g/dL 2.2-4.2 [facility] Serum glucose measurement (m ass/volume)Ordered By: Juan Diego King on 03-24-2025 Glucose [Mass/Vol] 163 mg/dL High 70-99 [facility] Serum or plasma alanine saldana otransferase (ALT) measurementOrdered By: Juan Diego Fernando 03-24-2025 ALT [Catalytic activity/Vol] 18 U/L <35 Serum or plasma albumin fuad urement (mass/volume)Ordered By: Juan Diego Fernando 03-24-2025 Albumin [Mass/Vol] 4.0 g/dL 3.4-4.8 [facility] Serum or plasma albumin/glob ulin mass ratioOrdered By: Juan Diego Fernando03-24-2025 Albumin/Globulin [Mass ratio] 1.5 {ratio} 0.9-2.4 Serum or plasma alkaline chalino sphatase measurementOrdered By: Juan Diego Fernando 03-24-2025 ALP [Catalytic activity/Vol] 111 U/L High 35-104 Serum or plasma calcium fuad urement (mass/volume)Ordered By: Juan Diego Fernando 03-24-2025 Calcium [Mass/Vol] 9.4 mg/dL 7.6-11.0 [facility] Serum or plasma cholesterol in HDL measurement (mass/volume)Ordered By: Juan Diego Fernando 03-24-2025 Cholesterol in HDL [Mass/Vol] 58 mg/dL >40 Comment on above: National Cholesterol Education Program (NCEP) guidelines:<40 mg/dL: Low HDL-cholesterol (major risk factor for CHD)>= 60 mg/dL: High HDL-cholesterol (negative risk factor for CHD)HDL-cholesterol is affected by a number of factors, e.g. smoking, exercise, hormones, sex and age. Serum or plasma cholesterol measurement (mass/volume)Ordered By: Juan Diego King 03-24-2025 Cholesterol [Mass/Vol] 200 mg/dL <201 [facility] Comment on above: Cholesterol level, D esirable <200 mg/dLBorderline high cholesterol 200-239 mg/dLHigh cholesterol >=240 mg/dLRecommendations of the NCEP Adult Treatment Panel for the following risk-cutoff thresholds for the [place] population. Serum or plasma urea nitroge n measurement (mass/volume)Ordered By: Juan Diego King 03-24-2025 Urea nitrogen [Mass/Vol] 20 mg/dL High 4-19 Sodium levelOrdered By: Juan Diego King 5 Sodium [Moles/Vol] 136 mmol/L 133-145 [facility] TSH DL <= 0.005 mIU/L QnOrde red By: Juan Diego King on 03-24-2025 TSH Qn 1.420 uIU/mL 0.300-4.200 Thyroid Stim Hormone (TSH)on 03-24-2025 TSH 1.420 uIU/mL Normal 0.300-4.200 Comment on above: Performed By: #### L 500.4050, L100.0100, L501.9985, L506.1000, L501.9520, L500.4100 #### Laboratory [address] [place], [place], [id number] Total proteinOrdered By: Juan Diego King on 03-24-2025 Protein [Mass/Vol] 6.7 g/dL 5.9-8.4 [facility] Triglycerides measurementOrd ered By: Juan Diego King on 03-24-2025 Triglyceride [Mass/Vol] 260 mg/dL High <199 [facility] Comment on above: The drugs N-Acetylcy steine and Metamizole may falsely depress this assay. Normal range: <150 mg/dLBorderline High: 150-199 mg/dLHigh: 200-499 mg/dLVery High: >500 mg/dL Urine albumin measurement [facility] detection limit of 20 mg/L or less (mass/volume)Ordered By: Juan Diego King on 03-24-2025 Albumin DL <= 20 mg/L (U) [Mass/Vol] < 12.0 mg/L NO RANGE EST. White blood cell (WBC) count Ordered By: Juan Diego King on 03-24-2025 WBC (Bld) [#/Vol] 6.1 10*3/uL 4.4-11.0 [facility] Absolute lymphocyte countOrd ered By: Juan Diego King on 02-16-2025 Lymphocytes Auto (Unsp spec) [#/Vol] 1.48 10*3/uL 0.83-4.51 Absolute neutrophil countOrd ered By: Juan Diego King on 05-20-2025 Neutrophils (Bld) [#/Vol] 3.1 10*3/uL 2.0-7.7 Anion gap in Serum or Plasma Ordered By: Juan Diego King on 02-16-2025 Anion gap [Moles/Vol] 11 mmol/L 02-11 [facility] Automated lymphocyte count a s percentage of total leukocytesOrdered By: Juan Diego King on 02-16-2025 Lymphocytes/100 WBC Auto (Unsp spec) 29.2 % BUN/creatinine ratioOrdered By: Juan Diego King on 02-16-2025 Urea nitrogen/Creatinine [Mass ratio] 15.9 mg/mg 07-19 Basophil percentageOrdered B y: Juan Diego King on 02-16-2025 Basophils/100 WBC (Bld) 0.6 % 0-1 [facility] Bilirubin, totalOrdered By: Juan Diego King on 02-16-2025 Bilirubin [Mass/Vol] 0.45 mg/dL 0.00-1.30 [facility] CBC W/Diff, Automatedon 01-29 Absolute Lymph 1.48 X10 3/uL Normal 0.83-4.51 Comment on above: Performed By: #### L 500.4050, L100.0100, L501.9985, L506.1000, L501.9520, L500.4100 #### Laboratory [address] [place], [address] Absolute Neut 3.1 X10 3/uL Normal 2.0-7.7 Comment on above: Performed By: #### L 500.4050, L100.0100, L501.9985, L506.1000, L501.9520, L500.4100 #### Laboratory [address] [place], [address] Basophils/100 WBC (Bld) 0.6 % Normal 0-1 [facility] Comment on above: Performed By: #### L 500.4050, L100.0100, L501.9985, L506.1000, L501.9520, L500.4100 #### Laboratory [address] [place], [address] Eosinophils/100 WBC (Bld) 2.2 % Normal 0-5 Comment on above: Performed By: #### L 500.4050, L100.0100, L501.9985, L506.1000, L501.9520, L500.4100 #### Laboratory [address] [place], [address] Erythrocyte distribution width (RBC) [Ratio] 13.9 % Normal 11.6-14.6 Comment on above: Performed By: #### L 500.4050, L100.0100, L501.9985, L506.1000, L501.9520, L500.4100 #### Laboratory [address] [place], [address] Hematocrit (Bld) [Volume fraction] 44.3 % Normal 37-47 Comment on above: Performed By: #### L 500.4050, L100.0100, L501.9985, L506.1000, L501.9520, L500.4100 #### Laboratory [address] [place] [place], [address] Hemoglobin (Bld) [Mass/Vol] 14.2 g/dL Normal 12.0-15.0 Comment on above: Performed By: #### L 500.4050, L100.0100, L501.9985, L506.1000, L501.9520, L500.4100 #### Laboratory [address] [place], [address] IG% 0.200 Normal 0.0-0.9 Comment on above: Result Comment: IG% - Immature Granulocytes (promyelocytes, myelocytes and metamyelocytes) > 1% indicates that a LEFT SHIFT is Present. Performed By: #### L 500.4050, L100.0100, L501.9985, L506.1000, L501.9520, L500.4100 #### Laboratory [address] [place] [place], [address] Lymphocytes/100 WBC (Bld) 29.2 % Normal 19-41 Comment on above: Performed By: #### L 500.4050, L100.0100, L501.9985, L506.1000, L501.9520, L500.4100 #### Laboratory [address] [place], [address] MCH (RBC) [Entitic mass] 29.9 pg Normal 27.0-32.0 Comment on above: Performed By: #### L 500.4050, L100.0100, L501.9985, L506.1000, L501.9520, L500.4100 #### Laboratory [address] [place], [address] MCHC (RBC) [Mass/Vol] 32.1 g/dL Normal 32-36 [facility] Comment on above: Performed By: #### L 500.4050, L100.0100, L501.9985, L506.1000, L501.9520, L500.4100 #### Laboratory [address] [place], [address] MCV (RBC) [Entitic vol] 93.3 fL Normal 81-99 [facility] Comment on above: Performed By: #### L 500.4050, L100.0100, L501.9985, L506.1000, L501.9520, L500.4100 #### Laboratory [address] [place], [address] Monocytes/100 WBC (Bld) 6.7 % Normal 0-10 [facility] Comment on above: Performed By: #### L 500.4050, L100.0100, L501.9985, L506.1000, L501.9520, L500.4100 #### Laboratory [address] [place], [address] Neutrophils/100 WBC (Bld) 61.1 % Normal 47-70 Comment on above: Performed By: #### L 500.4050, L100.0100, L501.9985, L506.1000, L501.9520, L500.4100 #### Laboratory [address] [place], [address] Nucleated RBC (Bld) [#/Vol] 0 10*3/uL Normal 0-5 Comment on above: Performed By: #### L 500.4050, L100.0100, L501.9985, L506.1000, L501.9520, L500.4100 #### Laboratory [address] [place], [address] Platelet mean volume (Bld) [Entitic vol] 9.2 fL Normal 6.2-12.0 Comment on above: Performed By: #### L 500.4050, L100.0100, L501.9985, L506.1000, L501.9520, L500.4100 #### Laboratory [address] [place], [address] Platelets (Bld) [#/Vol] 221 10*3/uL Normal 150-450 Comment on above: Performed By: #### L 500.4050, L100.0100, L501.9985, L506.1000, L501.9520, L500.4100 #### Laboratory [address] [place], [address] RBC (Bld) [#/Vol] 4.75 10*6/uL Normal 4.2-5.4 [facility] Comment on above: Performed By: #### L 500.4050, L100.0100, L501.9985, L506.1000, L501.9520, L500.4100 #### Laboratory [address] [place], [address] RDW SD 47.2 fl High 35.1-43.9 Comment on above: Performed By: #### L 500.4050, L100.0100, L501.9985, L506.1000, L501.9520, L500.4100 #### Laboratory [address] [place], [address] WBC (Bld) [#/Vol] 5.1 10*3/uL Normal 4.4-11.0 [facility] Comment on above: Performed By: #### L 500.4050, L100.0100, L501.9985, L506.1000, L501.9520, L500.4100 #### Laboratory [address] [facility] [place], [address] Calculated very low density lipoprotein (VLDL) cholesterol measurementOrdered By: Juan Diego King on 02-16-2025 Calculated very low density lipoprotein (VLDL) cholesterol measurement 34 mg/dL 5-40 Carbon dioxide, total [Moles /volume] in Central venous bloodOrdered By: Juan Diego King on 02-16-2025 CO2 [Moles/Vol] 25.6 mmol/L 21.0-32.0 Chloride assayOrdered By: Radu King on 02-16-2025 Chloride [Moles/Vol] 101 mmol/L 98-108 [facility] Comprehensive Metabolic Prof ilon 02-16-2025 Albumin [Mass/Vol] 4.1 g/dL Normal 3.4-4.8 [facility] Comment on above: Performed By: #### L 500.4050, L100.0100, L501.9985, L506.1000, L501.9520, L500.4100 #### Laboratory [address] [place], [address] Albumin/Globulin [Mass ratio] 1.4 {ratio} Normal 0.9-2.4 Comment on above: Performed By: #### L 500.4050, L100.0100, L501.9985, L506.1000, L501.9520, L500.4100 #### Laboratory [address] [place], [address] ALK PHOS 94 U/L Normal 35-104 Comment on above: Performed By: #### L 500.4050, L100.0100, L501.9985, L506.1000, L501.9520, L500.4100 #### Laboratory [address] [place], [address] ALT [Catalytic activity/Vol] 19 U/L Normal <=34 Comment on above: Performed By: #### L 500.4050, L100.0100, L501.9985, L506.1000, L501.9520, L500.4100 #### Laboratory [address] [place], [address] AST [Catalytic activity/Vol] 25 U/L Normal <=31 Comment on above: Performed By: #### L 500.4050, L100.0100, L501.9985, L506.1000, L501.9520, L500.4100 #### Laboratory [address] [place], [address] Bilirubin [Mass/Vol] 0.45 mg/dL Normal 0.00-1.30 [facility] Comment on above: Performed By: #### L 500.4050, L100.0100, L501.9985, L506.1000, L501.9520, L500.4100 #### Laboratory [address] [place], [address] BUN/CRE 15.9 RATIO Normal 10-20 Comment on above: Performed By: #### L 500.4050, L100.0100, L501.9985, L506.1000, L501.9520, L500.4100 #### Laboratory [address] [place], [address] Calcium [Mass/Vol] 9.6 mg/dL Normal 7.6-11.0 [facility] Comment on above: Performed By: #### L 500.4050, L100.0100, L501.9985, L506.1000, L501.9520, L500.4100 #### Laboratory [address] [place], [address] Chloride [Moles/Vol] 101 mmol/L Normal 98-108 [facility] Comment on above: Performed By: #### L 500.4050, L100.0100, L501.9985, L506.1000, L501.9520, L500.4100 #### Laboratory [address] [place], [address] CO2 [Moles/Vol] 25.6 mmol/L Normal 21.0-32.0 Comment on above: Performed By: #### L 500.4050, L100.0100, L501.9985, L506.1000, L501.9520, L500.4100 #### Laboratory [address] [place], [address] Creatinine [Mass/Vol] 1.14 mg/dL Normal 0.70-1.20 [facility] Comment on above: Performed By: #### L 500.4050, L100.0100, L501.9985, L506.1000, L501.9520, L500.4100 #### Laboratory [address] [place], [address] GAP 11 Normal 5-15 Comment on above: Performed By: #### L 500.4050, L100.0100, L501.9985, L506.1000, L501.9520, L500.4100 #### Laboratory [address] [place], [address] GFR/1.73 sq M.predicted among non-blacks MDRD (S/P/Bld) [Vol rate/Area] 51 mL/min/{1.73_m2} Low >60 Comment on above: Result Comment: mL/m in/1.73m2 CKD-EPI Creatinine Equation (2020) Performed By: #### L 500.4050, L100.0100, L501.9985, L506.1000, L501.9520, L500.4100 #### Laboratory [address] [place], [address] Globulin (S) [Mass/Vol] 2.9 g/dL Normal 2.2-4.2 [facility] Comment on above: Performed By: #### L 500.4050, L100.0100, L501.9985, L506.1000, L501.9520, L500.4100 #### Laboratory [address] [place], [address] Glucose [Mass/Vol] 156 mg/dL High 70-99 [facility] Comment on above: Performed By: #### L 500.4050, L100.0100, L501.9985, L506.1000, L501.9520, L500.4100 #### Laboratory [address] [place], [address] Potassium [Moles/Vol] 4.3 mmol/L Normal 3.3-5.1 [facility] Comment on above: Performed By: #### L 500.4050, L100.0100, L501.9985, L506.1000, L501.9520, L500.4100 #### Laboratory [address] [place], [address] Sodium [Moles/Vol] 138 mmol/L Normal 133-145 [facility] Comment on above: Performed By: #### L 500.4050, L100.0100, L501.9985, L506.1000, L501.9520, L500.4100 #### Laboratory [address] [place], [place], [id number] (217) T PROT 6.9 g/dL Normal 5.9-8.4 Comment on above: Performed By: #### L 500.4050, L100.0100, L501.9985, L506.1000, L501.9520, L500.4100 #### Laboratory [address] [place], [address] Urea nitrogen [Mass/Vol] 18 mg/dL Normal 4-19 Comment on above: Performed By: #### L 500.4050, L100.0100, L501.9985, L506.1000, L501.9520, L500.4100 #### Laboratory [address] [place], [place], [id number] (280) Eosinophil percentageOrdered By: Juan Diego King on 02-16-2025 Eosinophils/100 WBC (Bld) 2.2 % 0-5 Erythrocyte distribution wid th ratioOrdered By: Juan Diego King on 02-16-2025 Erythrocyte distribution width (RBC) [Ratio] 13.9 % 11.6-14.6 Erythrocyte distribution wid th standard deviationOrdered By: Juan Diego King on 02-16-2025 Erythrocyte distribution width (RBC) [Ratio] 47.2 fl High 35.1-43.9 Glomerular filtration rate ( GFR) estimation/1.73 sq m using serum, plasma, or whole bOrdered By: Juan Diego King on 02-16-2025 GFR/1.73 sq M.predicted among non-blacks MDRD (S/P/Bld) [Vol rate/Area] 51 mL/min/{1.73_m2} Low >60 Comment on above: mL/min/1.73m2 CKD-EP I Creatinine Equation (2020) Hematocrit Auto (Bld) [Volum e fraction]Ordered By: Juan Diego King on 02-16-2025 Hematocrit (Bld) [Volume fraction] 44.3 % 37-47 Hemoglobin A1con 02-16-2025 HbA1c (Bld) [Mass fraction] 6.3 % High <=5.6 Comment on above: Result Comment: Norm al < 5.7 % Prediabetic 5.7 - 6.4 % Diabetic >or= 6.5 % Please note range changes. Performed By: #### L 500.4050, L100.0100, L501.9985, L506.1000, L501.9520, L500.4100 #### Laboratory [address] [place], [address] Hemoglobin A1c percentageOrd ered By: Juan Diego King on 02-16-2025 HbA1c (Bld) [Mass fraction] 6.3 % High <5.7 Comment on above: Normal < 5.7 % Predi abetic 5.7 - 6.4 % Diabetic >or= 6.5 % Please note range changes. Hemoglobin measurementOrdere d By: Juan Diego King on 02-16-2025 Hemoglobin (Bld) [Mass/Vol] 14.2 g/dL 12.0-15.0 Immature granulocytes/100 WB C Auto (Bld)Ordered By: Juan Diego King on 02-16-2025 Immature granulocytes/100 WBC (Bld) 0.200 % 0.0-0.9 Comment on above: IG% - Immature Granu locytes (promyelocytes, myelocytes and metamyelocytes) > 1% indicates that a LEFT SHIFT is Present. LDL calc ser/plasOrdered By: Juan Diego King on 02-16-2025 Cholesterol in LDL [Mass/Vol] 99 mg/dL Comment on above: Zujzhvllfw=770-342 m g/dL & Higher Puyt=271 mg/dL or greater Laboratory - Chemistry and C hemistry - challengeOrdered By: Juan Diego King on 02-16-2025 AST [Catalytic activity/Vol] 25 U/L <32 Lipid Profileon 02-16-2025 CHOL:HDL 3.43 Normal Comment on above: Performed By: #### L 500.4050, L100.0100, L501.9985, L506.1000, L501.9520, L500.4100 #### Laboratory [address] [place], [address] Cholesterol [Mass/Vol] 188 mg/dL Normal <=200 [facility] Comment on above: Result Comment: Chol esterol level, Desirable <200 mg/dL Borderline high cholesterol 200-239 mg/dL High cholesterol >=240 mg/dL Recommendations of the NCEP Adult Treatment Panel for the following risk-cutoff thresholds for the [place] population. Performed By: #### L 500.4050, L100.0100, L501.9985, L506.1000, L501.9520, L500.4100 #### Laboratory [address] [place], [address] Cholesterol in HDL [Mass/Vol] 55 mg/dL Normal Comment on above: Result Comment: Pamela onal Cholesterol Education Program (NCEP) guidelines: <40 mg/dL: Low HDL-cholesterol (major risk factor for CHD) >= 60 mg/dL: High HDL-cholesterol (negative risk factor for CHD) HDL-cholesterol is affected by a number of factors, e.g. smoking, exercise, hormones, sex and age. Performed By: #### L 500.4050, L100.0100, L501.9985, L506.1000, L501.9520, L500.4100 #### Laboratory [address] [place], [address] Cholesterol in LDL [Mass/Vol] 99 mg/dL Normal Comment on above: Result Comment: Bord utthmm=754-669 mg/dL Higher Qlmz=973 mg/dL or greater Performed By: #### L 500.4050, L100.0100, L501.9985, L506.1000, L501.9520, L500.4100 #### Laboratory [address] [place], [address] Cholesterol in VLDL [Mass/Vol] 34 mg/dL Normal 5-40 Comment on above: Performed By: #### L 500.4050, L100.0100, L501.9985, L506.1000, L501.9520, L500.4100 #### Laboratory [address] [place], [address] Triglyceride [Mass/Vol] 169 mg/dL Normal [facility] Comment on above: Result Comment: The drugs N-Acetylcysteine and Metamizole may falsely depress this assay. Normal range: <150 mg/dL Borderline High: 150-199 mg/dL High: 200-499 mg/dL Very High: >500 mg/dL Performed By: #### L 500.4050, L100.0100, L501.9985, L506.1000, L501.9520, L500.4100 #### Laboratory [address] [place], [address] MCV (mean corpuscular volume ) determinationOrdered By: Juan Diego King on 02-16-2025 MCV (RBC) [Entitic vol] 93.3 fL 81-99 [facility] Mean corpuscular hemoglobin (MCH) determinationOrdered By: Juan Diego King on 02-16-2025 MCH (RBC) [Entitic mass] 29.9 pg 27.0-32.0 Mean corpuscular hemoglobin concentration (MCHC) determinationOrdered By: Juan Diego King on 02-16-2025 MCHC (RBC) [Mass/Vol] 32.1 g/dL 32-36 [facility] Mean platelet volume determi nationOrdered By: Juan Diego King on 02-16-2025 Platelet mean volume (Bld) [Entitic vol] 9.2 fL 6.2-12.0 Microalb:Creat Ratio,Random URon 02-16-2025 MALB:CREAT Normal Comment on above: Result Comment: UTO Performed By: #### L 500.4050, L100.0100, L501.9985, L506.1000, L501.9520, L500.4100 #### Laboratory [address] [place], [address] MICROALBUMIN,UR Normal NO RANGE EST. Comment on above: Result Comment: UTO Performed By: #### L 500.4050, L100.0100, L501.9985, L506.1000, L501.9520, L500.4100 #### Laboratory [address] [place], [address] UR CREAT Normal 28.00-217.00 Comment on above: Result Comment: UTO Performed By: #### L 500.4050, L100.0100, L501.9985, L506.1000, L501.9520, L500.4100 #### Laboratory [address] [place], [address] Monocyte percentageOrdered B y: Juan Diego King on 02-16-2025 Monocytes/100 WBC (Bld) 6.7 % 0-10 [facility] Neutrophil percentageOrdered By: Juan Diego King on 02-16-2025 Neutrophils/100 WBC (Bld) 61.1 % 47-70 Nucleated red blood cell per centageOrdered By: Juan Diego King on 02-16-2025 Nucleated RBC/100 WBC (Bld) [Ratio] 0 % 0-5 Platelet countOrdered By: Radu King on 02-16-2025 Platelets (Bld) [#/Vol] 221 10*3/uL 150-450 Potassium measurement (mass/ volume)Ordered By: Juan Diego King on 02-16-2025 Potassium (Unsp spec) [Mass/Vol] 4.3 mmol/L 3.3-5.1 RBC Auto (Bld) [#/Vol]Ordere d By: Juan Diego King on 02-16-2025 RBC (Bld) [#/Vol] 4.75 10*6/uL 4.2-5.4 [facility] Screening total cholesterol/ high density lipoprotein (HDL) cholesterol ratioOrdered By: Juan Diego King on 02-16-2025 Cholesterol.total/Choles terol in HDL [Mass ratio] 3.43 {ratio} Serum creatinine measurement (mass/volume)Ordered By: Juan Diego King on 02-16-2025 Creatinine [Mass/Vol] 1.14 mg/dL 0.70-1.20 [facility] Serum globulin measurementOr dered By: Juan Diego King on 02-16-2025 Globulin (S) [Mass/Vol] 2.9 g/dL 2.2-4.2 [facility] Serum glucose measurement (m ass/volume)Ordered By: Juan Diego King on 02-16-2025 Glucose [Mass/Vol] 156 mg/dL High 70-99 [facility] Serum or plasma alanine saldana otransferase (ALT) measurementOrdered By: Juan Diego King 02-16-2025 ALT [Catalytic activity/Vol] 19 U/L <35 Serum or plasma albumin fuad urement (mass/volume)Ordered By: Juan Diego King 02-16-2025 Albumin [Mass/Vol] 4.1 g/dL 3.4-4.8 [facility] Serum or plasma albumin/glob ulin mass ratioOrdered By: Juan Diego King 02-16-2025 Albumin/Globulin [Mass ratio] 1.4 {ratio} 0.9-2.4 Serum or plasma alkaline chalino sphatase measurementOrdered By: Juan Diego King 02-16-2025 ALP [Catalytic activity/Vol] 94 U/L 35-104 Serum or plasma calcium fuad urement (mass/volume)Ordered By: Juan Diego King 02-16-2025 Calcium [Mass/Vol] 9.6 mg/dL 7.6-11.0 [facility] Serum or plasma cholesterol in HDL measurement (mass/volume)Ordered By: Juan Diego King on 02-16-2025 Cholesterol in HDL [Mass/Vol] 55 mg/dL >40 Comment on above: National Cholesterol Education Program (NCEP) guidelines:<40 mg/dL: Low HDL-cholesterol (major risk factor for CHD)>= 60 mg/dL: High HDL-cholesterol (negative risk factor for CHD)HDL-cholesterol is affected by a number of factors, e.g. smoking, exercise, hormones, sex and age. Serum or plasma cholesterol measurement (mass/volume)Ordered By: Juan Diego King on 02-16-2025 Cholesterol [Mass/Vol] 188 mg/dL <201 [facility] Comment on above: Cholesterol level, D esirable <200 mg/dLBorderline high cholesterol 200-239 mg/dLHigh cholesterol >=240 mg/dLRecommendations of the NCEP Adult Treatment Panel for the following risk-cutoff thresholds for the [place] population. Serum or plasma urea nitroge n measurement (mass/volume)Ordered By: Juan Diego King on 02-16-2025 Urea nitrogen [Mass/Vol] 18 mg/dL 4-19 Sodium levelOrdered By: Juan Diego King on 02-16-2025 Sodium [Moles/Vol] 138 mmol/L 133-145 [facility] TSH DL <= 0.005 mIU/L QnOrde red By: Juan Diego King on 02-16-2025 TSH Qn 1.580 uIU/mL 0.300-4.200 Thyroid Stim Hormone (TSH)on 02-16-2025 TSH 1.580 uIU/mL Normal 0.300-4.200 Comment on above: Performed By: #### L 500.4050, L100.0100, L501.9985, L506.1000, L501.9520, L500.4100 #### Laboratory [address] [place], [place] [address] [place], [address] Total proteinOrdered By: Juan Diego King on 02-16-2025 Protein [Mass/Vol] 6.9 g/dL 5.9-8.4 [facility] Triglycerides measurementOrd ered By: Juan Diego King on 02-16-2025 Triglyceride [Mass/Vol] 169 mg/dL <199 [facility] Comment on above: The drugs N-Acetylcy steine and Metamizole may falsely depress this assay. Normal range: <150 mg/dLBorderline High: 150-199 mg/dLHigh: 200-499 mg/dLVery High: >500 mg/dL Vitamin D,25 Hydroxyon 02-16 Vitamin D 25-OH 26.8 ng/mL Low 30-100 Comment on above: Result Comment: Vicenta min D Status Deficiency: <20 ng/mL (50nmol/L) Insufficiency: 20-30 ng/mL (50-75 nmol/L) Sufficiency: 30-100 ng/mL (75-250 nmol/L) Toxicity: >100 ng/mL (>250 nmol/L) Performed By: #### L 500.4050, L100.0100, L501.9985, L506.1000, L501.9520, L500.4100 #### Laboratory [address] [facility] [place], [address] White blood cell (WBC) count Ordered By: Juan Diego King on 02-16-2025 WBC (Bld) [#/Vol] 5.1 10*3/uL 4.4-11.0 [facility] Hemoglobin A1con 12-15-2024 HbA1c (Bld) [Mass fraction] 9.7 % Normal <=5.6 Comment on above: Performed By: #### L 501.9985 #### Laboratory [address] [place], [place], [address] Hemoglobin A1c percentageOrd ered By: Juan Diego King on 12-15-2024 HbA1c (Bld) [Mass fraction] 9.7 % >5.7 03-MB-Insdfng DOrdered By: Edna King on 10-22-2024 Vitamin D 25-Hydroxy 25.3 ng/mL [facility] Comment on above: Vitamin D 25(OH) Sta tus Range Deficiency <20 ng/mL (50nmol/L) Insufficiency 20 - 30 ng/mL (50 - 75 nmol/L) Sufficiency 30 - 100 ng/mL (75 - 250 nmol/L) Toxicity >100 ng/mL (>250 nmol/L) Absolute neutrophil countOrd ered By: Juan Diego King on 10-22-2024 Neutrophils (Bld) [#/Vol] 5.3 10*3/uL 2.0-7.7 Albumin to globulin ratioOrd ered By: Juan Diego King on 10-22-2024 Albumin/Globulin [Mass ratio] 1.0 {ratio} 0.9-2.4 Basophil percentageOrdered B y: Juan Diego Fernando on 10-22-2024 Basophils/100 WBC (Bld) 0.4 % 0-1 [facility] Bilirubin, totalOrdered By: Juan Diego Fernando on 10-22-2024 Bilirubin [Mass/Vol] 0.80 mg/dL 0.20-1.00 [facility] Comment on above: For patients on eltr ombopag therapy, use of Dimension Reeves TBIL is not recommended. Blood urea nitrogen (BUN)/cr eatinine ratioOrdered By: Juan Diego Fernando on 10-22-2024 Urea nitrogen/Creatinine [Mass ratio] 9.5 mg/mg Low 10-20 CBC W/Diff, Automatedon 10-01 Absolute Lymph 1.66 X10 3/uL Normal 0.83-4.51 Comment on above: Performed By: #### L 500.4050, L100.0100, L501.9985, L506.1000, L501.9520, L500.4100 #### Laboratory [address] [place], [address] Absolute Neut 5.3 X10 3/uL Normal 2.0-7.7 Comment on above: Performed By: #### L 500.4050, L100.0100, L501.9985, L506.1000, L501.9520, L500.4100 #### Laboratory [address] [place], [address] Basophils/100 WBC (Bld) 0.4 % Normal 0-1 [facility] Comment on above: Performed By: #### L 500.4050, L100.0100, L501.9985, L506.1000, L501.9520, L500.4100 #### Laboratory [address] [place], [address] Eosinophils/100 WBC (Bld) 1.4 % Normal 0-5 Comment on above: Performed By: #### L 500.4050, L100.0100, L501.9985, L506.1000, L501.9520, L500.4100 #### Laboratory [address] [facility] [place], [address] Erythrocyte distribution width (RBC) [Ratio] 13.2 % Normal 11.6-14.6 Comment on above: Performed By: #### L 500.4050, L100.0100, L501.9985, L506.1000, L501.9520, L500.4100 #### Laboratory [address] [place], [address] Hematocrit (Bld) [Volume fraction] 47.4 % High 37-47 Comment on above: Performed By: #### L 500.4050, L100.0100, L501.9985, L506.1000, L501.9520, L500.4100 #### Laboratory [address] [place], [address] Hemoglobin (Bld) [Mass/Vol] 15.7 g/dL High 12.0-15.0 Comment on above: Performed By: #### L 500.4050, L100.0100, L501.9985, L506.1000, L501.9520, L500.4100 #### Laboratory [address] [place], [address] IG% 0.500 Normal 0.0-0.9 Comment on above: Result Comment: IG% - Immature Granulocytes (promyelocytes, myelocytes and metamyelocytes) > 1% indicates that a LEFT SHIFT is Present. Performed By: #### L 500.4050, L100.0100, L501.9985, L506.1000, L501.9520, L500.4100 #### Laboratory [address] [place], [address] Lymphocytes/100 WBC (Bld) 21.8 % Normal 19-41 Comment on above: Performed By: #### L 500.4050, L100.0100, L501.9985, L506.1000, L501.9520, L500.4100 #### Laboratory [address] [place], [address] MCH (RBC) [Entitic mass] 29.6 pg Normal 27.0-32.0 Comment on above: Performed By: #### L 500.4050, L100.0100, L501.9985, L506.1000, L501.9520, L500.4100 #### Laboratory [address] [place], [address] MCHC (RBC) [Mass/Vol] 33.1 g/dL Normal 32-36 [facility] Comment on above: Performed By: #### L 500.4050, L100.0100, L501.9985, L506.1000, L501.9520, L500.4100 #### Laboratory [address] [place], [address] MCV (RBC) [Entitic vol] 89.4 fL Normal 81-99 [facility] Comment on above: Performed By: #### L 500.4050, L100.0100, L501.9985, L506.1000, L501.9520, L500.4100 #### Laboratory [address] [place], [address] Monocytes/100 WBC (Bld) 6.4 % Normal 0-10 [facility] Comment on above: Performed By: #### L 500.4050, L100.0100, L501.9985, L506.1000, L501.9520, L500.4100 #### Laboratory [address] [place], [address] Neutrophils/100 WBC (Bld) 69.5 % Normal 47-70 Comment on above: Performed By: #### L 500.4050, L100.0100, L501.9985, L506.1000, L501.9520, L500.4100 #### Laboratory [address] [place], [address] Nucleated RBC (Bld) [#/Vol] 0 10*3/uL Normal 0-5 Comment on above: Performed By: #### L 500.4050, L100.0100, L501.9985, L506.1000, L501.9520, L500.4100 #### Laboratory [address] [place], [address] Platelet mean volume (Bld) [Entitic vol] 9.7 fL Normal 6.2-12.0 Comment on above: Performed By: #### L 500.4050, L100.0100, L501.9985, L506.1000, L501.9520, L500.4100 #### Laboratory [address] [place], [address] Platelets (Bld) [#/Vol] 226 10*3/uL Normal 150-450 Comment on above: Performed By: #### L 500.4050, L100.0100, L501.9985, L506.1000, L501.9520, L500.4100 #### [facility] [address] [place], [address] RBC (Bld) [#/Vol] 5.30 10*6/uL Normal 4.2-5.4 [facility] Comment on above: Performed By: #### L 500.4050, L100.0100, L501.9985, L506.1000, L501.9520, L500.4100 #### [facility] [address] [place], [address] RDW SD 43.1 fl Normal 35.1-43.9 Comment on above: Performed By: #### L 500.4050, L100.0100, L501.9985, L506.1000, L501.9520, L500.4100 #### [facility] [address] [place], [address] WBC (Bld) [#/Vol] 7.6 10*3/uL Normal 4.4-11.0 [facility] Comment on above: Performed By: #### L 500.4050, L100.0100, L501.9985, L506.1000, L501.9520, L500.4100 #### Laboratory [address] [place], [place], [id number] Carbon dioxide measurementOr dered By: Juan Diego King on 10-22-2024 CO2 [Moles/Vol] 27.0 mmol/L 21.0-32.0 Chloride measurementOrdered By: Juan Diego King on 10-22-2024 Chloride [Moles/Vol] 103 mmol/L 98-107 [facility] Comprehensive Metabolic Prof ilon 10-22-2024 Albumin [Mass/Vol] 3.8 g/dL Normal 3.2-5.0 [facility] Comment on above: Performed By: #### L 500.4050, L100.0100, L501.9985, L506.1000, L501.9520, L500.4100 #### Laboratory [address] [place] [place], [address] Albumin/Globulin [Mass ratio] 1.0 {ratio} Normal 0.9-2.4 Comment on above: Performed By: #### L 500.4050, L100.0100, L501.9985, L506.1000, L501.9520, L500.4100 #### Laboratory [address] [place], [address] ALK P 118 U/L High 45-117 Comment on above: Performed By: #### L 500.4050, L100.0100, L501.9985, L506.1000, L501.9520, L500.4100 #### Laboratory [address] [place], [address] ALT [Catalytic activity/Vol] 29 U/L Normal 13-56 Comment on above: Performed By: #### L 500.4050, L100.0100, L501.9985, L506.1000, L501.9520, L500.4100 #### Laboratory [address] [place], [address] AST [Catalytic activity/Vol] 20 U/L Normal 15-37 Comment on above: Performed By: #### L 500.4050, L100.0100, L501.9985, L506.1000, L501.9520, L500.4100 #### Laboratory [address] [place], [address] Bilirubin [Mass/Vol] 0.80 mg/dL Normal 0.20-1.00 [facility] Comment on above: Result Comment: For patients on eltrombopag therapy, use of Dimension Reeves TBIL is not recommended. Performed By: #### L 500.4050, L100.0100, L501.9985, L506.1000, L501.9520, L500.4100 #### Laboratory [address] [place], [address] BUN/CRE 9.5 RATIO Low 10-20 Comment on above: Performed By: #### L 500.4050, L100.0100, L501.9985, L506.1000, L501.9520, L500.4100 #### Laboratory [address] [place], [address] CA,Total 9.6 mg/dL Normal 8.5-10.1 Comment on above: Performed By: #### L 500.4050, L100.0100, L501.9985, L506.1000, L501.9520, L500.4100 #### Laboratory [address] [place], [address] Chloride [Moles/Vol] 103 mmol/L Normal 98-107 [facility] Comment on above: Performed By: #### L 500.4050, L100.0100, L501.9985, L506.1000, L501.9520, L500.4100 #### Laboratory [address] [place], [address] CO2 [Moles/Vol] 27.0 mmol/L Normal 21.0-32.0 Comment on above: Performed By: #### L 500.4050, L100.0100, L501.9985, L506.1000, L501.9520, L500.4100 #### Laboratory [address] [place], [address] Creatinine [Mass/Vol] 1.37 mg/dL High 0.55-1.02 [facility] Comment on above: Result Comment: The validity of the calculated GFR GFRAA in patients over 70 years has not been determined. Clinical correlation is essential. Performed By: #### L 500.4050, L100.0100, L501.9985, L506.1000, L501.9520, L500.4100 #### Laboratory [address] [place], [address] EST GFR - AA 49 mL/min Low >60 Comment on above: Result Comment: Afri can Turk[place] GFR Calc Performed By: #### L 500.4050, L100.0100, L501.9985, L506.1000, L501.9520, L500.4100 #### Laboratory [address] [place], [address] GAP 8 Normal 5-15 Comment on above: Performed By: #### L 500.4050, L100.0100, L501.9985, L506.1000, L501.9520, L500.4100 #### Laboratory [address] [place], [address] GFR/1.73 sq M.predicted among non-blacks MDRD (S/P/Bld) [Vol rate/Area] 40 mL/min/{1.73_m2} Low >60 Comment on above: Result Comment: Non- GFR Calc Performed By: #### L 500.4050, L100.0100, L501.9985, L506.1000, L501.9520, L500.4100 #### Laboratory [address] [place], [address] Globulin (S) [Mass/Vol] 3.8 g/dL Normal 2.2-4.2 [facility] Comment on above: Performed By: #### L 500.4050, L100.0100, L501.9985, L506.1000, L501.9520, L500.4100 #### Laboratory [address] [place], [address] Glucose [Mass/Vol] 310 mg/dL High 74-106 [facility] Comment on above: Result Comment: Gluc ose result greater than or equal to 200 mg/dL suggests DIABETES MELLITUS per A.D.A. criteria. Performed By: #### L 500.4050, L100.0100, L501.9985, L506.1000, L501.9520, L500.4100 #### Laboratory [address] [place], [address] Potassium [Moles/Vol] 4.0 mmol/L Normal 3.5-5.1 [facility] Comment on above: Performed By: #### L 500.4050, L100.0100, L501.9985, L506.1000, L501.9520, L500.4100 #### Laboratory [address] [place], [address] Sodium [Moles/Vol] 138 mmol/L Normal 136-145 [facility] Comment on above: Performed By: #### L 500.4050, L100.0100, L501.9985, L506.1000, L501.9520, L500.4100 #### Laboratory [address] [place], [address] T PROT 7.6 g/dL Normal 6.4-8.2 Comment on above: Performed By: #### L 500.4050, L100.0100, L501.9985, L506.1000, L501.9520, L500.4100 #### Laboratory [address] [place], [address] Urea nitrogen [Mass/Vol] 13 mg/dL Normal 7-18 Comment on above: Performed By: #### L 500.4050, L100.0100, L501.9985, L506.1000, L501.9520, L500.4100 #### Laboratory [address] [place], [address] Eosinophil percentageOrdered By: [facility] Fernando on 10-22-2024 Eosinophils/100 WBC (Bld) 1.4 % 0-5 Erythrocyte distribution wid th ratioOrdered By: Juan Diego King on 10-22-2024 Erythrocyte distribution width (RBC) [Ratio] 13.2 % 11.6-14.6 Erythrocyte distribution wid th standard deviationOrdered By: Juan Diego King on 10-22-2024 Erythrocyte distribution width (RBC) [Entitic vol] 43.1 fL 35.1-43.9 Estimated glomerular filtrat ion rate (GFR) AmericanOrdered By: Jua nDiego King on 10-22-2024 Estimated GFR (MDRD) Amer 49 mL/min Low >60 Comment on above: GFR Calc Glomerular filtration rate ( GFR) estimationOrdered By: Juan Diego King on 10-22-2024 Estimated GFR (MDRD) Non-Af Amer 40 mL/min Low >60 Comment on above: Non- GFR Calc Glucose measurementOrdered B y: Juan Diego King on 10-22-2024 Glucose [Mass/Vol] 310 mg/dL High 74-106 [facility] Comment on above: Glucose result great er than or equal to 200 mg/dLsuggests DIABETES MELLITUS per A.D.A. criteria. Hematocrit Auto (Bld) [Volum e fraction]Ordered By: Juan Diego King on 10-22-2024 Hematocrit (Bld) [Volume fraction] 47.4 % High 37-47 Hemoglobin A1con 10-22-2024 HbA1c (Bld) [Mass fraction] 10.5 % High 3.8-5.6 Comment on above: Result Comment: Norm al < 5.7 % Prediabetic 5.7 - 6.4 % Diabetic >or= 6.5 % Please note range changes. Performed By: #### L 500.4050, L100.0100, L501.9985, L506.1000, L501.9520, L500.4100 #### Laboratory [address] [place], [place] [address]traci. [place], [place], [id number] Hemoglobin A1c percentageOrd ered By: Juan Diego King on 10-22-2024 HbA1c (Bld) [Mass fraction] 10.5 % High 3.8-5.6 Comment on above: Normal < 5.7 % Predi abetic 5.7 - 6.4 % Diabetic >or= 6.5 % Please note range changes. Hemoglobin measurementOrdere d By: Juan Diego King on 10-22-2024 Hemoglobin (Bld) [Mass/Vol] 15.7 g/dL High 12.0-15.0 High density lipoprotein (HD L) measurementOrdered By: Juan Diego King on 10-22-2024 Cholesterol in HDL [Mass/Vol] 62 mg/dL >40 Comment on above: The drugs N-Acetylcy steine and Metamizole may falsely depress this assay. Reference Range HDL <40 mg/dL Low HDL Cholesterol HDL >or= 60 mg/dL High HDL Cholesterol Immature granulocytes/100 WB C Auto (Bld)Ordered By: Juan Diego King on 10-22-2024 Immature granulocytes/100 WBC (Bld) 0.500 % 0.0-0.9 Comment on above: IG% - Immature Granu locytes (promyelocytes, myelocytes and metamyelocytes) > 1% indicates that a LEFT SHIFT is Present. Laboratory - Chemistry and C hemistry - challengeOrdered By: Juan Diego King on 10-22-2024 AST [Catalytic activity/Vol] 20 U/L 15-37 Lipid Profileon 10-22-2024 Cholesterol [Mass/Vol] 201 mg/dL High 200 [facility] Comment on above: Result Comment: <200 mg/dL Desirable 200-240 mg/dL Borderline >240 mg/dL High Risk Performed By: #### L 500.4050, L100.0100, L501.9985, L506.1000, L501.9520, L500.4100 #### Laboratory [address] [facility] [place], [address] Cholesterol in HDL [Mass/Vol] 62 mg/dL Normal Comment on above: Result Comment: The drugs N-Acetylcysteine and Metamizole may falsely depress this assay. Reference Range HDL <40 mg/dL Low HDL Cholesterol HDL >or= 60 mg/dL High HDL Cholesterol Performed By: #### L 500.4050, L100.0100, L501.9985, L506.1000, L501.9520, L500.4100 #### Laboratory [address] [facility] [place], [place], [id number] Cholesterol in LDL [Mass/Vol] 97 mg/dL Normal 0-130 Comment on above: Performed By: #### L 500.4050, L100.0100, L501.9985, L506.1000, L501.9520, L500.4100 #### Laboratory [address] [place], [address] Cholesterol in VLDL [Mass/Vol] 42 mg/dL High 5-40 Comment on above: Performed By: #### L 500.4050, L100.0100, L501.9985, L506.1000, L501.9520, L500.4100 #### Laboratory [address] [place], [address] Triglyceride [Mass/Vol] 208 mg/dL High [facility] Comment on above: Result Comment: The drugs N-Acetylcysteine and Metamizole may falsely depress this assay. Serum Triglycerides Reference Interval Normal <150 mg/dL Borderline high 150 - 199 mg/dL High 200 - 499 mg/dL Very High > or = 500 mg/dL Performed By: #### L 500.4050, L100.0100, L501.9985, L506.1000, L501.9520, L500.4100 #### Laboratory [address] [facility] [place], [place], [id number] (232) Low density lipoprotein (LDL ) cholesterol measurementOrdered By: Juan Diego King on 10-22-2024 Cholesterol in LDL [Mass/Vol] 97 mg/dL 0-130 Lymphocytes Auto (Unsp spec) [#/Vol]Ordered By: Juan Diego King on 10-22-2024 Lymphocytes (Bld) [#/Vol] 1.66 10*3/uL 0.83-4.51 Lymphocytes/100 WBC Auto (Un sp spec)Ordered By: Juan Diego King on 10-22-2024 Lymphocytes/100 WBC (Bld) 21.8 % 19-41 MCV (mean corpuscular volume ) determinationOrdered By: Juan Diego King on 10-22-2024 MCV (RBC) [Entitic vol] 89.4 fL 81-99 [facility] Mean corpuscular hemoglobin (MCH) determinationOrdered By: Juan Diego King on 10-22-2024 MCH (RBC) [Entitic mass] 29.6 pg 27.0-32.0 Mean corpuscular hemoglobin concentration (MCHC) determinationOrdered By: Juan Diego King on 10-22-2024 MCHC (RBC) [Mass/Vol] 33.1 g/dL 32-36 [facility] Mean platelet volume determi nationOrdered By: Juan Diego King on 10-22-2024 Platelet mean volume (Bld) [Entitic vol] 9.7 fL 6.2-12.0 Monocyte percentageOrdered B y: Juan Diego King on 10-22-2024 Monocytes/100 WBC (Bld) 6.4 % 0-10 [facility] Neutrophil percentageOrdered By: Juan Diego King on 10-22-2024 Neutrophils/100 WBC (Bld) 69.5 % 47-70 Nucleated red blood cell per centageOrdered By: Juan Diego King on 10-22-2024 Nucleated RBC/100 WBC (Bld) [Ratio] 0 % 0-5 Platelet countOrdered By: Radu King on 10-22-2024 Platelets (Bld) [#/Vol] 226 10*3/uL 150-450 Potassium measurementOrdered By: Juan Diego King on 10-22-2024 Potassium [Moles/Vol] 4.0 mmol/L 3.5-5.1 [facility] RBC Auto (Bld) [#/Vol]Ordere d By: Juan Diego King on 10-22-2024 RBC (Bld) [#/Vol] 5.30 10*6/uL 4.2-5.4 [facility] Serum anion gap measurementO rdered By: Juan Diego King on 10-22-2024 Anion gap [Moles/Vol] 8 mmol/L 5-15 [facility] Serum globulin measurementOr dered By: Juan Diego King 10-22-2024 Globulin (S) [Mass/Vol] 3.8 g/dL 2.2-4.2 [facility] Serum or plasma alanine saldana otransferase (ALT) measurementOrdered By: Juan Diego King 10-22-2024 ALT [Catalytic activity/Vol] 29 U/L 13-56 Serum or plasma albumin fuad urement (mass/volume)Ordered By: Juan Diego King on 10-22-2024 Albumin [Mass/Vol] 3.8 g/dL 3.2-5.0 [facility] Serum or plasma alkaline chalino sphatase measurementOrdered By: Juan Diego King on 10-22-2024 ALP [Catalytic activity/Vol] 118 U/L High 45-117 Serum or plasma calcium fuad urement (mass/volume)Ordered By: Juan Diego King on 10-22-2024 Calcium [Mass/Vol] 9.6 mg/dL 8.5-10.1 [facility] Serum or plasma cholesterol measurement (mass/volume)Ordered By: Juan Diego King on 10-22-2024 Cholesterol [Mass/Vol] 201 mg/dL High <200 [facility] Comment on above: <200 mg/dL Desirable 200-240 mg/dL Borderline >240 mg/dL High Risk Serum or plasma creatinine m easurement (mass/volume)Ordered By: Juan Diego King on 10-22-2024 Creatinine [Mass/Vol] 1.37 mg/dL High 0.55-1.02 [facility] Comment on above: The validity of the calculated GFR & GFRAA in patients over 70 years has not been determined. Clinical correlation is essential. Serum or plasma urea nitroge n measurement (mass/volume)Ordered By: Juan Diego King on 10-22-2024 Urea nitrogen [Mass/Vol] 13 mg/dL 7-18 Sodium levelOrdered By: Juan Diego King on 10-22-2024 Sodium [Moles/Vol] 138 mmol/L 136-145 [facility] TSH QnOrdered By: Juan Diego King o n 10-22-2024 Thyroid Stimulating Hormone (TSH) 1.930 uIU/mL 0.358-3.740 Thyroid Stim Hormone (TSH)on 10-22-2024 TSH 1.930 uIU/mL Normal 0.358-3.740 Comment on above: Performed By: #### L 500.4050, L100.0100, L501.9985, L506.1000, L501.9520, L500.4100 #### Laboratory [address] [place], [place], [id number] Total proteinOrdered By: Juan Diego King on 10-22-2024 Protein [Mass/Vol] 7.6 g/dL 6.4-8.2 [facility] Triglycerides measurementOrd ered By: Juan Diego King on 10-22-2024 Triglyceride [Mass/Vol] 208 mg/dL High <199 [facility] Comment on above: The drugs N-Acetylcy steine and Metamizole may falsely depress this assay.Serum Triglycerides Reference Interval Normal <150 mg/dL Borderline high 150 - 199 mg/dL High 200 - 499 mg/dL Very High > or = 500 mg/dL Very low density lipoprotein (VLDL) cholesterol measurementOrdered By: Juan Diego King on 10-22-2024 VLDL Cholesterol 42 mg/dL High 5-40 Vitamin D,25 Hydroxyon 10-22 Vitamin D 25-OH 25.3 ng/mL Normal Comment on above: Result Comment: Vicenta min D 25(OH) Status Range Deficiency <20 ng/mL (50nmol/L) Insufficiency 20 - 30 ng/mL (50 - 75 nmol/L) Sufficiency 30 - 100 ng/mL (75 - 250 nmol/L) Toxicity >100 ng/mL (>250 nmol/L) Performed By: #### L 500.4050, L100.0100, L501.9985, L506.1000, L501.9520, L500.4100 #### Laboratory [address] [place], [place], [address] White blood cell (WBC) count Ordered By: Juan Diego King on 10-22-2024 WBC (Bld) [#/Vol] 7.6 10*3/uL 4.4-11.0 [facility] Inital Evaluation (1) - PTon 07-22-2024 Inital Evaluation (1) - PT Physical Therapy [facility] [place] [address] / REHABILITATION SERVICES INITIAL EVALUATION MR#: [id number] Acct: [id number] Name: NISH BENITEZ Rep #: [id number] : 1950 74 From: Randy Su PT, Cert. T, OCS Referring Dr.: Dr. Juan Diego King MD Status: REG R Insurance: [facility] 07/31/18 SELF PAY INSURANCE Patient's Visit Information [...] Response: No effect Lumbar Standing: Right Side [place] - Symptoms During Testing: No effect Lumbar Standing: Right Side [place] - Symptoms After Testing: No effect Lumbar Standing: Left Side [place] - Mechanical Response: No effect Lumbar Standing: Left Side [place] - Symptoms During Testing: No effect Lumbar Standing: Left Side [place] - Symptoms After Testing: No effect R [...] plans, p (more content not included)... Normal L3300.0940on 07-22-2024 VIT D,25 HYDROX TNP Normal . Comment on above: Result Comment: Test not performed. No specimen received. Contacted Bere Myriam on 07/22/24. Vitamin D deficiency has been defined by the [place] of [employer] and an Endocrine Society practice guideline as a level of serum 25-OH vitamin D less than 20 ng/mL (1,2). The Endocrine Society went on to further define vitamin D insufficiency as a level between 21 and 29 ng/mL (2). 1. IOM ([place] of [employer]). 2010. Dietary reference intakes for calcium and D. [place]: The National Academies Press. 2. Agusto MF, Marianela TRAVIS, Camille PAGAN, et al. Evaluation, treatment, and prevention of vitamin D deficiency: an Endocrine Society clinical practice guideline. JCEM. 2010; 96(7):1911-30. Performed By: #### L 500.4050, L100.0100, L501.9985, L506.1000, L501.9520, L500.4100 #### Laboratory [address] [place], [address] CBC W/Diff, Automatedon 06-30 Absolute Lymph 2.02 X10 3/uL Normal 0.83-4.51 Comment on above: Performed By: #### L 500.4050, L100.0100, L501.9985, L506.1000, L501.9520, L500.4100 #### Laboratory [address] [place], [address] Absolute Neut 5.5 X10 3/uL Normal 2.0-7.7 Comment on above: Performed By: #### L 500.4050, L100.0100, L501.9985, L506.1000, L501.9520, L500.4100 #### Laboratory [address] [place], [address] Basophils/100 WBC (Bld) 0.4 % Normal 0-1 [facility] Comment on above: Performed By: #### L 500.4050, L100.0100, L501.9985, L506.1000, L501.9520, L500.4100 #### Laboratory [address] [place], [address] Eosinophils/100 WBC (Bld) 1.9 % Normal 0-5 Comment on above: Performed By: #### L 500.4050, L100.0100, L501.9985, L506.1000, L501.9520, L500.4100 #### Laboratory [address] [place], [address] Erythrocyte distribution width (RBC) [Ratio] 13.4 % Normal 11.6-14.6 Comment on above: Performed By: #### L 500.4050, L100.0100, L501.9985, L506.1000, L501.9520, L500.4100 #### Laboratory [address] [place], [address] Hematocrit (Bld) [Volume fraction] 46.5 % Normal 37-47 Comment on above: Performed By: #### L 500.4050, L100.0100, L501.9985, L506.1000, L501.9520, L500.4100 #### Laboratory [address] [place], [address] Hemoglobin (Bld) [Mass/Vol] 15.5 g/dL High 12.0-15.0 Comment on above: Performed By: #### L 500.4050, L100.0100, L501.9985, L506.1000, L501.9520, L500.4100 #### Laboratory [address] [place], [address] IG% 0.400 Normal 0.0-0.9 Comment on above: Result Comment: IG% - Immature Granulocytes (promyelocytes, myelocytes and metamyelocytes) > 1% indicates that a LEFT SHIFT is Present. Performed By: #### L 500.4050, L100.0100, L501.9985, L506.1000, L501.9520, L500.4100 #### Laboratory [address] [place], [address] Lymphocytes/100 WBC (Bld) 24.3 % Normal 19-41 Comment on above: Performed By: #### L 500.4050, L100.0100, L501.9985, L506.1000, L501.9520, L500.4100 #### Laboratory [address] [place], [address] MCH (RBC) [Entitic mass] 29.4 pg Normal 27.0-32.0 Comment on above: Performed By: #### L 500.4050, L100.0100, L501.9985, L506.1000, L501.9520, L500.4100 #### Laboratory [address] [place], [address] MCHC (RBC) [Mass/Vol] 33.3 g/dL Normal 32-36 [facility] Comment on above: Performed By: #### L 500.4050, L100.0100, L501.9985, L506.1000, L501.9520, L500.4100 #### Laboratory [address] [place], [address] MCV (RBC) [Entitic vol] 88.2 fL Normal 81-99 [facility] Comment on above: Performed By: #### L 500.4050, L100.0100, L501.9985, L506.1000, L501.9520, L500.4100 #### Laboratory [address] [place], [address] Monocytes/100 WBC (Bld) 7.3 % Normal 0-10 [facility] Comment on above: Performed By: #### L 500.4050, L100.0100, L501.9985, L506.1000, L501.9520, L500.4100 #### Laboratory [address] [place], [address] Neutrophils/100 WBC (Bld) 65.7 % Normal 47-70 Comment on above: Performed By: #### L 500.4050, L100.0100, L501.9985, L506.1000, L501.9520, L500.4100 #### Laboratory [address] [place] [place], [address] Nucleated RBC (Bld) [#/Vol] 0 10*3/uL Normal 0-5 Comment on above: Performed By: #### L 500.4050, L100.0100, L501.9985, L506.1000, L501.9520, L500.4100 #### Laboratory [address] [place], [address] Platelet mean volume (Bld) [Entitic vol] 9.7 fL Normal 6.2-12.0 Comment on above: Performed By: #### L 500.4050, L100.0100, L501.9985, L506.1000, L501.9520, L500.4100 #### Laboratory [address] [place], [address] Platelets (Bld) [#/Vol] 238 10*3/uL Normal 150-450 Comment on above: Performed By: #### L 500.4050, L100.0100, L501.9985, L506.1000, L501.9520, L500.4100 #### Laboratory [address] [place], [address] RBC (Bld) [#/Vol] 5.27 10*6/uL Normal 4.2-5.4 [facility] Comment on above: Performed By: #### L 500.4050, L100.0100, L501.9985, L506.1000, L501.9520, L500.4100 #### Laboratory [address] [place], [address] RDW SD 43.6 fl Normal 35.1-43.9 Comment on above: Performed By: #### L 500.4050, L100.0100, L501.9985, L506.1000, L501.9520, L500.4100 #### Laboratory [address] [place], [address] WBC (Bld) [#/Vol] 8.3 10*3/uL Normal 4.4-11.0 [facility] Comment on above: Performed By: #### L 500.4050, L100.0100, L501.9985, L506.1000, L501.9520, L500.4100 #### Laboratory [address] [place], [address] Comprehensive Metabolic Prof ilon 07-15-2024 Albumin [Mass/Vol] 3.8 g/dL Normal 3.2-5.0 [facility] Comment on above: Performed By: #### L 500.4050, L100.0100, L501.9985, L506.1000, L501.9520, L500.4100 #### Laboratory [address] [place], [address] Albumin/Globulin [Mass ratio] 1.1 {ratio} Normal 0.9-2.4 Comment on above: Performed By: #### L 500.4050, L100.0100, L501.9985, L506.1000, L501.9520, L500.4100 #### Laboratory [address] [place], [address] ALK P 141 U/L High 45-117 Comment on above: Performed By: #### L 500.4050, L100.0100, L501.9985, L506.1000, L501.9520, L500.4100 #### Laboratory [address] [place], [address] ALT [Catalytic activity/Vol] 27 U/L Normal 13-56 Comment on above: Performed By: #### L 500.4050, L100.0100, L501.9985, L506.1000, L501.9520, L500.4100 #### Laboratory [address] [place], [address] AST [Catalytic activity/Vol] 18 U/L Normal 15-37 Comment on above: Performed By: #### L 500.4050, L100.0100, L501.9985, L506.1000, L501.9520, L500.4100 #### Laboratory [address] [place], [address] Bilirubin [Mass/Vol] 0.70 mg/dL Normal 0.20-1.00 [facility] Comment on above: Result Comment: For patients on eltrombopag therapy, use of Dimension Reeves TBIL is not recommended. Performed By: #### L 500.4050, L100.0100, L501.9985, L506.1000, L501.9520, L500.4100 #### Laboratory [address] [place], [address] BUN/CRE 13.9 RATIO Normal 10-20 Comment on above: Performed By: #### L 500.4050, L100.0100, L501.9985, L506.1000, L501.9520, L500.4100 #### Laboratory [address] [place], [address] CA,Total 9.2 mg/dL Normal 8.5-10.1 Comment on above: Performed By: #### L 500.4050, L100.0100, L501.9985, L506.1000, L501.9520, L500.4100 #### Laboratory [address] [place], [address] Chloride [Moles/Vol] 99 mmol/L Normal 98-107 [facility] Comment on above: Performed By: #### L 500.4050, L100.0100, L501.9985, L506.1000, L501.9520, L500.4100 #### Laboratory [address] [place], [address] CO2 [Moles/Vol] 25.0 mmol/L Normal 21.0-32.0 Comment on above: Performed By: #### L 500.4050, L100.0100, L501.9985, L506.1000, L501.9520, L500.4100 #### Laboratory [address] [place], [address] Creatinine [Mass/Vol] 1.22 mg/dL High 0.55-1.02 [facility] Comment on above: Result Comment: The validity of the calculated GFR GFRAA in patients over 70 years has not been determined. Clinical correlation is essential. Performed By: #### L 500.4050, L100.0100, L501.9985, L506.1000, L501.9520, L500.4100 #### Laboratory [address] [place], [address] EST GFR - AA 56 mL/min Low >60 Comment on above: Result Comment: Afri can [place] GFR Calc Performed By: #### L 500.4050, L100.0100, L501.9985, L506.1000, L501.9520, L500.4100 #### Laboratory [address] [place], [address] GAP 9 Normal 5-15 Comment on above: Performed By: #### L 500.4050, L100.0100, L501.9985, L506.1000, L501.9520, L500.4100 #### Laboratory [address] [place], [address] GFR/1.73 sq M.predicted among non-blacks MDRD (S/P/Bld) [Vol rate/Area] 46 mL/min/{1.73_m2} Low >60 Comment on above: Result Comment: Non- GFR Calc Performed By: #### L 500.4050, L100.0100, L501.9985, L506.1000, L501.9520, L500.4100 #### Laboratory [address] [place] [place], [address] Globulin (S) [Mass/Vol] 3.4 g/dL Normal 2.2-4.2 [facility] Comment on above: Performed By: #### L 500.4050, L100.0100, L501.9985, L506.1000, L501.9520, L500.4100 #### Laboratory [address] [place] [place], [address] Glucose [Mass/Vol] 363 mg/dL High 74-106 [facility] Comment on above: Result Comment: Gluc ose result greater than or equal to 200 mg/dL suggests DIABETES MELLITUS per A.D.A. criteria. Performed By: #### L 500.4050, L100.0100, L501.9985, L506.1000, L501.9520, L500.4100 #### Laboratory [address] [place] [place], [address] Potassium [Moles/Vol] 4.6 mmol/L Normal 3.5-5.1 [facility] Comment on above: Performed By: #### L 500.4050, L100.0100, L501.9985, L506.1000, L501.9520, L500.4100 #### Laboratory [address] [place] [place], [address] Sodium [Moles/Vol] 132 mmol/L Low 136-145 [facility] Comment on above: Performed By: #### L 500.4050, L100.0100, L501.9985, L506.1000, L501.9520, L500.4100 #### Laboratory [address] [place], [address] T PROT 7.2 g/dL Normal 6.4-8.2 Comment on above: Performed By: #### L 500.4050, L100.0100, L501.9985, L506.1000, L501.9520, L500.4100 #### Laboratory [address] [place], [address] Urea nitrogen [Mass/Vol] 17 mg/dL Normal 7-18 Comment on above: Performed By: #### L 500.4050, L100.0100, L501.9985, L506.1000, L501.9520, L500.4100 #### Laboratory [address] [place], [address] Hemoglobin A1con 07-15-2024 HbA1c (Bld) [Mass fraction] 9.4 % High 3.8-5.6 Comment on above: Result Comment: Norm al < 5.7 % Prediabetic 5.7 - 6.4 % Diabetic >or= 6.5 % Please note range changes. Performed By: #### L 500.4050, L100.0100, L501.9985, L506.1000, L501.9520, L500.4100 #### Laboratory [address] [place], [address] Hips B/L min 2 views w/ Pelv nemesio 07-15-2024 Hips B/L min 2 views w/ Pelvis [facility] Imaging Services [address] [place] [address] Hips B/L min 2 views w/ Pelvis MR#: [id number] Acct: [id number] Name: NISH BENITEZ Rep #: [id number] : 1950 F 74 From: Cash Cornell MD PCP: Dr. Juan Diego King MD Status: REG CLI Study: Hips B/L min 2 views w/ Pelvis Date of Exam: Exam# [id number] Ordering Dr: Juan Diego King [place] [id number] INDICATION: OA EXAMINATION/TECHNIQUE: X-RAY - XR Hips [...] , CC: Dr. Juan Diego King MD Mussel Opener: Signed Normal Lipid Profileon 07-15-2024 Cholesterol [Mass/Vol] 195 mg/dL Normal 200 [facility] Comment on above: Result Comment: <200 mg/dL Desirable 200-240 mg/dL Borderline >240 mg/dL High Risk Performed By: #### L 500.4050, L100.0100, L501.9985, L506.1000, L501.9520, L500.4100 #### Laboratory [address] [place], [address] Cholesterol in HDL [Mass/Vol] 56 mg/dL Normal Comment on above: Result Comment: The drugs N-Acetylcysteine and Metamizole may falsely depress this assay. Reference Range HDL <40 mg/dL Low HDL Cholesterol HDL >or= 60 mg/dL High HDL Cholesterol Performed By: #### L 500.4050, L100.0100, L501.9985, L506.1000, L501.9520, L500.4100 #### Laboratory [address] [place], [address] Cholesterol in LDL [Mass/Vol] 91 mg/dL Normal 0-130 Comment on above: Performed By: #### L 500.4050, L100.0100, L501.9985, L506.1000, L501.9520, L500.4100 #### Laboratory [address] [place], [address] Cholesterol in VLDL [Mass/Vol] 48 mg/dL High 5-40 Comment on above: Performed By: #### L 500.4050, L100.0100, L501.9985, L506.1000, L501.9520, L500.4100 #### Laboratory [address] [place], [address] Triglyceride [Mass/Vol] 239 mg/dL High [facility] Comment on above: Result Comment: The drugs N-Acetylcysteine and Metamizole may falsely depress this assay. Serum Triglycerides Reference Interval Normal <150 mg/dL Borderline high 150 - 199 mg/dL High 200 - 499 mg/dL Very High > or = 500 mg/dL Performed By: #### L 500.4050, L100.0100, L501.9985, L506.1000, L501.9520, L500.4100 #### Laboratory [address] [facility] [place], [address] Thyroid Stim Hormone (TSH)on 07-15-2024 TSH 2.080 uIU/mL Normal 0.358-3.740 Comment on above: Performed By: #### L 500.4050, L100.0100, L501.9985, L506.1000, L501.9520, L500.4100 #### Laboratory [address] [place], [address] Dexa Bone Density Studyon Dexa Bone Density Study [facility] Imaging Services [address] [place] [address] Dexa Bone Density Study MR#: [id number] Acct: [id number] Name: NISH BENITEZ Rep #: [id number] : 1950 F 73 From: Venkata ordoñez MD PCP: Dr. Juan Diego King MD Status: [facility] Study: Dexa Bone Density Study Date of Exam: 05/07/24 Exam# [id number] Ordering Dr: Juan Diego King MD [id number] STUDY: DUAL ENERGY X-RAY ABSORPTIOMETRY / DXA [...] , CC: Dr. Juan Diego King MD Mussel Opener: Signed Normal Abdomen Limitedon 03-31-2024 Abdomen Limited [facility] Imaging Services [address] [place], [place] [address] Abdomen Limited MR#: [id number] Acct: [id number] Name: NISH BENITEZ Rep #: [id number] : 1950 F 73 From: Dylan Cr MD PCP: Dr. Juan Diego King MD Status: REG CLI Study: Abdomen Limited Date of Exam: 03/31/24 Exam# [id number] Ordering Dr: Juan Diego King MD [id number] STUDY: ABDOMINAL ULTRASOUND - RIGHT UPPER QUADRANT [...] , CC: Dr. Juan Diego King MD Mussel Opener: Signed Normal Abdomen/Pelvis WITH Contrast on 03-31-2024 Abdomen/Pelvis WITH Contrast [facility] Imaging Services [address] [place] [id number] Abdomen/Pelvis WITH Contrast MR#: [id number] Acct: [id number] Name: NISH BENITEZ Rep #: [id number] : 1950 F 73 From: Ramin He PCP: Dr. Juan Diego King MD Status: [facility] CL Study: Abdomen/Pelvis WITH Contrast Date of Exam: 11/23 Exam# [id number] Ordering Dr: Juan Diego King MD [id number] STUDY: CT ABDOMEN AND PELVIS WITH CONTRAST [...] , CC: Dr. Juan Diego King MD Mussel Opener: Signed Normal CREATININE FINGERSTICKon Creatinine [Mass/Vol] 1.3 mg/dL High 0.55-1.02 [facility] Comment on above: Performed By: #### L 500.4050, L100.0100, L501.9985, L506.1000, L501.9520, L500.4100 #### Laboratory [address] [place], [address] GFR/1.73 sq M.predicted among non-blacks MDRD (S/P/Bld) [Vol rate/Area] 44.0000 mL/min/{1.73_m2} Low >60 Comment on above: Performed By: #### L 500.4050, L100.0100, L501.9985, L506.1000, L501.9520, L500.4100 #### Laboratory [address] [place], [address] Absolute lymphocyte countOrd ered By: Juan Diego King on 01-16-2024 Lymphocytes Auto (Unsp spec) [#/Vol] 1.74 10*3/uL 0.83-4.51 Automated lymphocyte count a s percentage of total leukocytesOrdered By: Juan Diego King on 01-16-2024 Lymphocytes/100 WBC Auto (Unsp spec) 26.8 % 19-41 Basophil percentageOrdered B y: Juan Diego King on 01-16-2024 Basophils/100 WBC (Bld) 0.8 % 0-1 [facility] Bilirubin [Mass/Vol] 0.70 mg/dL 0.20-1.00 [facility] Comment on above: For patients on eltr ombopag therapy, use of Dimension Reeves TBIL is not recommended. Chloride [Moles/Vol] 102 mmol/L 98-107 [facility] Cholesterol [Mass/Vol] 186 mg/dL <200 [facility] Comment on above: <200 mg/dL Desirable 200-240 mg/dL Borderline >240 mg/dL High Risk Eosinophils/100 WBC (Bld) 2.2 % 0-5 Glucose [Mass/Vol] 216 mg/dL 74-106 [facility] Comment on above: Glucose result great er than or equal to 200 mg/dLsuggests DIABETES MELLITUS per A.D.A. criteria. Hemoglobin (Bld) [Mass/Vol] 14.7 g/dL 12.0-15.0 Monocytes/100 WBC (Bld) 8.5 % 0-10 [facility] Neutrophils (Bld) [#/Vol] 4.0 10*3/uL 2.0-7.7 Neutrophils/100 WBC (Bld) 61.1 % 47-70 Potassium [Moles/Vol] 4.8 mmol/L 3.5-5.1 [facility] Protein [Mass/Vol] 6.9 g/dL 6.4-8.2 [facility] Sodium [Moles/Vol] 135 mmol/L 136-145 [facility] Triglyceride [Mass/Vol] 133 mg/dL <199 [facility] Comment on above: The drugs N-Acetylcy steine and Metamizole may falsely depress this assay.Serum Triglycerides Reference Interval Normal <150 mg/dL Borderline high 150 - 199 mg/dL High 200 - 499 mg/dL Very High > or = 500 mg/dL WBC (Bld) [#/Vol] 6.5 10*3/uL 4.4-11.0 [facility] Determination of erythrocyte mean corpuscular volume (MCV)Ordered By: Juan Diego King on 01-16-2024 MCV (RBC) [Entitic vol] 88.1 fL 81-99 [facility] Erythrocyte distribution wid th ratioOrdered By: Juan Diego King 01-16-2024 Erythrocyte distribution width (RBC) [Ratio] 12.7 % 11.6-14.6 Erythrocyte distribution wid th standard deviationOrdered By: Juan Diego King 01-16-2024 Erythrocyte distribution width (RBC) [Entitic vol] 41.2 fL 35.1-43.9 Hematocrit Auto (Bld) [Volum e fraction]Ordered By: Juan Diego King 01-16-2024 Hematocrit (Bld) [Volume fraction] 42.3 % 37-47 Immature granulocytes/100 WB C Auto (Bld)Ordered By: Juan Diego King 01-16-2024 Immature granulocytes/100 WBC (Bld) 0.600 % 0.0-0.9 Comment on above: IG% - Immature Granu locytes (promyelocytes, myelocytes and metamyelocytes) > 1% indicates that a LEFT SHIFT is Present. Laboratory - Chemistry and C hemistry - challengeOrdered By: Juan Diego King on 01-16-2024 Albumin/Globulin [Mass ratio] 1.2 {ratio} 0.9-2.4 ALP [Catalytic activity/Vol] 113 U/L 45-117 ALT [Catalytic activity/Vol] 27 U/L 13-56 Cholesterol in HDL [Mass/Vol] 60 mg/dL >40 Comment on above: The drugs N-Acetylcy steine and Metamizole may falsely depress this assay. Reference Range HDL <40 mg/dL Low HDL Cholesterol HDL >or= 60 mg/dL High HDL Cholesterol Cholesterol in LDL [Mass/Vol] 99 mg/dL 0-130 CO2 [Moles/Vol] 29.0 mmol/L 21.0-32.0 Globulin (S) [Mass/Vol] 3.1 g/dL 2.2-4.2 [facility] Urea nitrogen/Creatinine [Mass ratio] 14.7 mg/mg 10-20 Laboratory - Hematology and Cell countsOrdered By: Juan Diego King on 01-16-2024 MCH (RBC) [Entitic mass] 30.6 pg 27.0-32.0 MCHC (RBC) [Mass/Vol] 34.8 g/dL 32-36 [facility] Nucleated RBC/100 WBC (Bld) [Ratio] 0 % 0-5 Platelet mean volume (Bld) [Entitic vol] 9.2 fL 6.2-12.0 Platelets (Bld) [#/Vol] 257 10*3/uL 150-450 No Panel InformationOrdered By: Juan Diego King on 01-16-2024 Estimated GFR (MDRD) Amer 59 mL/min >60 Comment on above: GFR Calc Estimated GFR (MDRD) Non-Af Amer 49 mL/min >60 Comment on above: Non- GFR Calc Urine Microalbumin/Creatinine Ratio 11.5 mg/g CRE <30 Vitamin D 25-Hydroxy 30.9 ng/mL [facility] Comment on above: Vitamin D 25(OH) Sta tus Range Deficiency <20 ng/mL (50nmol/L) Insufficiency 20 - 30 ng/mL (50 - 75 nmol/L) Sufficiency 30 - 100 ng/mL (75 - 250 nmol/L) Toxicity >100 ng/mL (>250 nmol/L) VLDL Cholesterol 27 mg/dL 5-40 RBC Auto (Bld) [#/Vol]Ordere d By: Juan Diego King on 01-16-2024 RBC (Bld) [#/Vol] 4.80 10*6/uL 4.2-5.4 [facility] Serum or plasma calcium fuad urement (mass/volume)Ordered By: Juan Diego King on 01-16-2024 Calcium [Mass/Vol] 8.8 mg/dL 8.5-10.1 [facility] Serum or plasma creatinine m easurement (mass/volume)Ordered By: Juan Diego King on 01-16-2024 Creatinine [Mass/Vol] 1.16 mg/dL 0.55-1.02 [facility] Comment on above: The validity of the calculated GFR & GFRAA in patients over 70 years has not been determined. Clinical correlation is essential. Serum or plasma thyroid stim ulating hormone (TSH) measurement (units/volume)Ordered By: Juan Diego King on 01-16-2024 TSH Qn 1.33 uIU/mL 0.358-3.74 Serum or plasma urea nitroge n measurement (mass/volume)Ordered By: Juan Diego King on 01-16-2024 Urea nitrogen [Mass/Vol] 17 mg/dL 7-18 Thin prep Papanicolaou smear with manual screeningOrdered By: Juan Diego King 01-16-2024 Thin prep Papanicolaou smear with manual screening 3.8 g/dL 3.2-5.0 Thin prep Papanicolaou smear with manual screening 17 U/L 15-37 Thin prep Papanicolaou smear with manual screening 4 5-15 Thin prep Papanicolaou smear with manual screening 10.7 mg/L NO RANGE EST. Urine creatinine measurement (mass/volume)Ordered By: Juan Diego King on 01-16-2024 Creatinine (U) [Mass/Vol] 93.00 mg/dL NO RANGE EST. Whole blood hemoglobin A1c/t otal hemoglobin ratio (mass fraction)Ordered By: Juan Diego King on 01-16-2024 HbA1c (Bld) [Mass fraction] 7.6 % 3.8-5.6 Comment on above: Normal < 5.7 % Predi abetic 5.7 - 6.4 % Diabetic >or= 6.5 % Please note range changes. Absolute lymphocyte countOrd ered By: Juan Diego King on 07-25-2023 Lymphocytes Auto (Unsp spec) [#/Vol] 2.30 10*3/uL 0.83-4.51 Basophil percentageOrdered B y: Juan Diego King on 07-25-2023 Basophils/100 WBC (Bld) 0.6 % 0-1 [facility] Bilirubin [Mass/Vol] 0.50 mg/dL 0.20-1.00 [facility] Comment on above: For patients on eltr ombopag therapy, use of Dimension Reeves TBIL is not recommended. Chloride [Moles/Vol] 104 mmol/L 98-107 [facility] Cholesterol [Mass/Vol] 201 mg/dL <200 [facility] Comment on above: <200 mg/dL Desirable 200-240 mg/dL Borderline >240 mg/dL High Risk Eosinophils/100 WBC (Bld) 2.3 % 0-5 Glucose [Mass/Vol] 139 mg/dL 74-106 [facility] Comment on above: Fasting Glucose resu lt greater than or equal to 126 mg/dL suggests DIABETES MELLITUS per A.D.A. criteria. Neutrophils (Bld) [#/Vol] 4.0 10*3/uL 2.0-7.7 Neutrophils/100 WBC (Bld) 57.0 % 47-70 Potassium [Moles/Vol] 4.5 mmol/L 3.5-5.1 [facility] Protein [Mass/Vol] 6.9 g/dL 6.4-8.2 [facility] Sodium [Moles/Vol] 136 mmol/L 136-145 [facility] Triglyceride [Mass/Vol] 175 mg/dL <199 [facility] Comment on above: The drugs N-Acetylcy steine and Metamizole may falsely depress this assay.Serum Triglycerides Reference Interval Normal <150 mg/dL Borderline high 150 - 199 mg/dL High 200 - 499 mg/dL Very High > or = 500 mg/dL WBC (Bld) [#/Vol] 7.0 10*3/uL 4.4-11.0 [facility] Blood erythrocytes count (nu mber/volume)Ordered By: Juan Diego King on 07-25-2023 RBC (Bld) [#/Vol] 4.66 10*6/uL 4.2-5.4 [facility] Blood hemoglobin measurement (mass/volume)Ordered By: Juan Diego King on 07-25-2023 Hemoglobin (Bld) [Mass/Vol] 13.9 g/dL 12.0-15.0 Blood lymphocytes/100 leukoc ytesOrdered By: Juan Diego King on 07-25-2023 Lymphocytes/100 WBC (Bld) 32.9 % 19-41 Blood monocytes/100 leukocyt esOrdered By: Juan Diego Fernando on 07-25-2023 Monocytes/100 WBC (Bld) 6.9 % 0-10 [facility] Blood platelet mean volumeOr dered By: Juan Diego King on 07-25-2023 Platelet mean volume (Bld) [Entitic vol] 9.6 fL 6.2-12.0 Determination of erythrocyte mean corpuscular volume (MCV)Ordered By: Juan Diego King on 07-25-2023 MCV (RBC) [Entitic vol] 91.4 fL 81-99 [facility] Hematocrit Auto (Bld) [Volum e fraction][facility] Hematocrit (Bld) [Volume fraction] 42.6 % 37-47 Laboratory - Chemistry and C hemistry - challengeOrdered By: Juan Diego King on 07-25-2023 ALP [Catalytic activity/Vol] 108 U/L 45-117 ALT [Catalytic activity/Vol] 28 U/L 13-56 CO2 [Moles/Vol] 27.0 mmol/L 21.0-32.0 Globulin (S) [Mass/Vol] 3.3 g/dL 2.2-4.2 [facility] Urea nitrogen/Creatinine [Mass ratio] 25.3 mg/mg 10-20 Laboratory - Hematology and Cell countsOrdered By: Juan Diego King on 07-25-2023 Erythrocyte distribution width (RBC) [Entitic vol] 44.2 fL 35.1-43.9 Erythrocyte distribution width (RBC) [Ratio] 13.1 % 11.6-14.6 Immature granulocytes/100 WBC (Bld) 0.300 % 0.0-0.9 Comment on above: IG% - Immature Granu locytes (promyelocytes, myelocytes and metamyelocytes) > 1% indicates that a LEFT SHIFT is Present. MCH (RBC) [Entitic mass] 29.8 pg 27.0-32.0 Nucleated RBC/100 WBC (Bld) [Ratio] 0 % 0-5 MCHC Auto (RBC) [Mass/Vol]Or dered By: Juan Diego King on 07-25-2023 MCHC (RBC) [Mass/Vol] 32.6 g/dL 32-36 [facility] No Panel InformationOrdered By: Juan Diego King on 07-25-2023 Estimated GFR (MDRD) Amer 71 mL/min >60 Comment on above: GFR Calc Estimated GFR (MDRD) Non-Af Amer 59 mL/min >60 Comment on above: Non- GFR Calc Thyroid Stimulating Hormone (TSH) 1.42 uIU/mL 0.358-3.74 Vitamin D 25-Hydroxy 27.3 ng/mL [facility] Comment on above: Vitamin D 25(OH) Sta tus Range Deficiency <20 ng/mL (50nmol/L) Insufficiency 20 - 30 ng/mL (50 - 75 nmol/L) Sufficiency 30 - 100 ng/mL (75 - 250 nmol/L) Toxicity >100 ng/mL (>250 nmol/L) Platelets bldOrdered By: Juan Diego King on 07-25-2023 Platelets (Bld) [#/Vol] 244 10*3/uL 150-450 Serum or plasma albumin fuad urement (mass/volume)Ordered By: Juan Diego King on 07-25-2023 Albumin [Mass/Vol] 3.6 g/dL 3.2-5.0 [facility] Serum or plasma albumin/glob ulin mass ratioOrdered By: Juan Diego King on 07-25-2023 Albumin/Globulin [Mass ratio] 1.1 {ratio} 0.9-2.4 Serum or plasma calcium fuad urement (mass/volume)Ordered By: Juan Diego King on 07-25-2023 Calcium [Mass/Vol] 8.8 mg/dL 8.5-10.1 [facility] Serum or plasma cholesterol in HDL measurement (mass/volume)Ordered By: Juan Diego King on 07-25-2023 Cholesterol in HDL [Mass/Vol] 61 mg/dL >40 Comment on above: The drugs N-Acetylcy steine and Metamizole may falsely depress this assay. Reference Range HDL <40 mg/dL Low HDL Cholesterol HDL >or= 60 mg/dL High HDL Cholesterol Serum or plasma cholesterol in VLDL measurement (mass/volume)Ordered By: Juan Diego King on 07-25-2023 Cholesterol in VLDL [Mass/Vol] 35 mg/dL 5-40 Serum or plasma creatinine m easurement (mass/volume)Ordered By: Juan Diego King 07-25-2023 Creatinine [Mass/Vol] 0.99 mg/dL 0.55-1.02 [facility] Comment on above: The validity of the calculated GFR & GFRAA in patients over 70 years has not been determined. Clinical correlation is essential. Serum or plasma low density lipoprotein (LDL) cholesterol measurement (mass/volume)Ordered By: Juan Diego King on 07-25-2023 Cholesterol in LDL [Mass/Vol] 105 mg/dL 0-130 Serum or plasma urea nitroge n measurement (mass/volume)Ordered By: Juan Diego King 07-25-2023 Urea nitrogen [Mass/Vol] 25 mg/dL 7-18 Thin prep Papanicolaou smear with manual screeningOrdered By: Juan Diego King 07-25-2023 Thin prep Papanicolaou smear with manual screening 17 U/L 15-37 Thin prep Papanicolaou smear with manual screening 5 5-15 Whole blood hemoglobin A1c/t otal hemoglobin ratio (mass fraction)Ordered By: Juan Diego King on 07-25-2023 HbA1c (Bld) [Mass fraction] 5.9 % 3.8-5.6 Comment on above: Normal < 5.7 % Predi abetic 5.7 - 6.4 % Diabetic >or= 6.5 % Please note range changes. Absolute lymphocyte countOrd ered By: Dr. King on 01-10-2023 Lymphocytes Auto (Unsp spec) [#/Vol] 2.36 10*3/uL 0.83-4.51 Basophil percentageOrdered B y: Dr. King on 01-10-2023 Basophils/100 WBC (Bld) 0.6 % 0-1 [facility] Bilirubin [Mass/Vol] 0.40 mg/dL 0.20-1.00 [facility] Comment on above: For patients on eltr ombopag therapy, use of Dimension Reeves TBIL is not recommended. Chloride [Moles/Vol] 104 mmol/L 98-107 [facility] Cholesterol [Mass/Vol] 291 mg/dL <200 [facility] Comment on above: <200 mg/dL Desirable 200-240 mg/dL Borderline >240 mg/dL High Risk Eosinophils/100 WBC (Bld) 2.4 % 0-5 Glucose [Mass/Vol] 102 mg/dL 74-106 [facility] Comment on above: Fasting Glucose resu lt from 100 to 125 mg/dL suggests IMPAIRED HOMEOSTASIS per A.D.A. criteria. Neutrophils (Bld) [#/Vol] 3.2 10*3/uL 2.0-7.7 Neutrophils/100 WBC (Bld) 51.6 % 47-70 Potassium [Moles/Vol] 4.0 mmol/L 3.5-5.1 [facility] Protein [Mass/Vol] 7.2 g/dL 6.4-8.2 [facility] Sodium [Moles/Vol] 136 mmol/L 136-145 [facility] Triglyceride [Mass/Vol] 169 mg/dL <199 [facility] Comment on above: The drugs N-Acetylcy steine and Metamizole may falsely depress this assay.Serum Triglycerides Reference Interval Normal <150 mg/dL Borderline high 150 - 199 mg/dL High 200 - 499 mg/dL Very High > or = 500 mg/dL WBC (Bld) [#/Vol] 6.2 10*3/uL 4.4-11.0 [facility] Blood erythrocytes count (nu mber/volume)Ordered By: Dr. King on 01-10-2023 RBC (Bld) [#/Vol] 4.41 10*6/uL 4.2-5.4 [facility] Blood hemoglobin measurement (mass/volume)Ordered By: Dr. King on 01-10-2023 Hemoglobin (Bld) [Mass/Vol] 13.3 g/dL 12.0-15.0 Blood lymphocytes/100 leukoc ytesOrdered By: Dr. King on 01-10-2023 Lymphocytes/100 WBC (Bld) 38.2 % 19-41 Blood monocytes/100 leukocyt esOrdered By: Dr. King on 01-10-2023 Monocytes/100 WBC (Bld) 7.0 % 0-10 [facility] Blood platelet mean volumeOr dered By: Dr. King on 01-10-2023 Platelet mean volume (Bld) [Entitic vol] 10.0 fL 6.2-12.0 Determination of erythrocyte mean corpuscular volume (MCV)Ordered By: Dr. King on 01-10-2023 MCV (RBC) [Entitic vol] 93.0 fL 81-99 [facility] Hematocrit Auto (Bld) [Volum e fraction]Ordered By: Dr. King on 01-10-2023 Hematocrit (Bld) [Volume fraction] 41.0 % 37-47 Laboratory - Chemistry and C hemistry - challengeOrdered By: Dr. King on 01-10-2023 ALP [Catalytic activity/Vol] 84 U/L 45-117 ALT [Catalytic activity/Vol] 19 U/L 13-56 CO2 [Moles/Vol] 27.0 mmol/L 21.0-32.0 Globulin (S) [Mass/Vol] 3.4 g/dL 2.2-4.2 [facility] Urea nitrogen/Creatinine [Mass ratio] 24.3 mg/mg 10-20 Laboratory - Hematology and Cell countsOrdered By: Dr. King on 01-10-2023 Erythrocyte distribution width (RBC) [Entitic vol] 51.1 fL 35.1-43.9 Erythrocyte distribution width (RBC) [Ratio] 14.8 % 11.6-14.6 Immature granulocytes/100 WBC (Bld) 0.200 % 0.0-0.9 Comment on above: IG% - Immature Granu locytes (promyelocytes, myelocytes and metamyelocytes) > 1% indicates that a LEFT SHIFT is Present. MCH (RBC) [Entitic mass] 30.2 pg 27.0-32.0 Nucleated RBC/100 WBC (Bld) [Ratio] 0 % 0-5 MCHC Auto (RBC) [Mass/Vol]Or dered By: Dr. King on 01-10-2023 MCHC (RBC) [Mass/Vol] 32.4 g/dL 32-36 [facility] No Panel InformationOrdered By: Dr. King on 01-10-2023 Estimated GFR (MDRD) Amer 65 mL/min >60 Comment on above: GFR Calc Estimated GFR (MDRD) Non-Af Amer 54 mL/min >60 Comment on above: Non- GFR Calc Thyroid Stimulating Hormone (TSH) 1.07 uIU/mL 0.358-3.74 Vitamin D 25-Hydroxy 29.2 ng/mL [facility] Comment on above: Vitamin D 25(OH) Sta tus Range Deficiency <20 ng/mL (50nmol/L) Insufficiency 20 - 30 ng/mL (50 - 75 nmol/L) Sufficiency 30 - 100 ng/mL (75 - 250 nmol/L) Toxicity >100 ng/mL (>250 nmol/L) Platelets bldOrdered By: Dr. King on 01-10-2023 Platelets (Bld) [#/Vol] 243 10*3/uL 150-450 Serum or plasma albumin fuad urement (mass/volume)Ordered By: Dr. King on 01-10-2023 Albumin [Mass/Vol] 3.8 g/dL 3.2-5.0 [facility] Serum or plasma albumin/glob ulin mass ratioOrdered By: Dr. King on 01-10-2023 Albumin/Globulin [Mass ratio] 1.1 {ratio} 0.9-2.4 Serum or plasma calcium fuad urement (mass/volume)Ordered By: Dr. King on 01-10-2023 Calcium [Mass/Vol] 9.4 mg/dL 8.5-10.1 [facility] Serum or plasma cholesterol in HDL measurement (mass/volume)Ordered By: Dr. King on 01-10-2023 Cholesterol in HDL [Mass/Vol] 54 mg/dL >40 Comment on above: The drugs N-Acetylcy steine and Metamizole may falsely depress this assay. Reference Range HDL <40 mg/dL Low HDL Cholesterol HDL >or= 60 mg/dL High HDL Cholesterol Serum or plasma cholesterol in VLDL measurement (mass/volume)Ordered By: Dr. King on 01-10-2023 Cholesterol in VLDL [Mass/Vol] 34 mg/dL 5-40 Serum or plasma creatinine m easurement (mass/volume)Ordered By: Dr. King on 01-10-2023 Creatinine [Mass/Vol] 1.07 mg/dL 0.55-1.02 [facility] Comment on above: The validity of the calculated GFR & GFRAA in patients over 70 years has not been determined. Clinical correlation is essential. Serum or plasma low density lipoprotein (LDL) cholesterol measurement (mass/volume)Ordered By: Dr. King on 01-10-2023 Cholesterol in LDL [Mass/Vol] 203 mg/dL 0-130 Serum or plasma urea nitroge n measurement (mass/volume)Ordered By: Dr. King on 01-10-2023 Urea nitrogen [Mass/Vol] 26 mg/dL 7-18 Thin prep Papanicolaou smear with manual screeningOrdered By: Dr. King on 01-10-2023 Thin prep Papanicolaou smear with manual screening 20 U/L 15-37 Thin prep Papanicolaou smear with manual screening 5 5-15 Absolute lymphocyte counton 2022 Lymphocytes Auto (Unsp spec) [#/Vol] 2.14 10*3/uL 0.83-4.51 Work Phone: Basophil percentageon 2021 Basophils/100 WBC (Bld) 0.5 % 0-1 [facility] Work Phone: [phone] Bilirubin [Mass/Vol] 0.60 mg/dL 0.20-1.00 [facility] Work Phone: [phone] Comment on above: For patients on eltr ombopag therapy, use of Dimension Reeves TBIL is not recommended. Chloride [Moles/Vol] 105 mmol/L 98-107 [facility] Work Phone: [phone] Cholesterol [Mass/Vol] 174 mg/dL <200 [facility] Work Phone: [phone] Comment on above: <200 mg/dL Desirable 200-240 mg/dL Borderline >240 mg/dL High Risk Eosinophils/100 WBC (Bld) 2.8 % 0-5 Work Phone: [phone] Glucose [Mass/Vol] 154 mg/dL 74-106 [facility] Work Phone: [phone] Comment on above: Fasting Glucose resu lt greater than or equal to 126 mg/dL suggests DIABETES MELLITUS per A.D.A. criteria. Neutrophils (Bld) [#/Vol] 2.9 10*3/uL 2.0-7.7 Work Phone: [phone] Neutrophils/100 WBC (Bld) 50.9 % 47-70 Work Phone: [phone] Potassium [Moles/Vol] 4.5 mmol/L 3.5-5.1 [facility] Work Phone: [phone] Protein [Mass/Vol] 6.8 g/dL 6.4-8.2 [facility] Work Phone: [phone] Sodium [Moles/Vol] 139 mmol/L 136-145 [facility] Work Phone: [phone] Triglyceride [Mass/Vol] 131 mg/dL <199 [facility] Work Phone: [phone] Comment on above: The drugs N-Acetylcy steine and Metamizole may falsely depress this assay.Serum Triglycerides Reference Interval Normal <150 mg/dL Borderline high 150 - 199 mg/dL High 200 - 499 mg/dL Very High > or = 500 mg/dL WBC (Bld) [#/Vol] 5.7 10*3/uL 4.4-11.0 [facility] Work Phone: Blood erythrocytes count (nu mber/volume)on 2022 RBC (Bld) [#/Vol] 4.57 10*6/uL 4.2-5.4 [facility] Work Phone: [phone] Blood hemoglobin measurement (mass/volume)on 2022 Hemoglobin (Bld) [Mass/Vol] 13.6 g/dL 12.0-15.0 Work Phone: [phone] Blood lymphocytes/100 leukoc yteson 2022 Lymphocytes/100 WBC (Bld) 37.4 % 19-41 Work Phone: [phone] Blood monocytes/100 leukocyt eson 2022 Monocytes/100 WBC (Bld) 8.2 % 0-10 [facility] Work Phone: Blood platelet mean volumeon 2022 Platelet mean volume (Bld) [Entitic vol] 9.6 fL 6.2-12.0 Work Phone: Determination of erythrocyte mean corpuscular volume (MCV)on 2022 MCV (RBC) [Entitic vol] 92.3 fL 81-99 [facility] Work Phone: Hematocrit Auto (Bld) [Volum e fraction]on 2022 Hematocrit (Bld) [Volume fraction] 42.2 % 37-47 Work Phone: [phone] Laboratory - Chemistry and C hemistry - challengeon 2022 ALP [Catalytic activity/Vol] 90 U/L 45-117 Work Phone: ALT [Catalytic activity/Vol] 19 U/L 13-56 Work Phone: CO2 [Moles/Vol] 26.0 mmol/L 21.0-32.0 Work Phone: Globulin (S) [Mass/Vol] 3.4 g/dL 2.2-4.2 [facility] Work Phone: [phone] Urea nitrogen/Creatinine [Mass ratio] 18.4 mg/mg 10-20 Work Phone: [phone] Laboratory - Hematology and Cell countson 2022 Erythrocyte distribution width (RBC) [Entitic vol] 48.3 fL 35.1-43.9 Work Phone: [phone] Erythrocyte distribution width (RBC) [Ratio] 14.2 % 11.6-14.6 Work Phone: [phone] Immature granulocytes/100 WBC (Bld) 0.200 % 0.0-0.9 Work Phone: [phone] Comment on above: IG% - Immature Granu locytes (promyelocytes, myelocytes and metamyelocytes) > 1% indicates that a LEFT SHIFT is Present. MCH (RBC) [Entitic mass] 29.8 pg 27.0-32.0 Work Phone: [phone] Nucleated RBC/100 WBC (Bld) [Ratio] 0 % 0-5 Work Phone: [phone] MCHC Auto (RBC) [Mass/Vol]on 2022 MCHC (RBC) [Mass/Vol] 32.2 g/dL 32-36 [facility] Work Phone: [phone] Panel Informationon 07-11 Estimated GFR (MDRD) Amer 68 mL/min >60 Work Phone: [phone] Comment on above: GFR Calc Estimated GFR (MDRD) Non-Af Amer 56 mL/min >60 Work Phone: [phone] Comment on above: Non- GFR Calc Thyroid Stimulating Hormone (TSH) 1.46 uIU/mL 0.358-3.74 Work Phone: [phone] Vitamin D 25-Hydroxy 35.9 ng/mL [facility] Work Phone: [phone] Comment on above: Vitamin D 25(OH) Sta tus Range Deficiency <20 ng/mL (50nmol/L) Insufficiency 20 - 30 ng/mL (50 - 75 nmol/L) Sufficiency 30 - 100 ng/mL (75 - 250 nmol/L) Toxicity >100 ng/mL (>250 nmol/L) Platelets bldon 2022 Platelets (Bld) [#/Vol] 266 10*3/uL 150-450 Work Phone: [phone] Serum or plasma albumin fuad urement (mass/volume)on 2022 Albumin [Mass/Vol] 3.4 g/dL 3.2-5.0 [facility] Work Phone: [phone] Serum or plasma albumin/glob ulin mass ratioon 2022 Albumin/Globulin [Mass ratio] 1.0 {ratio} 0.9-2.4 Work Phone: Serum or plasma calcium fuad urement (mass/volume)on 2022 Calcium [Mass/Vol] 9.6 mg/dL 8.5-10.1 [facility] Work Phone: Serum or plasma cholesterol in HDL measurement (mass/volume)on 2022 Cholesterol in HDL [Mass/Vol] 63 mg/dL >40 Work Phone: Comment on above: The drugs N-Acetylcy steine and Metamizole may falsely depress this assay. Reference Range HDL <40 mg/dL Low HDL Cholesterol HDL >or= 60 mg/dL High HDL Cholesterol Serum or plasma cholesterol in VLDL measurement (mass/volume)on 2022 Cholesterol in VLDL [Mass/Vol] 26 mg/dL 5-40 Work Phone: [phone] Serum or plasma creatinine m easurement (mass/volume)on 2022 Creatinine [Mass/Vol] 1.03 mg/dL 0.55-1.02 [facility] Work Phone: Comment on above: The validity of the calculated GFR & GFRAA in patients over 70 years has not been determined. Clinical correlation is essential. Serum or plasma low density lipoprotein (LDL) cholesterol measurement (mass/volume)on 2022 Cholesterol in LDL [Mass/Vol] 85 mg/dL 0-130 Work Phone: Serum or plasma urea nitroge n measurement (mass/volume)on 2022 Urea nitrogen [Mass/Vol] 19 mg/dL 7-18 Work Phone: Thin prep Papanicolaou smear with manual screeningon 2022 Thin prep Papanicolaou smear with manual screening 18 U/L 15-37 Work Phone: Thin prep Papanicolaou smear with manual screening 8 5-15 Work Phone: Absolute lymphocyte counton 04-25-2022 Lymphocytes Auto (Unsp spec) [#/Vol] 1.67 10*3/uL 0.83-4.51 Work Phone: Basophil percentageon 2021 Basophil percentage 3.1 mg/dL 2.5-4.9 [facility] Work Phone: [phone] Basophils/100 WBC (Bld) 0.7 % 0-1 [facility] Work Phone: Bilirubin [Mass/Vol] 0.70 mg/dL 0.20-1.00 [facility] Work Phone: Comment on above: For patients on eltr ombopag therapy, use of Dimension Reeves TBIL is not recommended. Chloride [Moles/Vol] 104 mmol/L 98-107 [facility] Work Phone: Eosinophils/100 WBC (Bld) 1.5 % 0-5 Work Phone: Glucose [Mass/Vol] 124 mg/dL 74-106 [facility] Work Phone: Comment on above: Fasting Glucose resu lt from 100 to 125 mg/dL suggests IMPAIRED HOMEOSTASIS per A.D.A. criteria. Neutrophils (Bld) [#/Vol] 3.6 10*3/uL 2.0-7.7 Work Phone: Neutrophils/100 WBC (Bld) 62.1 % 47-70 Work Phone: Potassium [Moles/Vol] 4.3 mmol/L 3.5-5.1 [facility] Work Phone: Protein [Mass/Vol] 6.8 g/dL 6.4-8.2 [facility] Work Phone: Sodium [Moles/Vol] 138 mmol/L 136-145 [facility] Work Phone: WBC (Bld) [#/Vol] 5.9 10*3/uL 4.4-11.0 [facility] Work Phone: Blood erythrocytes count (nu mber/volume)on 04-25-2022 RBC (Bld) [#/Vol] 4.67 10*6/uL 4.2-5.4 [facility] Work Phone: Blood hemoglobin measurement (mass/volume)on 04-25-2022 Hemoglobin (Bld) [Mass/Vol] 14.1 g/dL 12.0-15.0 Work Phone: Blood lymphocytes/100 leukoc yteson 04-25-2022 Lymphocytes/100 WBC (Bld) 28.4 % 19-41 Work Phone: Blood monocytes/100 leukocyt eson 04-25-2022 Monocytes/100 WBC (Bld) 7.0 % 0-10 [facility] Work Phone: Blood platelet mean volumeon 04-25-2022 Platelet mean volume (Bld) [Entitic vol] 9.9 fL 6.2-12.0 Work Phone: Determination of erythrocyte mean corpuscular volume (MCV)on 04-25-2022 MCV (RBC) [Entitic vol] 92.3 fL 81-99 [facility] Work Phone: Hematocrit Auto (Bld) [Volum e fraction]on 04-25-2022 Hematocrit (Bld) [Volume fraction] 43.1 % 37-47 Work Phone: [phone] Laboratory - Chemistry and C hemistry - challengeon 04-25-2022 ALP [Catalytic activity/Vol] 73 U/L 45-117 Work Phone: [phone] ALT [Catalytic activity/Vol] 20 U/L 13-56 Work Phone: [phone] CO2 [Moles/Vol] 27.0 mmol/L 21.0-32.0 Work Phone: [phone] Globulin (S) [Mass/Vol] 3.1 g/dL 2.2-4.2 [facility] Work Phone: [phone] Urea nitrogen/Creatinine [Mass ratio] 16.2 mg/mg 10-20 Work Phone: [phone] Laboratory - Hematology and Cell countson 04-25-2022 Erythrocyte distribution width (RBC) [Entitic vol] 50.4 fL 35.1-43.9 Work Phone: [phone] Erythrocyte distribution width (RBC) [Ratio] 14.8 % 11.6-14.6 Work Phone: [phone] Immature granulocytes/100 WBC (Bld) 0.300 % 0.0-0.9 Work Phone: [phone] Comment on above: IG% - Immature Granu locytes (promyelocytes, myelocytes and metamyelocytes) > 1% indicates that a LEFT SHIFT is Present. MCH (RBC) [Entitic mass] 30.2 pg 27.0-32.0 Work Phone: [phone] Nucleated RBC/100 WBC (Bld) [Ratio] 0 % 0-5 Work Phone: [phone] MCHC Auto (RBC) [Mass/Vol]on 04-25-2022 MCHC (RBC) [Mass/Vol] 32.7 g/dL 32-36 [facility] Phone: [phone] Panel Informationon 04-25 Estimated GFR (MDRD) Amer 59 mL/min >60 Work Phone: Comment on above: GFR Calc Estimated GFR (MDRD) Non-Af Amer 49 mL/min >60 Work Phone: Comment on above: Non- GFR Calc Parathyroid Hormone (Intact) 79.4 pg/mL 18.4-80.1 Work Phone: [phone] Thyroid Stimulating Hormone (TSH) 0.90 uIU/mL 0.358-3.74 Work Phone: [phone] Vitamin D 25-Hydroxy 42.5 ng/mL [facility] Work Phone: [phone] Comment on above: Vitamin D 25(OH) Sta tus Range Deficiency <20 ng/mL (50nmol/L) Insufficiency 20 - 30 ng/mL (50 - 75 nmol/L) Sufficiency 30 - 100 ng/mL (75 - 250 nmol/L) Toxicity >100 ng/mL (>250 nmol/L) Platelets bldon 04-25-2022 Platelets (Bld) [#/Vol] 266 10*3/uL 150-450 Work Phone: [phone] Serum or plasma albumin fuad urement (mass/volume)on 04-25-2022 Albumin [Mass/Vol] 3.7 g/dL 3.2-5.0 [facility] Work Phone: [phone] Serum or plasma albumin/glob ulin mass ratioon 04-25-2022 Albumin/Globulin [Mass ratio] 1.2 {ratio} 0.9-2.4 Work Phone: [phone] Serum or plasma calcium fuad urement (mass/volume)on 04-25-2022 Calcium [Mass/Vol] 9.4 mg/dL 8.5-10.1 [facility] Work Phone: [phone] Serum or plasma creatinine m easurement (mass/volume)on 04-25-2022 Creatinine [Mass/Vol] 1.17 mg/dL 0.55-1.02 [facility] Work Phone: Comment on above: The validity of the calculated GFR & GFRAA in patients over 70 years has not been determined. Clinical correlation is essential. Serum or plasma urea nitroge n measurement (mass/volume)on 04-25-2022 Urea nitrogen [Mass/Vol] 19 mg/dL 7-18 Work Phone: Thin prep Papanicolaou smear with manual screeningon 04-25-2022 Thin prep Papanicolaou smear with manual screening 16 U/L 15-37 Work Phone: Thin prep Papanicolaou smear with manual screening 7 5-15 Work Phone: Basophil percentageon 2021 Chloride [Moles/Vol] 101 mmol/L 98-107 [facility] Work Phone: Glucose [Mass/Vol] 177 mg/dL 74-106 [facility] Work Phone: Comment on above: Fasting Glucose resu lt greater than or equal to 126 mg/dL suggests DIABETES MELLITUS per A.D.A. criteria. Potassium [Moles/Vol] 4.4 mmol/L 3.5-5.1 [facility] Work Phone: Sodium [Moles/Vol] 135 mmol/L 136-145 [facility] Work Phone: Laboratory - Chemistry and C hemistry - challengeon 02-07-2022 CO2 [Moles/Vol] 25.0 mmol/L 21.0-32.0 Work Phone: Urea nitrogen/Creatinine [Mass ratio] 17.9 mg/mg 10-20 Work Phone: No Panel Informationon 02-07 Estimated GFR (MDRD) Amer 55 mL/min >60 Work Phone: Comment on above: GFR Calc Estimated GFR (MDRD) Non-Af Amer 46 mL/min >60 Work Phone: [phone] Comment on above: Non- GFR Calc Serum or plasma calcium fuad urement (mass/volume)on 02-07-2022 Calcium [Mass/Vol] 9.8 mg/dL 8.5-10.1 [facility] Work Phone: Serum or plasma creatinine m easurement (mass/volume)on 02-07-2022 Creatinine [Mass/Vol] 1.23 mg/dL 0.55-1.02 [facility] Work Phone: Comment on above: The validity of the calculated GFR & GFRAA in patients over 70 years has not been determined. Clinical correlation is essential. Serum or plasma urea nitroge n measurement (mass/volume)on 02-07-2022 Urea nitrogen [Mass/Vol] 22 mg/dL 7-18 Work Phone: Thin prep Papanicolaou smear with manual screeningon 02-07-2022 Thin prep Papanicolaou smear with manual screening 9 5-15 Work Phone: [phone] Absolute lymphocyte counton 01-09-2022 Lymphocytes Auto (Unsp spec) [#/Vol] 2.27 10*3/uL 0.83-4.51 Work Phone: Basophil percentageon 2021 Basophil percentage 3.5 mg/dL 2.5-4.9 [facility] Work Phone: Basophils/100 WBC (Bld) 0.6 % 0-1 [facility] Work Phone: [phone] Bilirubin [Mass/Vol] 0.50 mg/dL 0.20-1.00 [facility] Work Phone: [phone] Comment on above: For patients on eltr ombopag therapy, use of Dimension Reeves TBIL is not recommended. Chloride [Moles/Vol] 101 mmol/L 98-107 [facility] Work Phone: Cholesterol [Mass/Vol] 184 mg/dL <200 [facility] Work Phone: [phone] Comment on above: <200 mg/dL Desirable 200-240 mg/dL Borderline >240 mg/dL High Risk Eosinophils/100 WBC (Bld) 1.8 % 0-5 Work Phone: Glucose [Mass/Vol] 179 mg/dL 74-106 [facility] Work Phone: [phone] Comment on above: Fasting Glucose resu lt greater than or equal to 126 mg/dL suggests DIABETES MELLITUS per A.D.A. criteria. Neutrophils (Bld) [#/Vol] 3.6 10*3/uL 2.0-7.7 Work Phone: [phone] Neutrophils/100 WBC (Bld) 55.3 % 47-70 Work Phone: [phone] Potassium [Moles/Vol] 4.5 mmol/L 3.5-5.1 [facility] Work Phone: [phone] Protein [Mass/Vol] 7.4 g/dL 6.4-8.2 [facility] Work Phone: [phone] Sodium [Moles/Vol] 135 mmol/L 136-145 [facility] Work Phone: [phone] Triglyceride [Mass/Vol] 200 mg/dL <199 [facility] Work Phone: Comment on above: The drugs N-Acetylcy steine and Metamizole may falsely depress this assay.Serum Triglycerides Reference Interval Normal <150 mg/dL Borderline high 150 - 199 mg/dL High 200 - 499 mg/dL Very High > or = 500 mg/dL WBC (Bld) [#/Vol] 6.6 10*3/uL 4.4-11.0 [facility] Work Phone: [phone] Blood erythrocytes count (nu mber/volume)on 01-09-2022 RBC (Bld) [#/Vol] 4.73 10*6/uL 4.2-5.4 [facility] Work Phone: [phone] Blood hemoglobin measurement (mass/volume)on 01-09-2022 Hemoglobin (Bld) [Mass/Vol] 14.0 g/dL 12.0-15.0 Work Phone: [phone] Blood lymphocytes/100 leukoc yteson 01-09-2022 Lymphocytes/100 WBC (Bld) 34.4 % 19-41 Work Phone: Blood monocytes/100 leukocyt eson 01-09-2022 Monocytes/100 WBC (Bld) 7.7 % 0-10 [facility] Work Phone: Blood platelet mean volumeon 01-09-2022 Platelet mean volume (Bld) [Entitic vol] 9.5 fL 6.2-12.0 Work Phone: Determination of erythrocyte mean corpuscular volume (MCV)on 01-09-2022 MCV (RBC) [Entitic vol] 91.8 fL 81-99 [facility] Work [phone] Hematocrit Auto (Bld) [Volum e fraction]on 01-09-2022 Hematocrit (Bld) [Volume fraction] 43.4 % 37-47 Work Phone: Laboratory - Chemistry and C hemistry - challengeon 01-09-2022 ALP [Catalytic activity/Vol] 105 U/L 45-117 Work Phone: ALT [Catalytic activity/Vol] 23 U/L 13-56 Work Phone: CO2 [Moles/Vol] 28.0 mmol/L 21.0-32.0 Work Phone: Globulin (S) [Mass/Vol] 3.6 g/dL 2.2-4.2 [facility] Work Phone: Urea nitrogen/Creatinine [Mass ratio] 16.4 mg/mg 10-20 Work Phone: Laboratory - Hematology and Cell countson 01-09-2022 Erythrocyte distribution width (RBC) [Entitic vol] 45.6 fL 35.1-43.9 Work Phone: Erythrocyte distribution width (RBC) [Ratio] 13.3 % 11.6-14.6 Work Phone: Immature granulocytes/100 WBC (Bld) 0.200 % 0.0-0.9 Work Phone: [phone] Comment on above: IG% - Immature Granu locytes (promyelocytes, myelocytes and metamyelocytes) > 1% indicates that a LEFT SHIFT is Present. MCH (RBC) [Entitic mass] 29.6 pg 27.0-32.0 Work Phone: [phone] Nucleated RBC/100 WBC (Bld) [Ratio] 0 % 0-5 Work Phone: [phone] MCHC Auto (RBC) [Mass/Vol]on 01-09-2022 MCHC (RBC) [Mass/Vol] 32.3 g/dL 32-36 [facility] Work Phone: [phone] Panel Informationon 01-09 Estimated GFR (MDRD) Amer 48 mL/min >60 Work Phone: [phone] Comment on above: GFR Calc Estimated GFR (MDRD) Non-Af Amer 40 mL/min >60 Work Phone: [phone] Comment on above: Non- GFR Calc Parathyroid Hormone (Intact) 86.5 pg/mL 18.4-80.1 Work Phone: [phone] Vitamin D 25-Hydroxy 24.8 ng/mL [facility] Work Phone: [phone] Comment on above: Vitamin D 25(OH) Sta tus Range Deficiency <20 ng/mL (50nmol/L) Insufficiency 20 - 30 ng/mL (50 - 75 nmol/L) Sufficiency 30 - 100 ng/mL (75 - 250 nmol/L) Toxicity >100 ng/mL (>250 nmol/L) Platelets bldon 01-09-2022 Platelets (Bld) [#/Vol] 243 10*3/uL 150-450 Work Phone: [phone] Serum or plasma albumin fuad urement (mass/volume)on 01-09-2022 Albumin [Mass/Vol] 3.8 g/dL 3.2-5.0 [facility] Work Phone: Serum or plasma albumin/glob ulin mass ratioon 01-09-2022 Albumin/Globulin [Mass ratio] 1.1 {ratio} 0.9-2.4 Work Phone: Serum or plasma calcium fuad urement (mass/volume)on 01-09-2022 Calcium [Mass/Vol] 9.1 mg/dL 8.5-10.1 [facility] Work Phone: Serum or plasma cholesterol in HDL measurement (mass/volume)on 01-09-2022 Cholesterol in HDL [Mass/Vol] 67 mg/dL >40 Work Phone: Comment on above: The drugs N-Acetylcy steine and Metamizole may falsely depress this assay. Reference Range HDL <40 mg/dL Low HDL Cholesterol HDL >or= 60 mg/dL High HDL Cholesterol Serum or plasma cholesterol in VLDL measurement (mass/volume)on 01-09-2022 Cholesterol in VLDL [Mass/Vol] 40 mg/dL 5-40 Work Phone: Serum or plasma creatinine m easurement (mass/volume)on 01-09-2022 Creatinine [Mass/Vol] 1.40 mg/dL 0.55-1.02 [facility] Work Phone: Comment on above: The validity of the calculated GFR & GFRAA in patients over 70 years has not been determined. Clinical correlation is essential. Serum or plasma low density lipoprotein (LDL) cholesterol measurement (mass/volume)on 01-09-2022 Cholesterol in LDL [Mass/Vol] 77 mg/dL 0-130 Work Phone: Serum or plasma urea nitroge n measurement (mass/volume)on 01-09-2022 Urea nitrogen [Mass/Vol] 23 mg/dL 7-18 Work Phone: [phone] Thin prep Papanicolaou smear with manual screeningon 01-09-2022 Thin prep Papanicolaou smear with manual screening 12 U/L 15-37 Work Phone: [phone] Thin prep Papanicolaou smear with manual screening 6 5-15 Work Phone: CBC and Differentialon 10-09 Abs Baso 0.04 k/uL Normal <0.11 [facility] Comment on above: Performed By: #### C BCDIF, CMP, LIPB, TSH, FT4, HBA1C, VITD ####[facility] [id number], [place] [phone] Abs [place] 0.52 k/uL Normal <0.87 [facility] Comment on above: Performed By: #### C BCDIF, CMP, LIPB, TSH, FT4, HBA1C, VITD ####[place] [id number] [place] [phone] Abs Neut 5.04 k/uL Normal 1.45-7.50 [facility] Comment on above: Performed By: #### C BCDIF, CMP, LIPB, TSH, FT4, HBA1C, VITD ####[place] [id number] [place] [phone] Absolute nRBC <0.01 Normal <0.01 [facility] Comment on above: Performed By: #### C BCDIF, CMP, LIPB, TSH, FT4, HBA1C, VITD ####[place] [id number] [place], [place] [phone] Basophils/100 WBC Auto (Bld) 0.5 % Normal [facility] Comment on above: Performed By: #### C BCDIF, CMP, LIPB, TSH, FT4, HBA1C, VITD ####[place] [address] [place] [phone] DTYPE ADIFF Normal [facility] Comment on above: Performed By: #### C BCDIF, CMP, LIPB, TSH, FT4, HBA1C, VITD ####[facility] [id number] [place] [phone] Eosinophils Auto #/vol (Bld) 0.11 10*3/uL Normal <0.46 [facility] Comment on above: Performed By: #### C BCDIF, CMP, LIPB, TSH, FT4, HBA1C, VITD ####[place] [address] [place] [phone] Eosinophils/100 WBC Auto (Bld) 1.5 % Normal [facility] Comment on above: Performed By: #### C BCDIF, CMP, LIPB, TSH, FT4, HBA1C, VITD ####[place] [address] [phone] Erythrocyte distribution width Auto Ratio (RBC) 12.5 % Normal 11.5-15.0 [facility] Comment on above: Performed By: #### C BCDIF, CMP, LIPB, TSH, FT4, HBA1C, VITD ####[place] [address] [place] [phone] Hematocrit Auto Volume Fraction (Bld) 40.2 % Normal 36.0-46.0 [facility] Comment on above: Performed By: #### C BCDIF, CMP, LIPB, TSH, FT4, HBA1C, VITD ####[place] [phone] Hemoglobin mass conc (Bld) 13.3 g/dL Normal 11.5-15.5 [facility] Comment on above: Performed By: #### C BCDIF, CMP, LIPB, TSH, FT4, HBA1C, VITD ####[place] [phone] Lymphocytes Auto #/vol (Bld) 1.81 10*3/uL Normal 1.00-4.00 [facility] Comment on above: Performed By: #### C BCDIF, CMP, LIPB, TSH, FT4, HBA1C, VITD ####[place] [address] [place] [phone] Lymphocytes/100 WBC Auto (Bld) 24.1 % Normal [facility] Comment on above: Performed By: #### C BCDIF, CMP, LIPB, TSH, FT4, HBA1C, VITD ####[place] [phone] MCH Auto Entitic mass (RBC) 29.2 pG Normal 26.0-34.0 [facility] Comment on above: Performed By: #### C BCDIF, CMP, LIPB, TSH, FT4, HBA1C, VITD ####[place] [phone] MCHC Auto mass conc (RBC) 33.1 g/dL Normal 30.5-36.0 [facility] Comment on above: Performed By: #### C BCDIF, CMP, LIPB, TSH, FT4, HBA1C, VITD ####[place] [phone] MCV Auto Entitic volume (RBC) 88.4 fL Normal 80.0-100.0 [facility] Comment on above: Performed By: #### C BCDIF, CMP, LIPB, TSH, FT4, HBA1C, VITD ####[place] [phone] Monocytes/100 WBC Auto (Bld) 6.9 % Normal [facility] Comment on above: Performed By: #### C BCDIF, CMP, LIPB, TSH, FT4, HBA1C, VITD ####[address] [place] [phone] Neutrophils/100 WBC Auto (Bld) 67.0 % Normal [facility] Comment on above: Performed By: #### C BCDIF, CMP, LIPB, TSH, FT4, HBA1C, VITD ####[place] [address], [place] [phone] NRBCs 0.0 /100 WBC Normal 0 [facility] Comment on above: Performed By: #### C BCDIF, CMP, LIPB, TSH, FT4, HBA1C, VITD ####[place] [address], [place] [phone] Platelet mean volume Auto Entitic volume (Bld) 10.2 fL Normal 9.0-12.7 [facility] Comment on above: Performed By: #### C BCDIF, CMP, LIPB, TSH, FT4, HBA1C, VITD ####[place] [address], [place] [phone] Platelets Auto #/vol (Bld) 208 10*3/uL Normal 150-400 [facility] Comment on above: Performed By: #### C BCDIF, CMP, LIPB, TSH, FT4, HBA1C, VITD ####[address] [place], [place] [phone] RBC Auto #/vol (Bld) 4.55 10*6/uL Normal 3.90-5.[address] [facility] Comment on above: Performed By: #### C BCDIF, CMP, LIPB, TSH, FT4, HBA1C, VITD ####[place] [address], [place] [phone] WBC Auto #/vol (Bld) 7.52 10*3/uL Normal 3.70-11.[address] [facility] Comment on above: Performed By: #### C BCDIF, CMP, LIPB, TSH, FT4, HBA1C, VITD ####[place] [address], [place] [phone] Comp Metabolic Panelon 10-09 Albumin mass conc 4.4 g/dL Normal 3.9-4.9 [facility] Comment on above: Performed By: #### C BCDIF, CMP, LIPB, TSH, FT4, HBA1C, VITD ####[facility] [id number]allas, [place] [phone] ALP enzyme act/vol 86 U/L Normal 34-123 [facility] Comment on above: Performed By: #### C BCDIF, CMP, LIPB, TSH, FT4, HBA1C, VITD ####[facility] [address], [place] [phone] ALT enzyme act/vol 19 U/L Normal 7-38 [facility] Comment on above: Performed By: #### C BCDIF, CMP, LIPB, TSH, FT4, HBA1C, VITD ####[address] [place], [place] [phone] Anion gap 3 molar conc 11 mmol/L Normal 9-18 [facility] Comment on above: Performed By: #### C BCDIF, CMP, LIPB, TSH, FT4, HBA1C, VITD ####[facility] [id number] [place], [place] [phone] AST enzyme act/vol 19 U/L Normal 13-35 [facility] Comment on above: Performed By: #### C BCDIF, CMP, LIPB, TSH, FT4, HBA1C, VITD ####[facility] [address], [place] [phone] Bilirubin Ql (U) 0.6 mg/dL Normal 0.2-1.3 [facility] Comment on above: Performed By: #### C BCDIF, CMP, LIPB, TSH, FT4, HBA1C, VITD ####[facility] [address] [place], [place] [phone] Calcium mass conc 9.9 mg/dL Normal 8.5-10.2 [facility] Comment on above: Performed By: #### C BCDIF, CMP, LIPB, TSH, FT4, HBA1C, VITD ####[facility] [id number] [place] [phone] Chloride molar conc 96 mmol/L Low 97-105 [facility] Comment on above: Performed By: #### C BCDIF, CMP, LIPB, TSH, FT4, HBA1C, VITD ####[facility] [id number] [place], [place] [phone] CO2 molar conc 27 mmol/L Normal 22-30 [facility] Comment on above: Performed By: #### C BCDIF, CMP, LIPB, TSH, FT4, HBA1C, VITD ####[place] [phone] Creatinine mass conc 0.97 mg/dL High 0.58-0.96 [facility] Comment on above: Performed By: #### C BCDIF, CMP, LIPB, TSH, FT4, HBA1C, VITD ####[place] [phone] eGFR- Amer. >60 Normal [facility] Comment on above: Performed By: #### C BCDIF, CMP, LIPB, TSH, FT4, HBA1C, VITD ####[place] [phone] GFR/1.73 sq M predicted among non-blacks MDRD vol rate/area (S/P/Bld) 57 . Normal [facility] Comment on above: Performed By: #### C BCDIF, CMP, LIPB, TSH, FT4, HBA1C, VITD ####[place] [phone] Glucose mass conc 267 mg/dL High 74-99 [facility] Comment on above: Performed By: #### C BCDIF, CMP, LIPB, TSH, FT4, HBA1C, VITD ####[place] [phone] Potassium molar conc 4.5 mmol/L Normal 3.7-5.1 [facility] Comment on above: Performed By: #### C BCDIF, CMP, LIPB, TSH, FT4, HBA1C, VITD ####[address] [phone] Protein mass conc 7.2 g/dL Normal 6.3-8.0 [facility] Comment on above: Performed By: #### C BCDIF, CMP, LIPB, TSH, FT4, HBA1C, VITD ####[place] [phone] Sodium molar conc 134 mmol/L Low 136-144 [facility] Comment on above: Performed By: #### C BCDIF, CMP, LIPB, TSH, FT4, HBA1C, VITD ####[address] [phone] Urea nitrogen mass conc 20 mg/dL Normal 7-21 [facility] Comment on above: Performed By: #### C BCDIF, CMP, LIPB, TSH, FT4, HBA1C, VITD ####[address] [phone] Free T4on 10-09-2018 T4 free mass conc 1.3 ng/dL Normal 0.9-1.7 [facility] Comment on above: Performed By: #### C BCDIF, CMP, LIPB, TSH, FT4, HBA1C, VITD ####[address] [phone] Hemoglobin A1con 10-09-2018 Glucose mass conc 212 mg/dL Normal [facility] Comment on above: Performed By: #### C BCDIF, CMP, LIPB, TSH, FT4, HBA1C, VITD ####[place] [id number] [place] [phone] Hemoglobin A1c/Hemoglobin.total mass fraction (Bld) 9.0 % High 4.3-5.6 [facility] Comment on above: Performed By: #### C BCDIF, CMP, LIPB, TSH, FT4, HBA1C, VITD ####[address] [place] [phone] Lipid Panel, Basicon 019 Cholesterol in HDL mass conc 53 mg/dL Normal >39 [facility] Comment on above: Performed By: #### C BCDIF, CMP, LIPB, TSH, FT4, HBA1C, VITD ####[place] [address] [phone] Cholesterol in LDL mass conc 80 mg/dL Normal <100 [facility] Comment on above: Performed By: #### C BCDIF, CMP, LIPB, TSH, FT4, HBA1C, VITD ####[place] [phone] [place] [phone] Cholesterol in VLDL mass conc 27 mg/dL Normal <30 [facility] Comment on above: Performed By: #### C BCDIF, CMP, LIPB, TSH, FT4, HBA1C, VITD ####[place] [phone] [place] [phone] Cholesterol mass conc 160 mg/dL Normal <200 [facility] Comment on above: Performed By: #### C BCDIF, CMP, LIPB, TSH, FT4, HBA1C, VITD ####[place] [address] [place] [phone] Cholesterol non HDL mass conc 107 mg/dL Normal <130 [facility] Comment on above: Performed By: #### C BCDIF, CMP, LIPB, TSH, FT4, HBA1C, VITD ####[place] [phone] LDL:HDL Ratio 1.51 Normal <2.54 [facility] Comment on above: Performed By: #### C BCDIF, CMP, LIPB, TSH, FT4, HBA1C, VITD ####[place] [phone] TC:HDL Ratio 3.02 Normal <5.10 [facility] Comment on above: Performed By: #### C BCDIF, CMP, LIPB, TSH, FT4, HBA1C, VITD ####[place] [phone] Triglyceride mass conc 134 mg/dL Normal <150 [facility] Comment on above: Performed By: #### C BCDIF, CMP, LIPB, TSH, FT4, HBA1C, VITD ####[place] [phone] Fasting Time 12 hrs Normal [facility] Comment on above: Performed By: #### C BCDIF, CMP, LIPB, TSH, FT4, HBA1C, VITD ####[place] [phone] TSHon 10-09-2018 Thyrotropin Qn 2.060 uU/mL Normal 0.400-5.500 [facility] Comment on above: Performed By: #### C BCDIF, CMP, LIPB, TSH, FT4, HBA1C, VITD ####[place] [phone] Vitamin D 25 Hydroxyon 10-09 Vitamin D 25 Hydroxy 60.5 ng/mL Normal 31.0-80.0 [facility] Comment on above: Performed By: #### C BCDIF, CMP, LIPB, TSH, FT4, HBA1C, VITD ####[place] [address] [phone] CBC and Differentialon 06-14 Abs Baso 0.03 k/uL Normal <0.11 [facility] Comment on above: Performed By: #### C BCDIF, CMP, LIPB, HBA1C, VITD ####[place] [address] [place] [phone] Abs [place] 0.50 k/uL Normal <0.87 [facility] Comment on above: Performed By: #### C BCDIF, CMP, LIPB, HBA1C, VITD ####[place] [address] [place] [phone] Abs Neut 3.76 k/uL Normal 1.45-7.50 [facility] Comment on above: Performed By: #### C BCDIF, CMP, LIPB, HBA1C, VITD ####[place] [phone] Absolute nRBC <0.01 Normal <0.01 [facility] Comment on above: Performed By: #### C BCDIF, CMP, LIPB, HBA1C, VITD ####[address] [place] [phone] Basophils/100 WBC Auto (Bld) 0.4 % Normal [facility] Comment on above: Performed By: #### C BCDIF, CMP, LIPB, HBA1C, VITD ####[address] [place] [phone] DTYPE ADIFF Normal [facility] Comment on above: Performed By: #### C BCDIF, CMP, LIPB, HBA1C, VITD ####[facility] [id number] [place] [phone] Eosinophils Auto #/vol (Bld) 0.15 10*3/uL Normal <0.46 [facility] Comment on above: Performed By: #### C BCDIF, CMP, LIPB, HBA1C, VITD ####[place] [address] [place] [phone] Eosinophils/100 WBC Auto (Bld) 2.2 % Normal [facility] Comment on above: Performed By: #### C BCDIF, CMP, LIPB, HBA1C, VITD ####[place] [address] [phone] Erythrocyte distribution width Auto Ratio (RBC) 14.2 % Normal 11.5-15.0 [facility] Comment on above: Performed By: #### C BCDIF, CMP, LIPB, HBA1C, VITD ####[place] [address] [place] [phone] Hematocrit Auto Volume Fraction (Bld) 43.8 % Normal 36.0-46.0 [facility] Comment on above: Performed By: #### C BCDIF, CMP, LIPB, HBA1C, VITD ####[address] [place] [phone] Hemoglobin mass conc (Bld) 13.5 g/dL Normal 11.5-15.5 [facility] Comment on above: Performed By: #### C BCDIF, CMP, LIPB, HBA1C, VITD ####[place] [address] [phone] Lymphocytes Auto #/vol (Bld) 2.41 10*3/uL Normal 1.00-4.00 [facility] Comment on above: Performed By: #### C BCDIF, CMP, LIPB, HBA1C, VITD ####[place] [address] [place] [phone] Lymphocytes/100 WBC Auto (Bld) 35.1 % Normal [facility] Comment on above: Performed By: #### C BCDIF, CMP, LIPB, HBA1C, VITD ####[place] [address] [phone] MCH Auto Entitic mass (RBC) 28.9 pG Normal 26.0-34.0 [facility] Comment on above: Performed By: #### C BCDIF, CMP, LIPB, HBA1C, VITD ####[place] [phone] MCHC Auto mass conc (RBC) 30.8 g/dL Normal 30.5-36.0 [facility] Comment on above: Performed By: #### C BCDIF, CMP, LIPB, HBA1C, VITD ####[address] [place] [phone] MCV Auto Entitic volume (RBC) 93.8 fL Normal 80.0-100.0 [facility] Comment on above: Performed By: #### C BCDIF, CMP, LIPB, HBA1C, VITD ####[place] [address] [place] [phone] Monocytes/100 WBC Auto (Bld) 7.3 % Normal [facility] Comment on above: Performed By: #### C BCDIF, CMP, LIPB, HBA1C, VITD ####[place] [address] [phone] Neutrophils/100 WBC Auto (Bld) 55.0 % Normal [facility] Comment on above: Performed By: #### C BCDIF, CMP, LIPB, HBA1C, VITD ####[place] [address] [place] [phone] NRBCs 0.0 /100 WBC Normal 0 [facility] Comment on above: Performed By: #### C BCDIF, CMP, LIPB, HBA1C, VITD ####[place] [address], [place] [phone] Platelet mean volume Auto Entitic volume (Bld) 10.2 fL Normal 9.0-12.7 [facility] Comment on above: Performed By: #### C BCDIF, CMP, LIPB, HBA1C, VITD ####[address] [place], [place] [phone] Platelets Auto #/vol (Bld) 217 10*3/uL Normal 150-400 [facility] Comment on above: Performed By: #### C BCDIF, CMP, LIPB, HBA1C, VITD ####[address] [phone] RBC Auto #/vol (Bld) 4.67 10*6/uL Normal 3.90-5.[address] [facility] Comment on above: Performed By: #### C BCDIF, CMP, LIPB, HBA1C, VITD ####[address] [place], [place] [phone] WBC Auto #/vol (Bld) 6.87 10*3/uL Normal 3.70-11.[address] [facility] Comment on above: Performed By: #### C BCDIF, CMP, LIPB, HBA1C, VITD ####[address] [place], [place] [phone] Comp Metabolic Panelon 06-14 Albumin mass conc 4.3 g/dL Normal 3.9-4.9 [facility] Comment on above: Performed By: #### C BCDIF, CMP, LIPB, HBA1C, VITD ####[address] [place], [place] [phone] ALP enzyme act/vol 55 U/L Normal 32-117 [facility] Comment on above: Performed By: #### C BCDIF, CMP, LIPB, HBA1C, VITD ####[facility] [address] [place] [phone] ALT enzyme act/vol 20 U/L Normal 7-38 [facility] Comment on above: Performed By: #### C BCDIF, CMP, LIPB, HBA1C, VITD ####[address] [place] [phone] Anion gap 3 molar conc 14 mmol/L Normal 9-18 [facility] Lab Comment on above: Performed By: #### C BCDIF, CMP, LIPB, HBA1C, VITD ####[place] [phone] AST enzyme act/vol 22 U/L Normal 13-35 [facility] Comment on above: Performed By: #### C BCDIF, CMP, LIPB, HBA1C, VITD ####[place] [phone] Bilirubin Ql (U) 0.4 mg/dL Normal 0.2-1.3 [facility] Comment on above: Performed By: #### C BCDIF, CMP, LIPB, HBA1C, VITD ####[facility] [id number] [place], [place] [address]d [place], [place] [phone] Calcium mass conc 10.0 mg/dL Normal 8.5-10.2 [facility] Comment on above: Performed By: #### C BCDIF, CMP, LIPB, HBA1C, VITD ####[facility] [id number] [place], [place] [address] [place], [place] [phone] Chloride molar conc 102 mmol/L Normal 97-105 [facility] Comment on above: Performed By: #### C BCDIF, CMP, LIPB, HBA1C, VITD ####[facility] [id number] [place] [phone] CO2 molar conc 23 mmol/L Normal 22-30 [facility] Comment on above: Performed By: #### C BCDIF, CMP, LIPB, HBA1C, VITD ####[place] [phone] Creatinine mass conc 0.92 mg/dL Normal 0.58-0.96 [facility] Comment on above: Performed By: #### C BCDIF, CMP, LIPB, HBA1C, VITD ####[place] [phone] eGFR- Amer. >60 Normal [facility] Comment on above: Performed By: #### C BCDIF, CMP, LIPB, HBA1C, VITD ####[place] [phone] GFR/1.73 sq M predicted among non-blacks MDRD vol rate/area (S/P/Bld) mL/min/{1.73_m2} Normal [facility] Comment on above: Performed By: #### C BCDIF, CMP, LIPB, HBA1C, VITD ####[place] [phone] Glucose mass conc 155 mg/dL High 74-99 [facility] Comment on above: Performed By: #### C BCDIF, CMP, LIPB, HBA1C, VITD ####[place] [phone] Potassium molar conc 4.2 mmol/L Normal 3.7-5.1 [facility] Comment on above: Performed By: #### C BCDIF, CMP, LIPB, HBA1C, VITD ####[facility] [address] [place] [phone] Protein mass conc 6.7 g/dL Normal 6.3-8.0 [facility] Comment on above: Performed By: #### C BCDIF, CMP, LIPB, HBA1C, VITD ####[place] [address] [place] [phone] Sodium molar conc 139 mmol/L Normal 136-144 [facility] Comment on above: Performed By: #### C BCDIF, CMP, LIPB, HBA1C, VITD ####[address] [place] [phone] Urea nitrogen mass conc 16 mg/dL Normal 7-21 [facility] Comment on above: Performed By: #### C BCDIF, CMP, LIPB, HBA1C, VITD ####[place] [address] [phone] Hemoglobin A1con 06-14-2018 Glucose mass conc 131 mg/dL Normal [facility] Comment on above: Performed By: #### C BCDIF, CMP, LIPB, HBA1C, VITD ####[address] [place] [phone] Hemoglobin A1c/Hemoglobin.total mass fraction (Bld) 6.2 % High 4.3-5.6 [facility] Comment on above: Performed By: #### C BCDIF, CMP, LIPB, HBA1C, VITD ####[address] [place] [phone] Lipid Panel, Basicon 018 Cholesterol in HDL mass conc 38 mg/dL Low >39 [facility] Comment on above: Performed By: #### C BCDIF, CMP, LIPB, HBA1C, VITD ####[facility] [address] [place] [phone] Cholesterol in LDL mass conc 75 mg/dL Normal <100 [facility] Comment on above: Performed By: #### C BCDIF, CMP, LIPB, HBA1C, VITD ####[place] [phone] Cholesterol in VLDL mass conc 30 mg/dL High <30 [facility] Comment on above: Performed By: #### C BCDIF, CMP, LIPB, HBA1C, VITD ####[place] [phone] Cholesterol mass conc 143 mg/dL Normal <200 [facility] Comment on above: Performed By: #### C BCDIF, CMP, LIPB, HBA1C, VITD ####[place] [phone] Cholesterol non HDL mass conc 105 mg/dL Normal <130 [facility] Comment on above: Performed By: #### C BCDIF, CMP, LIPB, HBA1C, VITD ####[place] [phone] LDL:HDL Ratio 1.97 Normal <2.54 [facility] Comment on above: Performed By: #### C BCDIF, CMP, LIPB, HBA1C, VITD ####[place] [phone] TC:HDL Ratio 3.76 Normal <5.10 [facility] Comment on above: Performed By: #### C BCDIF, CMP, LIPB, HBA1C, VITD ####[place] [phone] Triglyceride mass conc 149 mg/dL Normal <150 [facility] Lab Comment on above: Performed By: #### C BCDIF, CMP, LIPB, HBA1C, VITD ####[place] [address] [place], [place] [phone] Fasting Time 12 hrs Normal [facility] Comment on above: Performed By: #### C BCDIF, CMP, LIPB, HBA1C, VITD ####[address] [phone] Vitamin D 25 Hydroxyon 06-14 Vitamin D 25 Hydroxy 57.5 ng/mL Normal 31.0-80.0 [facility] Comment on above: Performed By: #### C BCDIF, CMP, LIPB, HBA1C, VITD ####[place] [phone] CBC and Differentialon 03-08 Abs Baso 0.03 k/uL Normal <0.11 [facility] Comment on above: Performed By: #### C BCDIF, FT4, CMP, LIPB, TSH, HBA1C, VITD ####[place] [phone] Abs [place] 0.54 k/uL Normal <0.87 [facility] Comment on above: Performed By: #### C BCDIF, FT4, CMP, LIPB, TSH, HBA1C, VITD ####[address] [phone] Abs Neut 3.51 k/uL Normal 1.45-7.50 [facility] Comment on above: Performed By: #### C BCDIF, FT4, CMP, LIPB, TSH, HBA1C, VITD ####[place] [phone] Absolute nRBC <0.01 Normal <0.01 [facility] Comment on above: Performed By: #### C BCDIF, FT4, CMP, LIPB, TSH, HBA1C, VITD ####[address], [place] [phone] Basophils/100 WBC Auto (Bld) 0.5 % Normal [facility] Comment on above: Performed By: #### C BCDIF, FT4, CMP, LIPB, TSH, HBA1C, VITD ####[place] [phone] DTYPE ADIFF Normal [facility] Comment on above: Performed By: #### C BCDIF, FT4, CMP, LIPB, TSH, HBA1C, VITD ####[place] [phone] Eosinophils Auto #/vol (Bld) 0.08 10*3/uL Normal <0.46 [facility] Comment on above: Performed By: #### C BCDIF, FT4, CMP, LIPB, TSH, HBA1C, VITD ####[place] [phone] Eosinophils/100 WBC Auto (Bld) 1.3 % Normal [facility] Comment on above: Performed By: #### C BCDIF, FT4, CMP, LIPB, TSH, HBA1C, VITD ####[place] [phone] Erythrocyte distribution width Auto Ratio (RBC) 13.7 % Normal 11.5-15.0 [facility] Comment on above: Performed By: #### C BCDIF, FT4, CMP, LIPB, TSH, HBA1C, VITD ####[place] [phone] Hematocrit Auto Volume Fraction (Bld) 42.3 % Normal 36.0-46.0 [facility] Comment on above: Performed By: #### C BCDIF, FT4, CMP, LIPB, TSH, HBA1C, VITD ####[address] [place], [place] [phone] Hemoglobin mass conc (Bld) 13.4 g/dL Normal 11.5-15.5 [facility] Comment on above: Performed By: #### C BCDIF, FT4, CMP, LIPB, TSH, HBA1C, VITD ####[place] [phone] Lymphocytes Auto #/vol (Bld) 1.91 10*3/uL Normal 1.00-4.00 [facility] Comment on above: Performed By: #### C BCDIF, FT4, CMP, LIPB, TSH, HBA1C, VITD ####[place] [phone] Lymphocytes/100 WBC Auto (Bld) 31.5 % Normal [facility] Comment on above: Performed By: #### C BCDIF, FT4, CMP, LIPB, TSH, HBA1C, VITD ####[place] [phone] MCH Auto Entitic mass (RBC) 28.7 pG Normal 26.0-34.0 [facility] Comment on above: Performed By: #### C BCDIF, FT4, CMP, LIPB, TSH, HBA1C, VITD ####[place] [phone] MCHC Auto mass conc (RBC) 31.7 g/dL Normal 30.5-36.0 [facility] Comment on above: Performed By: #### C BCDIF, FT4, CMP, LIPB, TSH, HBA1C, VITD ####[place] [phone] MCV Auto Entitic volume (RBC) 90.6 fL Normal 80.0-100.0 [facility] Comment on above: Performed By: #### C BCDIF, FT4, CMP, LIPB, TSH, HBA1C, VITD ####[place] [address], [place] [phone] Monocytes/100 WBC Auto (Bld) 8.9 % Normal [facility] Comment on above: Performed By: #### C BCDIF, FT4, CMP, LIPB, TSH, HBA1C, VITD ####[place] [address], [place] [phone] Neutrophils/100 WBC Auto (Bld) 57.8 % Normal [facility] Comment on above: Performed By: #### C BCDIF, FT4, CMP, LIPB, TSH, HBA1C, VITD ####[place] [address] [place], [place] [phone] NRBCs 0.0 /100 WBC Normal 0 [facility] Comment on above: Performed By: #### C BCDIF, FT4, CMP, LIPB, TSH, HBA1C, VITD ####[address] [place], [place] [phone] Platelet mean volume Auto Entitic volume (Bld) 9.9 fL Normal 9.0-12.7 [facility] Comment on above: Performed By: #### C BCDIF, FT4, CMP, LIPB, TSH, HBA1C, VITD ####[address] [phone] Platelets Auto #/vol (Bld) 214 10*3/uL Normal 150-400 [facility] Comment on above: Performed By: #### C BCDIF, FT4, CMP, LIPB, TSH, HBA1C, VITD ####[address] [place], [place] [phone] RBC Auto #/vol (Bld) 4.67 10*6/uL Normal 3.90-5.20 [facility] Comment on above: Performed By: #### C BCDIF, FT4, CMP, LIPB, TSH, HBA1C, VITD ####[facility] [id number] [place], [place] [phone] WBC Auto #/vol (Bld) 6.07 10*3/uL Normal 3.70-11.00 [facility] Comment on above: Performed By: #### C BCDIF, FT4, CMP, LIPB, TSH, HBA1C, VITD ####[address] [place], [place] [phone] Comp Metabolic Panelon 03-08 Albumin mass conc 4.5 g/dL Normal 3.9-4.9 [facility] Comment on above: Performed By: #### C BCDIF, FT4, CMP, LIPB, TSH, HBA1C, VITD ####[address] [phone] ALP enzyme act/vol 66 U/L Normal 32-117 [facility] Comment on above: Performed By: #### C BCDIF, FT4, CMP, LIPB, TSH, HBA1C, VITD ####[address] [place], [place] [phone] ALT enzyme act/vol 20 U/L Normal 7-38 [facility] Comment on above: Performed By: #### C BCDIF, FT4, CMP, LIPB, TSH, HBA1C, VITD ####[facility] [address] [place], [place] [address] [place], [place] [phone] Anion gap 3 molar conc 16 mmol/L Normal 9-18 [facility] Comment on above: Performed By: #### C BCDIF, FT4, CMP, LIPB, TSH, HBA1C, VITD ####[facility] [id number] [place], [place] [address] [place], [place] [phone] AST enzyme act/vol 20 U/L Normal 13-35 [facility] Comment on above: Performed By: #### C BCDIF, FT4, CMP, LIPB, TSH, HBA1C, VITD ####[place] [phone] Bilirubin Ql (U) 0.5 mg/dL Normal 0.2-1.3 [facility] Comment on above: Performed By: #### C BCDIF, FT4, CMP, LIPB, TSH, HBA1C, VITD ####[place] [phone] Calcium mass conc 9.8 mg/dL Normal 8.5-10.2 [facility] Comment on above: Performed By: #### C BCDIF, FT4, CMP, LIPB, TSH, HBA1C, VITD ####[phone] Chloride molar conc 98 mmol/L Normal 97-105 [facility] Comment on above: Performed By: #### C BCDIF, FT4, CMP, LIPB, TSH, HBA1C, VITD ####[place] [phone] CO2 molar conc 25 mmol/L Normal 22-30 [facility] Comment on above: Performed By: #### C BCDIF, FT4, CMP, LIPB, TSH, HBA1C, VITD ####[place] [phone] Creatinine mass conc 1.09 mg/dL High 0.58-0.96 [facility] Comment on above: Performed By: #### C BCDIF, FT4, CMP, LIPB, TSH, HBA1C, VITD ####[place] [phone] eGFR- Amer. >60 Normal [facility] Comment on above: Performed By: #### C BCDIF, FT4, CMP, LIPB, TSH, HBA1C, VITD ####[address] [phone] GFR/1.73 sq M predicted among non-blacks MDRD vol rate/area (S/P/Bld) 50 . Normal [facility] Comment on above: Performed By: #### C BCDIF, FT4, CMP, LIPB, TSH, HBA1C, VITD ####[address] [phone] Glucose mass conc 165 mg/dL High 74-99 [facility] Comment on above: Performed By: #### C BCDIF, FT4, CMP, LIPB, TSH, HBA1C, VITD ####[address] [phone] Potassium molar conc 4.4 mmol/L Normal 3.7-5.1 [facility] Comment on above: Performed By: #### C BCDIF, FT4, CMP, LIPB, TSH, HBA1C, VITD ####[address] [phone] Protein mass conc 7.0 g/dL Normal 6.3-8.0 [facility] Comment on above: Performed By: #### C BCDIF, FT4, CMP, LIPB, TSH, HBA1C, VITD ####[address] [phone] Sodium molar conc 139 mmol/L Normal 136-144 [facility] Comment on above: Performed By: #### C BCDIF, FT4, CMP, LIPB, TSH, HBA1C, VITD ####[address] [phone] Urea nitrogen mass conc 21 mg/dL Normal 7-21 [facility] Comment on above: Performed By: #### C BCDIF, FT4, CMP, LIPB, TSH, HBA1C, VITD ####[facility] [place] [phone] Free T4on 03-08-2018 T4 free mass conc 1.4 ng/dL Normal 0.9-1.7 [facility] Comment on above: Performed By: #### C BCDIF, FT4, CMP, LIPB, TSH, HBA1C, VITD ####[place] [address] [place] [phone] Hemoglobin A1con 03-08-2018 Glucose mass conc 194 mg/dL Normal [facility] Comment on above: Performed By: #### C BCDIF, FT4, CMP, LIPB, TSH, HBA1C, VITD ####[place] [phone] Hemoglobin A1c/Hemoglobin.total mass fraction (Bld) 8.4 % High 4.3-5.6 [facility] Comment on above: Performed By: #### C BCDIF, FT4, CMP, LIPB, TSH, HBA1C, VITD ####[address] [place], [place] [phone] Lipid Panel, [facility] 018 Cholesterol in HDL mass conc 60 mg/dL Normal >39 [facility] Comment on above: Performed By: #### C BCDIF, FT4, CMP, LIPB, TSH, HBA1C, VITD ####[place] [address] [place], [place] [phone] Cholesterol in LDL mass conc 80 mg/dL Normal <100 [facility] Comment on above: Performed By: #### C BCDIF, FT4, CMP, LIPB, TSH, HBA1C, VITD ####[address] [place] [phone] Cholesterol in VLDL mass conc 26 mg/dL Normal <30 [facility] Comment on above: Performed By: #### C BCDIF, FT4, CMP, LIPB, TSH, HBA1C, VITD ####[place] [phone] Cholesterol mass conc 166 mg/dL Normal <200 [facility] Comment on above: Performed By: #### C BCDIF, FT4, CMP, LIPB, TSH, HBA1C, VITD ####[place] [phone] Cholesterol non HDL mass conc 106 mg/dL Normal <130 [facility] Comment on above: Performed By: #### C BCDIF, FT4, CMP, LIPB, TSH, HBA1C, VITD ####[place] [phone] LDL:HDL Ratio 1.33 Normal <2.54 [facility] Comment on above: Performed By: #### C BCDIF, FT4, CMP, LIPB, TSH, HBA1C, VITD ####[place] [phone] TC:HDL Ratio 2.77 Normal <5.10 [facility] Comment on above: Performed By: #### C BCDIF, FT4, CMP, LIPB, TSH, HBA1C, VITD ####[place] [phone] Triglyceride mass conc 128 mg/dL Normal <150 [facility] Comment on above: Performed By: #### C BCDIF, FT4, CMP, LIPB, TSH, HBA1C, VITD ####[place] [phone] Fasting Time 12 hrs Normal [facility] Comment on above: Performed By: #### C BCDIF, FT4, CMP, LIPB, TSH, HBA1C, VITD ####[facility] [address] [place], [place] [phone] TSHon 03-08-2018 Thyrotropin Qn 2.580 uU/mL Normal 0.400-5.500 [facility] Comment on above: Performed By: #### C BCDIF, FT4, CMP, LIPB, TSH, HBA1C, VITD ####[address] [phone] Vitamin D 25 Hydroxyon 03-08 Vitamin D 25 Hydroxy 47.4 ng/mL Normal 31.0-80.0 [facility] Comment on above: Performed By: #### C BCDIF, FT4, CMP, LIPB, TSH, HBA1C, VITD ####[address] [phone] CBC and Differentialon 11-06 Abs Baso 0.04 k/uL Normal <0.11 [facility] Abs [place] 0.48 k/uL Normal <0.87 [facility] Abs Neut 3.51 k/uL Normal 1.45-7.50 [facility] Absolute nRBC <0.01 Normal <0.01 [facility] Basophils/100 WBC Auto (Bld) 0.7 % Normal [facility] DTYPE ADIFF Normal [facility] Eosinophils Auto #/vol (Bld) 0.09 10*3/uL Normal <0.46 [facility] Eosinophils/100 WBC Auto (Bld) 1.6 % Normal [facility] Erythrocyte distribution width Auto Ratio (RBC) 12.0 % Normal 11.5-15.0 [facility] Hematocrit Auto Volume Fraction (Bld) 41.6 % Normal 36.0-46.0 [facility] Hemoglobin mass conc (Bld) 13.8 g/dL Normal 11.5-15.5 [facility] Lymphocytes Auto #/vol (Bld) 1.60 10*3/uL Normal 1.00-4.00 [facility] Lymphocytes/100 WBC Auto (Bld) 27.9 % Normal [facility] MCH Auto Entitic mass (RBC) 28.8 pG Normal 26.0-34.0 [facility] MCHC Auto mass conc (RBC) 33.2 g/dL Normal 30.5-36.0 [facility] MCV Auto Entitic volume (RBC) 86.8 fL Normal 80.0-100.0 [facility] Monocytes/100 WBC Auto (Bld) 8.4 % Normal [facility] Neutrophils/100 WBC Auto (Bld) 61.4 % Normal [facility] NRBCs 0.0 /100 WBC Normal 0 [facility] Platelet mean volume Auto Entitic volume (Bld) 10.5 fL Normal 9.0-12.7 [facility] Platelets Auto #/vol (Bld) 203 10*3/uL Normal 150-400 [facility] RBC Auto #/vol (Bld) 4.79 10*6/uL Normal 3.90-5.20 [facility] WBC Auto #/vol (Bld) 5.74 10*3/uL Normal 3.70-11.00 [facility] Comp Metabolic Panelon 11-06 Albumin mass conc 4.3 g/dL Normal 3.9-4.9 [facility] ALP enzyme act/vol 77 U/L Normal 32-117 [facility] ALT enzyme act/vol 20 U/L Normal 7-38 [facility] Anion gap 3 molar conc 9 mmol/L Normal 9-18 [facility] AST enzyme act/vol 16 U/L Normal 13-35 [facility] Bilirubin Ql (U) 0.6 mg/dL Normal 0.2-1.3 [facility] Calcium mass conc 9.1 mg/dL Normal 8.5-10.2 [facility] Chloride molar conc 95 mmol/L Low 97-105 [facility] CO2 molar conc 30 mmol/L Normal 22-30 [facility] Creatinine mass conc 0.91 mg/dL Normal 0.58-0.96 [facility] eGFR- Amer. >60 Normal [facility] GFR/1.73 sq M predicted among non-blacks MDRD vol rate/area (S/P/Bld) mL/min/{1.73_m2} Normal [facility] Glucose mass conc 337 mg/dL High 74-99 [facility] Potassium molar conc 4.6 mmol/L Normal 3.7-5.1 [facility] Protein mass conc 6.5 g/dL Normal 6.3-8.0 [facility] Sodium molar conc 134 mmol/L Low 136-144 [facility] Urea nitrogen mass conc 19 mg/dL Normal 7-21 [facility] Free T4on 11-06-2017 T4 free mass conc 1.2 ng/dL Normal 0.9-1.7 [facility] Hemoglobin A1con 11-06-2017 Glucose mass conc 255 mg/dL Normal [facility] Hemoglobin A1c/Hemoglobin.total mass fraction (Bld) 10.5 % High 4.3-5.6 [facility] Lipid Panel, [facility] 018 Cholesterol in HDL mass conc 54 mg/dL Normal >39 [facility] Cholesterol in LDL mass conc 82 mg/dL Normal <100 [facility] Cholesterol in VLDL mass conc 24 mg/dL Normal <30 [facility] Cholesterol mass conc 160 mg/dL Normal <200 [facility] Cholesterol non HDL mass conc 106 mg/dL Normal <130 [facility] LDL:HDL Ratio 1.52 Normal <2.54 [facility] TC:HDL Ratio 2.96 Normal <5.10 [facility] Triglyceride mass conc 122 mg/dL Normal <150 [facility] TSHon 11-06-2017 Thyrotropin Qn 2.450 uU/mL Normal 0.400-5.500 [facility] Vitamin D 25 Hydroxyon 11-06 Vitamin D 25 Hydroxy 40.4 ng/mL Normal 31.0-80.0 [facility] Lipid Panel, [facility] 018 Fasting Time 12 hrs Normal [facility] Vital Signs Date Time Vital Sign Value Performing Clinician Johnathon litasiya 01-01-2020 12:49-0400 Body mass index (BMI) [Ratio] 26.9 kg/m2 Dr. Juan Diego King Work Phone: Work Phone: Encounters Encounter Date Encounter Type Care Provider Facility Start: 03-24-2025 End: 03-24-[address] Juan Diego King MD Work Phone: -Laboratory Start: 03-24-2025 End: 03-24-[address] Juan Diego King MD -Laboratory Work Phone: Start: 03-24-2025 End: 03-24-2025 ambulatory Juan Diego Chi Fernando Facility: Start: 02-16-2025 End: 02-16-[address] Juan Diego King MD -Laboratory Work Phone: Start: 02-16-2025 End: 02-16-2025 ambulatory Juan Diego Chi Fernando Facility: Start: 02-01-2025 ambulatory Juan Diego Chi Fernando Facility:[facility] Start: 12-15-2024 End: 12-15-[address] Juan Diego King MD Work Phone: Work Phone: Start: 12-15-2024 End: 12-15-[address] Juan Diego King MD -Laboratory Work Phone: Start: 12-15-2024 End: 12-15-2024 ambulatory Juan Diego Chi Fernando Facility: Start: 10-22-2024 End: 10-22-[address] Juan Diego King MD -Laboratory, Phy Office 3rd Flr Start: 10-22-2024 End: 10-22-2024 ambulatory Juan Diego Chi Fernando Facility: Start: 07-22-2024 End: 07-22-2024 ambulatory Juan Diego Chi Fernando Facility: Start: 07-15-2024 End: 07-15-2024 ambulatory Juan Diego Chi Fernando Facility: Start: 05-07-2024 End: 05-07-2024 ambulatory Juan Diego Chi Fernando Facility: Start: 03-31-2024 End: 03-31-2024 ambulatory Juan Diego King Facility: Start: 01-30-2024 End: 01-30-2024 ambulatory Work Phone: Start: 01-30-2024 End: 01-30-2024 [facility] Work Phone: Start: 01-16-2024 End: 01-16-2024 ambulatory Work Phone: Start: 01-16-2024 End: 01-16-2024 Patient encounter procedure -Laboratory Work Phone: Start: 07-25-2023 End: 07-25-2023 ambulatory Work Phone: Start: 07-25-2023 End: 07-25-2023 [facility] Start: 01-10-2023 End: 01-10-2023 ambulatory Work Phone: Start: 01-10-2023 End: 01-10-2023 [facility] Start: 2022 End: 2022 ambulatory Work Phone: Start: 2022 End: 2022 [facility] Start: 04-25-2022 End: 04-25-2022 [facility] Start: 02-07-2022 End: 02-07-[address] Juan Diego King Work Phone: -Radiology, [facility] Start: 01-10-2022 End: 01-10-[address] Juan Diego iKng Work Phone: -Cat Scan, [facility] Start: 01-09-2022 End: 01-09-[address] Juan Diego King Work Phone: -Laboratory, Phy Office 3rd Flr Start: 10-27-2021 End: 10-27-[address] Juan Diego King Work Phone: -[facility] Start: 10-24-2021 End: 10-24-[address] Juan Diego King Work Phone: -Outpatient Breast Imaging Procedures Date Procedure Procedure Detail [...] 09-30-2019 influenza, injectabl e, quadrivalent, preservative free 09-30-2019 influenza, seasonal, injectable Dr. Juan Diego King Work Phone: 05-20-2016 tetanus and diphther ia toxoids, adsorbed, preservative free, for adult use (2 Lf of tetanus toxoid and 2 Lf of diphtheria toxoid) Dr. Juan Diego King Work Phone: Payers Date Payer Category Payer Self-pay [id number] 2022 Private Health Insurance [id number] Medicaid [id number] Medicare [id number] Unknown [id number] Unknown [id number] 2.16.8 [id number] Unknown [id number] 2.16.8 [id number] Unknown [id number] 2.16.8 [id number] Unknown [id number] 2.16.8 [id number] Unknown [id number] 2.16.8 [id number] Unknown [id number] 2.16.8 [id number] Unknown [id number] 2.16.8 [id number] Unknown [id number] 2.16.8 [id number] Unknown [id number] 2.16.8 [id number] Social History Date Type Detail Facility Start: 10-27-2021 Tobacco smoking stat [facility] Unknown if ever smoked Start: 01-01-2020 Cigarettes [facility] Start: 1950 Sex Assigned At Female [facility] Start: 10-27-2021 [facility] Start: 03-27-2025 Sex Female (finding) [place] [facility] Medical Equipment Procedure Code Equipment Code Equipment [...] 5ML FDA Start: 01-01-2020 Robot-assisted partial nephrectomy CLIP,HEMOLONOEYM ARREOLA FDA Start: 01-01-2020 Robot-assisted partial nephrectomy [...] Date Abnormal mammogram of right breast acute Work Phone: Evaluation note Note Date & Type Note Facility Evaluation note No assessment information availa ble Work Phone: Reason for referral (narrative) Note Date & Type Note Facility Reason for referral (narrative) No reason for referral information available Work Phone: Summary Purpose Family History No [...] No January 01, 2020 12:49pm Power of Vegetable Preparer No December 31 0 12:49pm Chief Complaint and Reason for Visit Chief Complaint ABNORMAL MAMMOGRAM 6 month f/u Breast Check/Mammo 10/24 [facility] MALIGNANT NEOPLASM OF RIGHT KIDNEY Reason for Visit Abnormal mammogram o f right breast Chief Complaint MALIGNANT NEOPLASM O F RIGHT KIDNEY Chief Complaint ABD PAIN NICOTINE DE P, SCREENING Additional Source Comments INFORMATION SOURCE (unrecogn ized section and content) DATE CREATED AUTHOR 10/10/2018 [facility] DATE CREATED AUTHOR AUTHOR'S ORGANIZ ATION 03/30/2025 [facility] Goals (unrecognized section and content) Goals may [...] BE BASED ON THE PRIMARY CLINICAL RECORDS. [facility]. provides no warranty or guarantee of the accuracy or completeness of information in this document.
[2025-08-21 09:31] LABS: CORTISOL AM 1.48 ug/dL (6.02-18.40)
== END | disposition home or self-care (01) ==
LOC: LAB 07:58
PROVIDERS: PCP Family Medicine Geriatric Medicine; Referring Provider Family Medicine Geriatric Medicine; Visit Provider Family Medicine Geriatric Medicine
DX: E24.0 Pituitary-dependent Cushing's disease (principal)
CPT/HCPCS: 36415; 82533

== ENCOUNTER 2025-09-25 12:55 | Emergency (ER) | payer MEDICARE, SELFPAY ==
[2025-09-25 12:56] VITALS: BP 140/79; PULSE 70; RESP 16; TEMP 36.8; O2SAT 100; BMI 33.3
--- NOTE | 2025-09-25 13:17 | EX.ED.DYSGE1 ---
HPI History of Present Illness Chief Complaint: Other, Pain/Inj Informant: patient and family (Accompanied by her daughter.) Onset/Context/Timing Onset: Today and Yesterday Context: Sudden Onset Timing: Continuous Current Severity: Mild Maximum Severity: Moderate Narrative Narrative: 75-year-old female history diabetes, hypertension, degenerative disc disease and prior compression fracture of her spine. States yesterday around 9 AM she dropped something bent over to pick it up had pain going from her left lower leg up all the way to her left axilla. That since resolved but has had additional pain in her like left proximal hamstring and buttock area. Denies any fall or trauma. Able to ambulate. No weakness or numbness. No prior back surgery. Prior similar symptoms: No Recent Illness/Hospitalization: No PFSH PFSH Medical History Dupuytren disease High cholesterol Diabetes HTN (hypertension) Home Medications ?Medication ?Instructions ?Recorded ?Last Taken ?Type atorvastatin 40 mg tablet 40 mg PO QHS 12/31/19 Unknown History lisinopril 5 mg tablet 5 mg PO QHS 12/31/19 Unknown History metoprolol succinate 25 mg 12.5 mg PO QHS 12/31/19 12/31/19 20:00 History tablet,extended release 24 hr 12.5 MG ascorbate calcium (vitamin C) 500 500 mg PO DAILY 04/11/21 Unknown History mg tablet aspirin 81 mg tablet,delayed 81 mg PO DAILY 04/11/21 Unknown History release cholecalciferol (vitamin D3) 25 25 mcg PO DAILY 04/11/21 Unknown History mcg (1,000 unit) capsule tirzepatide 12.5 mg/0.5 mL 12.5 mg subcut QWEEK 09/03/25 Unknown History subcutaneous pen injector (Mounjaro) Allergy/AdvReac Type Severity Reaction Status Date / Time cheese Allergy Itching Verified 09/25/25 12:58 Family History Brother Asthma Cancer Thyroid disorder Mother Breast cancer Thyroid disorder Diabetes Hypertension Heart disease CAD (coronary artery disease) Father Diabetes Hypertension CAD (coronary artery disease) Surgical History S/P tonsillectomy History of partial nephrectomy Social History Smoking Status: Light Smoker (<10/day) alcohol intake: current alcohol intake frequency: a few times a month ROS ROS ED ROS Narrative Denies recent illness. Constitutional Constitutional ED: Denies chills or fever(s) Eyes Eyes: Denies blurry vision ENT ENT ED: Denies ear pain Cardiovascular Cardiovascular: Denies chest pain Respiratory/Chest Respiratory/Chest: Denies cough Gastrointestinal Gastrointestinal: Denies abdominal pain, diarrhea, nausea or vomiting Genitourinary Genitourinary ED: Denies dysuria Musculoskeletal Musculoskeletal: Denies arthralgias Integumentary Denies abscess Neurologic Neurologic: Denies headache(s) Psychiatric Psychiatric: Denies anxiety Endocrine Endocrinology: Denies cold intolerance Hematologic/Lymphatic Hematologic/Lymphatic: Reports none Allergic/Immunologic Allergic/Immunologic ED: Denies mouth swelling, tongue swelling or urticaria EXAM Physical Exam Narrative Exam Narrative: Well-appearing 75-year-old female. Vital signs stable afebrile. Pulse ox 100% on room air no hypoxia. No distress. Sitting upright in bed appears comfortable. Daughter at bedside. H EENT exam pupils round react light. Moist mucous membranes. Neck nontender no lymphadenopathy. Back nontender no reproducible pain. Spine nontender. Lungs clear to auscultation bilaterally. Heart regular rhythm no murmur. Abdomen soft, nontender, nondistended normal bowel sounds without peritoneal signs. No pulsatile mass. Moving all 4 extremities. Normal teacher learning disabled strength. Normal dorsi plantarflexion. No cords no edema mild tenderness left proximal quadriceps muscle. No redness or warmth no discoloration no deficit. Full flexion extension of both hips knees and ankles. No pain with range of motion. Normal dorsi plantarflexion. Neurologically she is awake alert. Answer questions following commands. Normal strength no loss of sensation. Const Vital Signs: 09/25/25 12:56 Temperature 98.2 F Temperature Source Oral Pulse Rate 70 Respiratory Rate 16 Blood Pressure 140/79 H Blood Pressure Mean 99 Pulse Ox 100 Oxygen Delivery Method Room Air MDM MDM MDM Narrative Medical decision making narrative: 75-year-old female bent over yesterday had pain suspect secondary to myofascial strain of her left quadriceps muscle. Currently at this time there is no signs of radiculopathy she has a negative straight leg raise bilaterally. She had no fall or trauma I do not think x-rays are needed. She has normal range of motion and strength all of her extremities. She was offered but did not wining for pain here she is comfortable being discharged home. She will use Tylenol and ibuprofen follow-up if not improving return if worse. They are comfortable with the plan. Discharge Plan Triage Chief Complaint: Other, Pain/Inj ED Provider: Devonte Bartlett Dx/Rx/DC Orders Clinical Impression: Muscle strain Instructions: ED Back Sprain/Strain, ED Muscle Strain, Extremity Prescriptions: No Action ascorbate calcium (vitamin C) 500 mg tablet 500 mg PO DAILY cholecalciferol (vitamin D3) 25 mcg (1,000 unit) capsule 25 mcg PO DAILY aspirin 81 mg tablet,delayed release (DR/EC) 81 mg PO DAILY Mounjaro 12.5 mg/0.5 mL pen injector 12.5 mg subcut QWEEK atorvastatin 40 MG tablet 40 mg PO QHS lisinopril 5 MG tablet 5 mg PO QHS metoprolol succinate 25 MG tablet 12.5 mg PO QHS Primary Care Provider: Juan Diego King Chi Referrals: Juan Diego King Chi, MD [Primary Care Provider, Geriatrics] - 1 Week if not improving Activity Restrictions/Additional Instructions: Ibuprofen for pain and inflammation alternate with Tylenol. Most likely is a sprain or strain of the muscles in your upper left thigh and back area. Hot shower, warm bath. Massage. Warm compresses. This should progressively improve if not follow-up with your doctor. Dr. Mendieta Print Language: Ivorian Disposition Disposition: Home, Self Care
--- OUTSIDE RECORDS SUMMARY | 2025-09-25 13:17 | XMS RPT_ITS | CCD ---
Author Organization [facility] Care Team Providers Care Marketing Team Lead Name Role Phone Dr. Juan Diego King Chi Primary Care Provider Inder, Dr. Ryan He Attending Provider [phone] Inder, Dr. Ryan He Referring Provider Fernando SIDHU, Dr. Juan Diego Mckeon Primary Care Provider [phone] Fernando SIDHU, Dr. Juan Diego Mckeon Attending Provider [phone] Fernando SIDHU, Dr. Juan Diego Mckeon Referring Provider [phone] Fernando SIDHU, Dr. Juan Diego Mckeon Primary Care Provider [phone] Fernando SIDHU, Dr. Juan Diego Mckeon Attending [...] take 12.5 mg by mouth at bedti nh Metoprolol Succinate Active 12.5 MG PO AT [...] Auto (Unsp spec) [#/Vol] 1.88 10*3/uL 0.83-4.51 [facility] Absolute neutrophil countOrd ered By: Juan Diego King on 03-24-2025 Neutrophils (Bld) [#/Vol] 3.4 10*3/uL 2.0-7.7 [facility] Anion gap in Serum or Plasma Ordered By: Juan Diego King on 03-24-2025 Anion gap [Moles/Vol] 11 mmol/L 5-15 [facility] Automated lymphocyte count a s percentage of total leukocytesOrdered By: Juan Diego King on 03-24-2025 Lymphocytes/100 WBC Auto (Unsp spec) 30.7 % -41 [facility] BUN/creatinine ratioOrdered By: Juan Diego King on 03-24-2025 Urea nitrogen/Creatinine [Mass ratio] 18.0 mg/mg 10-20 [facility] Basophil percentageOrdered B y: Juan Diego King on 03-24-2025 Basophils/100 WBC (Bld) 0.5 % 0-1 [facility] Bilirubin, totalOrdered By: Juan Diego King on 03-24-2025 Bilirubin [Mass/Vol] 0.48 mg/dL 0.00-1.30 [facility] CBC W/Diff, Automatedon 06-2 -2024 Absolute Lymph 1.88 X10 3/uL Normal 0.83-4.51 [facility] Comment on above: Performed By: #### L 500.4050, L100.0100, L501.9985, L506.1000, L501.9520, L500.4100 #### [facility] [address] [place], [address] Absolute Neut 3.4 X10 3/uL Normal 2.0-7.7 [facility] Comment on above: Performed By: #### L 500.4050, L100.0100, L501.9985, L506.1000, L501.9520, L500.4100 #### [facility] [address] [place], [address] Basophils/100 WBC (Bld) 0.5 % Normal 0-1 [facility] Comment on above: Performed By: #### L 500.4050, L100.0100, L501.9985, L506.1000, L501.9520, L500.4100 #### [facility] [address] [place], [address] Eosinophils/100 WBC (Bld) 2.9 % Normal 0-5 [facility] Comment on above: Performed By: #### L 500.4050, L100.0100, L501.9985, L506.1000, L501.9520, L500.4100 #### [facility] [address] [place], [address] Erythrocyte distribution width (RBC) [Ratio] 14.0 % Normal 11.6-14.6 [facility] Comment on above: Performed By: #### L 500.4050, L100.0100, L501.9985, L506.1000, L501.9520, L500.4100 #### [facility] [address] [place], [address] Hematocrit (Bld) [Volume fraction] 43.0 % Normal 37-47 [facility] Comment on above: Performed By: #### L 500.4050, L100.0100, L501.9985, L506.1000, L501.9520, L500.4100 #### [facility] [address] [place], [address] Hemoglobin (Bld) [Mass/Vol] 14.4 g/dL Normal 12.0-15.0 [facility] Comment on above: Performed By: #### L 500.4050, L100.0100, L501.9985, L506.1000, L501.9520, L500.4100 #### [facility] [address] [place], [address] IG% 0.500 Normal 0.0-0.9 [facility] Comment on above: Result Comment: IG% - Immature Granulocytes (promyelocytes, myelocytes and metamyelocytes) > 1% indicates that a LEFT SHIFT is Present. Performed By: #### L 500.4050, L100.0100, L501.9985, L506.1000, L501.9520, L500.4100 #### [facility] [address] [place], [address] Lymphocytes/100 WBC (Bld) 30.7 % Normal 19-41 [facility] Comment on above: Performed By: #### L 500.4050, L100.0100, L501.9985, L506.1000, L501.9520, L500.4100 #### [facility] [address] [place], [address] MCH (RBC) [Entitic mass] 30.6 pg Normal 27.0-32.0 [facility] Comment on above: Performed By: #### L 500.4050, L100.0100, L501.9985, L506.1000, L501.9520, L500.4100 #### [facility] [address] [place], [address] MCHC (RBC) [Mass/Vol] 33.5 g/dL Normal 32-36 [facility] Comment on above: Performed By: #### L 500.4050, L100.0100, L501.9985, L506.1000, L501.9520, L500.4100 #### [facility] [address] [place], [address] MCV (RBC) [Entitic vol] 91.3 fL Normal 81-99 [facility] Comment on above: Performed By: #### L 500.4050, L100.0100, L501.9985, L506.1000, L501.9520, L500.4100 #### [facility] [address] [place], [address] Monocytes/100 WBC (Bld) 9.3 % Normal 0-10 [facility] Comment on above: Performed By: #### L 500.4050, L100.0100, L501.9985, L506.1000, L501.9520, L500.4100 #### [facility] [address] [place], [address] Neutrophils/100 WBC (Bld) 56.1 % Normal 47-70 [facility] Comment on above: Performed By: #### L 500.4050, L100.0100, L501.9985, L506.1000, L501.9520, L500.4100 #### [facility] [address] [place], [address] Nucleated RBC (Bld) [#/Vol] 0 10*3/uL Normal 0-5 [facility] Comment on above: Performed By: #### L 500.4050, L100.0100, L501.9985, L506.1000, L501.9520, L500.4100 #### [facility] [address] [place], [address] Platelet mean volume (Bld) [Entitic vol] 9.2 fL Normal 6.2-12.0 [facility] Comment on above: Performed By: #### L 500.4050, L100.0100, L501.9985, L506.1000, L501.9520, L500.4100 #### [facility] [address] [place], [address] Platelets (Bld) [#/Vol] 215 10*3/uL Normal 150-450 [facility] Comment on above: Performed By: #### L 500.4050, L100.0100, L501.9985, L506.1000, L501.9520, L500.4100 #### [facility] [address] [place], [address] RBC (Bld) [#/Vol] 4.71 10*6/uL Normal 4.2-5.4 [facility] Comment on above: Performed By: #### L 500.4050, L100.0100, L501.9985, L506.1000, L501.9520, L500.4100 #### [facility] [address] [place], [address] RDW SD 47.7 fl High 35.1-43.9 [facility] Comment on above: Performed By: #### L 500.4050, L100.0100, L501.9985, L506.1000, L501.9520, L500.4100 #### [facility] [address] [place], [address] WBC (Bld) [#/Vol] 6.1 10*3/uL Normal 4.4-11.0 [facility] Comment on above: Performed By: #### L 500.4050, L100.0100, L501.9985, L506.1000, L501.9520, L500.4100 #### [facility] [address] [place], [address] Calculated very low density lipoprotein (VLDL) cholesterol measurementOrdered By: Juan Diego King on 03-24-2025 Calculated very low density lipoprotein (VLDL) cholesterol measurement 52 mg/dL High 5-40 [facility] Carbon dioxide, total [Moles /volume] in Central venous bloodOrdered By: Juan Diego King on 03-24-2025 CO2 [Moles/Vol] 24.7 mmol/L 21.0-32.0 [facility] Chloride assayOrdered By: Radu King on 03-24-2025 Chloride [Moles/Vol] 100 mmol/L 98-108 [facility] Comprehensive Metabolic Prof ilon 03-24-2025 Albumin [Mass/Vol] 4.0 g/dL Normal 3.4-4.8 [facility] Comment on above: Performed By: #### L 500.4050, L100.0100, L501.9985, L506.1000, L501.9520, L500.4100 #### [facility] [address] [place], [address] Albumin/Globulin [Mass ratio] 1.5 {ratio} Normal 0.9-2.4 [facility] Comment on above: Performed By: #### L 500.4050, L100.0100, L501.9985, L506.1000, L501.9520, L500.4100 #### [facility] [address] [place], [address] ALK PHOS 111 U/L High 35-104 [facility] Comment on above: Performed By: #### L 500.4050, L100.0100, L501.9985, L506.1000, L501.9520, L500.4100 #### [facility] [address] [place], [address] ALT [Catalytic activity/Vol] 18 U/L Normal <=34 [facility] Comment on above: Performed By: #### L 500.4050, L100.0100, L501.9985, L506.1000, L501.9520, L500.4100 #### [facility] [address] [place], [address] AST [Catalytic activity/Vol] 19 U/L Normal <=31 [facility] Comment on above: Performed By: #### L 500.4050, L100.0100, L501.9985, L506.1000, L501.9520, L500.4100 #### [facility] [address] [place], [address] Bilirubin [Mass/Vol] 0.48 mg/dL Normal 0.00-1.30 [facility] Comment on above: Performed By: #### L 500.4050, L100.0100, L501.9985, L506.1000, L501.9520, L500.4100 #### [facility] [address] [place], [address] BUN/CRE 18.0 RATIO Normal 10-20 [facility] Comment on above: Performed By: #### L 500.4050, L100.0100, L501.9985, L506.1000, L501.9520, L500.4100 #### [facility] [address] [place], [address] Calcium [Mass/Vol] 9.4 mg/dL Normal 7.6-11.0 [facility] Comment on above: Performed By: #### L 500.4050, L100.0100, L501.9985, L506.1000, L501.9520, L500.4100 #### [facility] [address] [place], [address] Chloride [Moles/Vol] 100 mmol/L Normal 98-108 [facility] Comment on above: Performed By: #### L 500.4050, L100.0100, L501.9985, L506.1000, L501.9520, L500.4100 #### [facility] [address] [place], [address] CO2 [Moles/Vol] 24.7 mmol/L Normal 21.0-32.0 [facility] Comment on above: Performed By: #### L 500.4050, L100.0100, L501.9985, L506.1000, L501.9520, L500.4100 #### [facility] [address] [place], [address] Creatinine [Mass/Vol] 1.12 mg/dL Normal 0.70-1.20 [facility] Comment on above: Performed By: #### L 500.4050, L100.0100, L501.9985, L506.1000, L501.9520, L500.4100 #### [facility] [address] [place], [address] GAP 11 Normal 5-15 [facility] Comment on above: Performed By: #### L 500.4050, L100.0100, L501.9985, L506.1000, L501.9520, L500.4100 #### [facility] [address] [place], [address] GFR/1.73 sq M.predicted among non-blacks MDRD (S/P/Bld) [Vol rate/Area] 52 mL/min/{1.73_m2} Low >60 [facility] Comment on above: Result Comment: mL/m in/1.73m2 CKD-EPI Creatinine Equation (2020) Performed By: #### L 500.4050, L100.0100, L501.9985, L506.1000, L501.9520, L500.4100 #### [facility] [address] [place], [address] Globulin (S) [Mass/Vol] 2.7 g/dL Normal 2.2-4.2 [facility] Comment on above: Performed By: #### L 500.4050, L100.0100, L501.9985, L506.1000, L501.9520, L500.4100 #### [facility] [address] [place], [address] Glucose [Mass/Vol] 163 mg/dL High 70-99 [facility] Comment on above: Performed By: #### L 500.4050, L100.0100, L501.9985, L506.1000, L501.9520, L500.4100 #### [facility] [address] [place], [address] Potassium [Moles/Vol] 4.3 mmol/L Normal 3.3-5.1 [facility] Comment on above: Performed By: #### L 500.4050, L100.0100, L501.9985, L506.1000, L501.9520, L500.4100 #### [facility] [address] [place], [address] Sodium [Moles/Vol] 136 mmol/L Normal 133-145 [facility] Comment on above: Performed By: #### L 500.4050, L100.0100, L501.9985, L506.1000, L501.9520, L500.4100 #### [facility] [address] [place], [address] T PROT 6.7 g/dL Normal 5.9-8.4 [facility] Comment on above: Performed By: #### L 500.4050, L100.0100, L501.9985, L506.1000, L501.9520, L500.4100 #### [facility] [address] [place], [address] Urea nitrogen [Mass/Vol] 20 mg/dL High 4-19 [facility] Comment on above: Performed By: #### L 500.4050, L100.0100, L501.9985, L506.1000, L501.9520, L500.4100 #### [facility] [address] [place], [address] Eosinophil percentageOrdered By: Juan Diego King on 03-24-2025 Eosinophils/100 WBC (Bld) 2.9 % 0-5 [facility] Erythrocyte distribution wid th ratioOrdered By: [facility] on 03-24-2025 Erythrocyte distribution width (RBC) [Ratio] 14.0 % 11.6-14.6 [facility] Erythrocyte distribution wid th standard deviationOrdered By: [facility] 03-24-2025 Erythrocyte distribution width (RBC) [Ratio] 47.7 fl High 35.1-43.9 [facility] Glomerular filtration rate ( GFR) estimation/1.73 sq m using serum, plasma, or whole bOrdered By: [facility] on 03-24-2025 GFR/1.73 sq M.predicted among non-blacks MDRD (S/P/Bld) [Vol rate/Area] 52 mL/min/{1.73_m2} Low >60 [facility] Comment on above: mL/min/1.73m2 CKD-EP I Creatinine Equation (2020) Hematocrit Auto (Bld) [Volum e fraction]Ordered By: Juan Diego Fernando on 03-24-2025 Hematocrit (Bld) [Volume fraction] 43.0 % 37-47 [facility] Hemoglobin A1con 03-24-2025 HbA1c (Bld) [Mass fraction] 6.4 % High <=5.6 [facility] Comment on above: Result Comment: Norm al < 5.7 % Prediabetic 5.7 - 6.4 % Diabetic >or= 6.5 % Please note range changes. Performed By: #### L 500.4050, L100.0100, L501.9985, L506.1000, L501.9520, L500.4100 #### [facility] [address] [place], [address] Hemoglobin A1c percentageOrd ered By: Juan Diego King on 03-24-2025 HbA1c (Bld) [Mass fraction] 6.4 % High <5.7 [facility] Comment on above: Normal < 5.7 % Predi abetic 5.7 - 6.4 % Diabetic >or= 6.5 % Please note range changes. Hemoglobin measurementOrdere d By: Juan Diego Lyok on 03-24-2025 Hemoglobin (Bld) [Mass/Vol] 14.4 g/dL 12.0-15.0 [facility] Immature granulocytes/100 WB C Auto (Bld)Ordered By: Juan Diego King on 03-24-2025 Immature granulocytes/100 WBC (Bld) 0.500 % 0.0-0.9 [facility] Comment on above: IG% - Immature Granu locytes (promyelocytes, myelocytes and metamyelocytes) > 1% indicates that a LEFT SHIFT is Present. LDL calc ser/plasOrdered By: Juan Diego Fernando on 03-24-2025 Cholesterol in LDL [Mass/Vol] 91 mg/dL [facility] Comment on above: Zmudsclfhc=097-972 m g/dL & Higher Fxvo=106 mg/dL or greater Laboratory - Chemistry and C hemistry - challengeOrdered By: Juan Diego Fernando on 03-24-2025 AST [Catalytic activity/Vol] 19 U/L <32 [facility] Lipid Profileon 03-24-2025 CHOL:HDL 3.48 Normal [facility] Comment on above: Performed By: #### L 500.4050, L100.0100, L501.9985, L506.1000, L501.9520, L500.4100 #### [facility] [address] [place], [address] Cholesterol [Mass/Vol] 200 mg/dL Normal <=200 [facility] Comment on above: Result Comment: Chol esterol level, Desirable <200 mg/dL Borderline high cholesterol 200-239 mg/dL High cholesterol >=240 mg/dL Recommendations of the NCEP Adult Treatment Panel for the following risk-cutoff thresholds for the [place] population. Performed By: #### L 500.4050, L100.0100, L501.9985, L506.1000, L501.9520, L500.4100 #### [facility] [address] [place], [address] Cholesterol in HDL [Mass/Vol] 58 mg/dL Normal [facility] Comment on above: Result Comment: Pamela onal Cholesterol Education Program (NCEP) guidelines: <40 mg/dL: Low HDL-cholesterol (major risk factor for CHD) >= 60 mg/dL: High HDL-cholesterol (negative risk factor for CHD) HDL-cholesterol is affected by a number of factors, e.g. smoking, exercise, hormones, sex and age. Performed By: #### L 500.4050, L100.0100, L501.9985, L506.1000, L501.9520, L500.4100 #### [facility] [address] [place], [address] Cholesterol in LDL [Mass/Vol] 91 mg/dL Normal [facility] Comment on above: Result Comment: Bord slgnyw=822-912 mg/dL Higher Bxcs=897 mg/dL or greater Performed By: #### L 500.4050, L100.0100, L501.9985, L506.1000, L501.9520, L500.4100 #### [facility] [address] [place], [address] Cholesterol in VLDL [Mass/Vol] 52 mg/dL High 5-40 [facility] Comment on above: Performed By: #### L 500.4050, L100.0100, L501.9985, L506.1000, L501.9520, L500.4100 #### [facility] [address] [place], [address] Triglyceride [Mass/Vol] 260 mg/dL High [facility] Comment on above: Result Comment: The drugs N-Acetylcysteine and Metamizole may falsely depress this assay. Normal range: <150 mg/dL Borderline High: 150-199 mg/dL High: 200-499 mg/dL Very High: >500 mg/dL Performed By: #### L 500.4050, L100.0100, L501.9985, L506.1000, L501.9520, L500.4100 #### [facility] [address] [facility] [place], [place], [id number] MCV (mean corpuscular volume ) determinationOrdered By: Juan Diego King on 03-24-2025 MCV (RBC) [Entitic vol] 91.3 fL 81-99 [facility] Mean corpuscular hemoglobin (MCH) determinationOrdered By: Juan Diego King on 03-24-2025 MCH (RBC) [Entitic mass] 30.6 pg 27.0-32.0 [facility] Mean corpuscular hemoglobin concentration (MCHC) determinationOrdered By: Juan Diego King on 03-24-2025 MCHC (RBC) [Mass/Vol] 33.5 g/dL 32-36 [facility] Mean platelet volume determi nationOrdered By: Juan Diego King on 03-24-2025 Platelet mean volume (Bld) [Entitic vol] 9.2 fL 6.2-12.0 [facility] Microalb:Creat Ratio,Random URon 03-24-2025 MALB:CREAT UNABLE TO CALCULATE Normal [facility] Comment on above: Performed By: #### L 500.4050, L100.0100, L501.9985, L506.1000, L501.9520, L500.4100 #### [facility] [address] [place], [place], [id number] MICROALBUMIN,UR < 12.0 Normal NO RANGE EST. [facility] Comment on above: Performed By: #### L 500.4050, L100.0100, L501.9985, L506.1000, L501.9520, L500.4100 #### [facility] [address] [facility] [place], [place], [id number] Microalbumin/creat ratio urO rdered By: Juan Diego King on 03-24-2025 Urine microalbumin/creatinine ratio measurement UNABLE TO CALCULATE mg/g CRE [facility] Monocyte percentageOrdered B y: Juan Diego King on 03-24-2025 Monocytes/100 WBC (Bld) 9.3 % 0-10 [facility] Neutrophil percentageOrdered By: Juan Diego King on 03-24-2025 Neutrophils/100 WBC (Bld) 56.1 % 47-70 [facility] Nucleated red blood cell per centageOrdered By: Juan Diego King on 03-24-2025 Nucleated RBC/100 WBC (Bld) [Ratio] 0 % 0-5 [facility] Platelet countOrdered By: Radu King on 03-24-2025 Platelets (Bld) [#/Vol] 215 10*3/uL 150-450 [facility] Potassium measurement (mass/ volume)Ordered By: Juan Diego King on 03-24-2025 Potassium (Unsp spec) [Mass/Vol] 4.3 mmol/L 3.3-5.1 [facility] RBC Auto (Bld) [#/Vol]Ordere d By: Juan Diego King on 03-24-2025 RBC (Bld) [#/Vol] 4.71 10*6/uL 4.2-5.4 [facility] Random urine creatinine fuad urement (mass/volume)Ordered By: Juan Diego King on 03-24-2025 Creatinine Unsp time (U) [Mass/Vol] 63.20 mg/dL 28.00-217.00 [facility] Screening total cholesterol/ high density lipoprotein (HDL) cholesterol ratioOrdered By: Juan Diego King on 03-24-2025 Cholesterol.total/Choles terol in HDL [Mass ratio] 3.48 {ratio} [facility] Serum creatinine measurement (mass/volume)Ordered By: Juan Diego King on 03-24-2025 Creatinine [Mass/Vol] 1.12 mg/dL 0.70-1.20 [facility] Serum globulin measurementOr dered By: Juan Diego King on 03-24-2025 Globulin (S) [Mass/Vol] 2.7 g/dL 2.2-4.2 [facility] Serum glucose measurement (m ass/volume)Ordered By: Juan Diego King on 03-24-2025 Glucose [Mass/Vol] 163 mg/dL High 70-99 [facility] Serum or plasma alanine saldana otransferase (ALT) measurementOrdered By: Juan Diego Fernando 03-24-2025 ALT [Catalytic activity/Vol] 18 U/L <35 [facility] Serum or plasma albumin fuad urement (mass/volume)Ordered By: Juan Diego Fernando 03-24-2025 Albumin [Mass/Vol] 4.0 g/dL 3.4-4.8 [facility] Serum or plasma albumin/glob ulin mass ratioOrdered By: Juan Diego Fernando03-24-2025 Albumin/Globulin [Mass ratio] 1.5 {ratio} 0.9-2.4 [facility] Serum or plasma alkaline chalino sphatase measurementOrdered By: Juan Diego Fernando 03-24-2025 ALP [Catalytic activity/Vol] 111 U/L High 35-104 [facility] Serum or plasma calcium fuad urement (mass/volume)Ordered By: Juan Diego Fernando 03-24-2025 Calcium [Mass/Vol] 9.4 mg/dL 7.6-11.0 [facility] Serum or plasma cholesterol in HDL measurement (mass/volume)Ordered By: Juan Diego Fernando 03-24-2025 Cholesterol in HDL [Mass/Vol] 58 mg/dL >40 [facility] Comment on above: National Cholesterol Education Program (NCEP) guidelines:<40 mg/dL: Low HDL-cholesterol (major risk factor for CHD)>= 60 mg/dL: High HDL-cholesterol (negative risk factor for CHD)HDL-cholesterol is affected by a number of factors, e.g. smoking, exercise, hormones, sex and age. Serum or plasma cholesterol measurement (mass/volume)Ordered By: Juan Diego King 03-24-2025 Cholesterol [Mass/Vol] 200 mg/dL <201 [facility] Comment on above: Cholesterol level, D esirable <200 mg/dLBorderline high cholesterol 200-239 mg/dLHigh cholesterol >=240 mg/dLRecommendations of the NCEP Adult Treatment Panel for the following risk-cutoff thresholds for the [place] population. Serum or plasma urea nitroge n measurement (mass/volume)Ordered By: Juan Diego King 03-24-2025 Urea nitrogen [Mass/Vol] 20 mg/dL High 4-19 [facility] Sodium levelOrdered By: Juan Diego King 5 Sodium [Moles/Vol] 136 mmol/L 133-145 [facility] TSH DL <= 0.005 mIU/L QnOrde red By: Juan Diego King on 03-24-2025 TSH Qn 1.420 uIU/mL 0.300-4.200 [facility] Thyroid Stim Hormone (TSH)on 03-24-2025 TSH 1.420 uIU/mL Normal 0.300-4.200 [facility] Comment on above: Performed By: #### L 500.4050, L100.0100, L501.9985, L506.1000, L501.9520, L500.4100 #### [facility] [address] [place], [place], [id number] Total proteinOrdered By: Juan Diego King on 03-24-2025 Protein [Mass/Vol] 6.7 g/dL 5.9-8.4 [facility] Triglycerides measurementOrd ered By: Juan Diego King on 03-24-2025 Triglyceride [Mass/Vol] 260 mg/dL High <199 [facility] Comment on above: The drugs N-Acetylcy steine and Metamizole may falsely depress this assay. Normal range: <150 mg/dLBorderline High: 150-199 mg/dLHigh: 200-499 mg/dLVery High: >500 mg/dL Urine albumin measurement [facility] detection limit of 20 mg/L or less (mass/volume)Ordered By: Juan Diego King on 03-24-2025 Albumin DL <= 20 mg/L (U) [Mass/Vol] < 12.0 mg/L NO RANGE EST. [facility] White blood cell (WBC) count Ordered By: Juan Diego King on 03-24-2025 WBC (Bld) [#/Vol] 6.1 10*3/uL 4.4-11.0 [facility] Absolute lymphocyte countOrd ered By: Juan Diego King on 02-16-2025 Lymphocytes Auto (Unsp spec) [#/Vol] 1.48 10*3/uL 0.83-4.51 [facility] Absolute neutrophil countOrd ered By: Juan Diego King on 05-20-2025 Neutrophils (Bld) [#/Vol] 3.1 10*3/uL 2.0-7.7 [facility] Anion gap in Serum or Plasma Ordered By: Juan Diego King on 02-16-2025 Anion gap [Moles/Vol] 11 mmol/L 02-11 [facility] Automated lymphocyte count a s percentage of total leukocytesOrdered By: Juan Diego King on 02-16-2025 Lymphocytes/100 WBC Auto (Unsp spec) 29.2 % [facility] BUN/creatinine ratioOrdered By: Juan Diego King on 02-16-2025 Urea nitrogen/Creatinine [Mass ratio] 15.9 mg/mg 07-19 [facility] Basophil percentageOrdered B y: Juan Diego King on 02-16-2025 Basophils/100 WBC (Bld) 0.6 % 0-1 [facility] Bilirubin, totalOrdered By: Juan Diego King on 02-16-2025 Bilirubin [Mass/Vol] 0.45 mg/dL 0.00-1.30 [facility] CBC W/Diff, Automatedon 01-29 Absolute Lymph 1.48 X10 3/uL Normal 0.83-4.51 [facility] Comment on above: Performed By: #### L 500.4050, L100.0100, L501.9985, L506.1000, L501.9520, L500.4100 #### [facility] [address] [place], [address] Absolute Neut 3.1 X10 3/uL Normal 2.0-7.7 [facility] Comment on above: Performed By: #### L 500.4050, L100.0100, L501.9985, L506.1000, L501.9520, L500.4100 #### [facility] [address] [place], [address] Basophils/100 WBC (Bld) 0.6 % Normal 0-1 [facility] Comment on above: Performed By: #### L 500.4050, L100.0100, L501.9985, L506.1000, L501.9520, L500.4100 #### [facility] [address] [place], [address] Eosinophils/100 WBC (Bld) 2.2 % Normal 0-5 [facility] Comment on above: Performed By: #### L 500.4050, L100.0100, L501.9985, L506.1000, L501.9520, L500.4100 #### [facility] [address] [place], [address] Erythrocyte distribution width (RBC) [Ratio] 13.9 % Normal 11.6-14.6 [facility] Comment on above: Performed By: #### L 500.4050, L100.0100, L501.9985, L506.1000, L501.9520, L500.4100 #### [facility] [address] [place], [address] Hematocrit (Bld) [Volume fraction] 44.3 % Normal 37-47 [facility] Comment on above: Performed By: #### L 500.4050, L100.0100, L501.9985, L506.1000, L501.9520, L500.4100 #### [facility] [address] [place], [address] Hemoglobin (Bld) [Mass/Vol] 14.2 g/dL Normal 12.0-15.0 [facility] Comment on above: Performed By: #### L 500.4050, L100.0100, L501.9985, L506.1000, L501.9520, L500.4100 #### [facility] [address] [place], [address] IG% 0.200 Normal 0.0-0.9 [facility] Comment on above: Result Comment: IG% - Immature Granulocytes (promyelocytes, myelocytes and metamyelocytes) > 1% indicates that a LEFT SHIFT is Present. Performed By: #### L 500.4050, L100.0100, L501.9985, L506.1000, L501.9520, L500.4100 #### [facility] [address] [place], [address] Lymphocytes/100 WBC (Bld) 29.2 % Normal 19-41 [facility] Comment on above: Performed By: #### L 500.4050, L100.0100, L501.9985, L506.1000, L501.9520, L500.4100 #### [facility] [address] [place], [address] MCH (RBC) [Entitic mass] 29.9 pg Normal 27.0-32.0 [facility] Comment on above: Performed By: #### L 500.4050, L100.0100, L501.9985, L506.1000, L501.9520, L500.4100 #### [facility] [address] [place], [address] MCHC (RBC) [Mass/Vol] 32.1 g/dL Normal 32-36 [facility] Comment on above: Performed By: #### L 500.4050, L100.0100, L501.9985, L506.1000, L501.9520, L500.4100 #### [facility] [address] [place], [address] MCV (RBC) [Entitic vol] 93.3 fL Normal 81-99 [facility] Comment on above: Performed By: #### L 500.4050, L100.0100, L501.9985, L506.1000, L501.9520, L500.4100 #### [facility] [address] [place], [address] Monocytes/100 WBC (Bld) 6.7 % Normal 0-10 [facility] Comment on above: Performed By: #### L 500.4050, L100.0100, L501.9985, L506.1000, L501.9520, L500.4100 #### [facility] [address] [place], [address] Neutrophils/100 WBC (Bld) 61.1 % Normal 47-70 [facility] Comment on above: Performed By: #### L 500.4050, L100.0100, L501.9985, L506.1000, L501.9520, L500.4100 #### [facility] [address] [place], [address] Nucleated RBC (Bld) [#/Vol] 0 10*3/uL Normal 0-5 [facility] Comment on above: Performed By: #### L 500.4050, L100.0100, L501.9985, L506.1000, L501.9520, L500.4100 #### [facility] [address] [place], [address] Platelet mean volume (Bld) [Entitic vol] 9.2 fL Normal 6.2-12.0 [facility] Comment on above: Performed By: #### L 500.4050, L100.0100, L501.9985, L506.1000, L501.9520, L500.4100 #### [facility] [address] [place], [address] Platelets (Bld) [#/Vol] 221 10*3/uL Normal 150-450 [facility] Comment on above: Performed By: #### L 500.4050, L100.0100, L501.9985, L506.1000, L501.9520, L500.4100 #### [facility] [address] [place], [address] RBC (Bld) [#/Vol] 4.75 10*6/uL Normal 4.2-5.4 [facility] Comment on above: Performed By: #### L 500.4050, L100.0100, L501.9985, L506.1000, L501.9520, L500.4100 #### [facility] [address] [place], [address] RDW SD 47.2 fl High 35.1-43.9 [facility] Comment on above: Performed By: #### L 500.4050, L100.0100, L501.9985, L506.1000, L501.9520, L500.4100 #### [facility] [address] [place], [address] WBC (Bld) [#/Vol] 5.1 10*3/uL Normal 4.4-11.0 [facility] Comment on above: Performed By: #### L 500.4050, L100.0100, L501.9985, L506.1000, L501.9520, L500.4100 #### [facility] [address] [place], [address] Calculated very low density lipoprotein (VLDL) cholesterol measurementOrdered By: Juan Diego King on 02-16-2025 Calculated very low density lipoprotein (VLDL) cholesterol measurement 34 mg/dL 5-40 [facility] Carbon dioxide, total [Moles /volume] in Central venous bloodOrdered By: Juan Diego King on 02-16-2025 CO2 [Moles/Vol] 25.6 mmol/L 21.0-32.0 [facility] Chloride assayOrdered By: Radu King on 02-16-2025 Chloride [Moles/Vol] 101 mmol/L 98-108 [facility] Comprehensive Metabolic Prof ilon 02-16-2025 Albumin [Mass/Vol] 4.1 g/dL Normal 3.4-4.8 [facility] Comment on above: Performed By: #### L 500.4050, L100.0100, L501.9985, L506.1000, L501.9520, L500.4100 #### [facility] [address] [place], [address] Albumin/Globulin [Mass ratio] 1.4 {ratio} Normal 0.9-2.4 [facility] Comment on above: Performed By: #### L 500.4050, L100.0100, L501.9985, L506.1000, L501.9520, L500.4100 #### [facility] [address] [place], [address] ALK PHOS 94 U/L Normal 35-104 [facility] Comment on above: Performed By: #### L 500.4050, L100.0100, L501.9985, L506.1000, L501.9520, L500.4100 #### [facility] [address] [place], [address] ALT [Catalytic activity/Vol] 19 U/L Normal <=34 [facility] Comment on above: Performed By: #### L 500.4050, L100.0100, L501.9985, L506.1000, L501.9520, L500.4100 #### [facility] [address] [place], [address] AST [Catalytic activity/Vol] 25 U/L Normal <=31 [facility] Comment on above: Performed By: #### L 500.4050, L100.0100, L501.9985, L506.1000, L501.9520, L500.4100 #### [facility] [address] [place], [address] Bilirubin [Mass/Vol] 0.45 mg/dL Normal 0.00-1.30 [facility] Comment on above: Performed By: #### L 500.4050, L100.0100, L501.9985, L506.1000, L501.9520, L500.4100 #### [facility] [address] [place], [address] BUN/CRE 15.9 RATIO Normal 10-20 [facility] Comment on above: Performed By: #### L 500.4050, L100.0100, L501.9985, L506.1000, L501.9520, L500.4100 #### [facility] [address] [place], [address] Calcium [Mass/Vol] 9.6 mg/dL Normal 7.6-11.0 [facility] Comment on above: Performed By: #### L 500.4050, L100.0100, L501.9985, L506.1000, L501.9520, L500.4100 #### [facility] [address] [place], [address] Chloride [Moles/Vol] 101 mmol/L Normal 98-108 [facility] Comment on above: Performed By: #### L 500.4050, L100.0100, L501.9985, L506.1000, L501.9520, L500.4100 #### [facility] [address] [place], [address] CO2 [Moles/Vol] 25.6 mmol/L Normal 21.0-32.0 [facility] Comment on above: Performed By: #### L 500.4050, L100.0100, L501.9985, L506.1000, L501.9520, L500.4100 #### [facility] [address] [place], [address] Creatinine [Mass/Vol] 1.14 mg/dL Normal 0.70-1.20 [facility] Comment on above: Performed By: #### L 500.4050, L100.0100, L501.9985, L506.1000, L501.9520, L500.4100 #### [facility] [address] [place], [address] GAP 11 Normal 5-15 [facility] Comment on above: Performed By: #### L 500.4050, L100.0100, L501.9985, L506.1000, L501.9520, L500.4100 #### [facility] [address] [place], [address] GFR/1.73 sq M.predicted among non-blacks MDRD (S/P/Bld) [Vol rate/Area] 51 mL/min/{1.73_m2} Low >60 [facility] Comment on above: Result Comment: mL/m in/1.73m2 CKD-EPI Creatinine Equation (2020) Performed By: #### L 500.4050, L100.0100, L501.9985, L506.1000, L501.9520, L500.4100 #### [facility] [address] [place], [address] Globulin (S) [Mass/Vol] 2.9 g/dL Normal 2.2-4.2 [facility] Comment on above: Performed By: #### L 500.4050, L100.0100, L501.9985, L506.1000, L501.9520, L500.4100 #### [facility] [address] [place], [address] Glucose [Mass/Vol] 156 mg/dL High 70-99 [facility] Comment on above: Performed By: #### L 500.4050, L100.0100, L501.9985, L506.1000, L501.9520, L500.4100 #### [facility] [address] [place], [address] Potassium [Moles/Vol] 4.3 mmol/L Normal 3.3-5.1 [facility] Comment on above: Performed By: #### L 500.4050, L100.0100, L501.9985, L506.1000, L501.9520, L500.4100 #### [facility] [address] [place], [address] Sodium [Moles/Vol] 138 mmol/L Normal 133-145 [facility] Comment on above: Performed By: #### L 500.4050, L100.0100, L501.9985, L506.1000, L501.9520, L500.4100 #### [facility] [address] [place], [place], [id number] (756) T PROT 6.9 g/dL Normal 5.9-8.4 [facility] Comment on above: Performed By: #### L 500.4050, L100.0100, L501.9985, L506.1000, L501.9520, L500.4100 #### [facility] [address] [place], [address] Urea nitrogen [Mass/Vol] 18 mg/dL Normal 4-19 [facility] Comment on above: Performed By: #### L 500.4050, L100.0100, L501.9985, L506.1000, L501.9520, L500.4100 #### [facility] [address] [place], [place], [id number] (608) Eosinophil percentageOrdered By: Juan Diego King on 02-16-2025 Eosinophils/100 WBC (Bld) 2.2 % 0-5 [facility] Erythrocyte distribution wid th ratioOrdered By: Juan Diego King on 02-16-2025 Erythrocyte distribution width (RBC) [Ratio] 13.9 % 11.6-14.6 [facility] Erythrocyte distribution wid th standard deviationOrdered By: Juan Diego King on 02-16-2025 Erythrocyte distribution width (RBC) [Ratio] 47.2 fl High 35.1-43.9 [facility] Glomerular filtration rate ( GFR) estimation/1.73 sq m using serum, plasma, or whole bOrdered By: Juan Diego King on 02-16-2025 GFR/1.73 sq M.predicted among non-blacks MDRD (S/P/Bld) [Vol rate/Area] 51 mL/min/{1.73_m2} Low >60 [facility] Comment on above: mL/min/1.73m2 CKD-EP I Creatinine Equation (2020) Hematocrit Auto (Bld) [Volum e fraction]Ordered By: Juan Diego King on 02-16-2025 Hematocrit (Bld) [Volume fraction] 44.3 % 37-47 [facility] Hemoglobin A1con 02-16-2025 HbA1c (Bld) [Mass fraction] 6.3 % High <=5.6 [facility] Comment on above: Result Comment: Norm al < 5.7 % Prediabetic 5.7 - 6.4 % Diabetic >or= 6.5 % Please note range changes. Performed By: #### L 500.4050, L100.0100, L501.9985, L506.1000, L501.9520, L500.4100 #### [facility] [address] [place], [address] Hemoglobin A1c percentageOrd ered By: Juan Diego King on 02-16-2025 HbA1c (Bld) [Mass fraction] 6.3 % High <5.7 [facility] Comment on above: Normal < 5.7 % Predi abetic 5.7 - 6.4 % Diabetic >or= 6.5 % Please note range changes. Hemoglobin measurementOrdere d By: Juan Diego King on 02-16-2025 Hemoglobin (Bld) [Mass/Vol] 14.2 g/dL 12.0-15.0 [facility] Immature granulocytes/100 WB C Auto (Bld)Ordered By: Juan Diego King on 02-16-2025 Immature granulocytes/100 WBC (Bld) 0.200 % 0.0-0.9 [facility] Comment on above: IG% - Immature Granu locytes (promyelocytes, myelocytes and metamyelocytes) > 1% indicates that a LEFT SHIFT is Present. LDL calc ser/plasOrdered By: Juan Diego King on 02-16-2025 Cholesterol in LDL [Mass/Vol] 99 mg/dL [facility] Comment on above: [id number]=067-519 m g/dL & Higher Gsux=768 mg/dL or greater Laboratory - Chemistry and C hemistry - challengeOrdered By: Juan Diego King on 02-16-2025 AST [Catalytic activity/Vol] 25 U/L <32 [facility] Lipid Profileon 02-16-2025 CHOL:HDL 3.43 Normal [facility] Comment on above: Performed By: #### L 500.4050, L100.0100, L501.9985, L506.1000, L501.9520, L500.4100 #### [facility] [address] [place], [address] Cholesterol [Mass/Vol] 188 mg/dL Normal <=200 [facility] Comment on above: Result Comment: Chol esterol level, Desirable <200 mg/dL Borderline high cholesterol 200-239 mg/dL High cholesterol >=240 mg/dL Recommendations of the NCEP Adult Treatment Panel for the following risk-cutoff thresholds for the [place] population. Performed By: #### L 500.4050, L100.0100, L501.9985, L506.1000, L501.9520, L500.4100 #### [facility] [address] [place], [address] Cholesterol in HDL [Mass/Vol] 55 mg/dL Normal [facility] Comment on above: Result Comment: Pamela onal Cholesterol Education Program (NCEP) guidelines: <40 mg/dL: Low HDL-cholesterol (major risk factor for CHD) >= 60 mg/dL: High HDL-cholesterol (negative risk factor for CHD) HDL-cholesterol is affected by a number of factors, e.g. smoking, exercise, hormones, sex and age. Performed By: #### L 500.4050, L100.0100, L501.9985, L506.1000, L501.9520, L500.4100 #### [facility] [address] [place], [address] Cholesterol in LDL [Mass/Vol] 99 mg/dL Normal [facility] Comment on above: Result Comment: Bord zpvkxk=665-734 mg/dL Higher Noin=121 mg/dL or greater Performed By: #### L 500.4050, L100.0100, L501.9985, L506.1000, L501.9520, L500.4100 #### [facility] [address] [place], [address] Cholesterol in VLDL [Mass/Vol] 34 mg/dL Normal 5-40 [facility] Comment on above: Performed By: #### L 500.4050, L100.0100, L501.9985, L506.1000, L501.9520, L500.4100 #### [facility] [address] [place], [address] Triglyceride [Mass/Vol] 169 mg/dL Normal [facility] Comment on above: Result Comment: The drugs N-Acetylcysteine and Metamizole may falsely depress this assay. Normal range: <150 mg/dL Borderline High: 150-199 mg/dL High: 200-499 mg/dL Very High: >500 mg/dL Performed By: #### L 500.4050, L100.0100, L501.9985, L506.1000, L501.9520, L500.4100 #### [facility] [address] [place], [address] MCV (mean corpuscular volume ) determinationOrdered By: Juan Diego King on 02-16-2025 MCV (RBC) [Entitic vol] 93.3 fL 81-99 [facility] Mean corpuscular hemoglobin (MCH) determinationOrdered By: Juan Diego King on 02-16-2025 MCH (RBC) [Entitic mass] 29.9 pg 27.0-32.0 [facility] Mean corpuscular hemoglobin concentration (MCHC) determinationOrdered By: Juan Diego King on 02-16-2025 MCHC (RBC) [Mass/Vol] 32.1 g/dL 32-36 [facility] Mean platelet volume determi nationOrdered By: Juan Diego King on 02-16-2025 Platelet mean volume (Bld) [Entitic vol] 9.2 fL 6.2-12.0 [facility] Microalb:Creat Ratio,Random URon 02-16-2025 MALB:CREAT Normal [facility] Comment on above: Result Comment: UTO Performed By: #### L 500.4050, L100.0100, L501.9985, L506.1000, L501.9520, L500.4100 #### [facility] [address] [place], [address] MICROALBUMIN,UR Normal NO RANGE EST. [facility] Comment on above: Result Comment: UTO Performed By: #### L 500.4050, L100.0100, L501.9985, L506.1000, L501.9520, L500.4100 #### [facility] [address] [place], [address] UR CREAT Normal 28.00-217.00 [facility] Comment on above: Result Comment: UTO Performed By: #### L 500.4050, L100.0100, L501.9985, L506.1000, L501.9520, L500.4100 #### [facility] [address] [place], [address] Monocyte percentageOrdered B y: Juan Diego King on 02-16-2025 Monocytes/100 WBC (Bld) 6.7 % 0-10 [facility] Neutrophil percentageOrdered By: Juan Diego King on 02-16-2025 Neutrophils/100 WBC (Bld) 61.1 % 47-70 [facility] Nucleated red blood cell per centageOrdered By: Juan Diego King on 02-16-2025 Nucleated RBC/100 WBC (Bld) [Ratio] 0 % 0-5 [facility] Platelet countOrdered By: Radu King on 02-16-2025 Platelets (Bld) [#/Vol] 221 10*3/uL 150-450 [facility] Potassium measurement (mass/ volume)Ordered By: Juan Diego King on 02-16-2025 Potassium (Unsp spec) [Mass/Vol] 4.3 mmol/L 3.3-5.1 [facility] RBC Auto (Bld) [#/Vol]Ordere d By: Juan Diego King on 02-16-2025 RBC (Bld) [#/Vol] 4.75 10*6/uL 4.2-5.4 [facility] Screening total cholesterol/ high density lipoprotein (HDL) cholesterol ratioOrdered By: Juan Diego King on 02-16-2025 Cholesterol.total/Choles terol in HDL [Mass ratio] 3.43 {ratio} [facility] Serum creatinine measurement (mass/volume)Ordered By: Juan Diego King on 02-16-2025 Creatinine [Mass/Vol] 1.14 mg/dL 0.70-1.20 [facility] Serum globulin measurementOr dered By: Juan Diego King on 02-16-2025 Globulin (S) [Mass/Vol] 2.9 g/dL 2.2-4.2 [facility] Serum glucose measurement (m ass/volume)Ordered By: Juan Diego King on 02-16-2025 Glucose [Mass/Vol] 156 mg/dL High 70-99 [facility] Serum or plasma alanine saldana otransferase (ALT) measurementOrdered By: Juan Diego King 02-16-2025 ALT [Catalytic activity/Vol] 19 U/L <35 [facility] Serum or plasma albumin fuad urement (mass/volume)Ordered By: Juan Diego King 02-16-2025 Albumin [Mass/Vol] 4.1 g/dL 3.4-4.8 [facility] Serum or plasma albumin/glob ulin mass ratioOrdered By: Juan Diego King 02-16-2025 Albumin/Globulin [Mass ratio] 1.4 {ratio} 0.9-2.4 [facility] Serum or plasma alkaline chalino sphatase measurementOrdered By: Juan Diego King 02-16-2025 ALP [Catalytic activity/Vol] 94 U/L 35-104 [facility] Serum or plasma calcium fuad urement (mass/volume)Ordered By: Juan Diego King 02-16-2025 Calcium [Mass/Vol] 9.6 mg/dL 7.6-11.0 [facility] Serum or plasma cholesterol in HDL measurement (mass/volume)Ordered By: Juan Diego King on 02-16-2025 Cholesterol in HDL [Mass/Vol] 55 mg/dL >40 [facility] Comment on above: National Cholesterol Education Program (NCEP) guidelines:<40 mg/dL: Low HDL-cholesterol (major risk factor for CHD)>= 60 mg/dL: High HDL-cholesterol (negative risk factor for CHD)HDL-cholesterol is affected by a number of factors, e.g. smoking, exercise, hormones, sex and age. Serum or plasma cholesterol measurement (mass/volume)Ordered By: Juan Diego King on 02-16-2025 Cholesterol [Mass/Vol] 188 mg/dL <201 [facility] Comment on above: Cholesterol level, D esirable <200 mg/dLBorderline high cholesterol 200-239 mg/dLHigh cholesterol >=240 mg/dLRecommendations of the NCEP Adult Treatment Panel for the following risk-cutoff thresholds for the [place] population. Serum or plasma urea nitroge n measurement (mass/volume)Ordered By: Juan Diego King on 02-16-2025 Urea nitrogen [Mass/Vol] 18 mg/dL 4-19 [facility] Sodium levelOrdered By: Juan Diego King on 02-16-2025 Sodium [Moles/Vol] 138 mmol/L 133-145 [facility] TSH DL <= 0.005 mIU/L QnOrde red By: Juan Diego King on 02-16-2025 TSH Qn 1.580 uIU/mL 0.300-4.200 [facility] Thyroid Stim Hormone (TSH)on 02-16-2025 TSH 1.580 uIU/mL Normal 0.300-4.200 [facility] Comment on above: Performed By: #### L 500.4050, L100.0100, L501.9985, L506.1000, L501.9520, L500.4100 #### [facility] [address] [place], [place] [address]all [facility] [place], [address] Total proteinOrdered By: Juan Diego King on 02-16-2025 Protein [Mass/Vol] 6.9 g/dL 5.9-8.4 [facility] Triglycerides measurementOrd ered By: Juan Diego King on 02-16-2025 Triglyceride [Mass/Vol] 169 mg/dL <199 [facility] Comment on above: The drugs N-Acetylcy steine and Metamizole may falsely depress this assay. Normal range: <150 mg/dLBorderline High: 150-199 mg/dLHigh: 200-499 mg/dLVery High: >500 mg/dL Vitamin D,25 Hydroxyon 02-16 Vitamin D 25-OH 26.8 ng/mL Low 30-100 [facility] Comment on above: Result Comment: Vicenta min D Status Deficiency: <20 ng/mL (50nmol/L) Insufficiency: 20-30 ng/mL (50-75 nmol/L) Sufficiency: 30-100 ng/mL (75-250 nmol/L) Toxicity: >100 ng/mL (>250 nmol/L) Performed By: #### L 500.4050, L100.0100, L501.9985, L506.1000, L501.9520, L500.4100 #### [facility] [address] [place], [address] White blood cell (WBC) count Ordered By: Juan Diego King on 02-16-2025 WBC (Bld) [#/Vol] 5.1 10*3/uL 4.4-11.0 [facility] Hemoglobin A1con 12-15-2024 HbA1c (Bld) [Mass fraction] 9.7 % Normal <=5.6 [facility] Comment on above: Performed By: #### L 501.9985 #### [facility] [address] [place], [place], [address] Hemoglobin A1c percentageOrd ered By: Juan Diego King on 12-15-2024 HbA1c (Bld) [Mass fraction] 9.7 % >5.7 [facility] 52-WM-Yanyohp DOrdered By: Edna King on 10-22-2024 Vitamin D 25-Hydroxy 25.3 ng/mL [facility] Comment on above: Vitamin D 25(OH) Sta tus Range Deficiency <20 ng/mL (50nmol/L) Insufficiency 20 - 30 ng/mL (50 - 75 nmol/L) Sufficiency 30 - 100 ng/mL (75 - 250 nmol/L) Toxicity >100 ng/mL (>250 nmol/L) Absolute neutrophil countOrd ered By: Juan Diego King on 10-22-2024 Neutrophils (Bld) [#/Vol] 5.3 10*3/uL 2.0-7.7 [facility] Albumin to globulin ratioOrd ered By: Juan Diego King on 10-22-2024 Albumin/Globulin [Mass ratio] 1.0 {ratio} 0.9-2.4 [facility] Basophil percentageOrdered B y: Juan Diego Fernando on 10-22-2024 Basophils/100 WBC (Bld) 0.4 % 0-1 [facility] Bilirubin, totalOrdered By: Juan Diego Fernando on 10-22-2024 Bilirubin [Mass/Vol] 0.80 mg/dL 0.20-1.00 [facility] Comment on above: For patients on eltr ombopag therapy, use of Dimension [place] TBIL is not recommended. Blood urea nitrogen (BUN)/cr eatinine ratioOrdered By: Juan Diego Fernando on 10-22-2024 Urea nitrogen/Creatinine [Mass ratio] 9.5 mg/mg Low 10-20 [facility] CBC W/Diff, Automatedon 10-01 Absolute Lymph 1.66 X10 3/uL Normal 0.83-4.51 [facility] Comment on above: Performed By: #### L 500.4050, L100.0100, L501.9985, L506.1000, L501.9520, L500.4100 #### [facility] [address] [place], [address] Absolute Neut 5.3 X10 3/uL Normal 2.0-7.7 [facility] Comment on above: Performed By: #### L 500.4050, L100.0100, L501.9985, L506.1000, L501.9520, L500.4100 #### [facility] [address] [place], [address] Basophils/100 WBC (Bld) 0.4 % Normal 0-1 [facility] Comment on above: Performed By: #### L 500.4050, L100.0100, L501.9985, L506.1000, L501.9520, L500.4100 #### [facility] [address] [place], [address] Eosinophils/100 WBC (Bld) 1.4 % Normal 0-5 [facility] Comment on above: Performed By: #### L 500.4050, L100.0100, L501.9985, L506.1000, L501.9520, L500.4100 #### [facility] [address] [facility] [place], [address] Erythrocyte distribution width (RBC) [Ratio] 13.2 % Normal 11.6-14.6 [facility] Comment on above: Performed By: #### L 500.4050, L100.0100, L501.9985, L506.1000, L501.9520, L500.4100 #### [facility] [address] [place], [address] Hematocrit (Bld) [Volume fraction] 47.4 % High 37-47 [facility] Comment on above: Performed By: #### L 500.4050, L100.0100, L501.9985, L506.1000, L501.9520, L500.4100 #### [facility] [address] [place], [address] Hemoglobin (Bld) [Mass/Vol] 15.7 g/dL High 12.0-15.0 [facility] Comment on above: Performed By: #### L 500.4050, L100.0100, L501.9985, L506.1000, L501.9520, L500.4100 #### [facility] [address] [place], [address] IG% 0.500 Normal 0.0-0.9 [facility] Comment on above: Result Comment: IG% - Immature Granulocytes (promyelocytes, myelocytes and metamyelocytes) > 1% indicates that a LEFT SHIFT is Present. Performed By: #### L 500.4050, L100.0100, L501.9985, L506.1000, L501.9520, L500.4100 #### [facility] [address] [place], [address] Lymphocytes/100 WBC (Bld) 21.8 % Normal 19-41 [facility] Comment on above: Performed By: #### L 500.4050, L100.0100, L501.9985, L506.1000, L501.9520, L500.4100 #### [facility] [address] [place], [address] MCH (RBC) [Entitic mass] 29.6 pg Normal 27.0-32.0 [facility] Comment on above: Performed By: #### L 500.4050, L100.0100, L501.9985, L506.1000, L501.9520, L500.4100 #### [facility] [address] [place], [address] MCHC (RBC) [Mass/Vol] 33.1 g/dL Normal 32-36 [facility] Comment on above: Performed By: #### L 500.4050, L100.0100, L501.9985, L506.1000, L501.9520, L500.4100 #### [facility] [address] [place], [address] MCV (RBC) [Entitic vol] 89.4 fL Normal 81-99 [facility] Comment on above: Performed By: #### L 500.4050, L100.0100, L501.9985, L506.1000, L501.9520, L500.4100 #### [facility] [address] [place], [address] Monocytes/100 WBC (Bld) 6.4 % Normal 0-10 [facility] Comment on above: Performed By: #### L 500.4050, L100.0100, L501.9985, L506.1000, L501.9520, L500.4100 #### [facility] [address] [place], [address] Neutrophils/100 WBC (Bld) 69.5 % Normal 47-70 [facility] Comment on above: Performed By: #### L 500.4050, L100.0100, L501.9985, L506.1000, L501.9520, L500.4100 #### [facility] [address] [place], [address] Nucleated RBC (Bld) [#/Vol] 0 10*3/uL Normal 0-5 [facility] Comment on above: Performed By: #### L 500.4050, L100.0100, L501.9985, L506.1000, L501.9520, L500.4100 #### [facility] [address] [place], [address] Platelet mean volume (Bld) [Entitic vol] 9.7 fL Normal 6.2-12.0 [facility] Comment on above: Performed By: #### L 500.4050, L100.0100, L501.9985, L506.1000, L501.9520, L500.4100 #### [facility] [address] [place], [address] Platelets (Bld) [#/Vol] 226 10*3/uL Normal 150-450 [facility] Comment on above: Performed By: #### L 500.4050, L100.0100, L501.9985, L506.1000, L501.9520, L500.4100 #### [facility] [address] [place], [address] RBC (Bld) [#/Vol] 5.30 10*6/uL Normal 4.2-5.4 [facility] Comment on above: Performed By: #### L 500.4050, L100.0100, L501.9985, L506.1000, L501.9520, L500.4100 #### [facility] [address] [place], [address] RDW SD 43.1 fl Normal 35.1-43.9 [facility] Comment on above: Performed By: #### L 500.4050, L100.0100, L501.9985, L506.1000, L501.9520, L500.4100 #### [facility] [address] [place], [address] WBC (Bld) [#/Vol] 7.6 10*3/uL Normal 4.4-11.0 [facility] Comment on above: Performed By: #### L 500.4050, L100.0100, L501.9985, L506.1000, L501.9520, L500.4100 #### [facility] [address] [place], [place], [id number] Carbon dioxide measurementOr dered By: Juan Diego King on 10-22-2024 CO2 [Moles/Vol] 27.0 mmol/L 21.0-32.0 [facility] Chloride measurementOrdered By: Juan Diego King on 10-22-2024 Chloride [Moles/Vol] 103 mmol/L 98-107 [facility] Comprehensive Metabolic Prof ilon 10-22-2024 Albumin [Mass/Vol] 3.8 g/dL Normal 3.2-5.0 [facility] Comment on above: Performed By: #### L 500.4050, L100.0100, L501.9985, L506.1000, L501.9520, L500.4100 #### [facility] [address] [place], [address] Albumin/Globulin [Mass ratio] 1.0 {ratio} Normal 0.9-2.4 [facility] Comment on above: Performed By: #### L 500.4050, L100.0100, L501.9985, L506.1000, L501.9520, L500.4100 #### [facility] [address] [place], [address] ALK P 118 U/L High 45-117 [facility] Comment on above: Performed By: #### L 500.4050, L100.0100, L501.9985, L506.1000, L501.9520, L500.4100 #### [facility] [address] [place], [address] ALT [Catalytic activity/Vol] 29 U/L Normal 13-56 [facility] Comment on above: Performed By: #### L 500.4050, L100.0100, L501.9985, L506.1000, L501.9520, L500.4100 #### [facility] [address] [place], [address] AST [Catalytic activity/Vol] 20 U/L Normal 15-37 [facility] Comment on above: Performed By: #### L 500.4050, L100.0100, L501.9985, L506.1000, L501.9520, L500.4100 #### [facility] [address] [place], [address] Bilirubin [Mass/Vol] 0.80 mg/dL Normal 0.20-1.00 [facility] Comment on above: Result Comment: For patients on eltrombopag therapy, use of Dimension [place] TBIL is not recommended. Performed By: #### L 500.4050, L100.0100, L501.9985, L506.1000, L501.9520, L500.4100 #### [facility] [address] [place], [address] BUN/CRE 9.5 RATIO Low 10-20 [facility] Comment on above: Performed By: #### L 500.4050, L100.0100, L501.9985, L506.1000, L501.9520, L500.4100 #### [facility] [address] [place], [address] CA,Total 9.6 mg/dL Normal 8.5-10.1 [facility] Comment on above: Performed By: #### L 500.4050, L100.0100, L501.9985, L506.1000, L501.9520, L500.4100 #### [facility] [address] [place], [address] Chloride [Moles/Vol] 103 mmol/L Normal 98-107 [facility] Comment on above: Performed By: #### L 500.4050, L100.0100, L501.9985, L506.1000, L501.9520, L500.4100 #### [facility] [address] [place], [address] CO2 [Moles/Vol] 27.0 mmol/L Normal 21.0-32.0 [facility] Comment on above: Performed By: #### L 500.4050, L100.0100, L501.9985, L506.1000, L501.9520, L500.4100 #### [facility] [address] [place], [address] Creatinine [Mass/Vol] 1.37 mg/dL High 0.55-1.02 [facility] Comment on above: Result Comment: The validity of the calculated GFR GFRAA in patients over 70 years has not been determined. Clinical correlation is essential. Performed By: #### L 500.4050, L100.0100, L501.9985, L506.1000, L501.9520, L500.4100 #### [facility] [address] [place], [address] EST GFR - AA 49 mL/min Low >60 [facility] Comment on above: Result Comment: Afri can [place] GFR Calc Performed By: #### L 500.4050, L100.0100, L501.9985, L506.1000, L501.9520, L500.4100 #### [facility] [address] [place], [address] GAP 8 Normal 5-15 [facility] Comment on above: Performed By: #### L 500.4050, L100.0100, L501.9985, L506.1000, L501.9520, L500.4100 #### [facility] [address] [place], [address] GFR/1.73 sq M.predicted among non-blacks MDRD (S/P/Bld) [Vol rate/Area] 40 mL/min/{1.73_m2} Low >60 [facility] Comment on above: Result Comment: Non- GFR Calc Performed By: #### L 500.4050, L100.0100, L501.9985, L506.1000, L501.9520, L500.4100 #### [facility] [address] [place], [address] Globulin (S) [Mass/Vol] 3.8 g/dL Normal 2.2-4.2 [facility] Comment on above: Performed By: #### L 500.4050, L100.0100, L501.9985, L506.1000, L501.9520, L500.4100 #### [facility] [address] [place], [address] Glucose [Mass/Vol] 310 mg/dL High 74-106 [facility] Comment on above: Result Comment: Gluc ose result greater than or equal to 200 mg/dL suggests DIABETES MELLITUS per A.D.A. criteria. Performed By: #### L 500.4050, L100.0100, L501.9985, L506.1000, L501.9520, L500.4100 #### [facility] [address] [place], [address] Potassium [Moles/Vol] 4.0 mmol/L Normal 3.5-5.1 [facility] Comment on above: Performed By: #### L 500.4050, L100.0100, L501.9985, L506.1000, L501.9520, L500.4100 #### [facility] [address] [place], [address] Sodium [Moles/Vol] 138 mmol/L Normal 136-145 [facility] Comment on above: Performed By: #### L 500.4050, L100.0100, L501.9985, L506.1000, L501.9520, L500.4100 #### [facility] [address] [place], [address] T PROT 7.6 g/dL Normal 6.4-8.2 [facility] Comment on above: Performed By: #### L 500.4050, L100.0100, L501.9985, L506.1000, L501.9520, L500.4100 #### [facility] [address] [place], [address] Urea nitrogen [Mass/Vol] 13 mg/dL Normal 7-18 [facility] Comment on above: Performed By: #### L 500.4050, L100.0100, L501.9985, L506.1000, L501.9520, L500.4100 #### [facility] [address] [place], [address] Eosinophil percentageOrdered By: [facility] Fernando on 10-22-2024 Eosinophils/100 WBC (Bld) 1.4 % 0-5 [facility] Erythrocyte distribution wid th ratioOrdered By: Juan Diego King on 10-22-2024 Erythrocyte distribution width (RBC) [Ratio] 13.2 % 11.6-14.6 [facility] Erythrocyte distribution wid th standard deviationOrdered By: Juan Diego King on 10-22-2024 Erythrocyte distribution width (RBC) [Entitic vol] 43.1 fL 35.1-43.9 [facility] Estimated glomerular filtrat ion rate (GFR) AmericanOrdered By: Juan Diego King on 10-22-2024 Estimated GFR (MDRD) Amer 49 mL/min Low >60 [facility] Comment on above: GFR Calc Glomerular filtration rate ( GFR) estimationOrdered By: Juan Diego King on 10-22-2024 Estimated GFR (MDRD) Non-Af Amer 40 mL/min Low >60 [facility] Comment on above: Non- GFR Calc Glucose measurementOrdered B y: Juan Diego King on 10-22-2024 Glucose [Mass/Vol] 310 mg/dL High 74-106 [facility] Comment on above: Glucose result great er than or equal to 200 mg/dLsuggests DIABETES MELLITUS per A.D.A. criteria. Hematocrit Auto (Bld) [Volum e fraction]Ordered By: Juan Diego King on 10-22-2024 Hematocrit (Bld) [Volume fraction] 47.4 % High 37-47 [facility] Hemoglobin A1con 10-22-2024 HbA1c (Bld) [Mass fraction] 10.5 % High 3.8-5.6 [facility] Comment on above: Result Comment: Norm al < 5.7 % Prediabetic 5.7 - 6.4 % Diabetic >or= 6.5 % Please note range changes. Performed By: #### L 500.4050, L100.0100, L501.9985, L506.1000, L501.9520, L500.4100 #### [facility] [address] [place], [place] [address]. [place], [place], [id number] Hemoglobin A1c percentageOrd ered By: Juan Diego King on 10-22-2024 HbA1c (Bld) [Mass fraction] 10.5 % High 3.8-5.6 [facility] Comment on above: Normal < 5.7 % Predi abetic 5.7 - 6.4 % Diabetic >or= 6.5 % Please note range changes. Hemoglobin measurementOrdere d By: Juan Diego King on 10-22-2024 Hemoglobin (Bld) [Mass/Vol] 15.7 g/dL High 12.0-15.0 [facility] High density lipoprotein (HD L) measurementOrdered By: Juan Diego King on 10-22-2024 Cholesterol in HDL [Mass/Vol] 62 mg/dL >40 [facility] Comment on above: The drugs N-Acetylcy steine and Metamizole may falsely depress this assay. Reference Range HDL <40 mg/dL Low HDL Cholesterol HDL >or= 60 mg/dL High HDL Cholesterol Immature granulocytes/100 WB C Auto (Bld)Ordered By: Juan Diego King on 10-22-2024 Immature granulocytes/100 WBC (Bld) 0.500 % 0.0-0.9 [facility] Comment on above: IG% - Immature Granu locytes (promyelocytes, myelocytes and metamyelocytes) > 1% indicates that a LEFT SHIFT is Present. Laboratory - Chemistry and C hemistry - challengeOrdered By: Juan Diego King on 10-22-2024 AST [Catalytic activity/Vol] 20 U/L 15-37 [facility] Lipid Profileon 10-22-2024 Cholesterol [Mass/Vol] 201 mg/dL High 200 [facility] Comment on above: Result Comment: <200 mg/dL Desirable 200-240 mg/dL Borderline >240 mg/dL High Risk Performed By: #### L 500.4050, L100.0100, L501.9985, L506.1000, L501.9520, L500.4100 #### [facility] [address] [facility] [place], [address] Cholesterol in HDL [Mass/Vol] 62 mg/dL Normal [facility] Comment on above: Result Comment: The drugs N-Acetylcysteine and Metamizole may falsely depress this assay. Reference Range HDL <40 mg/dL Low HDL Cholesterol HDL >or= 60 mg/dL High HDL Cholesterol Performed By: #### L 500.4050, L100.0100, L501.9985, L506.1000, L501.9520, L500.4100 #### [facility] [address] [place], [place], [id number] Cholesterol in LDL [Mass/Vol] 97 mg/dL Normal 0-130 [facility] Comment on above: Performed By: #### L 500.4050, L100.0100, L501.9985, L506.1000, L501.9520, L500.4100 #### [facility] [address] [place], [address] Cholesterol in VLDL [Mass/Vol] 42 mg/dL High 5-40 [facility] Comment on above: Performed By: #### L 500.4050, L100.0100, L501.9985, L506.1000, L501.9520, L500.4100 #### [facility] [address] [place], [address] Triglyceride [Mass/Vol] 208 mg/dL High [facility] Comment on above: Result Comment: The drugs N-Acetylcysteine and Metamizole may falsely depress this assay. Serum Triglycerides Reference Interval Normal <150 mg/dL Borderline high 150 - 199 mg/dL High 200 - 499 mg/dL Very High > or = 500 mg/dL Performed By: #### L 500.4050, L100.0100, L501.9985, L506.1000, L501.9520, L500.4100 #### [facility] [address] [place], [place], [id number] (556) Low density lipoprotein (LDL ) cholesterol measurementOrdered By: Juan Diego King on 10-22-2024 Cholesterol in LDL [Mass/Vol] 97 mg/dL 0-130 [facility] Lymphocytes Auto (Unsp spec) [#/Vol]Ordered By: Juan Diego King on 10-22-2024 Lymphocytes (Bld) [#/Vol] 1.66 10*3/uL 0.83-4.51 [facility] Lymphocytes/100 WBC Auto (Un sp spec)Ordered By: Juan Diego King on 10-22-2024 Lymphocytes/100 WBC (Bld) 21.8 % 19-41 [facility] MCV (mean corpuscular volume ) determinationOrdered By: Juan Diego King on 10-22-2024 MCV (RBC) [Entitic vol] 89.4 fL 81-99 [facility] Mean corpuscular hemoglobin (MCH) determinationOrdered By: Juan Diego King on 10-22-2024 MCH (RBC) [Entitic mass] 29.6 pg 27.0-32.0 [facility] Mean corpuscular hemoglobin concentration (MCHC) determinationOrdered By: Juan Diego King on 10-22-2024 MCHC (RBC) [Mass/Vol] 33.1 g/dL 32-36 [facility] Mean platelet volume determi nationOrdered By: Juan Diego King on 10-22-2024 Platelet mean volume (Bld) [Entitic vol] 9.7 fL 6.2-12.0 [facility] Monocyte percentageOrdered B y: Juan Diego King on 10-22-2024 Monocytes/100 WBC (Bld) 6.4 % 0-10 [facility] Neutrophil percentageOrdered By: Juan Diego King on 10-22-2024 Neutrophils/100 WBC (Bld) 69.5 % 47-70 [facility] Nucleated red blood cell per centageOrdered By: Juan Diego King on 10-22-2024 Nucleated RBC/100 WBC (Bld) [Ratio] 0 % 0-5 [facility] Platelet countOrdered By: Radu King on 10-22-2024 Platelets (Bld) [#/Vol] 226 10*3/uL 150-450 [facility] Potassium measurementOrdered By: Juan Diego King on 10-22-2024 Potassium [Moles/Vol] 4.0 mmol/L 3.5-5.1 [facility] RBC Auto (Bld) [#/Vol]Ordere d By: Juan Diego King on 10-22-2024 RBC (Bld) [#/Vol] 5.30 10*6/uL 4.2-5.4 [facility] Serum anion gap measurementO rdered By: Juan Diego King on 10-22-2024 Anion gap [Moles/Vol] 8 mmol/L 5-15 [facility] Serum globulin measurementOr dered By: Juan Diego King 10-22-2024 Globulin (S) [Mass/Vol] 3.8 g/dL 2.2-4.2 [facility] Serum or plasma alanine saldana otransferase (ALT) measurementOrdered By: Juan Diego King 10-22-2024 ALT [Catalytic activity/Vol] 29 U/L 13-56 [facility] Serum or plasma albumin fuad urement (mass/volume)Ordered By: Juan Diego King on 10-22-2024 Albumin [Mass/Vol] 3.8 g/dL 3.2-5.0 [facility] Serum or plasma alkaline chalino sphatase measurementOrdered By: Juan Diego King on 10-22-2024 ALP [Catalytic activity/Vol] 118 U/L High 45-117 [facility] Serum or plasma calcium fuad urement (mass/volume)Ordered By: Juan Diego King on 10-22-2024 Calcium [Mass/Vol] 9.6 mg/dL 8.5-10.1 [facility] Serum or plasma cholesterol measurement (mass/volume)Ordered By: Juan Diego King on 10-22-2024 Cholesterol [Mass/Vol] 201 mg/dL High <200 [facility] Comment on above: <200 mg/dL Desirable 200-240 mg/dL Borderline >240 mg/dL High Risk Serum or plasma creatinine m easurement (mass/volume)Ordered By: Juan Diego King on 10-22-2024 Creatinine [Mass/Vol] 1.37 mg/dL High 0.55-1.02 [facility] Comment on above: The validity of the calculated GFR & GFRAA in patients over 70 years has not been determined. Clinical correlation is essential. Serum or plasma urea nitroge n measurement (mass/volume)Ordered By: Juan Diego King on 10-22-2024 Urea nitrogen [Mass/Vol] 13 mg/dL 7-18 [facility] Sodium levelOrdered By: Juan Diego King on 10-22-2024 Sodium [Moles/Vol] 138 mmol/L 136-145 [facility] TSH QnOrdered By: Juan Diego King o n 10-22-2024 Thyroid Stimulating Hormone (TSH) 1.930 uIU/mL 0.358-3.740 [facility] Thyroid Stim Hormone (TSH)on 10-22-2024 TSH 1.930 uIU/mL Normal 0.358-3.740 [facility] Comment on above: Performed By: #### L 500.4050, L100.0100, L501.9985, L506.1000, L501.9520, L500.4100 #### [facility] [address] [place], [place], [address] Total proteinOrdered By: Juan Diego King on 10-22-2024 Protein [Mass/Vol] 7.6 g/dL 6.4-8.2 [facility] Triglycerides measurementOrd ered By: Juan Diego King on 10-22-2024 Triglyceride [Mass/Vol] 208 mg/dL High <199 [facility] Comment on above: The drugs N-Acetylcy steine and Metamizole may falsely depress this assay.Serum Triglycerides Reference Interval Normal <150 mg/dL Borderline high 150 - 199 mg/dL High 200 - 499 mg/dL Very High > or = 500 mg/dL Very low density lipoprotein (VLDL) cholesterol measurementOrdered By: Juan Diego King on 10-22-2024 VLDL Cholesterol 42 mg/dL High 5-40 [facility] Vitamin D,25 Hydroxyon 10-22 Vitamin D 25-OH 25.3 ng/mL Normal [facility] Comment on above: Result Comment: Vicenta min D 25(OH) Status Range Deficiency <20 ng/mL (50nmol/L) Insufficiency 20 - 30 ng/mL (50 - 75 nmol/L) Sufficiency 30 - 100 ng/mL (75 - 250 nmol/L) Toxicity >100 ng/mL (>250 nmol/L) Performed By: #### L 500.4050, L100.0100, L501.9985, L506.1000, L501.9520, L500.4100 #### [facility] [address] [place], [place], [address] White blood cell (WBC) count Ordered By: Juan Diego King on 10-22-2024 WBC (Bld) [#/Vol] 7.6 10*3/uL 4.4-11.0 [facility] Inital Evaluation (1) - PTon 07-22-2024 Inital Evaluation (1) - PT [facility] Physical Therapy Health[address] [place] [address] / REHABILITATION SERVICES INITIAL EVALUATION MR#: [id number] Acct: [id number] Name: NISH BENITEZ Rep #: [id number] : 1950 74 From: Randy Su PT, Cert. T, OCS Referring Dr.: Dr. Juan Diego King MD Status: REG R Insurance: [facility] 07/31/18 SELF PAY INSURANCE Patient's Visit Information Visit Information Visit Information: NISH BENITEZ is a 74 year old F referred to Physical Therapy by Dr. Juan Diego Kign MD with a diagnosis of OSTEOARTHRITIS ,HIP [...] Response: No effect Lumbar Standing: Right Side [place] - Symptoms During Testing: No effect Lumbar Standing: Right Side [place] - Symptoms After Testing: No effect Lumbar Standing: Left Side [place] - Mechanical Response: No effect Lumbar Standing: Left Side [place] - Symptoms During Testing: No effect Lumbar Standing: Left Side [place] - Symptoms After Testing: No effect R [...] plans, p (more content not included)... Normal [facility] L3300.0940on 07-22-2024 VIT D,25 HYDROX TNP Normal . [facility] Comment on above: Result Comment: Test not performed. No specimen received. Contacted Bere Myriam on 07/22/24. Vitamin D deficiency has been defined by the [place] and an Endocrine Society practice guideline as a level of serum 25-OH vitamin D less than 20 ng/mL (1,2). The Endocrine Society went on to further define vitamin D insufficiency as a level between 21 and 29 ng/mL (2). 1. IOM ([place]). 2010. Dietary reference intakes for calcium and D. [place]: The National Academies Press. 2. Agusto MF, Marianela TRAVIS, Camille PAGAN, et al. Evaluation, treatment, and prevention of vitamin D deficiency: an Endocrine Society clinical practice guideline. JCEM. 2010; 96(7):1911-30. Performed By: #### L 500.4050, L100.0100, L501.9985, L506.1000, L501.9520, L500.4100 #### [facility] [address] [place], [address] CBC W/Diff, Automatedon 06-30 Absolute Lymph 2.02 X10 3/uL Normal 0.83-4.51 [facility] Comment on above: Performed By: #### L 500.4050, L100.0100, L501.9985, L506.1000, L501.9520, L500.4100 #### [facility] [address] [place], [address] Absolute Neut 5.5 X10 3/uL Normal 2.0-7.7 [facility] Comment on above: Performed By: #### L 500.4050, L100.0100, L501.9985, L506.1000, L501.9520, L500.4100 #### [facility] [address] [place], [address] Basophils/100 WBC (Bld) 0.4 % Normal 0-1 [facility] Comment on above: Performed By: #### L 500.4050, L100.0100, L501.9985, L506.1000, L501.9520, L500.4100 #### [facility] [address] [place], [address] Eosinophils/100 WBC (Bld) 1.9 % Normal 0-5 [facility] Comment on above: Performed By: #### L 500.4050, L100.0100, L501.9985, L506.1000, L501.9520, L500.4100 #### [facility] [address] [place], [address] Erythrocyte distribution width (RBC) [Ratio] 13.4 % Normal 11.6-14.6 [facility] Comment on above: Performed By: #### L 500.4050, L100.0100, L501.9985, L506.1000, L501.9520, L500.4100 #### [facility] [address] [place], [address] Hematocrit (Bld) [Volume fraction] 46.5 % Normal 37-47 [facility] Comment on above: Performed By: #### L 500.4050, L100.0100, L501.9985, L506.1000, L501.9520, L500.4100 #### [facility] [address] [place], [address] Hemoglobin (Bld) [Mass/Vol] 15.5 g/dL High 12.0-15.0 [facility] Comment on above: Performed By: #### L 500.4050, L100.0100, L501.9985, L506.1000, L501.9520, L500.4100 #### [facility] [address] [place], [address] IG% 0.400 Normal 0.0-0.9 [facility] Comment on above: Result Comment: IG% - Immature Granulocytes (promyelocytes, myelocytes and metamyelocytes) > 1% indicates that a LEFT SHIFT is Present. Performed By: #### L 500.4050, L100.0100, L501.9985, L506.1000, L501.9520, L500.4100 #### [facility] [address] [place], [address] Lymphocytes/100 WBC (Bld) 24.3 % Normal 19-41 [facility] Comment on above: Performed By: #### L 500.4050, L100.0100, L501.9985, L506.1000, L501.9520, L500.4100 #### [facility] [address] [place], [address] MCH (RBC) [Entitic mass] 29.4 pg Normal 27.0-32.0 [facility] Comment on above: Performed By: #### L 500.4050, L100.0100, L501.9985, L506.1000, L501.9520, L500.4100 #### [facility] [address] [place], [address] MCHC (RBC) [Mass/Vol] 33.3 g/dL Normal 32-36 [facility] Comment on above: Performed By: #### L 500.4050, L100.0100, L501.9985, L506.1000, L501.9520, L500.4100 #### [facility] [address] [place], [address] MCV (RBC) [Entitic vol] 88.2 fL Normal 81-99 [facility] Comment on above: Performed By: #### L 500.4050, L100.0100, L501.9985, L506.1000, L501.9520, L500.4100 #### [facility] [address] [place], [address] Monocytes/100 WBC (Bld) 7.3 % Normal 0-10 [facility] Comment on above: Performed By: #### L 500.4050, L100.0100, L501.9985, L506.1000, L501.9520, L500.4100 #### [facility] [address] [place], [address] Neutrophils/100 WBC (Bld) 65.7 % Normal 47-70 [facility] Comment on above: Performed By: #### L 500.4050, L100.0100, L501.9985, L506.1000, L501.9520, L500.4100 #### [facility] [address] [place], [address] Nucleated RBC (Bld) [#/Vol] 0 10*3/uL Normal 0-5 [facility] Comment on above: Performed By: #### L 500.4050, L100.0100, L501.9985, L506.1000, L501.9520, L500.4100 #### [facility] [address] [place], [address] Platelet mean volume (Bld) [Entitic vol] 9.7 fL Normal 6.2-12.0 [facility] Comment on above: Performed By: #### L 500.4050, L100.0100, L501.9985, L506.1000, L501.9520, L500.4100 #### [facility] [address] [place], [address] Platelets (Bld) [#/Vol] 238 10*3/uL Normal 150-450 [facility] Comment on above: Performed By: #### L 500.4050, L100.0100, L501.9985, L506.1000, L501.9520, L500.4100 #### [facility] [address] [place], [address] RBC (Bld) [#/Vol] 5.27 10*6/uL Normal 4.2-5.4 [facility] Comment on above: Performed By: #### L 500.4050, L100.0100, L501.9985, L506.1000, L501.9520, L500.4100 #### [facility] [address] [place], [address] RDW SD 43.6 fl Normal 35.1-43.9 [facility] Comment on above: Performed By: #### L 500.4050, L100.0100, L501.9985, L506.1000, L501.9520, L500.4100 #### [facility] [address] [place], [address] WBC (Bld) [#/Vol] 8.3 10*3/uL Normal 4.4-11.0 [facility] Comment on above: Performed By: #### L 500.4050, L100.0100, L501.9985, L506.1000, L501.9520, L500.4100 #### [facility] [address] [place], [address] Comprehensive Metabolic Prof ilon 07-15-2024 Albumin [Mass/Vol] 3.8 g/dL Normal 3.2-5.0 [facility] Comment on above: Performed By: #### L 500.4050, L100.0100, L501.9985, L506.1000, L501.9520, L500.4100 #### [facility] [address] [place], [address] Albumin/Globulin [Mass ratio] 1.1 {ratio} Normal 0.9-2.4 [facility] Comment on above: Performed By: #### L 500.4050, L100.0100, L501.9985, L506.1000, L501.9520, L500.4100 #### [facility] [address] [place], [address] ALK P 141 U/L High 45-117 [facility] Comment on above: Performed By: #### L 500.4050, L100.0100, L501.9985, L506.1000, L501.9520, L500.4100 #### [facility] [address] [place], [address] ALT [Catalytic activity/Vol] 27 U/L Normal 13-56 [facility] Comment on above: Performed By: #### L 500.4050, L100.0100, L501.9985, L506.1000, L501.9520, L500.4100 #### [facility] [address] [place], [address] AST [Catalytic activity/Vol] 18 U/L Normal 15-37 [facility] Comment on above: Performed By: #### L 500.4050, L100.0100, L501.9985, L506.1000, L501.9520, L500.4100 #### [facility] [address] [place], [address] Bilirubin [Mass/Vol] 0.70 mg/dL Normal 0.20-1.00 [facility] Comment on above: Result Comment: For patients on eltrombopag therapy, use of Dimension [place] TBIL is not recommended. Performed By: #### L 500.4050, L100.0100, L501.9985, L506.1000, L501.9520, L500.4100 #### [facility] [address] [place], [address] BUN/CRE 13.9 RATIO Normal 10-20 [facility] Comment on above: Performed By: #### L 500.4050, L100.0100, L501.9985, L506.1000, L501.9520, L500.4100 #### [facility] [address] [place], [address] CA,Total 9.2 mg/dL Normal 8.5-10.1 [facility] Comment on above: Performed By: #### L 500.4050, L100.0100, L501.9985, L506.1000, L501.9520, L500.4100 #### [facility] [address] [place], [address] Chloride [Moles/Vol] 99 mmol/L Normal 98-107 [facility] Comment on above: Performed By: #### L 500.4050, L100.0100, L501.9985, L506.1000, L501.9520, L500.4100 #### [facility] [address] [place], [address] CO2 [Moles/Vol] 25.0 mmol/L Normal 21.0-32.0 [facility] Comment on above: Performed By: #### L 500.4050, L100.0100, L501.9985, L506.1000, L501.9520, L500.4100 #### [facility] [address] [place], [address] Creatinine [Mass/Vol] 1.22 mg/dL High 0.55-1.02 [facility] Comment on above: Result Comment: The validity of the calculated GFR GFRAA in patients over 70 years has not been determined. Clinical correlation is essential. Performed By: #### L 500.4050, L100.0100, L501.9985, L506.1000, L501.9520, L500.4100 #### [facility] [address] [place], [address] EST GFR - AA 56 mL/min Low >60 [facility] Comment on above: Result Comment: Afri can [place] GFR Calc Performed By: #### L 500.4050, L100.0100, L501.9985, L506.1000, L501.9520, L500.4100 #### [facility] [address] [place], [address] GAP 9 Normal 5-15 [facility] Comment on above: Performed By: #### L 500.4050, L100.0100, L501.9985, L506.1000, L501.9520, L500.4100 #### [facility] [address] [place], [address] GFR/1.73 sq M.predicted among non-blacks MDRD (S/P/Bld) [Vol rate/Area] 46 mL/min/{1.73_m2} Low >60 [facility] Comment on above: Result Comment: Non- GFR Calc Performed By: #### L 500.4050, L100.0100, L501.9985, L506.1000, L501.9520, L500.4100 #### [facility] [address] [place], [address] Globulin (S) [Mass/Vol] 3.4 g/dL Normal 2.2-4.2 [facility] Comment on above: Performed By: #### L 500.4050, L100.0100, L501.9985, L506.1000, L501.9520, L500.4100 #### [facility] [address] [place], [address] Glucose [Mass/Vol] 363 mg/dL High 74-106 [facility] Comment on above: Result Comment: Gluc ose result greater than or equal to 200 mg/dL suggests DIABETES MELLITUS per A.D.A. criteria. Performed By: #### L 500.4050, L100.0100, L501.9985, L506.1000, L501.9520, L500.4100 #### [facility] [address] [place], [address] Potassium [Moles/Vol] 4.6 mmol/L Normal 3.5-5.1 [facility] Comment on above: Performed By: #### L 500.4050, L100.0100, L501.9985, L506.1000, L501.9520, L500.4100 #### [facility] [address] [place], [address] Sodium [Moles/Vol] 132 mmol/L Low 136-145 [facility] Comment on above: Performed By: #### L 500.4050, L100.0100, L501.9985, L506.1000, L501.9520, L500.4100 #### [facility] [address] [place], [address] T PROT 7.2 g/dL Normal 6.4-8.2 [facility] Comment on above: Performed By: #### L 500.4050, L100.0100, L501.9985, L506.1000, L501.9520, L500.4100 #### [facility] [address] [place], [address] Urea nitrogen [Mass/Vol] 17 mg/dL Normal 7-18 [facility] Comment on above: Performed By: #### L 500.4050, L100.0100, L501.9985, L506.1000, L501.9520, L500.4100 #### [facility] [address] [place], [address] Hemoglobin A1con 07-15-2024 HbA1c (Bld) [Mass fraction] 9.4 % High 3.8-5.6 [facility] Comment on above: Result Comment: Norm al < 5.7 % Prediabetic 5.7 - 6.4 % Diabetic >or= 6.5 % Please note range changes. Performed By: #### L 500.4050, L100.0100, L501.9985, L506.1000, L501.9520, L500.4100 #### [facility] [address] [place], [address] Hips B/L min 2 views w/ Pelv nemesio 07-15-2024 Hips B/L min 2 views w/ Pelvis [facility] [address] [place] [address] Hips B/L min 2 views w/ Pelvis MR#: [id number] Acct: [id number] Name: NISH BENITEZ Rep #: [id number] : 1950 F 74 From: Cash Cornell MD PCP: Dr. Juan Diego King MD Status: REG CLI Study: Hips B/L min 2 views w/ Pelvis Date of Exam: Exam# [id number] Ordering Dr: Juan Diego King [place] [id number] INDICATION: OA EXAMINATION/TECHNIQUE: X-RAY - XR Hips [...] , CC: Dr. Juan Diego King MD [employer] Pumper: Signed Normal [facility] Lipid Profileon 07-15-2024 Cholesterol [Mass/Vol] 195 mg/dL Normal 200 [facility] Comment on above: Result Comment: <200 mg/dL Desirable 200-240 mg/dL Borderline >240 mg/dL High Risk Performed By: #### L 500.4050, L100.0100, L501.9985, L506.1000, L501.9520, L500.4100 #### [facility] [address] [place], [address] Cholesterol in HDL [Mass/Vol] 56 mg/dL Normal [facility] Comment on above: Result Comment: The drugs N-Acetylcysteine and Metamizole may falsely depress this assay. Reference Range HDL <40 mg/dL Low HDL Cholesterol HDL >or= 60 mg/dL High HDL Cholesterol Performed By: #### L 500.4050, L100.0100, L501.9985, L506.1000, L501.9520, L500.4100 #### [facility] [address] [place], [address] Cholesterol in LDL [Mass/Vol] 91 mg/dL Normal 0-130 [facility] Comment on above: Performed By: #### L 500.4050, L100.0100, L501.9985, L506.1000, L501.9520, L500.4100 #### [facility] [address] [place], [address] Cholesterol in VLDL [Mass/Vol] 48 mg/dL High 5-40 [facility] Comment on above: Performed By: #### L 500.4050, L100.0100, L501.9985, L506.1000, L501.9520, L500.4100 #### [facility] [address] [place], [address] Triglyceride [Mass/Vol] 239 mg/dL High [facility] Comment on above: Result Comment: The drugs N-Acetylcysteine and Metamizole may falsely depress this assay. Serum Triglycerides Reference Interval Normal <150 mg/dL Borderline high 150 - 199 mg/dL High 200 - 499 mg/dL Very High > or = 500 mg/dL Performed By: #### L 500.4050, L100.0100, L501.9985, L506.1000, L501.9520, L500.4100 #### [facility] [address] [facility] [place], [address] Thyroid Stim Hormone (TSH)on 07-15-2024 TSH 2.080 uIU/mL Normal 0.358-3.740 [facility] Comment on above: Performed By: #### L 500.4050, L100.0100, L501.9985, L506.1000, L501.9520, L500.4100 #### [facility] [address] [place], [address] Dexa Bone Density Studyon Dexa Bone Density Study [facility] [address] [place] [address] Dexa Bone Density Study MR#: [id number] Acct: [id number] Name: NISH BENITEZ Rep #: [id number] : 1950 F 73 From: Venkata ordoñez MD PCP: Dr. Juan Diego King MD Status: [facility] Study: Dexa Bone Density Study Date of Exam: 05/07/24 Exam# [id number] Ordering Dr: Juan Diego King MD [id number] STUDY: DUAL ENERGY X-RAY ABSORPTIOMETRY / DXA [...] , CC: Dr. Juan Diego King MD [employer] P[employer]: Signed Normal [facility] Abdomen Limitedon 03-31-2024 Abdomen Limited [facility] [address] [place], [place] [address] Abdomen Limited MR#: [id number] Acct: [id number] Name: NISH BENITEZ Rep #: [id number] : 1950 F 73 From: Dylan Cr MD PCP: Dr. Juan Diego King MD Status: REG CLI Study: Abdomen Limited Date of Exam: 03/31/24 Exam# [id number] Ordering Dr: Juan Diego King MD [id number] STUDY: ABDOMINAL ULTRASOUND - RIGHT UPPER QUADRANT [...] , CC: Dr. Juan Diego King MD [employer]: Signed Normal [facility] Abdomen/Pelvis WITH Contrast on 03-31-2024 Abdomen/Pelvis WITH Contrast [facility] [address] [place] [address] [id number] Abdomen/Pelvis WITH Contrast MR#: [id number] Acct: [id number] Name: NISH BENITEZ Rep #: [id number] : 1950 F 73 From: Ramin He PCP: Dr. Juan Diego King MD Status: [facility] Study: Abdomen/Pelvis WITH Contrast Date of Exam: 11/23 Exam# [id number] Ordering Dr: Juan Diego King MD [id number] STUDY: CT ABDOMEN AND PELVIS WITH CONTRAST [...] , CC: Dr. Juan Diego King MD [employer] Pumper: Signed Normal [facility] CREATININE FINGERSTICKon Creatinine [Mass/Vol] 1.3 mg/dL High 0.55-1.02 [facility] Comment on above: Performed By: #### L 500.4050, L100.0100, L501.9985, L506.1000, L501.9520, L500.4100 #### [facility] [address] [place], [address] GFR/1.73 sq M.predicted among non-blacks MDRD (S/P/Bld) [Vol rate/Area] 44.0000 mL/min/{1.73_m2} Low >60 [facility] Comment on above: Performed By: #### L 500.4050, L100.0100, L501.9985, L506.1000, L501.9520, L500.4100 #### [facility] [place], [address] Absolute lymphocyte countOrd ered By: Juan Diego King on 01-16-2024 Lymphocytes Auto (Unsp spec) [#/Vol] 1.74 10*3/uL 0.83-4.51 [facility] Automated lymphocyte count a s percentage of total leukocytesOrdered By: Juan Diego King on 01-16-2024 Lymphocytes/100 WBC Auto (Unsp spec) 26.8 % 19-41 [facility] Basophil percentageOrdered B y: Juan Diego King on 01-16-2024 Basophils/100 WBC (Bld) 0.8 % 0-1 [facility] Bilirubin [Mass/Vol] 0.70 mg/dL 0.20-1.00 [facility] Comment on above: For patients on eltr ombopag therapy, use of Dimension [place] TBIL is not recommended. Chloride [Moles/Vol] 102 mmol/L 98-107 [facility] Cholesterol [Mass/Vol] 186 mg/dL <200 [facility] Comment on above: <200 mg/dL Desirable 200-240 mg/dL Borderline >240 mg/dL High Risk Eosinophils/100 WBC (Bld) 2.2 % 0-5 [facility] Glucose [Mass/Vol] 216 mg/dL 74-106 [facility] Comment on above: Glucose result great er than or equal to 200 mg/dLsuggests DIABETES MELLITUS per A.D.A. criteria. Hemoglobin (Bld) [Mass/Vol] 14.7 g/dL 12.0-15.0 [facility] Monocytes/100 WBC (Bld) 8.5 % 0-10 [facility] Neutrophils (Bld) [#/Vol] 4.0 10*3/uL 2.0-7.7 [facility] Neutrophils/100 WBC (Bld) 61.1 % 47-70 [facility] Potassium [Moles/Vol] 4.8 mmol/L 3.5-5.1 [facility] Protein [Mass/Vol] 6.9 g/dL 6.4-8.2 [facility] Sodium [Moles/Vol] 135 mmol/L 136-145 [facility] Triglyceride [Mass/Vol] 133 mg/dL <199 [facility] Comment on above: The drugs N-Acetylcy steine and Metamizole may falsely depress this assay.Serum Triglycerides Reference Interval Normal <150 mg/dL Borderline high 150 - 199 mg/dL High 200 - 499 mg/dL Very High > or = 500 mg/dL WBC (Bld) [#/Vol] 6.5 10*3/uL 4.4-11.0 [facility] Determination of erythrocyte mean corpuscular volume (MCV)Ordered By: Juan Diego King on 01-16-2024 MCV (RBC) [Entitic vol] 88.1 fL 81-99 [facility] Erythrocyte distribution wid th ratioOrdered By: Juan Diego King 01-16-2024 Erythrocyte distribution width (RBC) [Ratio] 12.7 % 11.6-14.6 [facility] Erythrocyte distribution wid th standard deviationOrdered By: Juan Diego King 01-16-2024 Erythrocyte distribution width (RBC) [Entitic vol] 41.2 fL 35.1-43.9 [facility] Hematocrit Auto (Bld) [Volum e fraction]Ordered By: Juan Diego King 01-16-2024 Hematocrit (Bld) [Volume fraction] 42.3 % 37-47 [facility] Immature granulocytes/100 WB C Auto (Bld)Ordered By: Juan Diego King 01-16-2024 Immature granulocytes/100 WBC (Bld) 0.600 % 0.0-0.9 [facility] Comment on above: IG% - Immature Granu locytes (promyelocytes, myelocytes and metamyelocytes) > 1% indicates that a LEFT SHIFT is Present. Laboratory - Chemistry and C hemistry - challengeOrdered By: Juan Diego King on 01-16-2024 Albumin/Globulin [Mass ratio] 1.2 {ratio} 0.9-2.4 [facility] ALP [Catalytic activity/Vol] 113 U/L 45-117 [facility] ALT [Catalytic activity/Vol] 27 U/L 13-56 [facility] Cholesterol in HDL [Mass/Vol] 60 mg/dL >40 [facility] Comment on above: The drugs N-Acetylcy steine and Metamizole may falsely depress this assay. Reference Range HDL <40 mg/dL Low HDL Cholesterol HDL >or= 60 mg/dL High HDL Cholesterol Cholesterol in LDL [Mass/Vol] 99 mg/dL 0-130 [facility] CO2 [Moles/Vol] 29.0 mmol/L 21.0-32.0 [facility] Globulin (S) [Mass/Vol] 3.1 g/dL 2.2-4.2 [facility] Urea nitrogen/Creatinine [Mass ratio] 14.7 mg/mg 10-20 [facility] Laboratory - Hematology and Cell countsOrdered By: Juan Diego King on 01-16-2024 MCH (RBC) [Entitic mass] 30.6 pg 27.0-32.0 [facility] MCHC (RBC) [Mass/Vol] 34.8 g/dL 32-36 [facility] Nucleated RBC/100 WBC (Bld) [Ratio] 0 % 0-5 [facility] Platelet mean volume (Bld) [Entitic vol] 9.2 fL 6.2-12.0 [facility] Platelets (Bld) [#/Vol] 257 10*3/uL 150-450 [facility] No Panel InformationOrdered By: Juan Diego King on 01-16-2024 Estimated GFR (MDRD) Amer 59 mL/min >60 [facility] Comment on above: GFR Calc Estimated GFR (MDRD) Non-Af Amer 49 mL/min >60 [facility] Comment on above: Non- GFR Calc Urine Microalbumin/Creatinine Ratio 11.5 mg/g CRE <30 [facility] Vitamin D 25-Hydroxy 30.9 ng/mL [facility] Comment on above: Vitamin D 25(OH) Sta tus Range Deficiency <20 ng/mL (50nmol/L) Insufficiency 20 - 30 ng/mL (50 - 75 nmol/L) Sufficiency 30 - 100 ng/mL (75 - 250 nmol/L) Toxicity >100 ng/mL (>250 nmol/L) VLDL Cholesterol 27 mg/dL 5-40 [facility] RBC Auto (Bld) [#/Vol]Ordere d By: Juan Diego King on 01-16-2024 RBC (Bld) [#/Vol] 4.80 10*6/uL 4.2-5.4 [facility] Serum or plasma calcium fuad urement (mass/volume)Ordered By: Juan Diego King on 01-16-2024 Calcium [Mass/Vol] 8.8 mg/dL 8.5-10.1 [facility] Serum or plasma creatinine m easurement (mass/volume)Ordered By: Juan Diego King on 01-16-2024 Creatinine [Mass/Vol] 1.16 mg/dL 0.55-1.02 [facility] Comment on above: The validity of the calculated GFR & GFRAA in patients over 70 years has not been determined. Clinical correlation is essential. Serum or plasma thyroid stim ulating hormone (TSH) measurement (units/volume)Ordered By: Juan Diego King on 01-16-2024 TSH Qn 1.33 uIU/mL 0.358-3.74 [facility] Serum or plasma urea nitroge n measurement (mass/volume)Ordered By: Juan Diego King on 01-16-2024 Urea nitrogen [Mass/Vol] 17 mg/dL 7-18 [facility] Thin prep Papanicolaou smear with manual screeningOrdered By: Juan Diego King 01-16-2024 Thin prep Papanicolaou smear with manual screening 3.8 g/dL 3.2-5.0 [facility] Thin prep Papanicolaou smear with manual screening 17 U/L 15-37 [facility] Thin prep Papanicolaou smear with manual screening 4 5-15 [facility] Thin prep Papanicolaou smear with manual screening 10.7 mg/L NO RANGE EST. [facility] Urine creatinine measurement (mass/volume)Ordered By: Juan Diego King on 01-16-2024 Creatinine (U) [Mass/Vol] 93.00 mg/dL NO RANGE EST. [facility] Whole blood hemoglobin A1c/t otal hemoglobin ratio (mass fraction)Ordered By: Juan Diego King on 01-16-2024 HbA1c (Bld) [Mass fraction] 7.6 % 3.8-5.6 [facility] Comment on above: Normal < 5.7 % Predi abetic 5.7 - 6.4 % Diabetic >or= 6.5 % Please note range changes. Absolute lymphocyte countOrd ered By: Juan Diego King on 07-25-2023 Lymphocytes Auto (Unsp spec) [#/Vol] 2.30 10*3/uL 0.83-4.51 [facility] Basophil percentageOrdered B y: Juan Diego King on 07-25-2023 Basophils/100 WBC (Bld) 0.6 % 0-1 [facility] Bilirubin [Mass/Vol] 0.50 mg/dL 0.20-1.00 [facility] Comment on above: For patients on eltr ombopag therapy, use of Dimension [place] TBIL is not recommended. Chloride [Moles/Vol] 104 mmol/L 98-107 [facility] Cholesterol [Mass/Vol] 201 mg/dL <200 [facility] Comment on above: <200 mg/dL Desirable 200-240 mg/dL Borderline >240 mg/dL High Risk Eosinophils/100 WBC (Bld) 2.3 % 0-5 [facility] Glucose [Mass/Vol] 139 mg/dL 74-106 [facility] Comment on above: Fasting Glucose resu lt greater than or equal to 126 mg/dL suggests DIABETES MELLITUS per A.D.A. criteria. Neutrophils (Bld) [#/Vol] 4.0 10*3/uL 2.0-7.7 [facility] Neutrophils/100 WBC (Bld) 57.0 % 47-70 [facility] Potassium [Moles/Vol] 4.5 mmol/L 3.5-5.1 [facility] Protein [Mass/Vol] 6.9 g/dL 6.4-8.2 [facility] Sodium [Moles/Vol] 136 mmol/L 136-145 [facility] Triglyceride [Mass/Vol] 175 mg/dL <199 [facility] Comment on above: The drugs N-Acetylcy steine and Metamizole may falsely depress this assay.Serum Triglycerides Reference Interval Normal <150 mg/dL Borderline high 150 - 199 mg/dL High 200 - 499 mg/dL Very High > or = 500 mg/dL WBC (Bld) [#/Vol] 7.0 10*3/uL 4.4-11.0 [facility] Blood erythrocytes count (nu mber/volume)Ordered By: Juan Diego King on 07-25-2023 RBC (Bld) [#/Vol] 4.66 10*6/uL 4.2-5.4 [facility] Blood hemoglobin measurement (mass/volume)Ordered By: Juan Diego King on 07-25-2023 Hemoglobin (Bld) [Mass/Vol] 13.9 g/dL 12.0-15.0 [facility] Blood lymphocytes/100 leukoc ytesOrdered By: Juan Diego King on 07-25-2023 Lymphocytes/100 WBC (Bld) 32.9 % 19-41 [facility] Blood monocytes/100 leukocyt esOrdered By: Juan Diego Fernando on 07-25-2023 Monocytes/100 WBC (Bld) 6.9 % 0-10 [facility] Blood platelet mean volumeOr dered By: Juna Diego King on 07-25-2023 Platelet mean volume (Bld) [Entitic vol] 9.6 fL 6.2-12.0 [facility] Determination of erythrocyte mean corpuscular volume (MCV)Ordered By: Juan Diego King on 07-25-2023 MCV (RBC) [Entitic vol] 91.4 fL 81-99 [facility] Hematocrit Auto (Bld) [Volum e fraction][facility] 07-25-[facility]23 Hematocrit (Bld) [Volume fraction] 42.6 % 37-47 [facility] Laboratory - Chemistry and C hemistry - challengeOrdered By: Juan Diego King on 07-25-2023 ALP [Catalytic activity/Vol] 108 U/L 45-117 [facility] ALT [Catalytic activity/Vol] 28 U/L 13-56 [facility] CO2 [Moles/Vol] 27.0 mmol/L 21.0-32.0 [facility] Globulin (S) [Mass/Vol] 3.3 g/dL 2.2-4.2 [facility] Urea nitrogen/Creatinine [Mass ratio] 25.3 mg/mg 10-20 [facility] Laboratory - Hematology and Cell countsOrdered By: Juan Diego King on 07-25-2023 Erythrocyte distribution width (RBC) [Entitic vol] 44.2 fL 35.1-43.9 [facility] Erythrocyte distribution width (RBC) [Ratio] 13.1 % 11.6-14.6 [facility] Immature granulocytes/100 WBC (Bld) 0.300 % 0.0-0.9 [facility] Comment on above: IG% - Immature Granu locytes (promyelocytes, myelocytes and metamyelocytes) > 1% indicates that a LEFT SHIFT is Present. MCH (RBC) [Entitic mass] 29.8 pg 27.0-32.0 [facility] Nucleated RBC/100 WBC (Bld) [Ratio] 0 % 0-5 [facility] MCHC Auto (RBC) [Mass/Vol]Or dered By: Juan Diego King on 07-25-2023 MCHC (RBC) [Mass/Vol] 32.6 g/dL 32-36 [facility] No Panel InformationOrdered By: Juan Diego King on 07-25-2023 Estimated GFR (MDRD) Amer 71 mL/min >60 [facility] Comment on above: GFR Calc Estimated GFR (MDRD) Non-Af Amer 59 mL/min >60 [facility] Comment on above: Non- GFR Calc Thyroid Stimulating Hormone (TSH) 1.42 uIU/mL 0.358-3.74 [facility] Vitamin D 25-Hydroxy 27.3 ng/mL [facility] Comment on above: Vitamin D 25(OH) Sta tus Range Deficiency <20 ng/mL (50nmol/L) Insufficiency 20 - 30 ng/mL (50 - 75 nmol/L) Sufficiency 30 - 100 ng/mL (75 - 250 nmol/L) Toxicity >100 ng/mL (>250 nmol/L) Platelets bldOrdered By: Juan Diego King on 07-25-2023 Platelets (Bld) [#/Vol] 244 10*3/uL 150-450 [facility] Serum or plasma albumin fuad urement (mass/volume)Ordered By: Juan Diego King on 07-25-2023 Albumin [Mass/Vol] 3.6 g/dL 3.2-5.0 [facility] Serum or plasma albumin/glob ulin mass ratioOrdered By: Juan Diego King on 07-25-2023 Albumin/Globulin [Mass ratio] 1.1 {ratio} 0.9-2.4 [facility] Serum or plasma calcium fuad urement (mass/volume)Ordered By: Juan Diego King on 07-25-2023 Calcium [Mass/Vol] 8.8 mg/dL 8.5-10.1 [facility] Serum or plasma cholesterol in HDL measurement (mass/volume)Ordered By: Juan Diego King on 07-25-2023 Cholesterol in HDL [Mass/Vol] 61 mg/dL >40 [facility] Comment on above: The drugs N-Acetylcy steine and Metamizole may falsely depress this assay. Reference Range HDL <40 mg/dL Low HDL Cholesterol HDL >or= 60 mg/dL High HDL Cholesterol Serum or plasma cholesterol in VLDL measurement (mass/volume)Ordered By: Juan Diego King on 07-25-2023 Cholesterol in VLDL [Mass/Vol] 35 mg/dL 5-40 [facility] Serum or plasma creatinine m easurement (mass/volume)Ordered By: Juan Diego King 07-25-2023 Creatinine [Mass/Vol] 0.99 mg/dL 0.55-1.02 [facility] Comment on above: The validity of the calculated GFR & GFRAA in patients over 70 years has not been determined. Clinical correlation is essential. Serum or plasma low density lipoprotein (LDL) cholesterol measurement (mass/volume)Ordered By: Juan Diego King on 07-25-2023 Cholesterol in LDL [Mass/Vol] 105 mg/dL 0-130 [facility] Serum or plasma urea nitroge n measurement (mass/volume)Ordered By: Juan Diego King 07-25-2023 Urea nitrogen [Mass/Vol] 25 mg/dL 7-18 [facility] Thin prep Papanicolaou smear with manual screeningOrdered By: Juan Diego King 07-25-2023 Thin prep Papanicolaou smear with manual screening 17 U/L 15-37 [facility] Thin prep Papanicolaou smear with manual screening 5 5-15 [facility] Whole blood hemoglobin A1c/t otal hemoglobin ratio (mass fraction)Ordered By: Juan Diego King on 07-25-2023 HbA1c (Bld) [Mass fraction] 5.9 % 3.8-5.6 [facility] Comment on above: Normal < 5.7 % Predi abetic 5.7 - 6.4 % Diabetic >or= 6.5 % Please note range changes. Absolute lymphocyte countOrd ered By: Dr. King on 01-10-2023 Lymphocytes Auto (Unsp spec) [#/Vol] 2.36 10*3/uL 0.83-4.51 [facility] Basophil percentageOrdered B y: Dr. King on 01-10-2023 Basophils/100 WBC (Bld) 0.6 % 0-1 [facility] Bilirubin [Mass/Vol] 0.40 mg/dL 0.20-1.00 [facility] Comment on above: For patients on eltr ombopag therapy, use of Dimension [place] TBIL is not recommended. Chloride [Moles/Vol] 104 mmol/L 98-107 [facility] Cholesterol [Mass/Vol] 291 mg/dL <200 [facility] Comment on above: <200 mg/dL Desirable 200-240 mg/dL Borderline >240 mg/dL High Risk Eosinophils/100 WBC (Bld) 2.4 % 0-5 [facility] Glucose [Mass/Vol] 102 mg/dL 74-106 [facility] Comment on above: Fasting Glucose resu lt from 100 to 125 mg/dL suggests IMPAIRED HOMEOSTASIS per A.D.A. criteria. Neutrophils (Bld) [#/Vol] 3.2 10*3/uL 2.0-7.7 [facility] Neutrophils/100 WBC (Bld) 51.6 % 47-70 [facility] Potassium [Moles/Vol] 4.0 mmol/L 3.5-5.1 [facility] Protein [Mass/Vol] 7.2 g/dL 6.4-8.2 [facility] Sodium [Moles/Vol] 136 mmol/L 136-145 [facility] Triglyceride [Mass/Vol] 169 mg/dL <199 [facility] Comment on above: The drugs N-Acetylcy steine and Metamizole may falsely depress this assay.Serum Triglycerides Reference Interval Normal <150 mg/dL Borderline high 150 - 199 mg/dL High 200 - 499 mg/dL Very High > or = 500 mg/dL WBC (Bld) [#/Vol] 6.2 10*3/uL 4.4-11.0 [facility] Blood erythrocytes count (nu mber/volume)Ordered By: Dr. King on 01-10-2023 RBC (Bld) [#/Vol] 4.41 10*6/uL 4.2-5.4 [facility] Blood hemoglobin measurement (mass/volume)Ordered By: Dr. King on 01-10-2023 Hemoglobin (Bld) [Mass/Vol] 13.3 g/dL 12.0-15.0 [facility] Blood lymphocytes/100 leukoc ytesOrdered By: Dr. King on 01-10-2023 Lymphocytes/100 WBC (Bld) 38.2 % 19-41 [facility] Blood monocytes/100 leukocyt esOrdered By: Dr. King on 01-10-2023 Monocytes/100 WBC (Bld) 7.0 % 0-10 [facility] Blood platelet mean volumeOr dered By: Dr. King on 01-10-2023 Platelet mean volume (Bld) [Entitic vol] 10.0 fL 6.2-12.0 [facility] Determination of erythrocyte mean corpuscular volume (MCV)Ordered By: Dr. King on 01-10-2023 MCV (RBC) [Entitic vol] 93.0 fL 81-99 [facility] Hematocrit Auto (Bld) [Volum e fraction]Ordered By: Dr. King on 01-10-2023 Hematocrit (Bld) [Volume fraction] 41.0 % 37-47 [facility] Laboratory - Chemistry and C hemistry - challengeOrdered By: Dr. King on 01-10-2023 ALP [Catalytic activity/Vol] 84 U/L 45-117 [facility] ALT [Catalytic activity/Vol] 19 U/L 13-56 [facility] CO2 [Moles/Vol] 27.0 mmol/L 21.0-32.0 [facility] Globulin (S) [Mass/Vol] 3.4 g/dL 2.2-4.2 [facility] Urea nitrogen/Creatinine [Mass ratio] 24.3 mg/mg 10-20 [facility] Laboratory - Hematology and Cell countsOrdered By: Dr. King on 01-10-2023 Erythrocyte distribution width (RBC) [Entitic vol] 51.1 fL 35.1-43.9 [facility] Erythrocyte distribution width (RBC) [Ratio] 14.8 % 11.6-14.6 [facility] Immature granulocytes/100 WBC (Bld) 0.200 % 0.0-0.9 [facility] Comment on above: IG% - Immature Granu locytes (promyelocytes, myelocytes and metamyelocytes) > 1% indicates that a LEFT SHIFT is Present. MCH (RBC) [Entitic mass] 30.2 pg 27.0-32.0 [facility] Nucleated RBC/100 WBC (Bld) [Ratio] 0 % 0-5 [facility] MCHC Auto (RBC) [Mass/Vol]Or dered By: Dr. King on 01-10-2023 MCHC (RBC) [Mass/Vol] 32.4 g/dL 32-36 [facility] No Panel InformationOrdered By: Dr. King on 01-10-2023 Estimated GFR (MDRD) Amer 65 mL/min >60 [facility] Comment on above: GFR Calc Estimated GFR (MDRD) Non-Af Amer 54 mL/min >60 [facility] Comment on above: Non- GFR Calc Thyroid Stimulating Hormone (TSH) 1.07 uIU/mL 0.358-3.74 [facility] Vitamin D 25-Hydroxy 29.2 ng/mL [facility] Comment on above: Vitamin D 25(OH) Sta tus Range Deficiency <20 ng/mL (50nmol/L) Insufficiency 20 - 30 ng/mL (50 - 75 nmol/L) Sufficiency 30 - 100 ng/mL (75 - 250 nmol/L) Toxicity >100 ng/mL (>250 nmol/L) Platelets bldOrdered By: Dr. King on 01-10-2023 Platelets (Bld) [#/Vol] 243 10*3/uL 150-450 [facility] Serum or plasma albumin fuad urement (mass/volume)Ordered By: Dr. King on 01-10-2023 Albumin [Mass/Vol] 3.8 g/dL 3.2-5.0 [facility] Serum or plasma albumin/glob ulin mass ratioOrdered By: Dr. King on 01-10-2023 Albumin/Globulin [Mass ratio] 1.1 {ratio} 0.9-2.4 [facility] Serum or plasma calcium fuad urement (mass/volume)Ordered By: Dr. King on 01-10-2023 Calcium [Mass/Vol] 9.4 mg/dL 8.5-10.1 [facility] Serum or plasma cholesterol in HDL measurement (mass/volume)Ordered By: Dr. King on 01-10-2023 Cholesterol in HDL [Mass/Vol] 54 mg/dL >40 [facility] Comment on above: The drugs N-Acetylcy steine and Metamizole may falsely depress this assay. Reference Range HDL <40 mg/dL Low HDL Cholesterol HDL >or= 60 mg/dL High HDL Cholesterol Serum or plasma cholesterol in VLDL measurement (mass/volume)Ordered By: Dr. King on 01-10-2023 Cholesterol in VLDL [Mass/Vol] 34 mg/dL 5-40 [facility] Serum or plasma creatinine m easurement (mass/volume)Ordered By: Dr. King on 01-10-2023 Creatinine [Mass/Vol] 1.07 mg/dL 0.55-1.02 [facility] Comment on above: The validity of the calculated GFR & GFRAA in patients over 70 years has not been determined. Clinical correlation is essential. Serum or plasma low density lipoprotein (LDL) cholesterol measurement (mass/volume)Ordered By: Dr. King on 01-10-2023 Cholesterol in LDL [Mass/Vol] 203 mg/dL 0-130 [facility] Serum or plasma urea nitroge n measurement (mass/volume)Ordered By: Dr. King on 01-10-2023 Urea nitrogen [Mass/Vol] 26 mg/dL 7-18 [facility] Thin prep Papanicolaou smear with manual screeningOrdered By: Dr. King on 01-10-2023 Thin prep Papanicolaou smear with manual screening 20 U/L 15-37 [facility] Thin prep Papanicolaou smear with manual screening 5 5-15 [facility] Absolute lymphocyte counton 2022 Lymphocytes Auto (Unsp spec) [#/Vol] 2.14 10*3/uL 0.83-4.51 [facility] Work Phone: Basophil percentageon 2021 Basophils/100 WBC (Bld) 0.5 % 0-1 [facility] Work Phone: [phone] Bilirubin [Mass/Vol] 0.60 mg/dL 0.20-1.00 [facility] Work Phone: [phone] Comment on above: For patients on eltr ombopag therapy, use of Dimension [place] TBIL is not recommended. Chloride [Moles/Vol] 105 mmol/L 98-107 [facility] Work Phone: [phone] Cholesterol [Mass/Vol] 174 mg/dL <200 [facility] Work Phone: [phone] Comment on above: <200 mg/dL Desirable 200-240 mg/dL Borderline >240 mg/dL High Risk Eosinophils/100 WBC (Bld) 2.8 % 0-5 [facility] Work Phone: [phone] Glucose [Mass/Vol] 154 mg/dL 74-106 [facility] Work Phone: [phone] Comment on above: Fasting Glucose resu lt greater than or equal to 126 mg/dL suggests DIABETES MELLITUS per A.D.A. criteria. Neutrophils (Bld) [#/Vol] 2.9 10*3/uL 2.0-7.7 [facility] Work Phone: [phone] Neutrophils/100 WBC (Bld) 50.9 % 47-70 [facility] Work Phone: [phone] Potassium [Moles/Vol] 4.5 mmol/L 3.5-5.1 [facility] Work Phone: [phone] Protein [Mass/Vol] 6.8 g/dL 6.4-8.2 [facility] Work Phone: [phone] Sodium [Moles/Vol] 139 mmol/L 136-145 [facility] Work Phone: [phone] Triglyceride [Mass/Vol] 131 mg/dL <199 [facility] Work Phone: [phone] Comment on above: The drugs N-Acetylcy steine and Metamizole may falsely depress this assay.Serum Triglycerides Reference Interval Normal <150 mg/dL Borderline high 150 - 199 mg/dL High 200 - 499 mg/dL Very High > or = 500 mg/dL WBC (Bld) [#/Vol] 5.7 10*3/uL 4.4-11.0 [facility] Work Phone: Blood erythrocytes count (nu mber/volume)on 2022 RBC (Bld) [#/Vol] 4.57 10*6/uL 4.2-5.4 [facility] Phone: [phone] Blood hemoglobin measurement (mass/volume)on 2022 Hemoglobin (Bld) [Mass/Vol] 13.6 g/dL 12.0-15.0 [facility] Work Phone: [phone] Blood lymphocytes/100 leukoc yteson 2022 Lymphocytes/100 WBC (Bld) 37.4 % 19-41 [facility] Work Phone: [phone] Blood monocytes/100 leukocyt eson 2022 Monocytes/100 WBC (Bld) 8.2 % 0-10 [facility] Work Phone: Blood platelet mean volumeon 2022 Platelet mean volume (Bld) [Entitic vol] 9.6 fL 6.2-12.0 [facility] Work Phone: Determination of erythrocyte mean corpuscular volume (MCV)on 2022 MCV (RBC) [Entitic vol] 92.3 fL 81-99 [facility] Work Phone: Hematocrit Auto (Bld) [Volum e fraction]on 2022 Hematocrit (Bld) [Volume fraction] 42.2 % 37-47 [facility] Work Phone: [phone] Laboratory - Chemistry and C hemistry - challengeon 2022 ALP [Catalytic activity/Vol] 90 U/L 45-117 [facility] Work Phone: ALT [Catalytic activity/Vol] 19 U/L 13-56 [facility] Work Phone: CO2 [Moles/Vol] 26.0 mmol/L 21.0-32.0 [facility] Work Phone: Globulin (S) [Mass/Vol] 3.4 g/dL 2.2-4.2 [facility] Work Phone: [phone] Urea nitrogen/Creatinine [Mass ratio] 18.4 mg/mg 10-20 [facility] Work Phone: [phone] Laboratory - Hematology and Cell countson 2022 Erythrocyte distribution width (RBC) [Entitic vol] 48.3 fL 35.1-43.9 [facility] Work Phone: [phone] Erythrocyte distribution width (RBC) [Ratio] 14.2 % 11.6-14.6 [facility] Work Phone: [phone] Immature granulocytes/100 WBC (Bld) 0.200 % 0.0-0.9 [facility] Work Phone: [phone] Comment on above: IG% - Immature Granu locytes (promyelocytes, myelocytes and metamyelocytes) > 1% indicates that a LEFT SHIFT is Present. MCH (RBC) [Entitic mass] 29.8 pg 27.0-32.0 [facility] Work Phone: [phone] Nucleated RBC/100 WBC (Bld) [Ratio] 0 % 0-5 [facility] Work Phone: [phone] MCHC Auto (RBC) [Mass/Vol]on 2022 MCHC (RBC) [Mass/Vol] 32.2 g/dL 32-36 [facility] Work Phone: [phone] Panel Informationon 07-11 Estimated GFR (MDRD) Amer 68 mL/min >60 [facility] Work Phone: [phone] Comment on above: GFR Calc Estimated GFR (MDRD) Non-Af Amer 56 mL/min >60 [facility] Work Phone: [phone] Comment on above: Non- GFR Calc Thyroid Stimulating Hormone (TSH) 1.46 uIU/mL 0.358-3.74 [facility] Work Phone: [phone] D 25-Hydroxy 35.9 ng/mL [facility] Work Phone: [phone] Comment on above: Vitamin D 25(OH) Sta tus Range Deficiency <20 ng/mL (50nmol/L) Insufficiency 20 - 30 ng/mL (50 - 75 nmol/L) Sufficiency 30 - 100 ng/mL (75 - 250 nmol/L) Toxicity >100 ng/mL (>250 nmol/L) Platelets bldon 2022 Platelets (Bld) [#/Vol] 266 10*3/uL 150-450 [facility] Work Phone: [phone] Serum or plasma albumin fuad urement (mass/volume)on 2022 Albumin [Mass/Vol] 3.4 g/dL 3.2-5.0 [facility] Work Phone: [phone] Serum or plasma albumin/glob ulin mass ratioon 2022 Albumin/Globulin [Mass ratio] 1.0 {ratio} 0.9-2.4 [facility] Work Phone: Serum or plasma calcium fuad urement (mass/volume)on 2022 Calcium [Mass/Vol] 9.6 mg/dL 8.5-10.1 [facility] Work Phone: Serum or plasma cholesterol in HDL measurement (mass/volume)on 2022 Cholesterol in HDL [Mass/Vol] 63 mg/dL >40 [facility] Work Phone: Comment on above: The drugs N-Acetylcy steine and Metamizole may falsely depress this assay. Reference Range HDL <40 mg/dL Low HDL Cholesterol HDL >or= 60 mg/dL High HDL Cholesterol Serum or plasma cholesterol in VLDL measurement (mass/volume)on 2022 Cholesterol in VLDL [Mass/Vol] 26 mg/dL 5-40 [facility] Work Phone: [phone] Serum or plasma creatinine m easurement (mass/volume)on 2022 Creatinine [Mass/Vol] 1.03 mg/dL 0.55-1.02 [facility] Work Phone: Comment on above: The validity of the calculated GFR & GFRAA in patients over 70 years has not been determined. Clinical correlation is essential. Serum or plasma low density lipoprotein (LDL) cholesterol measurement (mass/volume)on 2022 Cholesterol in LDL [Mass/Vol] 85 mg/dL 0-130 [facility] Work Phone: Serum or plasma urea nitroge n measurement (mass/volume)on 2022 Urea nitrogen [Mass/Vol] 19 mg/dL 7-18 [facility] Work Phone: Thin prep Papanicolaou smear with manual screeningon 2022 Thin prep Papanicolaou smear with manual screening 18 U/L 15-37 [facility] Work Phone: Thin prep Papanicolaou smear with manual screening 8 5-15 [facility] Work Phone: Absolute lymphocyte counton 04-25-2022 Lymphocytes Auto (Unsp spec) [#/Vol] 1.67 10*3/uL 0.83-4.51 [facility] Work Phone: Basophil percentageon 2021 Basophil percentage 3.1 mg/dL 2.5-4.9 [facility] Work Phone: [phone] Basophils/100 WBC (Bld) 0.7 % 0-1 [facility] Work Phone: Bilirubin [Mass/Vol] 0.70 mg/dL 0.20-1.00 [facility] Work Phone: Comment on above: For patients on eltr ombopag therapy, use of Dimension [place] TBIL is not recommended. Chloride [Moles/Vol] 104 mmol/L 98-107 [facility] Work Phone: Eosinophils/100 WBC (Bld) 1.5 % 0-5 [facility] Work Phone: Glucose [Mass/Vol] 124 mg/dL 74-106 [facility] Work Phone: Comment on above: Fasting Glucose resu lt from 100 to 125 mg/dL suggests IMPAIRED HOMEOSTASIS per A.D.A. criteria. Neutrophils (Bld) [#/Vol] 3.6 10*3/uL 2.0-7.7 [facility] Work Phone: Neutrophils/100 WBC (Bld) 62.1 % 47-70 [facility] Work Phone: Potassium [Moles/Vol] 4.3 mmol/L 3.5-5.1 [facility] Work Phone: Protein [Mass/Vol] 6.8 g/dL 6.4-8.2 [facility] Work Phone: Sodium [Moles/Vol] 138 mmol/L 136-145 [facility] Work Phone: WBC (Bld) [#/Vol] 5.9 10*3/uL 4.4-11.0 [facility] Work Phone: Blood erythrocytes count (nu mber/volume)on 04-25-2022 RBC (Bld) [#/Vol] 4.67 10*6/uL 4.2-5.4 [facility]: Blood hemoglobin measurement (mass/volume)on 04-25-2022 Hemoglobin (Bld) [Mass/Vol] 14.1 g/dL 12.0-15.0 [facility] Work Phone: Blood lymphocytes/100 leukoc yteson 04-25-2022 Lymphocytes/100 WBC (Bld) 28.4 % 19-41 [facility] Work Phone: Blood monocytes/100 leukocyt eson 04-25-2022 Monocytes/100 WBC (Bld) 7.0 % 0-10 [facility] Work Phone: Blood platelet mean volumeon 04-25-2022 Platelet mean volume (Bld) [Entitic vol] 9.9 fL 6.2-12.0 [facility] Work Phone: Determination of erythrocyte mean corpuscular volume (MCV)on 04-25-2022 MCV (RBC) [Entitic vol] 92.3 fL 81-99 [facility] Work Phone: Hematocrit Auto (Bld) [Volum e fraction]on 04-25-2022 Hematocrit (Bld) [Volume fraction] 43.1 % 37-47 [facility] Work Phone: [phone] Laboratory - Chemistry and C hemistry - challengeon 04-25-2022 ALP [Catalytic activity/Vol] 73 U/L 45-117 [facility] Work Phone: [phone] ALT [Catalytic activity/Vol] 20 U/L 13-56 [facility] Work Phone: [phone] CO2 [Moles/Vol] 27.0 mmol/L 21.0-32.0 [facility] Work Phone: [phone] Globulin (S) [Mass/Vol] 3.1 g/dL 2.2-4.2 [facility] Work Phone: [phone] Urea nitrogen/Creatinine [Mass ratio] 16.2 mg/mg 10-20 [facility] Work Phone: [phone] Laboratory - Hematology and Cell countson 04-25-2022 Erythrocyte distribution width (RBC) [Entitic vol] 50.4 fL 35.1-43.9 [facility] Work Phone: [phone] Erythrocyte distribution width (RBC) [Ratio] 14.8 % 11.6-14.6 [facility] Work Phone: [phone] Immature granulocytes/100 WBC (Bld) 0.300 % 0.0-0.9 [facility] Work Phone: [phone] Comment on above: IG% - Immature Granu locytes (promyelocytes, myelocytes and metamyelocytes) > 1% indicates that a LEFT SHIFT is Present. MCH (RBC) [Entitic mass] 30.2 pg 27.0-32.0 [facility] Work Phone: [phone] Nucleated RBC/100 WBC (Bld) [Ratio] 0 % 0-5 [facility] Work Phone: [phone] MCHC Auto (RBC) [Mass/Vol]on 04-25-2022 MCHC (RBC) [Mass/Vol] 32.7 g/dL 32-36 [facility]: [phone] Panel Informationon 04-25 Estimated GFR (MDRD) Amer 59 mL/min >60 [facility] Work Phone: Comment on above: GFR Calc Estimated GFR (MDRD) Non-Af Amer 49 mL/min >60 [facility] Work Phone: Comment on above: Non- GFR Calc Parathyroid Hormone (Intact) 79.4 pg/mL 18.4-80.1 [facility] Work Phone: [phone] Thyroid Stimulating Hormone (TSH) 0.90 uIU/mL 0.358-3.74 [facility] Work Phone: [phone] Vitamin D 25-Hydroxy 42.5 ng/mL [facility] Work Phone: [phone] Comment on above: Vitamin D 25(OH) Sta tus Range Deficiency <20 ng/mL (50nmol/L) Insufficiency 20 - 30 ng/mL (50 - 75 nmol/L) Sufficiency 30 - 100 ng/mL (75 - 250 nmol/L) Toxicity >100 ng/mL (>250 nmol/L) Platelets bldon 04-25-2022 Platelets (Bld) [#/Vol] 266 10*3/uL 150-450 [facility] Work Phone: [phone] Serum or plasma albumin fuad urement (mass/volume)on 04-25-2022 Albumin [Mass/Vol] 3.7 g/dL 3.2-5.0 [facility] Work Phone: [phone] Serum or plasma albumin/glob ulin mass ratioon 04-25-2022 Albumin/Globulin [Mass ratio] 1.2 {ratio} 0.9-2.4 [facility] Work Phone: [phone] Serum or plasma calcium fuad urement (mass/volume)on 04-25-2022 Calcium [Mass/Vol] 9.4 mg/dL 8.5-10.1 [facility] Work Phone: [phone] Serum or plasma creatinine m easurement (mass/volume)on 04-25-2022 Creatinine [Mass/Vol] 1.17 mg/dL 0.55-1.02 [facility] Work Phone: Comment on above: The validity of the calculated GFR & GFRAA in patients over 70 years has not been determined. Clinical correlation is essential. Serum or plasma urea nitroge n measurement (mass/volume)on 04-25-2022 Urea nitrogen [Mass/Vol] 19 mg/dL 7-18 [facility] Work Phone: Thin prep Papanicolaou smear with manual screeningon 04-25-2022 Thin prep Papanicolaou smear with manual screening 16 U/L 15-37 [facility] Work Phone: Thin prep Papanicolaou smear with manual screening 7 5-15 [facility] Work Phone: Basophil percentageon 2021 Chloride [Moles/Vol] 101 mmol/L 98-107 [facility] Work Phone: Glucose [Mass/Vol] 177 mg/dL 74-106 [facility] Work Phone: Comment on above: Fasting Glucose resu lt greater than or equal to 126 mg/dL suggests DIABETES MELLITUS per A.D.A. criteria. Potassium [Moles/Vol] 4.4 mmol/L 3.5-5.1 [facility] Work Phone: Sodium [Moles/Vol] 135 mmol/L 136-145 [facility] Work Phone: Laboratory - Chemistry and C hemistry - challengeon 02-07-2022 CO2 [Moles/Vol] 25.0 mmol/L 21.0-32.0 [facility] Work Phone: Urea nitrogen/Creatinine [Mass ratio] 17.9 mg/mg 10-20 [facility] Work Phone: No Panel Informationon 02-07 Estimated GFR (MDRD) Amer 55 mL/min >60 [facility] Work Phone: Comment on above: GFR Calc Estimated GFR (MDRD) Non-Af Amer 46 mL/min >60 [facility] Work Phone: [phone] Comment on above: Non- GFR Calc Serum or plasma calcium fuad urement (mass/volume)on 02-07-2022 Calcium [Mass/Vol] 9.8 mg/dL 8.5-10.1 [facility] Work Phone: Serum or plasma creatinine m easurement (mass/volume)on 02-07-2022 Creatinine [Mass/Vol] 1.23 mg/dL 0.55-1.02 [facility] Work Phone: Comment on above: The validity of the calculated GFR & GFRAA in patients over 70 years has not been determined. Clinical correlation is essential. Serum or plasma urea nitroge n measurement (mass/volume)on 02-07-2022 Urea nitrogen [Mass/Vol] 22 mg/dL 7-18 [facility] Work Phone: Thin prep Papanicolaou smear with manual screeningon 02-07-2022 Thin prep Papanicolaou smear with manual screening 9 5-15 [facility] Work Phone: [phone] Absolute lymphocyte counton 01-09-2022 Lymphocytes Auto (Unsp spec) [#/Vol] 2.27 10*3/uL 0.83-4.51 [facility] Work Phone: Basophil percentageon 2021 Basophil percentage 3.5 mg/dL 2.5-4.9 [facility] Work Phone: Basophils/100 WBC (Bld) 0.6 % 0-1 [facility] Work Phone: [phone] Bilirubin [Mass/Vol] 0.50 mg/dL 0.20-1.00 [facility] Work Phone: [phone] Comment on above: For patients on eltr ombopag therapy, use of Dimension [place] TBIL is not recommended. Chloride [Moles/Vol] 101 mmol/L 98-107 [facility] Work Phone: Cholesterol [Mass/Vol] 184 mg/dL <200 [facility] Work Phone: [phone] Comment on above: <200 mg/dL Desirable 200-240 mg/dL Borderline >240 mg/dL High Risk Eosinophils/100 WBC (Bld) 1.8 % 0-5 [facility] Work Phone: Glucose [Mass/Vol] 179 mg/dL 74-106 [facility] Work Phone: [phone] Comment on above: Fasting Glucose resu lt greater than or equal to 126 mg/dL suggests DIABETES MELLITUS per A.D.A. criteria. Neutrophils (Bld) [#/Vol] 3.6 10*3/uL 2.0-7.7 [facility] Work Phone: [phone] Neutrophils/100 WBC (Bld) 55.3 % 47-70 [facility] Work Phone: [phone] Potassium [Moles/Vol] 4.5 mmol/L 3.5-5.1 [facility] Work Phone: [phone] Protein [Mass/Vol] 7.4 g/dL 6.4-8.2 [facility] Work Phone: [phone] Sodium [Moles/Vol] 135 mmol/L 136-145 [facility] Work Phone: [phone] Triglyceride [Mass/Vol] 200 mg/dL <199 [facility] Work Phone: Comment on above: The drugs N-Acetylcy steine and Metamizole may falsely depress this assay.Serum Triglycerides Reference Interval Normal <150 mg/dL Borderline high 150 - 199 mg/dL High 200 - 499 mg/dL Very High > or = 500 mg/dL WBC (Bld) [#/Vol] 6.6 10*3/uL 4.4-11.0 [facility] Work Phone: [phone] Blood erythrocytes count (nu mber/volume)on 01-09-2022 RBC (Bld) [#/Vol] 4.73 10*6/uL 4.2-5.4 [facility] Work Phone: [phone] Blood hemoglobin measurement (mass/volume)on 01-09-2022 Hemoglobin (Bld) [Mass/Vol] 14.0 g/dL 12.0-15.0 [facility] Work Phone: [phone] Blood lymphocytes/100 leukoc yteson 01-09-2022 Lymphocytes/100 WBC (Bld) 34.4 % 19-41 [facility] Work Phone: Blood monocytes/100 leukocyt eson 01-09-2022 Monocytes/100 WBC (Bld) 7.7 % 0-10 [facility] Work Phone: Blood platelet mean volumeon 01-09-2022 Platelet mean volume (Bld) [Entitic vol] 9.5 fL 6.2-12.0 [facility] Work Phone: Determination of erythrocyte mean corpuscular volume (MCV)on 01-09-2022 MCV (RBC) [Entitic vol] 91.8 fL 81-99 [facility] Work Phone: Hematocrit Auto (Bld) [Volum e fraction]on 01-09-2022 Hematocrit (Bld) [Volume fraction] 43.4 % 37-47 [facility] Work Phone: Laboratory - Chemistry and C hemistry - challengeon 01-09-2022 ALP [Catalytic activity/Vol] 105 U/L 45-117 [facility] Work Phone: ALT [Catalytic activity/Vol] 23 U/L 13-56 [facility] Work Phone: CO2 [Moles/Vol] 28.0 mmol/L 21.0-32.0 [facility] Work Phone: Globulin (S) [Mass/Vol] 3.6 g/dL 2.2-4.2 [facility] Work Phone: Urea nitrogen/Creatinine [Mass ratio] 16.4 mg/mg 10-20 [facility] Work Phone: Laboratory - Hematology and Cell countson 01-09-2022 Erythrocyte distribution width (RBC) [Entitic vol] 45.6 fL 35.1-43.9 [facility] Work Phone: Erythrocyte distribution width (RBC) [Ratio] 13.3 % 11.6-14.6 [facility] Work Phone: Immature granulocytes/100 WBC (Bld) 0.200 % 0.0-0.9 [facility] Work Phone: [phone] Comment on above: IG% - Immature Granu locytes (promyelocytes, myelocytes and metamyelocytes) > 1% indicates that a LEFT SHIFT is Present. MCH (RBC) [Entitic mass] 29.6 pg 27.0-32.0 [facility] Work Phone: [phone] Nucleated RBC/100 WBC (Bld) [Ratio] 0 % 0-5 [facility] Work Phone: [phone] MCHC Auto (RBC) [Mass/Vol]on 01-09-2022 MCHC (RBC) [Mass/Vol] 32.3 g/dL 32-36 [facility] Work Phone: [phone] Panel Informationon 01-09 Estimated GFR (MDRD) Amer 48 mL/min >60 [facility] Work Phone: [phone] Comment on above: GFR Calc Estimated GFR (MDRD) Non-Af Amer 40 mL/min >60 [facility] Work Phone: [phone] Comment on above: Non- GFR Calc Parathyroid Hormone (Intact) 86.5 pg/mL 18.4-80.1 [facility] Work Phone: [phone] Vitamin D 25-Hydroxy 24.8 ng/mL [facility] Work Phone: [phone] Comment on above: Vitamin D 25(OH) Sta tus Range Deficiency <20 ng/mL (50nmol/L) Insufficiency 20 - 30 ng/mL (50 - 75 nmol/L) Sufficiency 30 - 100 ng/mL (75 - 250 nmol/L) Toxicity >100 ng/mL (>250 nmol/L) Platelets bldon 01-09-2022 Platelets (Bld) [#/Vol] 243 10*3/uL 150-450 [facility] Work Phone: [phone] Serum or plasma albumin fuad urement (mass/volume)on 01-09-2022 Albumin [Mass/Vol] 3.8 g/dL 3.2-5.0 [facility] Work Phone: Serum or plasma albumin/glob ulin mass ratioon 01-09-2022 Albumin/Globulin [Mass ratio] 1.1 {ratio} 0.9-2.4 [facility] Work Phone: Serum or plasma calcium fuad urement (mass/volume)on 01-09-2022 Calcium [Mass/Vol] 9.1 mg/dL 8.5-10.1 [facility] Work Phone: Serum or plasma cholesterol in HDL measurement (mass/volume)on 01-09-2022 Cholesterol in HDL [Mass/Vol] 67 mg/dL >40 [facility] Work Phone: Comment on above: The drugs N-Acetylcy steine and Metamizole may falsely depress this assay. Reference Range HDL <40 mg/dL Low HDL Cholesterol HDL >or= 60 mg/dL High HDL Cholesterol Serum or plasma cholesterol in VLDL measurement (mass/volume)on 01-09-2022 Cholesterol in VLDL [Mass/Vol] 40 mg/dL 5-40 [facility] Work Phone: Serum or plasma creatinine m easurement (mass/volume)on 01-09-2022 Creatinine [Mass/Vol] 1.40 mg/dL 0.55-1.02 [facility] Work Phone: Comment on above: The validity of the calculated GFR & GFRAA in patients over 70 years has not been determined. Clinical correlation is essential. Serum or plasma low density lipoprotein (LDL) cholesterol measurement (mass/volume)on 01-09-2022 Cholesterol in LDL [Mass/Vol] 77 mg/dL 0-130 [facility] Work Phone: Serum or plasma urea nitroge n measurement (mass/volume)on 01-09-2022 Urea nitrogen [Mass/Vol] 23 mg/dL 7-18 [facility] Work Phone: [phone] Thin prep Papanicolaou smear with manual screeningon 01-09-2022 Thin prep Papanicolaou smear with manual screening 12 U/L 15-37 [facility] Work Phone: [phone] Thin prep Papanicolaou smear with manual screening 6 5-15 [facility] Work Phone: CBC and Differentialon 10-09 Abs Baso 0.04 k/uL Normal <0.11 [facility] Comment on above: Performed By: #### C BCDIF, CMP, LIPB, TSH, FT4, HBA1C, VITD ####[facility] [id number], [place] [phone] Abs Adair 0.52 k/uL Normal <0.87 [facility] Comment on above: Performed By: #### C BCDIF, CMP, LIPB, TSH, FT4, HBA1C, VITD ####[place] [id number] [place] [phone] Abs Neut 5.04 k/uL Normal 1.45-7.50 [facility] Comment on above: Performed By: #### C BCDIF, CMP, LIPB, TSH, FT4, HBA1C, VITD ####[place] [id number] [phone] Absolute nRBC <0.01 Normal <0.01 [facility] Comment on above: Performed By: #### C BCDIF, CMP, LIPB, TSH, FT4, HBA1C, VITD ####[place] [id number] [place], [place] [phone] Basophils/100 WBC Auto (Bld) 0.5 % Normal [facility] Comment on above: Performed By: #### C BCDIF, CMP, LIPB, TSH, FT4, HBA1C, VITD ####[place] [address] [place] [phone] DTYPE ADIFF Normal [facility] Comment on above: Performed By: #### C BCDIF, CMP, LIPB, TSH, FT4, HBA1C, VITD ####[facility] [id number] [place] [phone] Eosinophils Auto #/vol (Bld) 0.11 10*3/uL Normal <0.46 [facility] Comment on above: Performed By: #### C BCDIF, CMP, LIPB, TSH, FT4, HBA1C, VITD ####[place] [address] [address] [place] [phone] Eosinophils/100 WBC Auto (Bld) 1.5 % Normal [facility] Comment on above: Performed By: #### C BCDIF, CMP, LIPB, TSH, FT4, HBA1C, VITD ####[place] [address] [address] [place] [phone] Erythrocyte distribution width Auto Ratio (RBC) 12.5 % Normal 11.5-15.0 [facility] Comment on above: Performed By: #### C BCDIF, CMP, LIPB, TSH, FT4, HBA1C, VITD ####[place] [address] [address] [place] [phone] Hematocrit Auto Volume Fraction (Bld) 40.2 % Normal 36.0-46.0 [facility] Comment on above: Performed By: #### C BCDIF, CMP, LIPB, TSH, FT4, HBA1C, VITD ####[place] [phone] Hemoglobin mass conc (Bld) 13.3 g/dL Normal 11.5-15.5 [facility] Comment on above: Performed By: #### C BCDIF, CMP, LIPB, TSH, FT4, HBA1C, VITD ####[place] [phone] Lymphocytes Auto #/vol (Bld) 1.81 10*3/uL Normal 1.00-4.00 [facility] Comment on above: Performed By: #### C BCDIF, CMP, LIPB, TSH, FT4, HBA1C, VITD ####[place] [address] [place] [phone] Lymphocytes/100 WBC Auto (Bld) 24.1 % Normal [facility] Comment on above: Performed By: #### C BCDIF, CMP, LIPB, TSH, FT4, HBA1C, VITD ####[place] [phone] MCH Auto Entitic mass (RBC) 29.2 pG Normal 26.0-34.0 [facility] Comment on above: Performed By: #### C BCDIF, CMP, LIPB, TSH, FT4, HBA1C, VITD ####[place] [phone] MCHC Auto mass conc (RBC) 33.1 g/dL Normal 30.5-36.0 [facility] Comment on above: Performed By: #### C BCDIF, CMP, LIPB, TSH, FT4, HBA1C, VITD ####[place] [phone] MCV Auto Entitic volume (RBC) 88.4 fL Normal 80.0-100.0 [facility] Comment on above: Performed By: #### C BCDIF, CMP, LIPB, TSH, FT4, HBA1C, VITD ####[place] [phone] Monocytes/100 WBC Auto (Bld) 6.9 % Normal [facility] Comment on above: Performed By: #### C BCDIF, CMP, LIPB, TSH, FT4, HBA1C, VITD ####[address] [place] [phone] Neutrophils/100 WBC Auto (Bld) 67.0 % Normal [facility] Comment on above: Performed By: #### C BCDIF, CMP, LIPB, TSH, FT4, HBA1C, VITD ####[place] [address] [address] [place], [place] [phone] NRBCs 0.0 /100 WBC Normal 0 [facility] Comment on above: Performed By: #### C BCDIF, CMP, LIPB, TSH, FT4, HBA1C, VITD ####[place] [address] [address] [place], [place] [phone] Platelet mean volume Auto Entitic volume (Bld) 10.2 fL Normal 9.0-12.7 [facility] Comment on above: Performed By: #### C BCDIF, CMP, LIPB, TSH, FT4, HBA1C, VITD ####[place] [address] [address] [place], [place] [phone] Platelets Auto #/vol (Bld) 208 10*3/uL Normal 150-400 [facility] Comment on above: Performed By: #### C BCDIF, CMP, LIPB, TSH, FT4, HBA1C, VITD ####[address] [place], [place] [phone] RBC Auto #/vol (Bld) 4.55 10*6/uL Normal 3.90-5.20 [facility] Comment on above: Performed By: #### C BCDIF, CMP, LIPB, TSH, FT4, HBA1C, VITD ####[place] [address] [address] [place], [place] [phone] WBC Auto #/vol (Bld) 7.52 10*3/uL Normal 3.70-11.00 [facility] Comment on above: Performed By: #### C BCDIF, CMP, LIPB, TSH, FT4, HBA1C, VITD ####[place] [address] [address] [place], [place] [phone] Comp Metabolic Panelon 10-09 Albumin mass conc 4.4 g/dL Normal 3.9-4.9 [facility] Comment on above: Performed By: #### C BCDIF, CMP, LIPB, TSH, FT4, HBA1C, VITD ####[facility] [id number] [place], [place] [phone] ALP enzyme act/vol 86 U/L Normal 34-123 [facility] Comment on above: Performed By: #### C BCDIF, CMP, LIPB, TSH, FT4, HBA1C, VITD ####[facility] [id number] [place], [place] [phone] ALT enzyme act/vol 19 U/L Normal 7-38 [facility] Comment on above: Performed By: #### C BCDIF, CMP, LIPB, TSH, FT4, HBA1C, VITD ####[address] [place], [place] [phone] Anion gap 3 molar conc 11 mmol/L Normal 9-18 [facility] Comment on above: Performed By: #### C BCDIF, CMP, LIPB, TSH, FT4, HBA1C, VITD ####[facility] [id number] [place], [place] [phone] AST enzyme act/vol 19 U/L Normal 13-35 [facility] Comment on above: Performed By: #### C BCDIF, CMP, LIPB, TSH, FT4, HBA1C, VITD ####[facility] [id number] [place], [place] [phone] Bilirubin Ql (U) 0.6 mg/dL Normal 0.2-1.3 [facility] Comment on above: Performed By: #### C BCDIF, CMP, LIPB, TSH, FT4, HBA1C, VITD ####[facility] [id number] [place], [place] [phone] Calcium mass conc 9.9 mg/dL Normal 8.5-10.2 [facility] Comment on above: Performed By: #### C BCDIF, CMP, LIPB, TSH, FT4, HBA1C, VITD ####[facility] [id number] [place] [phone] Chloride molar conc 96 mmol/L Low 97-105 [facility] Comment on above: Performed By: #### C BCDIF, CMP, LIPB, TSH, FT4, HBA1C, VITD ####[facility] [id number] [place], [place] [phone] CO2 molar conc 27 mmol/L Normal 22-30 [facility] Comment on above: Performed By: #### C BCDIF, CMP, LIPB, TSH, FT4, HBA1C, VITD ####[place] [phone] Creatinine mass conc 0.97 mg/dL High 0.58-0.96 [facility] Comment on above: Performed By: #### C BCDIF, CMP, LIPB, TSH, FT4, HBA1C, VITD ####[place] [phone] eGFR- Amer. >60 Normal [facility] Comment on above: Performed By: #### C BCDIF, CMP, LIPB, TSH, FT4, HBA1C, VITD ####[place] [phone] GFR/1.73 sq M predicted among non-blacks MDRD vol rate/area (S/P/Bld) 57 . Normal [facility] Comment on above: Performed By: #### C BCDIF, CMP, LIPB, TSH, FT4, HBA1C, VITD ####[place] [phone] Glucose mass conc 267 mg/dL High 74-99 [facility] Comment on above: Performed By: #### C BCDIF, CMP, LIPB, TSH, FT4, HBA1C, VITD ####[place] [phone] Potassium molar conc 4.5 mmol/L Normal 3.7-5.1 [facility] Comment on above: Performed By: #### C BCDIF, CMP, LIPB, TSH, FT4, HBA1C, VITD ####[address] [phone] Protein mass conc 7.2 g/dL Normal 6.3-8.0 [facility] Comment on above: Performed By: #### C BCDIF, CMP, LIPB, TSH, FT4, HBA1C, VITD ####[place] [phone] Sodium molar conc 134 mmol/L Low 136-144 [facility] Comment on above: Performed By: #### C BCDIF, CMP, LIPB, TSH, FT4, HBA1C, VITD ####[address] [phone] Urea nitrogen mass conc 20 mg/dL Normal 7-21 [facility] Lab Comment on above: Performed By: #### C BCDIF, CMP, LIPB, TSH, FT4, HBA1C, VITD ####[address] [phone] Free T4on 10-09-2018 T4 free mass conc 1.3 ng/dL Normal 0.9-1.7 [facility] Lab Comment on above: Performed By: #### C BCDIF, CMP, LIPB, TSH, FT4, HBA1C, VITD ####[address] [phone] Hemoglobin A1con 10-09-2018 Glucose mass conc 212 mg/dL Normal [facility] Comment on above: Performed By: #### C BCDIF, CMP, LIPB, TSH, FT4, HBA1C, VITD ####[place] [phone] [phone] Hemoglobin A1c/Hemoglobin.total mass fraction (Bld) 9.0 % High 4.3-5.6 [facility] Comment on above: Performed By: #### C BCDIF, CMP, LIPB, TSH, FT4, HBA1C, VITD ####[address] [place] [phone] Lipid Panel, Basicon 019 Cholesterol in HDL mass conc 53 mg/dL Normal >39 [facility] Comment on above: Performed By: #### C BCDIF, CMP, LIPB, TSH, FT4, HBA1C, VITD ####[place] [address] [address] [place] [phone] Cholesterol in LDL mass conc 80 mg/dL Normal <100 [facility] Comment on above: Performed By: #### C BCDIF, CMP, LIPB, TSH, FT4, HBA1C, VITD ####[place] [phone] [phone] Cholesterol in VLDL mass conc 27 mg/dL Normal <30 [facility] Comment on above: Performed By: #### C BCDIF, CMP, LIPB, TSH, FT4, HBA1C, VITD ####[place] [phone] [phone] Cholesterol mass conc 160 mg/dL Normal <200 [facility] Comment on above: Performed By: #### C BCDIF, CMP, LIPB, TSH, FT4, HBA1C, VITD ####[place] [address] [address] [place] [phone] Cholesterol non HDL mass conc 107 mg/dL Normal <130 [facility] Comment on above: Performed By: #### C BCDIF, CMP, LIPB, TSH, FT4, HBA1C, VITD ####[place] [phone] LDL:HDL Ratio 1.51 Normal <2.54 [facility] Comment on above: Performed By: #### C BCDIF, CMP, LIPB, TSH, FT4, HBA1C, VITD ####[place] [phone] TC:HDL Ratio 3.02 Normal <5.10 [facility] Comment on above: Performed By: #### C BCDIF, CMP, LIPB, TSH, FT4, HBA1C, VITD ####[place] [phone] Triglyceride mass conc 134 mg/dL Normal <150 [facility] Comment on above: Performed By: #### C BCDIF, CMP, LIPB, TSH, FT4, HBA1C, VITD ####[place] [phone] Fasting Time 12 hrs Normal [facility] Comment on above: Performed By: #### C BCDIF, CMP, LIPB, TSH, FT4, HBA1C, VITD ####[place] [phone] TSHon 10-09-2018 Thyrotropin Qn 2.060 uU/mL Normal 0.400-5.500 [facility] Comment on above: Performed By: #### C BCDIF, CMP, LIPB, TSH, FT4, HBA1C, VITD ####[place] [phone] Vitamin D 25 Hydroxyon 10-09 Vitamin D 25 Hydroxy 60.5 ng/mL Normal 31.0-80.0 [facility] Comment on above: Performed By: #### C BCDIF, CMP, LIPB, TSH, FT4, HBA1C, VITD ####[place] [address] [address] [place] [phone] CBC and Differentialon 06-14 Abs Baso 0.03 k/uL Normal <0.11 [facility] Comment on above: Performed By: #### C BCDIF, CMP, LIPB, HBA1C, VITD ####[place] [address] [place] [phone] Abs Adair 0.50 k/uL Normal <0.87 [facility] Comment on above: Performed By: #### C BCDIF, CMP, LIPB, HBA1C, VITD ####[place] [address] [place] [phone] Abs Neut 3.76 k/uL Normal 1.45-7.50 [facility] Comment on above: Performed By: #### C BCDIF, CMP, LIPB, HBA1C, VITD ####[place] [phone] Absolute nRBC <0.01 Normal <0.01 [facility] Comment on above: Performed By: #### C BCDIF, CMP, LIPB, HBA1C, VITD ####[address] [place] [phone] Basophils/100 WBC Auto (Bld) 0.4 % Normal [facility] Comment on above: Performed By: #### C BCDIF, CMP, LIPB, HBA1C, VITD ####[address] [place] [phone] DTYPE ADIFF Normal [facility] Comment on above: Performed By: #### C BCDIF, CMP, LIPB, HBA1C, VITD ####[facility] [id number] [place] [phone] Eosinophils Auto #/vol (Bld) 0.15 10*3/uL Normal <0.46 [facility] Comment on above: Performed By: #### C BCDIF, CMP, LIPB, HBA1C, VITD ####[place] [address] [address] [place] [phone] Eosinophils/100 WBC Auto (Bld) 2.2 % Normal [facility] Comment on above: Performed By: #### C BCDIF, CMP, LIPB, HBA1C, VITD ####[place] [address] [address] [place] [phone] Erythrocyte distribution width Auto Ratio (RBC) 14.2 % Normal 11.5-15.0 [facility] Comment on above: Performed By: #### C BCDIF, CMP, LIPB, HBA1C, VITD ####[place] [address] [address] [place] [phone] Hematocrit Auto Volume Fraction (Bld) 43.8 % Normal 36.0-46.0 [facility] Comment on above: Performed By: #### C BCDIF, CMP, LIPB, HBA1C, VITD ####[address] [place] [phone] Hemoglobin mass conc (Bld) 13.5 g/dL Normal 11.5-15.5 [facility] Comment on above: Performed By: #### C BCDIF, CMP, LIPB, HBA1C, VITD ####[place] [address] [address] [place] [phone] Lymphocytes Auto #/vol (Bld) 2.41 10*3/uL Normal 1.00-4.00 [facility] Comment on above: Performed By: #### C BCDIF, CMP, LIPB, HBA1C, VITD ####[place] [address] [address] [place] [phone] Lymphocytes/100 WBC Auto (Bld) 35.1 % Normal [facility] Comment on above: Performed By: #### C BCDIF, CMP, LIPB, HBA1C, VITD ####[place] [address] [address] [place] [phone] MCH Auto Entitic mass (RBC) 28.9 pG Normal 26.0-34.0 [facility] Comment on above: Performed By: #### C BCDIF, CMP, LIPB, HBA1C, VITD ####[place] [phone] MCHC Auto mass conc (RBC) 30.8 g/dL Normal 30.5-36.0 [facility] Comment on above: Performed By: #### C BCDIF, CMP, LIPB, HBA1C, VITD ####[address] [place] [phone] MCV Auto Entitic volume (RBC) 93.8 fL Normal 80.0-100.0 [facility] Comment on above: Performed By: #### C BCDIF, CMP, LIPB, HBA1C, VITD ####[place] [address] [place] [phone] Monocytes/100 WBC Auto (Bld) 7.3 % Normal [facility] Comment on above: Performed By: #### C BCDIF, CMP, LIPB, HBA1C, VITD ####[place] [address] [address] [place] [phone] Neutrophils/100 WBC Auto (Bld) 55.0 % Normal [facility] Comment on above: Performed By: #### C BCDIF, CMP, LIPB, HBA1C, VITD ####[place] [address] [address] [place] [phone] NRBCs 0.0 /100 WBC Normal 0 [facility] Comment on above: Performed By: #### C BCDIF, CMP, LIPB, HBA1C, VITD ####[place] [address] [address] [place], [place] [phone] Platelet mean volume Auto Entitic volume (Bld) 10.2 fL Normal 9.0-12.7 [facility] Comment on above: Performed By: #### C BCDIF, CMP, LIPB, HBA1C, VITD ####[address] [place], [place] [phone] Platelets Auto #/vol (Bld) 217 10*3/uL Normal 150-400 [facility] Comment on above: Performed By: #### C BCDIF, CMP, LIPB, HBA1C, VITD ####[address] [phone] RBC Auto #/vol (Bld) 4.67 10*6/uL Normal 3.90-5.20 [facility] Comment on above: Performed By: #### C BCDIF, CMP, LIPB, HBA1C, VITD ####[address] [place], [place] [phone] WBC Auto #/vol (Bld) 6.87 10*3/uL Normal 3.70-11.00 [facility] Lab Comment on above: Performed By: #### C BCDIF, CMP, LIPB, HBA1C, VITD ####[address] [place], [place] [phone] Comp Metabolic Panelon 06-14 Albumin mass conc 4.3 g/dL Normal 3.9-4.9 [facility] Comment on above: Performed By: #### C BCDIF, CMP, LIPB, HBA1C, VITD ####[address] [place], [place] [phone] ALP enzyme act/vol 55 U/L Normal 32-117 [facility] Lab Comment on above: Performed By: #### C BCDIF, CMP, LIPB, HBA1C, VITD ####[facility] [id number] [place] [phone] ALT enzyme act/vol 20 U/L Normal 7-38 [facility] Comment on above: Performed By: #### C BCDIF, CMP, LIPB, HBA1C, VITD ####[address] [place] [phone] Anion gap 3 molar conc 14 mmol/L Normal 9-18 [facility] Comment on above: Performed By: #### C BCDIF, CMP, LIPB, HBA1C, VITD ####[place] [phone] AST enzyme act/vol 22 U/L Normal 13-35 [facility] Comment on above: Performed By: #### C BCDIF, CMP, LIPB, HBA1C, VITD ####[place] [phone] Bilirubin Ql (U) 0.4 mg/dL Normal 0.2-1.3 [facility] Lab Comment on above: Performed By: #### C BCDIF, CMP, LIPB, HBA1C, VITD ####[facility] [id number] [place], [place] [address]d [place], [place] [phone] Calcium mass conc 10.0 mg/dL Normal 8.5-10.2 [facility] Comment on above: Performed By: #### C BCDIF, CMP, LIPB, HBA1C, VITD ####[facility] [id number] [place], [place] [address] [place], [place] [phone] Chloride molar conc 102 mmol/L Normal 97-105 [facility] Lab Comment on above: Performed By: #### C BCDIF, CMP, LIPB, HBA1C, VITD ####[facility] [id number] [place] [phone] CO2 molar conc 23 mmol/L Normal 22-30 [facility] Comment on above: Performed By: #### C BCDIF, CMP, LIPB, HBA1C, VITD ####[place] [phone] Creatinine mass conc 0.92 mg/dL Normal 0.58-0.96 [facility] Lab Comment on above: Performed By: #### C BCDIF, CMP, LIPB, HBA1C, VITD ####[place] [phone] eGFR- Amer. >60 Normal [facility] Comment on above: Performed By: #### C BCDIF, CMP, LIPB, HBA1C, VITD ####[place] [phone] GFR/1.73 sq M predicted among non-blacks MDRD vol rate/area (S/P/Bld) mL/min/{1.73_m2} Normal [facility] Comment on above: Performed By: #### C BCDIF, CMP, LIPB, HBA1C, VITD ####[place] [phone] Glucose mass conc 155 mg/dL High 74-99 [facility] Comment on above: Performed By: #### C BCDIF, CMP, LIPB, HBA1C, VITD ####[place] [phone] Potassium molar conc 4.2 mmol/L Normal 3.7-5.1 [facility] Comment on above: Performed By: #### C BCDIF, CMP, LIPB, HBA1C, VITD ####[facility] [id number] Ave[address] [place] [phone] Protein mass conc 6.7 g/dL Normal 6.3-8.0 [facility] Comment on above: Performed By: #### C BCDIF, CMP, LIPB, HBA1C, VITD ####[place] [address] [address] [place] [phone] Sodium molar conc 139 mmol/L Normal 136-144 [facility] Comment on above: Performed By: #### C BCDIF, CMP, LIPB, HBA1C, VITD ####[address] [place] [phone] Urea nitrogen mass conc 16 mg/dL Normal 7-21 [facility] Comment on above: Performed By: #### C BCDIF, CMP, LIPB, HBA1C, VITD ####[place] [address] [address] [place] [phone] Hemoglobin A1con 06-14-2018 Glucose mass conc 131 mg/dL Normal [facility] Comment on above: Performed By: #### C BCDIF, CMP, LIPB, HBA1C, VITD ####[address] [place] [phone] Hemoglobin A1c/Hemoglobin.total mass fraction (Bld) 6.2 % High 4.3-5.6 [facility] Comment on above: Performed By: #### C BCDIF, CMP, LIPB, HBA1C, VITD ####[address] [place] [phone] Lipid Panel, Basicon 018 Cholesterol in HDL mass conc 38 mg/dL Low >39 [facility] Comment on above: Performed By: #### C BCDIF, CMP, LIPB, HBA1C, VITD ####[facility] [id number] AvMarc [place] [phone] Cholesterol in LDL mass conc 75 mg/dL Normal <100 [facility] Comment on above: Performed By: #### C BCDIF, CMP, LIPB, HBA1C, VITD ####[place] [phone] Cholesterol in VLDL mass conc 30 mg/dL High <30 [facility] Comment on above: Performed By: #### C BCDIF, CMP, LIPB, HBA1C, VITD ####[place] [phone] Cholesterol mass conc 143 mg/dL Normal <200 [facility] Lab Comment on above: Performed By: #### C BCDIF, CMP, LIPB, HBA1C, VITD ####[place] [phone] Cholesterol non HDL mass conc 105 mg/dL Normal <130 [facility] Comment on above: Performed By: #### C BCDIF, CMP, LIPB, HBA1C, VITD ####[place] [phone] LDL:HDL Ratio 1.97 Normal <2.54 [facility] Comment on above: Performed By: #### C BCDIF, CMP, LIPB, HBA1C, VITD ####[place] [phone] TC:HDL Ratio 3.76 Normal <5.10 [facility] Comment on above: Performed By: #### C BCDIF, CMP, LIPB, HBA1C, VITD ####[place] [phone] Triglyceride mass conc 149 mg/dL Normal <150 [facility] Lab Comment on above: Performed By: #### C BCDIF, CMP, LIPB, HBA1C, VITD ####[place] [address] [place], [place] [phone] Fasting Time 12 hrs Normal [facility] Comment on above: Performed By: #### C BCDIF, CMP, LIPB, HBA1C, VITD ####[address] [phone] Vitamin D 25 Hydroxyon 06-14 Vitamin D 25 Hydroxy 57.5 ng/mL Normal 31.0-80.0 [facility] Lab Comment on above: Performed By: #### C BCDIF, CMP, LIPB, HBA1C, VITD ####[place] [phone] CBC and Differentialon 03-08 Abs Baso 0.03 k/uL Normal <0.11 [facility] Comment on above: Performed By: #### C BCDIF, FT4, CMP, LIPB, TSH, HBA1C, VITD ####[place] [phone] Abs Adair 0.54 k/uL Normal <0.87 [facility] Comment on above: Performed By: #### C BCDIF, FT4, CMP, LIPB, TSH, HBA1C, VITD ####[address] [phone] Abs Neut 3.51 k/uL Normal 1.45-7.50 [facility] Comment on above: Performed By: #### C BCDIF, FT4, CMP, LIPB, TSH, HBA1C, VITD ####[place] [phone] Absolute nRBC <0.01 Normal <0.01 [facility] Comment on above: Performed By: #### C BCDIF, FT4, CMP, LIPB, TSH, HBA1C, VITD ####[address], [place] [phone] Basophils/100 WBC Auto (Bld) 0.5 % Normal [facility] Comment on above: Performed By: #### C BCDIF, FT4, CMP, LIPB, TSH, HBA1C, VITD ####[place] [phone] DTYPE ADIFF Normal [facility] Comment on above: Performed By: #### C BCDIF, FT4, CMP, LIPB, TSH, HBA1C, VITD ####[place] [phone] Eosinophils Auto #/vol (Bld) 0.08 10*3/uL Normal <0.46 [facility] Comment on above: Performed By: #### C BCDIF, FT4, CMP, LIPB, TSH, HBA1C, VITD ####[place] [phone] Eosinophils/100 WBC Auto (Bld) 1.3 % Normal [facility] Comment on above: Performed By: #### C BCDIF, FT4, CMP, LIPB, TSH, HBA1C, VITD ####[place] [phone] Erythrocyte distribution width Auto Ratio (RBC) 13.7 % Normal 11.5-15.0 [facility] Comment on above: Performed By: #### C BCDIF, FT4, CMP, LIPB, TSH, HBA1C, VITD ####[place] [phone] Hematocrit Auto Volume Fraction (Bld) 42.3 % Normal 36.0-46.0 [facility] Comment on above: Performed By: #### C BCDIF, FT4, CMP, LIPB, TSH, HBA1C, VITD ####[address] [place], [place] [phone] Hemoglobin mass conc (Bld) 13.4 g/dL Normal 11.5-15.5 [facility] Comment on above: Performed By: #### C BCDIF, FT4, CMP, LIPB, TSH, HBA1C, VITD ####[place] [phone] Lymphocytes Auto #/vol (Bld) 1.91 10*3/uL Normal 1.00-4.00 [facility] Comment on above: Performed By: #### C BCDIF, FT4, CMP, LIPB, TSH, HBA1C, VITD ####[place] [phone] Lymphocytes/100 WBC Auto (Bld) 31.5 % Normal [facility] Comment on above: Performed By: #### C BCDIF, FT4, CMP, LIPB, TSH, HBA1C, VITD ####[place] [phone] MCH Auto Entitic mass (RBC) 28.7 pG Normal 26.0-34.0 [facility] Comment on above: Performed By: #### C BCDIF, FT4, CMP, LIPB, TSH, HBA1C, VITD ####[place] [phone] MCHC Auto mass conc (RBC) 31.7 g/dL Normal 30.5-36.0 [facility] Comment on above: Performed By: #### C BCDIF, FT4, CMP, LIPB, TSH, HBA1C, VITD ####[place] [phone] MCV Auto Entitic volume (RBC) 90.6 fL Normal 80.0-100.0 [facility] Comment on above: Performed By: #### C BCDIF, FT4, CMP, LIPB, TSH, HBA1C, VITD ####[place] [address] [address], [place] [phone] Monocytes/100 WBC Auto (Bld) 8.9 % Normal [facility] Comment on above: Performed By: #### C BCDIF, FT4, CMP, LIPB, TSH, HBA1C, VITD ####[place] [address] [address] [place], [place] [phone] Neutrophils/100 WBC Auto (Bld) 57.8 % Normal [facility] Comment on above: Performed By: #### C BCDIF, FT4, CMP, LIPB, TSH, HBA1C, VITD ####[place] [address] [place], [place] [phone] NRBCs 0.0 /100 WBC Normal 0 [facility] Lab Comment on above: Performed By: #### C BCDIF, FT4, CMP, LIPB, TSH, HBA1C, VITD ####[address] [place], [place] [phone] Platelet mean volume Auto Entitic volume (Bld) 9.9 fL Normal 9.0-12.7 [facility] Lab Comment on above: Performed By: #### C BCDIF, FT4, CMP, LIPB, TSH, HBA1C, VITD ####[address] [phone] Platelets Auto #/vol (Bld) 214 10*3/uL Normal 150-400 [facility] Lab Comment on above: Performed By: #### C BCDIF, FT4, CMP, LIPB, TSH, HBA1C, VITD ####[address] [place], [place] [phone] RBC Auto #/vol (Bld) 4.67 10*6/uL Normal 3.90-5.20 [facility] Lab Comment on above: Performed By: #### C BCDIF, FT4, CMP, LIPB, TSH, HBA1C, VITD ####[facility] [id number] [place], [place] [phone] WBC Auto #/vol (Bld) 6.07 10*3/uL Normal 3.70-11.00 [facility] Lab Comment on above: Performed By: #### C BCDIF, FT4, CMP, LIPB, TSH, HBA1C, VITD ####[address] [place], [place] [phone] Comp Metabolic Panelon 03-08 Albumin mass conc 4.5 g/dL Normal 3.9-4.9 [facility] Lab Comment on above: Performed By: #### C BCDIF, FT4, CMP, LIPB, TSH, HBA1C, VITD ####[address] [phone] ALP enzyme act/vol 66 U/L Normal 32-117 [facility] Lab Comment on above: Performed By: #### C BCDIF, FT4, CMP, LIPB, TSH, HBA1C, VITD ####[address] [place], [place] [phone] ALT enzyme act/vol 20 U/L Normal 7-38 [facility] Lab Comment on above: Performed By: #### C BCDIF, FT4, CMP, LIPB, TSH, HBA1C, VITD ####[facility] [id number] [place], [place] [address] [place], [place] [phone] Anion gap 3 molar conc 16 mmol/L Normal 9-18 [facility] Lab Comment on above: Performed By: #### C BCDIF, FT4, CMP, LIPB, TSH, HBA1C, VITD ####[facility] [id number] [place], [place] [address] [place], [place] [phone] AST enzyme act/vol 20 U/L Normal 13-35 [facility] Lab Comment on above: Performed By: #### C BCDIF, FT4, CMP, LIPB, TSH, HBA1C, VITD ####[place] [phone] Bilirubin Ql (U) 0.5 mg/dL Normal 0.2-1.3 [facility] Lab Comment on above: Performed By: #### C BCDIF, FT4, CMP, LIPB, TSH, HBA1C, VITD ####[place] [phone] Calcium mass conc 9.8 mg/dL Normal 8.5-10.2 [facility] Lab Comment on above: Performed By: #### C BCDIF, FT4, CMP, LIPB, TSH, HBA1C, VITD ####[phone] Chloride molar conc 98 mmol/L Normal 97-105 [facility] Reference Lab Comment on above: Performed By: #### C BCDIF, FT4, CMP, LIPB, TSH, HBA1C, VITD ####[place] [phone] CO2 molar conc 25 mmol/L Normal 22-30 [facility] Comment on above: Performed By: #### C BCDIF, FT4, CMP, LIPB, TSH, HBA1C, VITD ####[place] [phone] Creatinine mass conc 1.09 mg/dL High 0.58-0.96 [facility] Lab Comment on above: Performed By: #### C BCDIF, FT4, CMP, LIPB, TSH, HBA1C, VITD ####[place] [phone] eGFR- Amer. >60 Normal [facility] Lab Comment on above: Performed By: #### C BCDIF, FT4, CMP, LIPB, TSH, HBA1C, VITD ####[address] [phone] GFR/1.73 sq M predicted among non-blacks MDRD vol rate/area (S/P/Bld) 50 . Normal [facility] Lab Comment on above: Performed By: #### C BCDIF, FT4, CMP, LIPB, TSH, HBA1C, VITD ####[address] [phone] Glucose mass conc 165 mg/dL High 74-99 [facility] Lab Comment on above: Performed By: #### C BCDIF, FT4, CMP, LIPB, TSH, HBA1C, VITD ####[address] [phone] Potassium molar conc 4.4 mmol/L Normal 3.7-5.1 [facility] Lab Comment on above: Performed By: #### C BCDIF, FT4, CMP, LIPB, TSH, HBA1C, VITD ####[address] [phone] Protein mass conc 7.0 g/dL Normal 6.3-8.0 [facility] Lab Comment on above: Performed By: #### C BCDIF, FT4, CMP, LIPB, TSH, HBA1C, VITD ####[address] [phone] Sodium molar conc 139 mmol/L Normal 136-144 [facility] Lab Comment on above: Performed By: #### C BCDIF, FT4, CMP, LIPB, TSH, HBA1C, VITD ####[address] [phone] Urea nitrogen mass conc 21 mg/dL Normal 7-21 [facility] Comment on above: Performed By: #### C BCDIF, FT4, CMP, LIPB, TSH, HBA1C, VITD ####[facility] [phone] Free T4on 03-08-2018 T4 free mass conc 1.4 ng/dL Normal 0.9-1.7 [facility] Comment on above: Performed By: #### C BCDIF, FT4, CMP, LIPB, TSH, HBA1C, VITD ####[place] [address] [place] [phone] Hemoglobin A1con 03-08-2018 Glucose mass conc 194 mg/dL Normal [facility] Comment on above: Performed By: #### C BCDIF, FT4, CMP, LIPB, TSH, HBA1C, VITD ####[place] [phone] Hemoglobin A1c/Hemoglobin.total mass fraction (Bld) 8.4 % High 4.3-5.6 [facility] Comment on above: Performed By: #### C BCDIF, FT4, CMP, LIPB, TSH, HBA1C, VITD ####[address] [place], [place] [phone] Lipid Panel, [place] 018 Cholesterol in HDL mass conc 60 mg/dL Normal >39 [facility] Comment on above: Performed By: #### C BCDIF, FT4, CMP, LIPB, TSH, HBA1C, VITD ####[place] [address] [place], [place] [phone] Cholesterol in LDL mass conc 80 mg/dL Normal <100 [facility] Comment on above: Performed By: #### C BCDIF, FT4, CMP, LIPB, TSH, HBA1C, VITD ####[address] [place] [phone] Cholesterol in VLDL mass conc 26 mg/dL Normal <30 [facility] Comment on above: Performed By: #### C BCDIF, FT4, CMP, LIPB, TSH, HBA1C, VITD ####[place] [phone] Cholesterol mass conc 166 mg/dL Normal <200 [facility] Comment on above: Performed By: #### C BCDIF, FT4, CMP, LIPB, TSH, HBA1C, VITD ####[place] [phone] Cholesterol non HDL mass conc 106 mg/dL Normal <130 [facility] Comment on above: Performed By: #### C BCDIF, FT4, CMP, LIPB, TSH, HBA1C, VITD ####[place] [phone] LDL:HDL Ratio 1.33 Normal <2.54 [facility] Comment on above: Performed By: #### C BCDIF, FT4, CMP, LIPB, TSH, HBA1C, VITD ####[place] [phone] TC:HDL Ratio 2.77 Normal <5.10 [facility] Comment on above: Performed By: #### C BCDIF, FT4, CMP, LIPB, TSH, HBA1C, VITD ####[place] [phone] Triglyceride mass conc 128 mg/dL Normal <150 [facility] Comment on above: Performed By: #### C BCDIF, FT4, CMP, LIPB, TSH, HBA1C, VITD ####[place] [phone] Fasting Time 12 hrs Normal [facility] Comment on above: Performed By: #### C BCDIF, FT4, CMP, LIPB, TSH, HBA1C, VITD ####[facility] [id number] [place], [place] [phone] TSHon 03-08-2018 Thyrotropin Qn 2.580 uU/mL Normal 0.400-5.500 [facility] Comment on above: Performed By: #### C BCDIF, FT4, CMP, LIPB, TSH, HBA1C, VITD ####[address] [phone] Vitamin D 25 Hydroxyon 03-08 Vitamin D 25 Hydroxy 47.4 ng/mL Normal 31.0-80.0 [facility] Comment on above: Performed By: #### C BCDIF, FT4, CMP, LIPB, TSH, HBA1C, VITD ####[address] [phone] CBC and Differentialon 11-06 Abs Baso 0.04 k/uL Normal <0.11 [facility] Abs Adair 0.48 k/uL Normal <0.87 [facility] Abs Neut 3.51 k/uL Normal 1.45-7.50 [facility] Absolute nRBC <0.01 Normal <0.01 [facility] Basophils/100 WBC Auto (Bld) 0.7 % Normal [facility] DTYPE ADIFF Normal [facility] Eosinophils Auto #/vol (Bld) 0.09 10*3/uL Normal <0.46 [facility] Eosinophils/100 WBC Auto (Bld) 1.6 % Normal [facility] Erythrocyte distribution width Auto Ratio (RBC) 12.0 % Normal 11.5-15.0 [facility] Hematocrit Auto Volume Fraction (Bld) 41.6 % Normal 36.0-46.0 [facility] Hemoglobin mass conc (Bld) 13.8 g/dL Normal 11.5-15.5 [facility] Lymphocytes Auto #/vol (Bld) 1.60 10*3/uL Normal 1.00-4.00 [facility] Lymphocytes/100 WBC Auto (Bld) 27.9 % Normal [facility] MCH Auto Entitic mass (RBC) 28.8 pG Normal 26.0-34.0 [facility] MCHC Auto mass conc (RBC) 33.2 g/dL Normal 30.5-36.0 [facility] MCV Auto Entitic volume (RBC) 86.8 fL Normal 80.0-100.0 [facility] Monocytes/100 WBC Auto (Bld) 8.4 % Normal [facility] Neutrophils/100 WBC Auto (Bld) 61.4 % Normal [facility] NRBCs 0.0 /100 WBC Normal 0 [facility] Platelet mean volume Auto Entitic volume (Bld) 10.5 fL Normal 9.0-12.7 [facility] Platelets Auto #/vol (Bld) 203 10*3/uL Normal 150-400 [facility] RBC Auto #/vol (Bld) 4.79 10*6/uL Normal 3.90-5.20 [facility] WBC Auto #/vol (Bld) 5.74 10*3/uL Normal 3.70-11.00 [facility] Comp Metabolic Panelon 11-06 Albumin mass conc 4.3 g/dL Normal 3.9-4.9 [facility] ALP enzyme act/vol 77 U/L Normal 32-117 [facility] ALT enzyme act/vol 20 U/L Normal 7-38 [facility] Anion gap 3 molar conc 9 mmol/L Normal 9-18 [facility] AST enzyme act/vol 16 U/L Normal 13-35 [facility] Bilirubin Ql (U) 0.6 mg/dL Normal 0.2-1.3 [facility] Calcium mass conc 9.1 mg/dL Normal 8.5-10.2 [facility] Chloride molar conc 95 mmol/L Low 97-105 [facility] CO2 molar conc 30 mmol/L Normal 22-30 [facility] Creatinine mass conc 0.91 mg/dL Normal 0.58-0.96 [facility] eGFR- Amer. >60 Normal [facility] GFR/1.73 sq M predicted among non-blacks MDRD vol rate/area (S/P/Bld) mL/min/{1.73_m2} Normal [facility] Glucose mass conc 337 mg/dL High 74-99 [facility] Potassium molar conc 4.6 mmol/L Normal 3.7-5.1 [facility] Protein mass conc 6.5 g/dL Normal 6.3-8.0 [facility] Sodium molar conc 134 mmol/L Low 136-144 [facility] Urea nitrogen mass conc 19 mg/dL Normal 7-21 C [facility] Free T4on 11-06-2017 T4 free mass conc 1.2 ng/dL Normal 0.9-1.7 [facility] Hemoglobin A1con 11-06-2017 Glucose mass conc 255 mg/dL Normal [facility] Hemoglobin A1c/Hemoglobin.total mass fraction (Bld) 10.5 % High 4.3-5.6 [facility] Lipid Panel, [facility] 018 Cholesterol in HDL mass conc 54 mg/dL Normal >39 [facility] Cholesterol in LDL mass conc 82 mg/dL Normal <100 [facility] Cholesterol in VLDL mass conc 24 mg/dL Normal <30 [facility] Cholesterol mass conc 160 mg/dL Normal <200 [facility] Cholesterol non HDL mass conc 106 mg/dL Normal <130 [facility] LDL:HDL Ratio 1.52 Normal <2.54 [facility] TC:HDL Ratio 2.96 Normal <5.10 [facility] Triglyceride mass conc 122 mg/dL Normal <150 [facility] TSHon 11-06-2017 Thyrotropin Qn 2.450 uU/mL Normal 0.400-5.500 [facility] Vitamin D 25 Hydroxyon 11-06 Vitamin D 25 Hydroxy 40.4 ng/mL Normal 31.0-80.0 [facility] Lipid Panel, [facility] 018 Fasting Time 12 hrs Normal [facility] Vital Signs Date Time Vital Sign Value Performing Clinician Johnathon litasiya 01-01-2020 12:49-0400 Body mass index (BMI) [Ratio] 26.9 kg/m2 Dr. Juan Diego King Work Phone: [facility] Work Phone: Encounters Encounter Date Encounter Type Care Provider Facility Start: 03-24-2025 End: 03-24-[address] Juan Diego King MD Work Phone: -Laboratory Start: 03-24-2025 End: 03-24-[address] Juan Diego King MD -Laboratory Work Phone: Start: 03-24-2025 End: 03-24-2025 ambulatory Juan Diego Chi Fernando Facility:[facility] Start: 02-16-2025 End: 02-16-[address] Juan Diego King MD -Laboratory Work Phone: Start: 02-16-2025 End: 02-16-2025 ambulatory Juan Diego Chi Fernando Facility:[facility] Start: 02-01-2025 ambulatory Juan Diego Chi Fernando Facility:[facility] Start: 12-15-2024 End: 12-15-[address] Juan Diego King MD Work Phone: [facility] Work Phone: Start: 12-15-2024 End: 12-15-[address] Juan Diego King MD -Laboratory Work Phone: Start: 12-15-2024 End: 12-15-2024 ambulatory Juan Diego Chi Fernando Facility:[facility] Start: 10-22-2024 End: 10-22-[address] Juan Diego King MD -Laboratory, Phy Office 3rd Flr Start: 10-22-2024 End: 10-22-2024 ambulatory Juan Diego Chi Fernando Facility:[facility] Start: 07-22-2024 End: 07-22-2024 ambulatory Juan Diego Chi Fernando Facility:[facility] Start: 07-15-2024 End: 07-15-2024 ambulatory Juan Diego Chi Fernando Facility:[facility] Start: 05-07-2024 End: 05-07-2024 ambulatory Juan Diego Chi Fernando Facility:[facility] Start: 03-31-2024 End: 03-31-2024 ambulatory Juan Diego King Facility:[facility] Start: 01-30-2024 End: 01-30-2024 ambulatory [facility] Work Phone: Start: 01-30-2024 End: 01-30-2024 [facility] Work Phone: Start: 01-16-2024 End: 01-16-2024 ambulatory [facility] Work Phone: Start: 01-16-2024 End: 01-16-2024 Patient encounter procedure [facility]-Laboratory Work Phone: Start: 07-25-2023 End: 07-25-2023 ambulatory [facility] Work Phone: Start: 07-25-2023 End: 07-25-2023 [facility] Start: 01-10-2023 End: 01-10-2023 ambulatory [facility] Work Phone: Start: 01-10-2023 End: 01-10-2023 [facility] Start: 2022 End: 2022 ambulatory [facility] Work Phone: Start: 2022 End: 2022 [facility] Start: 04-25-2022 End: 04-25-2022 [facility] Start: 02-07-2022 End: 02-07-[address] Juan Diego King Work Phone: [facility]-Radiology, [facility] Start: 01-10-2022 End: 01-10-[address] Juan Diego King Work Phone: [facility]-Cat Scan, [facility] Start: 01-09-2022 End: 01-09-[address] Juan Diego King Work Phone: [facility]-Laboratory, Phy Office 3rd Flr Start: 10-27-2021 End: 10-27-[address] Juan Diego King Work Phone: [facility] Start: 10-24-2021 End: 10-24-[address] Juan Diego King Work Phone: [facility]-Outpatient Breast Imaging Procedures Date Procedure Procedure Detail [...] 09-30-2019 influenza, injectabl e, quadrivalent, preservative free [facility] 09-30-2019 influenza, seasonal, injectable Dr. Juan Diego King Work Phone: [facility] 05-20-2016 tetanus and diphther ia toxoids, adsorbed, preservative free, for adult use (2 Lf of tetanus toxoid and 2 Lf of diphtheria toxoid) Dr. Juan Diego King Work Phone: [facility] Payers Date Payer Category Payer Self-pay [id number] 2022 Private Health Insurance [id number] Medicaid [id number] Medicare [id number] Unknown [id number] Unknown [id number] 2.16.8 [id number] Unknown [id number] 2.16.8 [id number] Unknown [id number] 2.16.8 [id number] Unknown [id number] 2.16.8 [id number] Unknown [id number] 2.16.8 [id number] Unknown [id number] 2.16.8 [id number] Unknown [id number] 2.16.8 [id number] Unknown [id number] 2.16.8 [id number] Unknown [id number] 2.16.8 [id number] Social History Date Type Detail Facility Start: 10-27-2021 Tobacco smoking stat [facility] Unknown if ever smoked [facility] Start: 01-01-2020 Cigarettes [facility] Start: 1950 Sex Assigned At Female [facility] Start: 10[facility]27-2021 [facility] Start: 03-27-2025 Sex Female (finding) [place] [facility] Procedure Code Equipment Code Equipment [...] Date Abnormal mammogram of right breast acute [facility] Work Phone: Evaluation note Note Date & Type Note Facility Evaluation note No assessment information availa ble [facility] Work Phone: Reason for referral (narrative) Note Date & Type Note Facility Reason for referral (narrative) No reason for referral information available [facility] Work Phone: Summary Purpose Family History No [...] No January 01, 2020 12:49pm Power of Tractor [employer]ice No December 31 0 12:49pm Chief Complaint and Reason for Visit Chief Complaint ABNORMAL MAMMOGRAM 6 month f/u Breast Check/Mammo 10/24 [facility] MALIGNANT NEOPLASM OF RIGHT KIDNEY Reason for Visit Abnormal mammogram o f right breast Chief Complaint MALIGNANT NEOPLASM O F RIGHT KIDNEY Chief Complaint ABD PAIN NICOTINE DE P, SCREENING Additional Source Comments INFORMATION SOURCE (unrecogn ized section and content) DATE CREATED AUTHOR 10/10/2018 [facility] DATE CREATED AUTHOR AUTHOR'S ORGANIZ ATION 03/30/2025 [facility] Goals (unrecognized section and content) Goals [...] BE BASED ON THE PRIMARY CLINICAL RECORDS. [facility] [employer] [facility]. provides no warranty or guarantee of the accuracy or completeness of information in this document.
[2025-09-25 13:29] VITALS: BP 140/79; PULSE 70; RESP 16; TEMP 36.8; O2SAT 100
== END 2025-09-25 13:30 | disposition home or self-care (01) ==
PROVIDERS: Emergency Provider Emergency Medicine; PCP Family Medicine Geriatric Medicine; Visit Provider Emergency Medicine
DX: S76.112A Strain of left quadriceps muscle, fascia and tendon, initial encounter (principal); E11.9 Type 2 diabetes mellitus without complications; I10 Essential (primary) hypertension; E78.00 Pure hypercholesterolemia, unspecified; X50.1XXA Overexertion from prolonged static or awkward postures, initial encounter; Z79.899 Other long term (current) drug therapy; Z79.82 Long term (current) use of aspirin; Z79.85 Long-term (current) use of injectable non-insulin antidiabetic drugs; Z90.5 Acquired absence of kidney; F17.200 Nicotine dependence, unspecified, uncomplicated
CPT/HCPCS: 99282